=== PATIENT | male | born 1970 | race Caucasian/White ===

== ENCOUNTER 2016-05-21 08:00 | Outpatient (CLI) | payer MEDICARE, OTHER, MEDICAID | END 2016-05-21 08:01 | disposition home or self-care (01) | DX: E78.5 Hyperlipidemia, unspecified (principal); G40.909 Epilepsy, unspecified, not intractable, without status epilepticus; G80.9 Cerebral palsy, unspecified ==

== ENCOUNTER 2016-09-18 22:29 | Inpatient (IN) | payer MEDICARE, OTHER, MEDICAID ==
[2016-09-18] MEDS ORDERED: ONDANSETRON ODT 4 MG TABLET TL STA (22:55)
[2016-09-18] MEDS ORDERED: ONDANSETRON ODT 4 MG TABLET ONE (22:57)
--- NOTE | 2016-09-18 23:59 | XRAY Preliminary Report ---
Exam: XR Abdomen Acute IMPRESSION: 1. Moderate proximal to mid small bowel dilatation suggesting partial obstruction. 2. Unremarkable chest. [facility] SITE ID: [id number]
--- NOTE | 2016-09-19 00:02 | XRAY Report ---
EXAM: ABDOMINAL SERIES AND PA CHEST EXAM DATE: 09/18/2016 11:39 PM. CLINICAL HISTORY: Multiple abd surg, vomiting today. COMPARISON: 06/02/2015. TECHNIQUE: 2 views abdomen and 1 view chest. FINDINGS: CHEST: Lungs/Pleura: No focal opacities. No effusion or pneumothorax. Mediastinum: Within exam limitations, cardiomediastinal contour is normal. ABDOMEN: Bowel Gas Pattern: There are several mildly dilated proximal to mid small bowel loops. Air is seen th roughout the distal small bowel and colon. Free Air: None. Other: Spinal stabilization rods extending from T1 through the sacrum noted. IMPRESSION: 1. Moderate proximal to mid small bowel dilatation suggesting partial obstruction. 2. Unremarkable chest. [facility] Referring Provider Line: [phone] SITE ID: [id number]
[2016-09-19 00:27] LABS: BASOPHILS % (AUTO) 0.3 %; EOSINOPHILS # (AUTO) 0.2 10^3/uL (0.0-0.7); EOSINOPHILS % (AUTO) 1.3 %; HCT - HEMATOCRIT 46.8 % (42.0-52.0); HGB - HEMOGLOBIN 15.7 g/dL (14.0-18.0); LYMPHOCYTES # (AUTO) 1.9 10^3/uL (1.5-3.5); LYMPHOCYTES % (AUTO) 13.7 %; MEAN CORPUSCULAR HEMOGLOBIN 31.7 pg (27.0-31.0); MEAN CORPUSCULAR HGB CONC 33.6 g/dL (32.0-36.0); MEAN CORPUSCULAR VOLUME 94.3 fL (80.0-94.0); MEAN PLATELET VOLUME 7.2 fL (7.4-11.4); MONOCYTES # (AUTO) 0.9 10^3/uL (0.0-1.0); MONOCYTES % (AUTO) 6.8 %; NEUTROPHILS # (AUTO) 10.9 10^3/uL (1.5-6.6); NEUTROPHILS % (AUTO) 77.9 %; NUCLEATED RED BLOOD CELLS AUTO 0.1 /100WBC; RED BLOOD COUNT 4.97 10^6/uL (4.70-6.10); RED CELL DISTRIBUTION WIDTH 13.4 % (12.0-15.0); UNCORRECTED WHITE BLOOD COUNT 13.9 x10^3/uL; WHITE BLOOD COUNT 13.9 x10^3/uL (4.8-10.8)
[2016-09-19 00:37] LABS: BILIRUBIN,TOTAL 0.6 mg/dL (0.2-1.0); CALCIUM 9.4 mg/dL (8.5-10.3); CREATININE 0.5 mg/dL (0.6-1.2); MAGNESIUM 1.9 mg/dL (1.7-2.8); POTASSIUM 3.8 mmol/L (3.5-5.0)
[2016-09-19 00:38] LABS: ALBUMIN/GLOBULIN RATIO 1.3 (1.0-2.2); TOTAL PROTEIN 7.7 g/dL (6.7-8.2)
[2016-09-19] MEDS ORDERED: IOPAMIDOL-300 100 ML VIAL IVP ONE (01:14)
--- NOTE | 2016-09-19 01:46 | CT Preliminary Report ---
Exam: CT Abdomen/Pelvis W/ IMPRESSION: 1. Borderline proximal to mid small bowel dilatation likely secondary to regional ileus or partial ob struction. There is no evidence of high-grade small bowel obstruction or acute inflammatory process. 2. Status post cholecystectomy. 3. Hiatal hernia. [facility] SITE ID: [id number]
--- NOTE | 2016-09-19 01:49 | CT Report ---
EXAM: CT ABDOMEN AND PELVIS EXAM DATE: 09/19/2016 01:17 AM. CLINICAL HISTORY: Obstruction on x ray. COMPARISONS: 70 08/15/2014 CT, 09/18/2016 abdomen radiographs. TECHNIQUE: Routine helical CT imaging was performed through the abdomen and pelvis. IV contrast: 100 mL Isovue-300. Enteric contrast: No. Reconstructions: Coronal and sagittal. In accordance with CT protocol optimization, one or more of the following dose reduction techniques w ere utilized for this exam: automated exposure control, adjustment of mA and/or KV based on patient s ize, or use of iterative reconstructive technique. FINDINGS: Lung Bases: Hiatal hernia. The visualized lungs are clear.. Liver: Normal. No masses. Gallbladder/Bile Ducts: The gallbladder has been removed. No bile duct dilatation. Spleen: Normal. Pancreas: Normal. Adrenal Glands: Normal. Kidneys: Normal. No masses or hydronephrosis. Peritoneal Cavity/Bowel: Several borderline dilated proximal to mid small bowel loops seen in the lef t upper quadrant. No transition zone or evidence of high-grade obstruction. No evidence of acute appe ndicitis. Pelvic Organs: Normal. The bladder and visualized pelvic organs are within normal limits. Vasculature: No aneurysms or other significant abnormality. Bones: Left femur and total spine fixation hardware noted. Other: None. IMPRESSION: 1. Borderline proximal to mid small bowel dilatation likely secondary to regional ileus or partial ob struction. There is no evidence of high-grade small bowel obstruction or acute inflammatory process. 2. Status post cholecystectomy. 3. Hiatal hernia. [facility] Referring Provider Line: [phone] SITE ID: [id number]
--- NOTE | 2016-09-19 02:04 | ED Physician Documentation ---
PD HPI ABD PAIN - Stated complaint Stated Complaint: VOMITING - Chief complaint Chief Complaint: Abd Pain - History obtained from History obtained from: Family - History of Present Illness Timing - onset: Today Timing - details: Gradual onset Quality: Fullness/distended Location: Epigastric Worsened by: Eating Associated symptoms: Nausea, Vomiting. No: Diarrhea, Constipation, Near syncope / syncope Similar symptoms before: Work up / diagnostics, Treatment, Follow up Recently seen: Not recently seen - Additional information Additional information: Patient is a 46 year old male with a history of cerebral palsy, seizure disorder and multiple episodes of bowel obstruction in presenting to the emergency department for vomiting. According to caregivers the patient had two episodes of vomiting today, but is still passing gas and had a bowel movement. Due to the recurrent obstructions they brought the patient in for evaluation. Patient is minimally verbal at baseline. Review of Systems Constitutional: denies: Fever, Chills Eyes: denies: Irritation Ears: denies: Ear pain Throat: denies: Sore throat Cardiac: denies: Chest pain / pressure Respiratory: denies: Cough, Wheezing GI: reports: Nausea, Vomiting. denies: Abdominal Swelling, Constipation : denies: Dysuria Neurologic: denies: Generalized weakness, Focal weakness Immunocompromised: denies: Immunocompromised PD PAST MEDICAL HISTORY - Past Medical History Cardiovascular: None Respiratory: None Neuro: Cerebral palsy, Seizure disorder Endocrine/Autoimmune: None GI: GERD, GI bleed : Incontinence HEENT: None Psych: Anxiety Musculoskeletal: None Derm: None - Past Surgical History Past Surgical History: Yes General: Cholecystectomy, Bowel surgery Ortho: Spine surgery /[employer]OB CAPTAIN: Other (Left orchiectomy) - Present Medications Home Medications: Ambulatory Orders Medication Instructions Recorded Confirmed Amitriptyline HCl 30 mg PO HS 05/12/13 02/13/15 Docusate Calcium [Surfak] 250 mg PO BID 05/12/13 02/13/15 Multivitamin [Multi-Vitamin Daily] 1 each PO DAILY 05/12/13 02/13/15 Polyethylene Glycol 3350 [Miralax] 17 gm PO DAILY 05/12/13 02/13/15 Atorvastatin [Lipitor] 10 mg PO DAILY 07/30/13 02/13/15 Omeprazole [Prilosec] 20 mg PO BID 07/30/13 02/13/15 Phenytoin [Dilantin] 100 mg PO BID 11/18/14 02/13/15 Ondansetron Odt [Zofran] 4 mg TL Q6H PRN #10 tablet 02/13/15 Ranitidine HCl [Zantac] 150 mg PO BID 28 Days 02/13/15 Sucralfate [Carafate] 1 gm PO ACHS #120 udc 02/13/15 - Allergies Allergies/Adverse Reactions: Allergies Allergy/AdvReac Type Severity Reaction Status Date / Time Sulfa (Sulfonamide Allergy Hives Verified 09/18/16 22:39 Antibiotics) - Social History Does the pt smoke?: No Smoking Status: Never smoker Does the pt drink ETOH?: No Does the pt have substance abuse?: No - Immunizations Immunizations are current?: Yes - POLST Patient has POLST: No PD ED PE NORMAL - Vitals Vital signs reviewed: Yes - General General: No acute distress - HEENT HEENT: Atraumatic, PERRL, Moist mucous membranes - Cardiac Cardiac: RRR, No murmur - Respiratory Respiratory: No respiratory distress, Clear bilaterally - Abdomen Abdomen: Soft - Derm Derm: Normal color, Warm and dry, No rash - Psych Psych: Normal mood PD ED PE EXPANDED - Abdomen Abdomen: Surgical scars. No: Distended Results - Vitals Vitals: Vital Signs - 24 hr 09/18/16 09/19/16 09/19/16 22:39 00:01 01:11 Temperature 36.0 C L 36.4 C L 36.8 C Heart Rate 92 90 93 Respiratory 18 16 16 Rate Blood Pressure 134/97 H 130/101 H 146/95 H O2 Saturation 95 97 96 Oxygen O2 Source Room air - Labs Labs: Laboratory Tests 09/19/16 09/19/16 09/19/16 00:10 00:10 00:10 WBC 13.9 H RBC 4.97 Hgb 15.7 Hct 46.8 MCV 94.3 H MCH 31.7 H MCHC 33.6 RDW 13.4 Plt Count 273 MPV 7.2 L Neut # 10.9 H Lymph # 1.9 Sac # 0.9 Eos # 0.2 Baso # 0.0 Absolute Nucleated RBC 0.02 Nucleated RBCs 0.1 Sodium 140 Potassium 3.8 Chloride 99 L Carbon Dioxide 31 Anion Gap 10.0 BUN 9 Creatinine 0.5 L Estimated GFR (MDRD) 180 Glucose 108 H Calcium 9.4 Phosphorus 4.0 Magnesium 1.9 Total Bilirubin 0.6 AST 35 ALT 31 Alkaline Phosphatase 129 H Total Protein 7.7 Albumin 4.4 Globulin 3.3 Albumin/Globulin Ratio 1.3 Lipase 37 Phenytoin 13.4 - Rads (name of study) abdominal x-ray Radiology: Final report received (findings suggestive of sbo) ct abdomen pelvis Radiology: Final report received, See rad report (partial sbo or ileus. ) PD MEDICAL DECISION MAKING - ED course Complexity details: reviewed old records, reviewed results, re-evaluated patient , considered differential, d/w family ED course: Patient was seen and examined at bedside. patient was well appearing and in no acute distress. patient had had a bowel movement earlier at the house. abdominal films were ordered and patient was treated with zofran 4mg. When patient returned from imaging the results were reviewed and were concerning for a bowel obstruction. IV access was gained and labs were drawn. when patient's labs came back he was sent for imaging. When patient returned from imaging the results were reviewed. there were signs of partial sbo or ileus. Hospitalist was contacted and the case was discussed with her. patient was placed in observation for further evaluation and care. Departure - Departure Disposition: ED Place in Observation Clinical Impression: Small bowel obstruction Condition: Good
[2016-09-19] MEDS ORDERED: PHENYTOIN ER 100 MG CAPSULE PO SCH (02:18)
[2016-09-19] MEDS ORDERED: SODIUM CHLORIDE FLUSH 0.9% 10 ML SYRINGE IVP PRN (02:19)
[2016-09-19] MEDS ORDERED: HYDROmorphone 1 MG/ML SYRINGE IVP PRN (02:19)
[2016-09-19] MEDS ORDERED: ONDANSETRON 4 MG/2 ML VIAL IVP PRN (02:19)
[2016-09-19] MEDS: SODIUM CHLORIDE 0.9% 1,000 ML IV SCH ×3 (03:37→20:24)
[2016-09-19] MEDS: AMITRIPTYLINE 10 MG TABLET PO SCH ×2 (03:38→20:25)
--- NOTE | 2016-09-19 04:11 | HISTORY & PHYSICAL EXAMINATION ---
DATE OF ADMISSION: 09/19/2016 PRIMARY CARE PROVIDER: PRADEEP Lynch. CHIEF COMPLAINT: Nausea, vomiting. HISTORY OF PRESENT ILLNESS: This is a 46-year-old male who has a history of cerebral palsy, lives in a shelter, who presents with onset the evening prior to admission of nausea, vomiting. Denies any abdominal pain or alteration in bowel movements. The patient is nonverbal secondary to cerebral palsy , but family is at bedside. He does have a history of seizure disorder and the family is concerned as he did vomit up his seizure medication, which is Dilantin, this evening. ER evaluation includes CT o f abdomen and pelvis with IV contrast, no enteric contrast was given. Shows borderline proximal to mi d small bowel dilatation likely secondary to regional ileus or partial obstruction. No evidence of hi gh grade small-bowel obstruction or acute inflammatory process. The patient is status post cholecyste ctomy and hiatal hernia is present. PAST MEDICAL HISTORY: History of cerebral palsy for which he is nonverbal, history of hyperlipidemia, history of seizure disorder for which he is on Dilantin, history of GERD, status post cholecystectom y, history of spinal surgery, history of left orchiectomy, history of recurrent small bowel obstructi on, last was 01/2015, history of gastritis with gastrointestinal bleeding, history of urinary inconti nence, history of chronic [place] ailin in back due to scoliosis. MEDICATIONS UPON ADMISSION 1. Docusate 1 tab p.o. daily. 2. Multiple vitamin 1 tab p.o. daily. 3. Omeprazole 40 mg p.o. daily. 4. Ondansetron ODT 4 mg tab p.o. q.6h. p.r.n. nausea and vomiting. 5. MiraLax 17 grams p.o. daily. 6. Ranitidine 150 mg p.o. b.i.d. 7. Sucralfate 1 gram p.o. unknown frequency. 8. Amitriptyline 10 mg p.o. at bedtime daily. 9. Atorvastatin 10 mg p.o. daily. 10. Phenytoin 100 mg p.o. b.i.d. ALLERGIES: SULFA. SOCIAL HISTORY: Lives at a shelter. Smoking and alcohol, none. FAMILY MEDICAL HISTORY: Father is from [place]. Mother is . No brothers or sist ers. At bedside, actually are his foster parents. REVIEW OF SYSTEMS: Denies fevers or chills. All other review of systems are reviewed and are negative except for as in the HPI, although keep in mind the patient is not able to give a history himself. PHYSICAL EXAMINATION VITAL SIGNS: Temperature is afebrile, heart rate is 93, blood pressure 146/95, respiratory rate 16, r oom air saturation 96-100%. CONSTITUTIONAL: Middle-aged male in no acute distress. HEAD: Normocephalic, atraumatic. EYES: PERRLA-DC, EOMI. MOUTH: No lesions. NECK: No adenopathy. CHEST: Clear to auscultation. COR: Regular rate and rhythm, S1, S2 without murmur. ABDOMEN: Soft, bowel sounds are hypoactive. Nontender. EXTREMITIES: No pedal edema. He does have contractures secondary to cerebral palsy. SKIN: No rashes. PSYCHIATRIC: Unable to assess. NEUROLOGIC: He is alert. Unable to assess orientation due to is nonverbal status. He, however, does n ot follow commands. Contractures as noted above. LABORATORY: As above. Also to include sodium 140, potassium 3.8, chloride 99, bicarbonate 31, BUN 9, creatinine 0.8, calculated GFR 180, glucose 108, calcium 9.4, phosphorus 4.0, magnesium 1.9, total bi lirubin 0.6, AST 35, ALT 31, alkaline phosphatase 129, total protein 7.7, albumin 4.4, lipase 37. Whi te count 13.9, hematocrit 46.8, MCV 94.3, platelets 273 with 10.9 polys. Urine is pending at the time of this dictation. ASSESSMENT AND PLAN 1. Partial small-bowel obstruction, acute, present on admission. Make n.p.o. except pertinent medicat ions. IV fluids. We will try to give him a dose of his p.o. Dilantin tonight. Zofran IV p.r.n. 2. Seizure disorder, chronic, present on admission. We will reinstitute p.o. b.i.d. Dilantin; however , if unable to take p.o., will need to administer IV. We will also check a Dilantin level tonight. 3. Hyperlipidemia, acute, present on admission. [place] oral statin when he is able to take. 4. History of gastroesophageal reflux disease and gastritis. We will go ahead and give IV Protonix. 5. Deep venous thrombosis prophylaxis. SCDs and subcutaneous Lovenox. TIME SPENT: 60 minutes. JOB #: [id number] EXT JOB #:[id number]
[2016-09-19] MEDS: PANTOPRAZOLE 40 MG VIAL IVP SCH (06:19)
[2016-09-19] MEDS: SODIUM CHLORIDE FLUSH 0.9% 10 ML SYRINGE IVP SCH ×3 (06:19→20:26)
[2016-09-19] MEDS: HEPARIN 5,000 UNIT/ML VIAL SUBQ SCH ×2 (09:49→20:26)
[2016-09-19] MEDS: PHENYTOIN ER 100 MG CAPSULE PO SCH ×2 (09:53→20:26)
[2016-09-19] MEDS: ATORVASTATIN 10 MG TABLET PO SCH (09:53)
[2016-09-19] MEDS: POLYETHYLENE GLYCOL 3350 17 GM PACKET PO SCH (10:06)
--- NOTE | 2016-09-19 11:58 | PROVIDER PROGRESS NOTE ---
Assessment/Plan - Problem List (1) Small bowel obstruction Assessment/Plan: ongoing. Patient is tolerating home medication but remains NPO . will try to advance diet tomorrow to clear liquid. He has not had any emesis or diarrhea in the afternoon. Continue to monitor for changes. Zofran and Phenergan for nausea and vomiting (2) Cerebral palsy with spastic/ataxic diplegia Assessment/Plan: stable. continue with fall and seizure precautions and PT and OT evaluation and assessment (3) Seizure disorder Assessment/Plan: stable. Dilantin level checked and within normal limits. continue on Dilantin home dosage. seizure precautions (4) Mild mental retardation Assessment/Plan: stable. continue to provide support and caregiver at bedside for support. will need education and teaching for mentally challenged but caregiver at bedside has a good handle on patients care. - Current Meds Current Meds: Current Medications Generic Name Dose Route Start Last Admin Trade Name Freq PRN Reason Stop Dose Admin Amitriptyline HCl 30 mg 09/19/16 03:00 09/19/16 03:38 Elavil PO 30 mg HS SARAH Administration Atorvastatin Calcium 10 mg 09/19/16 09:00 09/19/16 09:53 Lipitor PO 10 mg DAILY SARAH Administration Heparin Sodium (Porcine) 5,000 unit 09/19/16 09:00 09/19/16 09:49 SUBQ 5,000 unit BID SARAH Administration Sodium Chloride 1,000 mls @ 100 mls/hr 09/19/16 03:00 09/19/16 03:37 Normal Saline 0.9% IV 100 mls/hr .Q10H SARAH Administration Pantoprazole Sodium 40 mg 09/19/16 07:00 09/19/16 06:19 Protonix IVP 40 mg QDAC SARAH Administration Phenytoin Sodium 100 mg 09/19/16 09:00 09/19/16 09:53 Dilantin PO 100 mg BID SARAH Administration Polyethylene Glycol 17 gm 09/19/16 09:00 09/19/16 10:06 Miralax PO Not Given DAILY SARAH Sodium Chloride 10 ml 09/19/16 06:00 09/19/16 06:19 Normal Saline Flush 0.9% IVP 10 ml Q8HR SARAH Administration - Lab Result Lab results reviewed: Yes Fish Bone Diagrams: 09/19/16 00:10 09/19/16 00:10 - EKG Results EKG Interpreted Independently: Yes EKG Comparison: Unchanged from prior EKG - Diagnostic Imaging Results Diagnostic Imaging Results: positive: Prelim report reviewed, Final report reviewed Diagnostic Imaging Results Comments: Patient with small bowel obstruction, partial with possible ileus - Other Other Results/Comments: Plan to dischargepatient back to home or skilled care within the next 24-48 hours pending resolution of vomiting and abdominal discomfort with SBO Subjective - Subjective Patient Reports: Resting Comfortably, No Complaints, Other (hungry and wanting to eat, pullling at clothes) Nursing Reports: No Complaints Objective Vital Signs: Vital Signs - 24 hr 09/19/16 09/19/16 09/19/16 02:44 03:26 08:19 Temperature 36.8 C 36.3 C L 36.8 C Heart Rate 91 Heart Rate [ 85 73 Brachial] Respiratory 14 18 18 Rate Blood Pressure 136/93 H Blood Pressure 145/97 H 112/74 [Right Brachial artery] O2 Saturation 94 97 96 Oxygen O2 Source Room air I&O (Last 24 Hrs): Intake and Output Totals x24h 09/17/16 09/18/16 09/19/16 23:59 23:59 23:59 Intake Total 268 Balance 268 General: Alert, Cooperative, No acute distress HEENT: PERRLA Neck: Supple, No JVD Lymphatic: no adenopathy Neuro: Alert, Other (cerebal palsy and unable to assess cranial nerves) Cardiovascular: Regular rate, Normal S1, Normal S2, No murmurs Respiratory: No respiratory distress, Breath sounds nml Abdomen: Normal bowel sounds, Soft, No tenderness, No masses Genitourinary: No Hernia Extremities: No clubbing, No edema, Normal pulses, No tenderness/swelling ( contractures to upper extremities with CP) Skin: No rashes, No breakdown, No significant lesion - Results Results: Laboratory Results WBC 13.9 x10^3/uL (4.8-10.8) H 09/19/16 00:10 RBC 4.97 10^6/uL (4.70-6.10) 09/19/16 00:10 Hgb 15.7 g/dL (14.0-18.0) 09/19/16 00:10 Hct 46.8 % (42.0-52.0) 09/19/16 00:10 MCV 94.3 fL (80.0-94.0) H 09/19/16 00:10 MCH 31.7 pg (27.0-31.0) H 09/19/16 00:10 MCHC 33.6 g/dL (32.0-36.0) 09/19/16 00:10 RDW 13.4 % (12.0-15.0) 09/19/16 00:10 Plt Count 273 10^3/uL (130-450) 09/19/16 00:10 MPV 7.2 fL (7.4-11.4) L 09/19/16 00:10 Neut # 10.9 10^3/uL (1.5-6.6) H 09/19/16 00:10 Lymph # 1.9 10^3/uL (1.5-3.5) 09/19/16 00:10 [place] # 0.9 10^3/uL (0.0-1.0) 09/19/16 00:10 Eos # 0.2 10^3/uL (0.0-0.7) 09/19/16 00:10 Baso # 0.0 10^3/uL (0.0-0.1) 09/19/16 00:10 Absolute Nucleated RBC 0.02 x10^3/uL 09/19/16 00:10 Nucleated RBCs 0.1 /100WBC 09/19/16 00:10 Sodium 140 mmol/L (135-145) 09/19/16 00:10 Potassium 3.8 mmol/L (3.5-5.0) 09/19/16 00:10 Chloride 99 mmol/L (101-111) L 09/19/16 00:10 Carbon Dioxide 31 mmol/L (21-32) 09/19/16 00:10 Anion Gap 10.0 (6-13) 09/19/16 00:10 BUN 9 mg/dL (6-20) 09/19/16 00:10 Creatinine 0.5 mg/dL (0.6-1.2) L 09/19/16 00:10 Estimated GFR (MDRD) 180 (>89) 09/19/16 00:10 Glucose 108 mg/dL (70-100) H 09/19/16 00:10 Calcium 9.4 mg/dL (8.5-10.3) 09/19/16 00:10 Phosphorus 4.0 mg/dL (2.5-4.6) 09/19/16 00:10 Magnesium 1.9 mg/dL (1.7-2.8) 09/19/16 00:10 Total Bilirubin 0.6 mg/dL (0.2-1.0) 09/19/16 00:10 AST 35 IU/L (10-42) 09/19/16 00:10 ALT 31 IU/L (10-60) 09/19/16 00:10 Alkaline Phosphatase 129 IU/L (42-121) H 09/19/16 00:10 Total Protein 7.7 g/dL (6.7-8.2) 09/19/16 00:10 Albumin 4.4 g/dL (3.2-5.5) 09/19/16 00:10 Globulin 3.3 g/dL (2.1-4.2) 09/19/16 00:10 Albumin/Globulin Ratio 1.3 (1.0-2.2) 09/19/16 00:10 Lipase 37 U/L (22-51) 09/19/16 00:10 Phenytoin 13.4 ug/mL 09/19/16 00:10 - Procedures Procedures: Procedures ESOPHAGOGASTRODUODENOSCOPY [EGD] W/CLOSED BIOPSY (07/31/13) INSERT GASTRIC TUBE NEC (06/23/14) INSERTION OF INFUSION DEVICE INTO R ATRIUM, PERC APPROACH (02/03/15) ULTRASONOGRAPHY OF RIGHT HEART (02/03/15)
[2016-09-19 14:06] LABS: BILIRUBIN,URINE NEGATIVE (NEGATIVE)
[2016-09-19 14:32] LABS: UR CULTURE IF IND NOT INDICATED; WBC,URINE 0-3 /HPF (0-3)
[2016-09-20] MEDS: SODIUM CHLORIDE FLUSH 0.9% 10 ML SYRINGE IVP SCH ×3 (05:15→21:19)
[2016-09-20] MEDS: SODIUM CHLORIDE 0.9% 1,000 ML IV SCH ×2 (05:48→20:54)
[2016-09-20] MEDS: PANTOPRAZOLE 40 MG VIAL IVP SCH (05:48)
[2016-09-20 06:06] LABS: BASOPHILS % (AUTO) 0.5 %; EOSINOPHILS # (AUTO) 0.3 10^3/uL (0.0-0.7); EOSINOPHILS % (AUTO) 5.3 %; HCT - HEMATOCRIT 42.5 % (42.0-52.0); LYMPHOCYTES % (AUTO) 30.6 %; MEAN CORPUSCULAR HEMOGLOBIN 31.8 pg (27.0-31.0); MEAN CORPUSCULAR HGB CONC 32.9 g/dL (32.0-36.0); MEAN CORPUSCULAR VOLUME 96.7 fL (80.0-94.0); MEAN PLATELET VOLUME 7.4 fL (7.4-11.4); MONOCYTES # (AUTO) 0.6 10^3/uL (0.0-1.0); NEUTROPHILS # (AUTO) 3.5 10^3/uL (1.5-6.6); NEUTROPHILS % (AUTO) 54.6 %; NUCLEATED RED BLOOD CELLS AUTO 0.1 /100WBC; RED CELL DISTRIBUTION WIDTH 13.6 % (12.0-15.0); UNCORRECTED WHITE BLOOD COUNT 6.4 x10^3/uL; WHITE BLOOD COUNT 6.4 x10^3/uL (4.8-10.8)
[2016-09-20 06:17] LABS: ALBUMIN/GLOBULIN RATIO 1.3 (1.0-2.2); BILIRUBIN,TOTAL 0.5 mg/dL (0.2-1.0); CALCIUM 8.1 mg/dL (8.5-10.3); CREATININE 0.5 mg/dL (0.6-1.2); MAGNESIUM 1.6 mg/dL (1.7-2.8); PHOSPHORUS 3.1 mg/dL (2.5-4.6); POTASSIUM 3.8 mmol/L (3.5-5.0); TOTAL PROTEIN 6.5 g/dL (6.7-8.2)
--- NOTE | 2016-09-20 06:55 | PROVIDER PROGRESS NOTE ---
Assessment/Plan - Problem List (1) Small bowel obstruction Assessment/Plan: improving, white blood cell cound decreased today and patient is feeling better. nursing at bedside to clean patient. no vomiting overnight. no abdominal pain. will try to advance to clear diet today. no fever or chills noted (2) Cerebral palsy with spastic/ataxic diplegia Assessment/Plan: stable. continue with PT and OT evaluation (3) Seizure disorder Assessment/Plan: stable. continue with precautions and on dilantin. (4) Mild mental retardation Assessment/Plan: stable. continue to provide support for patient and caregiver at bedside for support (5) Low blood magnesium level Assessment/Plan: new. replace magnesium level with magnesium sulfate 2gm IV x 2 and repeat level in morning - Current Meds Current Meds: Current Medications Generic Name Dose Route Start Last Admin Trade Name Freq PRN Reason Stop Dose Admin Amitriptyline HCl 30 mg 09/19/16 03:00 09/19/16 20:25 Elavil PO 30 mg HS SARAH Administration Atorvastatin Calcium 10 mg 09/19/16 09:00 09/19/16 09:53 Lipitor PO 10 mg DAILY SARAH Administration Heparin Sodium (Porcine) 5,000 unit 09/19/16 09:00 09/19/16 20:26 SUBQ 5,000 unit BID SARAH Administration Sodium Chloride 1,000 mls @ 100 mls/hr 09/19/16 03:00 09/20/16 05:48 Normal Saline 0.9% IV 100 mls/hr .Q10H SARAH Administration Ondansetron HCl 4 mg 09/19/16 02:19 09/19/16 21:37 Zofran Inj IVP 4 mg Q6HR PRN Administration Nausea / Vomiting Pantoprazole Sodium 40 mg 09/19/16 07:00 09/20/16 05:48 Protonix IVP 40 mg QDAC SARAH Administration Phenytoin Sodium 100 mg 09/19/16 09:00 09/19/16 20:26 Dilantin PO 100 mg BID SARAH Administration Polyethylene Glycol 17 gm 09/19/16 09:00 09/19/16 10:06 Miralax PO Not Given DAILY SARAH Sodium Chloride 10 ml 09/19/16 02:19 09/19/16 21:37 Normal Saline Flush 0.9% IVP 10 ml PRN PRN Administration NEEDED PER PROVIDER ORDERS Sodium Chloride 10 ml 09/19/16 06:00 09/20/16 05:15 Normal Saline Flush 0.9% IVP Not Given Q8HR SARAH - Lab Result Lab results reviewed: Yes Fish Bone Diagrams: 09/20/16 05:26 09/20/16 05:26 Other Lab Results: Abnormal Lab Results 09/19/16 09/19/16 09/19/16 00:10 00:10 13:45 WBC 13.9 x10^3/uL H x10^3/uL (4.8-10.8) RBC MCV 94.3 fL H fL (80.0-94.0) MCH 31.7 pg H pg (27.0-31.0) MPV 7.2 fL L fL (7.4-11.4) Neut # 10.9 10^3/uL H 10^3/uL (1.5-6.6) Chloride 99 mmol/L L mmol/L (101-111) Creatinine 0.5 mg/dL L mg/dL (0.6-1.2) Glucose 108 mg/dL H mg/dL (70-100) Calcium Magnesium Alkaline Phosphatase 129 IU/L H IU/L (42-121) Total Protein Urine pH 8.0 PH H PH (5.0-7.5) 09/20/16 09/20/16 05:26 05:26 WBC RBC 4.40 10^6/uL L 10^6/uL (4.70-6.10) MCV 96.7 fL H fL (80.0-94.0) MCH 31.8 pg H pg (27.0-31.0) MPV Neut # Chloride Creatinine 0.5 mg/dL L mg/dL (0.6-1.2) Glucose Calcium 8.1 mg/dL L mg/dL (8.5-10.3) Magnesium 1.6 mg/dL L mg/dL (1.7-2.8) Alkaline Phosphatase 127 IU/L H IU/L (42-121) Total Protein 6.5 g/dL L g/dL (6.7-8.2) Urine pH - EKG Results EKG Interpreted Independently: No - Diagnostic Imaging Results Diagnostic Imaging Results: positive: Prelim report reviewed, Final report reviewed - Additional Planning Condition/Complexity: Improved My Orders: My Active Orders 09/20/16 06:50 VITAMIN B12 [IAI] Stat 09/20/16 07:00 Magnesium Sulfate 2 Gram [Magnesium Sulfate] 50 ml IV Q20M Plan Discussed with:: Legal Adarsh, Case Management Time Spent: 31-60 minutes Additional Planning Notes: Patient will advance diet today with hope of no vomiting or nausea. Zofran to be given prior to eating. aspirations precautions and head of the bed elevated. Plan to discharge patient within the next 24-48 hours if tolerating food and no emesis noted Subjective - Subjective Patient Reports: Feeling Better (no abdominal pain or vomiting or nausea.), Resting Comfortably, No Complaints Nursing Reports: No Complaints (no vomiting overnight. no nausea. no chest pain or shortness of breath) Objective Vital Signs: Vital Signs - 24 hr 09/19/16 09/19/16 09/19/16 08:19 12:09 16:11 Temperature 36.8 C 36.6 C 37.2 C Heart Rate [ 73 78 76 Brachial] Respiratory 18 19 18 Rate Blood Pressure 112/74 121/87 H 136/85 H [Right Brachial artery] O2 Saturation 96 98 96 09/19/16 09/20/16 09/20/16 20:20 01:00 05:53 Temperature 37.0 C 37.0 C 36.6 C Heart Rate [ 82 69 72 Brachial] Respiratory 16 16 20 Rate Blood Pressure 138/88 H 132/86 H 114/75 [Right Brachial artery] O2 Saturation 97 95 95 Oxygen O2 Source Room air I&O (Last 24 Hrs): Intake and Output Totals x24h 09/18/16 09/19/16 09/20/16 23:59 23:59 23:59 Intake Total 1670 942 Output Total 200 Balance 1470 942 General: Alert, Cooperative HEENT: PERRLA Neck: Supple, No JVD Lymphatic: no adenopathy Neuro: Alert, Other (cannot assess cranial nerves due to mental staus-handicap) Cardiovascular: Regular rate, Normal S1, Normal S2, No murmurs Respiratory: Chest non-tender, No respiratory distress, Breath sounds nml Abdomen: Normal bowel sounds, Soft, No tenderness Extremities: No clubbing, No cyanosis, No edema, Other (contractures to upper extremities-chronic) Skin: No rashes, No significant lesion Comments/Notes: sacral redness improved on buttock region - Results Results: Laboratory Results WBC 6.4 x10^3/uL (4.8-10.8) 09/20/16 05: RBC 4.40 10^6/uL (4.70-6.10) L 09/20/16 05:26 Hgb 14.0 g/dL (14.0-18.0) 09/20/16 05:26 Hct 42.5 % (42.0-52.0) 09/20/16 05: MCV 96.7 fL (80.0-94.0) H 09/20/16 05:26 MCH 31.8 pg (27.0-31.0) H 09/20/16 05: MCHC 32.9 g/dL (32.0-36.0) 09/20/16 05: RDW 13.6 % (12.0-15.0) 09/20/16 05:26 Plt Count 216 10^3/uL (130-450) 09/20/16 05: MPV 7.4 fL (7.4-11.4) 09/20/16 05:26 Neut # 3.5 10^3/uL (1.5-6.6) 09/20/16 05:26 Lymph # 2.0 10^3/uL (1.5-3.5) 09/20/16 05:26 [place] # 0.6 10^3/uL (0.0-1.0) 09/20/16 05:26 Eos # 0.3 10^3/uL (0.0-0.7) 09/20/16 05:26 Baso # 0.0 10^3/uL (0.0-0.1) 09/20/16 05:26 Absolute Nucleated RBC 0.01 x10^3/uL 09/20/16 05:26 Nucleated RBCs 0.1 /100WBC 09/20/16 05:26 Sodium 137 mmol/L (135-145) 09/20/16 05:26 Potassium 3.8 mmol/L (3.5-5.0) 09/20/16 05:26 Chloride 102 mmol/L (101-111) 09/20/16 05:26 Carbon Dioxide 24 mmol/L (21-32) 09/20/16 05:26 Anion Gap 11.0 (6-13) 09/20/16 05:26 BUN 9 mg/dL (6-20) 09/20/16 05:26 Creatinine 0.5 mg/dL (0.6-1.2) L 09/20/16 05:26 Estimated GFR (MDRD) 180 (>89) 09/20/16 05:26 Glucose 70 mg/dL (70-100) 09/20/16 05:26 Calcium 8.1 mg/dL (8.5-10.3) L 09/20/16 05:26 Phosphorus 3.1 mg/dL (2.5-4.6) 09/20/16 05:26 Magnesium 1.6 mg/dL (1.7-2.8) L 09/20/16 05:26 Total Bilirubin 0.5 mg/dL (0.2-1.0) 09/20/16 05:26 AST 29 IU/L (10-42) 09/20/16 05:26 ALT 31 IU/L (10-60) 09/20/16 05:26 Alkaline Phosphatase 127 IU/L (42-121) H 09/20/16 05:26 Total Protein 6.5 g/dL (6.7-8.2) L 09/20/16 05:26 Albumin 3.7 g/dL (3.2-5.5) 09/20/16 05:26 Globulin 2.8 g/dL (2.1-4.2) 09/20/16 05:26 Albumin/Globulin Ratio 1.3 (1.0-2.2) 09/20/16 05:26 Lipase 37 U/L (22-51) 09/19/16 00:10 Urine Color YELLOW 09/19/16 13:45 Urine Clarity CLEAR (CLEAR) 09/19/16 13:45 Urine pH 8.0 PH (5.0-7.5) H 09/19/16 13:45 Ur Specific [place] 1.010 (1.002-1.030) 09/19/16 13:45 Urine Protein NEGATIVE mg/dL (NEGATIVE) 09/19/16 13:45 Urine Glucose (UA) NEGATIVE mg/dL (NEGATIVE) 09/19/16 13:45 Urine Ketones NEGATIVE mg/dL (NEGATIVE) 09/19/16 13:45 Urine Occult Blood NEGATIVE (NEGATIVE) 09/19/16 13:45 Urine Nitrite NEGATIVE (NEGATIVE) 09/19/16 13:45 Urine Bilirubin NEGATIVE (NEGATIVE) 09/19/16 13:45 Urine Urobilinogen 0.2 (NORMAL) E.U./dL (NORMAL) 09/19/16 13:45 Ur Leukocyte Esterase NEGATIVE (NEGATIVE) 09/19/16 13:45 Urine RBC None Seen /HPF (0-5) 09/19/16 13:45 Urine WBC 0-3 /HPF (0-3) 09/19/16 13:45 Ur Squamous Epith Cells NONE SEEN (<= Few) 09/19/16 13:45 Amorphous Sediment Few /LPF 09/19/16 13:45 Urine Bacteria Few /HPF (None Seen) 09/19/16 13:45 Urine Culture Comments NOT INDICATED 09/19/16 13:45 Phenytoin 13.4 ug/mL 09/19/16 00:10 - Procedures Procedures: Procedures ESOPHAGOGASTRODUODENOSCOPY [EGD] W/CLOSED BIOPSY (07/31/13) INSERT GASTRIC TUBE NEC (06/23/14) INSERTION OF INFUSION DEVICE INTO R ATRIUM, PERC APPROACH (02/03/15) ULTRASONOGRAPHY OF RIGHT HEART (02/03/15)
[2016-09-20] MEDS: MAGNESIUM SULFATE 2 GRAM 50 ML IV SCH ×2 (07:22→09:16)
[2016-09-20] MEDS: POLYETHYLENE GLYCOL 3350 17 GM PACKET PO SCH (09:25)
[2016-09-20] MEDS: PHENYTOIN ER 100 MG CAPSULE PO SCH ×2 (09:25→20:55)
[2016-09-20] MEDS: ATORVASTATIN 10 MG TABLET PO SCH (09:25)
[2016-09-20] MEDS: HEPARIN 5,000 UNIT/ML VIAL SUBQ SCH ×2 (09:25→20:49)
[2016-09-20] MEDS: AMITRIPTYLINE 10 MG TABLET PO SCH (20:54)
[2016-09-20] MEDS ORDERED: MINERAL OIL/PETROLAT OPHTH OINT EACHEYE PRN (23:24)
[2016-09-21] MEDS ORDERED: CARBOXYMETHYLCELLULOSE OPHTH DROPS EACHEYE PRN (00:57)
[2016-09-21 05:14] LABS: BASOPHILS % (AUTO) 0.5 %; EOSINOPHILS # (AUTO) 0.3 10^3/uL (0.0-0.7); EOSINOPHILS % (AUTO) 5.9 %; HCT - HEMATOCRIT 42.2 % (42.0-52.0); LYMPHOCYTES # (AUTO) 1.6 10^3/uL (1.5-3.5); LYMPHOCYTES % (AUTO) 30.7 %; MEAN CORPUSCULAR HEMOGLOBIN 31.5 pg (27.0-31.0); MEAN CORPUSCULAR HGB CONC 33.1 g/dL (32.0-36.0); MEAN CORPUSCULAR VOLUME 95.2 fL (80.0-94.0); MEAN PLATELET VOLUME 7.3 fL (7.4-11.4); MONOCYTES # (AUTO) 0.6 10^3/uL (0.0-1.0); MONOCYTES % (AUTO) 10.9 %; NEUTROPHILS # (AUTO) 2.8 10^3/uL (1.5-6.6); NUCLEATED RED BLOOD CELLS AUTO 0.1 /100WBC; RED BLOOD COUNT 4.43 10^6/uL (4.70-6.10); RED CELL DISTRIBUTION WIDTH 13.6 % (12.0-15.0); UNCORRECTED WHITE BLOOD COUNT 5.4 x10^3/uL; WHITE BLOOD COUNT 5.4 x10^3/uL (4.8-10.8)
[2016-09-21 05:24] LABS: ALBUMIN/GLOBULIN RATIO 1.2 (1.0-2.2); BILIRUBIN,TOTAL 0.5 mg/dL (0.2-1.0); CALCIUM 8.2 mg/dL (8.5-10.3); CREATININE 0.4 mg/dL (0.6-1.2); POTASSIUM 3.6 mmol/L (3.5-5.0); TOTAL PROTEIN 6.6 g/dL (6.7-8.2)
[2016-09-21] MEDS: SODIUM CHLORIDE FLUSH 0.9% 10 ML SYRINGE IVP SCH (06:38)
[2016-09-21] MEDS: SODIUM CHLORIDE 0.9% 1,000 ML IV SCH (06:38)
[2016-09-21] MEDS: PANTOPRAZOLE 40 MG VIAL IVP SCH (06:38)
--- NOTE | 2016-09-21 07:08 | Discharge Plan ---
Discharge Plan Disposition: 01 Home, Self Care Condition: Good Diet: Regular Activity Restrictions: Activity as Tolerated Shower Restrictions: No Driving Restrictions: No Assistance Devices: Wheelchair, Walker Weight Bearing: Full Weight Instruction Topics: Obstruction Sm Bowel Additional Instructions or Follow Up instructions: Activity: As tolerated. please get plenty of rest during the day for the first week you are home. 8 hours of sleep at night is best Diet: Resume your regular diet as usual. If you experience nausea or vomiting, change to clear liquids until your stomach can tolerate a full diet. It is best to eat a bland diet the first couple days you are home. This includes brown rice , bananas, whole wheat toast, and crackers. Avoid dairy products for a couple days. Be sure to drink plenty of water. No soda products for at least a week Follow up: Please see your primary care provider within 1 week of discharge from the hospital. He may refer you to a cook fishing vessel for furher evaluation of the small bowel. Take all home medication as prescribed and return to the ER if symptoms worsen or you experience chest pain or shortness of breath Follow-Up Care: Outpatient Rehab - PT, Outpatient Rehab - OT No Smoking: If you smoke, Please STOP! Call for help.
[2016-09-21 07:56] VITALS: BP 148/89
[2016-09-21] MEDS: PHENYTOIN ER 100 MG CAPSULE PO SCH (09:00)
[2016-09-21] MEDS: ATORVASTATIN 10 MG TABLET PO SCH (09:00)
[2016-09-21] MEDS: POLYETHYLENE GLYCOL 3350 17 GM PACKET PO SCH (09:01)
[2016-09-21] MEDS: HEPARIN 5,000 UNIT/ML VIAL SUBQ SCH (09:02)
--- NOTE | 2016-09-21 20:08 | DISCHARGE SUMMARY ---
DATE OF ADMISSION: 09/20/2016 DATE OF DISCHARGE: 09/21/2016 ADMITTING DIAGNOSIS: Partial small-bowel obstruction. DISCHARGE DIAGNOSES 1. Acute partial small bowel obstruction. 2. Chronic seizure disorder, unspecified. 3. Mixed hyperlipidemia. 4. Gastroesophageal reflux disease with acute gastritis. PROCEDURES 1. Acute abdominal series. Impression shows moderate proximal to mid small bowel dilatation suggestin g partial obstruction and unremarkable chest x-ray. 2. Abdominal pelvis CT. Impression shows borderline [id number] small bowel dilatation, likely se condary to regional ileus or partial obstruction. No evidence of high-grade small bowel obstruction o r acute inflammatory process, hiatal hernia, status post cholecystectomy. CONSULTATIONS: None. HOSPITAL COURSE AND TREATMENT: The patient is a 46-year-old male who presented to the ER with a compl aint of vomiting, nausea x 1 day. The patient has significant medical history that includes cerebral palsy. He was in a shelter and is nonverbal secondary to his cerebral palsy. He was accompanied by a caregiver in the home. The patient has a history of seizure disorder, and he is on Dilantin. He wa s brought into the ER because the family was worried that the vomiting was causing him not to get his seizure medication. After he was evaluated in the ER, a CT of the abdomen and pelvis showed possible small-bowel obstruction which could be contributing to his nausea and vomiting. The patient was subs equently then admitted for further evaluation and workup. The patient was placed on IV fluids for gen tle hydration. He was placed on n.p.o. status. He was given p.o. Dilantin, which he could keep down t he night of admission. He was given Zofran IV p.r.n. for nausea. For his seizure disorder, he was shantal ated with the Dilantin b.i.d. oral and, if need be, to administer it IV. Dilantin level was also [facility] ked which was found to be within normal limits. For his chronic hyperlipidemia, he was treated with a statin, atorvastatin, which he takes daily. For his acid reflux, he was treated with omeprazole, ran itidine, and sucralfate, which are also home medications. He continued on amitriptyline at night for sleep. He continued on his Colace and MiraLax for bowel regime, and he was given a multivitamin for s upplemental support. DVT prophylaxis was with SCDs and subcutaneous Lovenox. Physical and Occupationa l Therapy did assess the patient. Although he had significant contractures, he did get up to the side of the bed with assist. On the day of discharge, the patient's vital signs were stable with a temper ature of 36.4, blood pressure 148/89, respirations 20, and saturating 99% on room air. The patient cast d no expression of pain at that time. Nausea and vomiting had ceased. The patient was discharged home on all his home medications with no changes. The caregiver from the snf was present to take th e patient back to the snf. MEDICATIONS AT TIME OF DISCHARGE 1. Amitriptyline. 2. Colace. 3. Dilantin. 4. Atorvastatin. 5. MiraLax. 6. Multivitamin. 7. Protonix. 8. Tylenol. 9. Ranitidine. 10. Zofran. PHYSICAL EXAMINATION CONSTITUTIONAL: The patient was alert, in no acute distress. EYES: Pupils are equal, round and react to light and accommodation. Conjunctivae and sclerae were non icteric, not injected. EARS, NOSE, AND THROAT: Nares were patent. No nasal discharge. Oropharynx with no masses, exudates or lesions. Mucous membranes were moist. NECK: Supple. No thyromegaly. CARDIOVASCULAR: S1, S2 were noted. Regular rate and rhythm, no murmur. RESPIRATORY: Breath sounds were clear and equal bilaterally to auscultation and percussion. No retrac tions or nasal flaring. GASTROINTESTINAL: Abdomen was soft. Bowel sounds were hyperactive. Nontender. No guarding or rebound. MUSCULOSKELETAL: No pedal edema. He has contractures secondary to cerebral palsy. No cyanosis. Pulses were palpable to upper and lower extremities. SKIN: Warm, dry, intact. No evidence of rashes or lesions. PSYCHIATRIC: The patient appears to have normal affect, however, difficult to assess because of cereb ral palsy. No suicidal ideation was expressed. NEUROLOGIC: Alert. Cranial nerves 2 through 7 unable to be assessed due to nonverbal status. He does not follow commands. HEMATOLOGIC: No active bleeding. The patient is hemodynamically stable. LYMPHATICS: No cervical, axillary, supraclavicular lymphadenopathy is noted. GENITOURINARY: No CVA tenderness. No masses palpated. No bladder distention. INSTRUCTIONS FOR DISCHARGE AND FOLLOWUP 1. Activity: Continue activities of daily living as tolerated. Please get plenty of sleep. Throughout the day, rest breaks are suggested. 2. Diet: Please continue diet as tolerated prior to admission. Drink plenty of fluids throughout the day, avoid soda, and limit caffeine. 3. Followup: Please follow up with primary care provider within 1 week of discharge. He will need to see a mill house supervisor for further worsening of symptoms or nausea or vomiting. If symptoms should recur, please call your primary care provider. If you experience shortness of breath or chest pain, be bowser call 911 and return to the ER. Time spent on discharge instructions, planning, and assessment was 45 minutes. All information was gi francisca to care provider with the patient, along with discharge instructions for followup. Caregiver joseph ha understood all instructions that were given. The patient was safe to be discharged home. JOB #: [id number] EXT JOB #:[id number]
== END 2016-09-21 10:36 | disposition home or self-care (01) | DRG 389 ==
LOC: ED 22:29 → MS 09-19 02:19 → OBSVTOIN 09-20 12:40
PROVIDERS: ADMIT Specialist; ATTEND Nurse Practitioner
DX: K56.60 Unspecified intestinal obstruction (principal); G80.1 Spastic diplegic cerebral palsy; E78.5 Hyperlipidemia, unspecified; G40.909 Epilepsy, unspecified, not intractable, without status epilepticus; K29.00 Acute gastritis without bleeding; K29.70 Gastritis, unspecified, without bleeding; K44.9 Diaphragmatic hernia without obstruction or gangrene; F41.9 Anxiety disorder, unspecified; E83.42 Hypomagnesemia; K21.9 Gastro-esophageal reflux disease without esophagitis; E78.2 Mixed hyperlipidemia; G80.4 Ataxic cerebral palsy; F70 Mild intellectual disabilities; Z90.49 Acquired absence of other specified parts of digestive tract; Z79.899 Other long term (current) drug therapy
CPT/HCPCS: 36415; 74022; 74177; 80053; 80185; 81001; 82607; 83690; 83735; 84100; 85025; 87086; 96361; 96365; 96366; 96375; 96376; 99284

== ENCOUNTER 2017-06-30 17:13 | Outpatient (CLI) | payer MEDICARE, OTHER, MEDICAID ==
[2017-06-30 12:47] LABS: BASOPHILS # (AUTO) 0.1 10^3/uL (0.0-0.1); EOSINOPHILS # (AUTO) 0.4 10^3/uL (0.0-0.7); EOSINOPHILS % (AUTO) 5.5 %; HGB - HEMOGLOBIN 14.7 g/dL (14.0-18.0); LYMPHOCYTES # (AUTO) 2.1 10^3/uL (1.5-3.5); LYMPHOCYTES % (AUTO) 31.3 %; MEAN CORPUSCULAR HEMOGLOBIN 32.7 pg (27.0-31.0); MEAN PLATELET VOLUME 7.7 fL (7.4-11.4); MONOCYTES # (AUTO) 0.7 10^3/uL (0.0-1.0); MONOCYTES % (AUTO) 10.6 %; NEUTROPHILS # (AUTO) 3.4 10^3/uL (1.5-6.6); NEUTROPHILS % (AUTO) 51.6 %; PLT - PLATELET COUNT 272 10^3/uL (130-450); RED CELL DISTRIBUTION WIDTH 13.4 % (12.0-15.0); WHITE BLOOD COUNT 6.6 x10^3/uL (4.8-10.8)
[2017-06-30 13:09] LABS: ALBUMIN 4.4 g/dL (3.2-5.5); ALBUMIN/GLOBULIN RATIO 1.4 (1.0-2.2); ALKALINE PHOSPHATASE 134 IU/L (42-121); ALT ALANINE AMINOTRANSFERASE 41 IU/L (10-60); AST ASPARTATE AMINOTRANSFERASE 36 IU/L (10-42); BILIRUBIN,TOTAL 0.3 mg/dL (0.2-1.0); BUN - BLOOD UREA NITROGEN 17 mg/dL (6-20); CALCIUM 9.1 mg/dL (8.5-10.3); CARBON DIOXIDE - CO2 29 mmol/L (21-32); CHLORIDE 106 mmol/L (101-111); CHOL/HDL RATIO 3.8 (<5.0); CHOLESTEROL 157 mg/dL; CREATININE 0.7 mg/dL (0.6-1.2); GFR - MDRD 121 (>89); GLUCOSE 79 mg/dL (70-100); HDL CHOLESTEROL 41 mg/dL; PHENYTOIN (DILANTIN) 8.5 ug/mL; SODIUM 141 mmol/L (135-145); TOTAL PROTEIN 7.6 g/dL (6.7-8.2)
[2017-06-30 13:55] LABS: LDL CHOLESTEROL,DIRECT 58 mg/dL; LDLD/HDL RATIO 1.4 (<3.6)
== END 2017-06-30 17:14 | disposition home or self-care (01) ==
LOC: LAB.N 17:13
PROVIDERS: ATTEND Family Medicine
DX: E78.5 Hyperlipidemia, unspecified (principal); R56.9 Unspecified convulsions; Z51.81 Encounter for therapeutic drug level monitoring; Z79.899 Other long term (current) drug therapy
CPT/HCPCS: 36415; 80053; 80061; 80185; 83721; 84443; 85025

== ENCOUNTER 2017-08-03 11:48 | Emergency (ER) | payer MEDICARE, OTHER, MEDICAID ==
--- NOTE | 2017-08-03 12:22 | ED Physician Documentation ---
PD HPI OPHTHO - Stated complaint Stated Complaint: RT EYE REDNESS - Chief complaint Chief Complaint: Heent - History obtained from History obtained from: Caregiver - History of Present Illness Timing - onset: Other (This is a 47-year-old gentleman with cerebral palsy, nonverbal who presents with a caregiver from an assisted living/shelter. For the last 4 days or so they have noticed that his right eye is red and he has been scratching at it. There was no specific injury and he does not wear contacts. No noted URI symptoms.) Review of Systems Unable to obtain: Other (Cerebral palsy/nonverbal) PD PAST MEDICAL HISTORY - Past Medical History Past Medical History: Yes Cardiovascular: High cholesterol Respiratory: None Neuro: Cerebral palsy, Seizure disorder Endocrine/Autoimmune: None GI: GERD, GI bleed : Incontinence HEENT: None Psych: Anxiety Musculoskeletal: None Derm: None - Past Surgical History Past Surgical History: Yes General: Cholecystectomy, Bowel surgery Ortho: Spine surgery /CYCLE CONSULTANT: Other - Present Medications Home Medications: Ambulatory Orders Medication Instructions Recorded Confirmed Amitriptyline HCl 30 mg PO QPM 05/12/13 08/03/17 Multivitamin [Multi-Vitamin Daily] 1 tab PO DAILY 05/12/13 08/03/17 Atorvastatin [Lipitor] 10 mg PO QPM 07/30/13 08/03/17 Phenytoin [Dilantin] 100 mg PO DAILY 11/18/14 08/03/17 Acetaminophen [Tylenol] 650 mg PO Q4H PRN 09/19/16 08/03/17 Docusate Sodium 250Mg Capsule 250 mg PO BID PRN 09/19/16 08/03/17 [Colace 250Mg Capsule] Ondansetron Odt [Zofran Odt] 4 mg TL Q6H PRN 09/19/16 08/03/17 Phenytoin [Dilantin] 200 mg PO QPM 09/19/16 08/03/17 Pantoprazole [Protonix] 40 mg PO QDAC 09/20/16 08/03/17 Ranitidine HCl [Zantac] 300 mg PO QPM 09/20/16 08/03/17 - Allergies Allergies/Adverse Reactions: Allergies Allergy/AdvReac Type Severity Reaction Status Date / Time Sulfa (Sulfonamide Allergy Hives Verified 09/18/16 22:39 Antibiotics) adhesive tape AdvReac Rash Verified 08/03/17 11:55 - Social History Does the pt smoke?: No Smoking Status: Never smoker Does the pt drink ETOH?: No Does the pt have substance abuse?: No - Immunizations Immunizations are current?: Yes - POLST Patient has POLST: No PD ED PE NORMAL - Vitals Vital signs reviewed: Yes - General General: No acute distress - HEENT HEENT: PERRL, EOMI, Other (R conjunctivitis with area of corneal fluorescein uptake inferior. Could be scratch but given timecourse worried about ulcer. Somewhat hard to tell as pt not very cooperative.) - Neck Neck: Supple, no meningeal sign, No bony TTP - Neuro Eye Opening: Spontaneous Motor: Obeys Commands Verbal: None GCS Score: 11 Results - Vitals Vitals: Vital Signs - 24 hr 08/03/17 11:51 Temperature 36.4 C L Heart Rate 89 Respiratory 14 Rate Blood Pressure 140/85 H O2 Saturation 100 Oxygen O2 Source Room air PD MEDICAL DECISION MAKING - ED course ED course: This is a gentleman with what appears to be a corneal ulcer versus a scratch, given the time course and lack of available history, I am treating it as an ulcer with every 2 hour fluoroquinolone drops and next day ophthalmology follow- up. Departure - Departure Disposition: 01 Home, Self Care Clinical Impression: Corneal ulcer Qualifiers: Laterality: right Qualified Code(s): H16.001 - Unspecified corneal ulcer, right eye Condition: Good Record reviewed to determine appropriate education?: Yes Instructions: ED Ulcer Cornea Follow-Up: Ethan Allen MD [Provider Admit Priv/Credential] - Tomorrow Comments: It appears that Mr. Drake has a corneal ulcer, it could also be a scratch, but to be safe we are treating it as an ulcer. He needs to take the right eyedrop every 2 hours including overnight so an alarm must be set and somebody must administer them every 2 hours until he sees the eye doctor tomorrow. Call the eye doctor first thing in the morning. Your blood pressure was elevated today on check into the emergency department. This does not mean that you have hypertension, it is a common phenomenon to come to the emergency department and have elevated blood pressure. I recommend that you see your primary care physician within the week to have it rechecked when you are feeling better.
[2017-08-03 12:46] VITALS: BP 140/104
[2017-08-03] MEDS ORDERED: levoFLOXacin 0.5% OPHTH DROPS 5 ML RIGHTEYE SCH (13:00)
== END 2017-08-03 12:43 | disposition home or self-care (01) ==
LOC: ED 11:48
DX: H16.001 Unspecified corneal ulcer, right eye (principal); R03.0 Elevated blood-pressure reading, without diagnosis of hypertension; E78.00 Pure hypercholesterolemia, unspecified; G80.9 Cerebral palsy, unspecified
CPT/HCPCS: 99283; A9270

== ENCOUNTER 2017-09-21 18:33 | Inpatient (IN) | payer MEDICARE, OTHER, MEDICAID ==
[2017-09-21 19:07] LABS: BASOPHILS # (AUTO) 0.1 10^3/uL (0.0-0.1); BASOPHILS % (AUTO) 0.6 %; EOSINOPHILS % (AUTO) 0.1 %; HGB - HEMOGLOBIN 16.2 g/dL (14.0-18.0); LYMPHOCYTES # (AUTO) 0.9 10^3/uL (1.5-3.5); LYMPHOCYTES % (AUTO) 5.8 %; MEAN CORPUSCULAR HEMOGLOBIN 31.2 pg (27.0-31.0); MEAN CORPUSCULAR HGB CONC 32.9 g/dL (32.0-36.0); MEAN CORPUSCULAR VOLUME 94.9 fL (80.0-94.0); MEAN PLATELET VOLUME 7.3 fL (7.4-11.4); MONOCYTES # (AUTO) 0.5 10^3/uL (0.0-1.0); MONOCYTES % (AUTO) 3.4 %; NEUTROPHILS # (AUTO) 14.1 10^3/uL (1.5-6.6); NEUTROPHILS % (AUTO) 90.1 %; PLT - PLATELET COUNT 291 10^3/uL (130-450); RED BLOOD COUNT 5.18 10^6/uL (4.70-6.10); RED CELL DISTRIBUTION WIDTH 13.6 % (12.0-15.0); WHITE BLOOD COUNT 15.6 x10^3/uL (4.8-10.8)
[2017-09-21 19:20] LABS: ALBUMIN/GLOBULIN RATIO 1.4 (1.0-2.2); BILIRUBIN,TOTAL 0.7 mg/dL (0.2-1.0); CALCIUM 9.9 mg/dL (8.5-10.3); CREATININE 0.7 mg/dL (0.6-1.2); TOTAL PROTEIN 8.7 g/dL (6.7-8.2)
--- NOTE | 2017-09-21 19:55 | ED Physician Documentation ---
PD HPI ABD PAIN - Stated complaint Stated Complaint: VOMIT - Chief complaint Chief Complaint: Abd Pain - History obtained from History obtained from: Patient, Family - History of Present Illness Timing - onset: Today Timing - duration: Days (1) Timing - details: Abrupt onset Pain level max: 3 Pain level now: 1 Improved by: Other (nothing) Worsened by: Other (nothing) Associated symptoms: Vomiting (today x 3 hours.) - Additional information Additional information: caregiver states that he has had vomiting since 4pm today. she states he has had normal bowel movements. No fevers. Has a history of small bowel obstruction in the past. Review of Systems Unable to obtain: Other (MRCP) Constitutional: denies: Fever Skin: denies: Rash Musculoskeletal: denies: Neck pain, Back pain Neurologic: denies: Confused, Altered mental status PD PAST MEDICAL HISTORY - Past Medical History Cardiovascular: High cholesterol Respiratory: None Neuro: Cerebral palsy, Seizure disorder Endocrine/Autoimmune: None GI: GERD, GI bleed : Incontinence HEENT: None Psych: Anxiety Musculoskeletal: None Derm: None Other Past Medical History: "Moderate Developmental Delay" - Past Surgical History Past Surgical History: Yes General: Cholecystectomy, Bowel surgery Ortho: 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: Other - Present Medications Home Medications: Ambulatory Orders Medication Instructions Recorded Confirmed Amitriptyline HCl 30 mg PO QPM 05/12/13 09/21/17 Multivitamin [Multi-Vitamin Daily] 1 tab PO DAILY 05/12/13 09/21/17 Atorvastatin [Lipitor] 10 mg PO QPM 07/30/13 09/21/17 Acetaminophen [Tylenol] 650 mg PO Q4H PRN 09/19/16 09/21/17 Docusate Sodium 250Mg Capsule 250 mg PO BID PRN 09/19/16 09/21/17 [Colace 250Mg Capsule] Ondansetron Odt [Zofran Odt] 4 mg TL Q6H PRN 09/19/16 09/21/17 Phenytoin [Dilantin] 300 mg PO QPM 09/19/16 09/21/17 Pantoprazole [Protonix] 40 mg PO QDAC 09/20/16 09/21/17 Ranitidine HCl [Zantac] 300 mg PO QPM 09/20/16 09/21/17 Krill/Om-3/Dha/Epa/Phospho/Ast 1 each PO 09/21/17 09/21/17 [Krill Oil 500 mg Softgel] - Allergies Allergies/Adverse Reactions: Allergies Allergy/AdvReac Type Severity Reaction Status Date / Time Sulfa (Sulfonamide Allergy Hives Verified 09/21/17 18:39 Antibiotics) adhesive tape AdvReac Rash Verified 09/21/17 18:39 - Living Situation Living Situation: reports: With caregiver(s) - Social History Does the pt smoke?: No Smoking Status: Never smoker Does the pt drink ETOH?: No Does the pt have substance abuse?: No - Immunizations Immunizations are current?: Yes - POLST Patient has POLST: No PD ED PE NORMAL - Vitals Vital signs reviewed: Yes - General General: No acute distress, Other (alert) - HEENT HEENT: Moist mucous membranes - Neck Neck: Supple, no meningeal sign - Cardiac Cardiac: RRR, Strong equal pulses - Respiratory Respiratory: No respiratory distress, Clear bilaterally - Abdomen Abdomen: Soft, Non distended, Other (mild TTP epigastric. no peritoneal signs. ) - Back Back: No CVA TTP - Derm Derm: Warm and dry - Neuro Neuro: Other (alert) - Psych Psych: Normal mood, Normal affect Results - Vitals Vitals: Vital Signs - 24 hr 09/21/17 09/21/17 09/21/17 18:36 19:38 21:10 Temperature 36.0 C L 36.4 C L Heart Rate 84 72 91 Respiratory 16 18 18 Rate Blood Pressure 143/88 H 124/101 H 149/103 H O2 Saturation 100 97 95 Oxygen O2 Source Room air - Labs Labs: Laboratory Tests 09/21/17 09/21/17 18:52 18:52 WBC 15.6 H RBC 5.18 Hgb 16.2 Hct 49.1 MCV 94.9 H MCH 31.2 H MCHC 32.9 RDW 13.6 Plt Count 291 MPV 7.3 L Neut # 14.1 H Lymph # 0.9 L Tensas # 0.5 Eos # 0.0 Baso # 0.1 Absolute Nucleated RBC 0.00 Nucleated RBC % 0.0 Sodium 138 Potassium 4.1 Chloride 96 L Carbon Dioxide 31 Anion Gap 11.0 BUN 12 Creatinine 0.7 Estimated GFR (MDRD) 121 Glucose 141 H Calcium 9.9 Total Bilirubin 0.7 AST 36 ALT 38 Alkaline Phosphatase 163 H Total Protein 8.7 H Albumin 5.0 Globulin 3.7 Albumin/Globulin Ratio 1.4 Lipase 31 - Rads (name of study) CT abd/pelvis Radiology: Prelim report reviewed, EMP read contemporaneously, See rad report ( Interval development of proximal to mid small bowel obstruction most likely secondary to adhesions.) PD MEDICAL DECISION MAKING - ED course Complexity details: reviewed results, re-evaluated patient, considered differential, d/w patient, d/w family, d/w business sales consultant ED course: Patient is a 47-year-old male with a history of MRCP and recurrent small bowel obstructions who presents to the emergency department with vomiting today. Found to have a small bowel obstruction on CT scan. He is not currently vomiting and thus will hold the NG tube. Discussed the case with Dr. Darshan Price, surgery on-call who will consult on this patient. Also discussed the case with Dr. Platt, hospitalist who accepts. Patient kept n.p.o. and IV fluids started. This document was made in part using voice recognition software. While efforts are made to proofread this document, sound alike and grammatical errors may occur. Departure - Departure Disposition: 66 [facility] DC/Xfer Clinical Impression: Small bowel obstruction, Cerebral palsy with spastic/ataxic diplegia Condition: Stable Discharge Date/Time: 09/21/17 22:20
[2017-09-21] MEDS ORDERED: IOPAMIDOL-300 100 ML VIAL ONE (20:15)
[2017-09-21] MEDS ORDERED: IOPAMIDOL-300 100 ML VIAL IVP ONE (20:38)
[2017-09-21] MEDS ORDERED: SODIUM CHLORIDE 0.9% 1,000 ML IV ONE (21:09)
--- NOTE | 2017-09-21 21:18 | CT Report ---
EXAM: CT ABDOMEN AND PELVIS EXAM DATE: 09/21/2017 08:42 PM. CLINICAL HISTORY: Abd pain, vomiting, h/o SBO. COMPARISONS: 09/19/2016 CT. TECHNIQUE: Routine helical CT imaging was performed through the abdomen and pelvis. IV contrast: 100M L ISOVUE 300. Enteric contrast: No. Reconstructions: Coronal and sagittal. In accordance with CT protocol optimization, one or more of the following dose reduction techniques w ere utilized for this exam: automated exposure control, adjustment of mA and/or KV based on patient s ize, or use of iterative reconstructive technique. FINDINGS: Lung Bases: Unremarkable. Liver: Normal. No masses. Gallbladder/Bile Ducts: The gallbladder has been removed. No biliary dilatation. Spleen: Normal. Pancreas: Normal. Adrenal Glands: Normal. Kidneys: Normal. No masses or hydronephrosis. Peritoneal Cavity/Bowel: Interval development of several moderately distended proximal to mid small b owel loops in the left upper quadrant. There is no obstructing mass or hernia. Apparent transition po ints in the mid abdomen just above the level of the umbilicus. No evidence of appendicitis. Hiatal he rnia noted. Pelvic Organs: There is trace pelvic fluid. Urinary bladder is unremarkable. Vasculature: No aneurysms or other significant abnormality. Bones: No acute bony abnormality. Thoracolumbosacral spine fusion hardware again noted. Other: None. IMPRESSION: 1. Interval development of proximal to mid small bowel obstruction most likely secondary to adhesions . [facility] Referring Provider Line: [phone] SITE ID: [id number]
--- NOTE | 2017-09-21 21:18 | CT Preliminary Report ---
Exam: CT ABDOMEN/PELVIS W/ IMPRESSION: 1. Interval development of proximal to mid small bowel obstruction most likely secondary to adhesions . [facility] SITE ID: [id number]
[2017-09-21] MEDS ORDERED: HYDROmorphone 0.5 MG/0.5 ML SYRINGE IVP PRN (21:35)
[2017-09-21] MEDS ORDERED: ONDANSETRON ODT 4 MG TABLET TL PRN (21:35)
[2017-09-21] MEDS: D5.45NS W/20 MEQ KCL 1,000 ML IV SCH (22:24)
--- NOTE | 2017-09-22 00:22 | HISTORY & PHYSICAL EXAMINATION ---
Chief Complaint - Chief Complaint Chief Complaint: nausea and vomiting History of Present Illness - Admitted From Admitted From:: home - History Obtained From Records Reviewed: prior admission, ED records History obtained from: Foster mother Exam Limitations: Pt has mild MR - History of Present Illness HPI Comment/Other: Mr. Jitendra Foster is a very pleasant 47-year-old male who has a history of cerebral palsy and mild mental retardation and who [facility]. He presented to the emergency department with complaints of nausea and vomiting earlier this evening. He does have a history of this and subsequent testing found a partial small bowel obstruction. In the past the patient's obstruction has resolved without surgery and with bowel rest and so the patient will be admitted to the hospital for bowel rest and observation. 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 Patient has no siblings. He does have foster parents.), Father: Living arrangement: nursing home Living Situation: With caregiver(s) - Substance History Use: Uses substance without health or social issues: NONE Abuse: Recurrent use of substance despite neg consequences: NONE Dependence: Experiences withdrawal or developed tolerances: NONE - POLST Patient has POLST: No POLST Status: Full Code Meds/Allgy - Home Medications Home Medications: Ambulatory Orders Medication Instructions Recorded Confirmed Amitriptyline HCl 30 mg PO QPM 05/12/13 09/21/17 Multivitamin [Multi-Vitamin Daily] 1 tab PO DAILY 05/12/13 09/21/17 Atorvastatin [Lipitor] 10 mg PO QPM 07/30/13 09/21/17 Acetaminophen [Tylenol] 650 mg PO Q4H PRN 09/19/16 09/21/17 Docusate Sodium 250Mg Capsule 250 mg PO BID PRN 09/19/16 09/21/17 [Colace 250Mg Capsule] Ondansetron Odt [Zofran Odt] 4 mg TL Q6H PRN 09/19/16 09/21/17 Phenytoin [Dilantin] 300 mg PO QPM 09/19/16 09/21/17 Pantoprazole [Protonix] 40 mg PO QDAC 09/20/16 09/21/17 Ranitidine HCl [Zantac] 300 mg PO QPM 09/20/16 09/21/17 Krill/Om-3/Dha/Epa/Phospho/Ast 1 each PO 09/21/17 09/21/17 [Krill Oil 500 mg Softgel] - Allergies Allergies/Adverse Reactions: Allergies Allergy/AdvReac Type Severity Reaction Status Date / Time Sulfa (Sulfonamide Allergy Hives Verified 09/21/17 18:39 Antibiotics) adhesive tape AdvReac Rash Verified 09/21/17 18:39 Review of Systems - Constitutional Constitutional: reports: Poor appetite. denies: Fatigue, Fever, Chills - Eyes Eyes: denies: Pain, Irritation, Blurred vision, Dipolpia - Ears, Nose & Throat Ears, Nose & Throat: denies: Ear pain, Hearing loss, Hearing aids, Tinnitus, Vertigo, Nasal pain, Nasal discharge - Cardiovascular Cariovascular: denies: Irregular heart rate, Palpitations, Chest pain, Edema, Syncope - Respiratory Respiratory: denies: Cough, Sputum production, Wheezing, Snoring, SOB at rest, SOB with exertion - Gastrointestinal Gastrointestinal: reports: Nausea, Vomiting. denies: Diarrhea, Change in bowel habits, Rectal bleeding, Black stools, Kevin blood emesis - Genitourinary Genitourinary: denies: Dysuria, Frequency, Urgency, Hematuria - Musculoskeletal Musculoskeletal: denies: Muscle pain, Back pain, Muscle aches, Stiffness - Integumentary Integumentary: denies: Rash, Pruritis, Lesions, Dryness - Neurological Neurological: denies: General weakness, Focal weakness, Headache - Psychiatric Psychiatric: denies: Depression, Anxiety, Suicidal, Hallucinations - Endocrine Endocrine: denies: Polyuria, Polydypsia, Polyphagia - Hematologic/Lymphatic Hematologic/Lymphatic: denies: Anemia, Bruising, Petechiae - All Other Systems All Other Systems: reports: Reviewed and negative Exam - Vital Signs Reviewed Vital Signs: Yes Vital Signs: Vital Signs x48h Temp Pulse Pulse Resp BP BP Pulse Ox 05/27/18 23:59 36.7 C 87 18 138/92 H 95 09/21/17 21:10 36.4 C L 91 18 149/103 H 95 09/21/17 19:38 72 18 124/101 H 97 09/21/17 18:36 36.0 C L 84 16 143/88 H 100 - Physical Exam General Appearance: positive: No acute distress, Alert. negative: Anxious Eyes Bilateral: positive: Normal inspection, PERRL, EOMI, No lid inflammation, Conjunctivae nml, No scleral icterus ENT: positive: ENT inspection nml, Pharynx nml, No signs of dehydration Neck: positive: Nml inspection, Thyroid nml, No JVD, Trachea midline. negative : Thyromegaly Respiratory: positive: Chest non-tender, No respiratory distress, Breath sounds nml. negative: Wheezes, Rales, Rhonchi Cardiovascular: positive: Regular rate & rhythm, No murmur, No gallop Peripheral Pulses: positive: 1+ Abdomen: positive: Non-tender, No organomegaly, Nml bowel sounds, No distention. negative: Guarding, Rebound, Hepatomegaly, Splenomegaly Back: positive: Nml inspection. negative: CVA tenderness (R), CVA tenderness (L ) Skin: positive: Color nml, No rash, Warm, Dry. negative: Cyanosis Extremities: positive: Non-tender, No pedal edema, Other (spasticity all extremities). negative: Full ROM Neurologic/Psychiatric: positive: Sensation nml, Weakness, Slurred/abnml speech. negative: Motor nml, Facial droop, Depressed mood/affect Conclusion/Plan - Problem List (1) Small bowel obstruction Conclusion/Plan: The patient has a history of prior abdominal surgery with adhesions and also prior small bowel obstructions. He has typically resolved with bowel rest and we will therefore place an NG tube and rest his bowel in the hopes that it will resolve his obstruction. General surgery has been consulted. (2) Seizure disorder Conclusion/Plan: We will obtain Dilantin level and continue the patient on his home dosing of Dilantin and amitriptyline. (3) History of hyperlipidemia Conclusion/Plan: We will continue the patient on his home doses of Lipitor and krill oil. (4) Cerebral palsy with spastic/ataxic diplegia Conclusion/Plan: Continue home care regimen whenever possible - Lab Results Lab results reviewed: Yes Fish Bones: 09/21/17 18:52 09/21/17 18:52 - Diagnostic Imaging Results Diagnostic Imaging Results: positive: Final report reviewed Diagnostic Imaging Results Comments: EXAM: CT ABDOMEN AND PELVIS EXAM DATE: 09/19/2016 01:17 AM. CLINICAL HISTORY: Obstruction on x ray. COMPARISONS: 70 08/15/[address] CT, 09/18/2016 abdomen radiographs. TECHNIQUE: Routine helical CT imaging was performed through the abdomen and pelvis. IV contrast: 100 mL Isovue-300. Enteric contrast: No. Reconstructions: Coronal and sagittal. In accordance with CT protocol optimization, one or more of the following dose reduction techniques were utilized for this exam: automated exposure control, adjustment of mA and/or KV based on patient size, or use of iterative reconstructive technique. FINDINGS: Lung Bases: Hiatal hernia. The visualized lungs are clear.. Liver: Normal. No masses. Gallbladder/Bile Ducts: The gallbladder has been removed. No bile duct dilatation. Spleen: Normal. Pancreas: Normal. Adrenal Glands: Normal. Kidneys: Normal. No masses or hydronephrosis. Peritoneal Cavity/Bowel: Several borderline dilated proximal to mid small bowel loops seen in the left upper quadrant. No transition zone or evidence of high-grade obstruction. No evidence of acute appendicitis. Pelvic Organs: Normal. The bladder and visualized pelvic organs are within normal limits. Vasculature: No aneurysms or other significant abnormality. Bones: Left femur and total spine fixation hardware noted. Other: None. IMPRESSION: 1. Borderline proximal to mid small bowel dilatation likely secondary to regional ileus or partial obstruction. There is no evidence of high-grade small bowel obstruction or acute inflammatory process. 2. Status post cholecystectomy. 3. Hiatal hernia. EXAM: CT ABDOMEN AND PELVIS EXAM DATE: 09/21/2017 08:42 PM. CLINICAL HISTORY: Abd pain, vomiting, h/o SBO. COMPARISONS: 09/19/2016 CT. TECHNIQUE: Routine helical CT imaging was performed through the abdomen and pelvis. IV contrast: 100ML ISOVUE 300. Enteric contrast: No. Reconstructions: Coronal and sagittal. In accordance with CT protocol optimization, one or more of the following dose reduction techniques were utilized for this exam: automated exposure control, adjustment of mA and/or KV based on patient size, or use of iterative reconstructive technique. FINDINGS: Lung Bases: Unremarkable. Liver: Normal. No masses. Gallbladder/Bile Ducts: The gallbladder has been removed. No biliary dilatation. Spleen: Normal. Pancreas: Normal. Adrenal Glands: Normal. Kidneys: Normal. No masses or hydronephrosis. Peritoneal Cavity/Bowel: Interval development of several moderately distended proximal to mid small bowel loops in the left upper quadrant. There is no obstructing mass or hernia. Apparent transition points in the mid abdomen just above the level of the umbilicus. No evidence of appendicitis. Hiatal hernia noted. Pelvic Organs: There is trace pelvic fluid. Urinary bladder is unremarkable. Vasculature: No aneurysms or other significant abnormality. Bones: No acute bony abnormality. Thoracolumbosacral spine fusion hardware again noted. Other: None. IMPRESSION: 1. Interval development of proximal to mid small bowel obstruction most likely secondary to adhesions. Core Measures - Anticipated LOS I expect patient to be DC'd or transferred within 96 hours.: Yes - DVT/VTE - Prophylaxis VTE/DVT Device ordered at admit?: Yes
[2017-09-22] MEDS: SODIUM CHLORIDE FLUSH 0.9% 10 ML SYRINGE IVP SCH ×3 (00:53→19:23)
[2017-09-22] MEDS: ONDANSETRON 4 MG/2 ML VIAL IVP PRN ×4 (00:53→21:42)
[2017-09-22] MEDS: D5.45NS W/20 MEQ KCL 1,000 ML IV SCH ×3 (07:00→21:47)
[2017-09-22 07:04] LABS: HGB - HEMOGLOBIN 14.8 g/dL (14.0-18.0); MEAN CORPUSCULAR HEMOGLOBIN 31.4 pg (27.0-31.0); MEAN CORPUSCULAR VOLUME 95.4 fL (80.0-94.0); MEAN PLATELET VOLUME 7.3 fL (7.4-11.4); RED BLOOD COUNT 4.7 10^6/uL (4.70-6.10); RED CELL DISTRIBUTION WIDTH 13.4 % (12.0-15.0); WHITE BLOOD COUNT 13.2 x10^3/uL (4.8-10.8)
[2017-09-22 07:12] LABS: CALCIUM 9.2 mg/dL (8.5-10.3); CREATININE 0.5 mg/dL (0.6-1.2); PHENYTOIN (DILANTIN) 7.7 ug/mL
[2017-09-22] MEDS: POLYETHYLENE GLYCOL 3350 17 GM PACKET PO SCH (07:56)
[2017-09-22] MEDS: FAMOTIDINE 20 MG/50 ML 50 ML IV SCH ×2 (08:05→21:42)
[2017-09-22] MEDS ORDERED: KETOROLAC 15 MG/ML VIAL IVP PRN (08:10)
--- NOTE | 2017-09-22 12:13 | CONSULTATION NOTE ---
Referring Provider Name of Referring Provider:: Dr. Platt Consult Date: 09/22/17 Chief Complaint - Chief Complaint Chief Complaint: N/V History of Present Illness - Admitted From Admitted From:: ER - History Obtained From Records Reviewed: yes History obtained from: records Exam Limitations: pt minimally communicative due to MR and CP - History of Present Illness HPI Comment/Other: 47 yo male resident of [facility] with MR and CP who developed multiple episodes of N/V of nonbloody emesis and was brought to the ER where evaluation including CT abd/pelvis showed evidence of a partial SBO. He was admitted for bowel rest and observation. He has a hx of multiple prior similar episodes treated conservatively over the past 10 years with resolution. He has had several prior abdominal surgeries, including open cholecystectomy, details currently unavailable to me, and possibly an ex lap with ZAKIA. Since admission last night he has 2 more episodes of N/V and no bms. He is unable to tolerate NG tubes and repeatedly pulls them out when placed and has been managed successfully without them in the past. No hx fever/chills, wt loss, melena, hematochezia. He currently denies abd pain. 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 Patient has no siblings. He does have foster parents.), Father: Living arrangement: [facility] Living Situation: With caregiver(s) - Substance History Use: Uses substance without health or social issues: NONE Abuse: Recurrent use of substance despite neg consequences: NONE Dependence: Experiences withdrawal or developed tolerances: NONE - POLST Patient has POLST: No POLST Status: Full Code Meds/Allgy - Home Medications Home Medications: Ambulatory Orders Medication Instructions Recorded Confirmed Amitriptyline HCl 30 mg PO QPM 05/12/13 09/21/17 Multivitamin [Multi-Vitamin Daily] 1 tab PO DAILY 05/12/13 09/21/17 Atorvastatin [Lipitor] 10 mg PO QPM 07/30/13 09/21/17 Acetaminophen [Tylenol] 650 mg PO Q4H PRN 09/19/16 09/21/17 Docusate Sodium 250Mg Capsule 250 mg PO BID PRN 09/19/16 09/21/17 [Colace 250Mg Capsule] Ondansetron Odt [Zofran Odt] 4 mg TL Q6H PRN 09/19/16 09/21/17 Phenytoin [Dilantin] 300 mg PO QPM 09/19/16 09/21/17 Pantoprazole [Protonix] 40 mg PO QDAC 09/20/16 09/21/17 Ranitidine HCl [Zantac] 300 mg PO QPM 09/20/16 09/21/17 Krill/Om-3/Dha/Epa/Phospho/Ast 1 each PO BID 09/21/17 09/22/17 [Krill Oil 500 mg Softgel] - Allergies Allergies/Adverse Reactions: Allergies Allergy/AdvReac Type Severity Reaction Status Date / Time Sulfa (Sulfonamide Allergy Hives Verified 09/21/17 18:39 Antibiotics) adhesive tape AdvReac Rash Verified 09/21/17 18:39 Review of Systems - All Other Systems All Other Systems: reports: Other (unobtainable due to minimal ability to communicate) Exam - Vital Signs Reviewed Vital Signs: Yes Vital Signs: Vital Signs x48h Temp Pulse Resp BP Pulse Ox 09/22/17 08:41 36.5 C 74 20 123/83 H 99 - Physical Exam General Appearance: positive: No acute distress, Alert Eyes Bilateral: positive: No scleral icterus ENT: positive: No signs of dehydration Neck: positive: Nml inspection, No JVD. negative: Lymphadenopathy (R), Lymphadenopathy (L) Respiratory: positive: Chest non-tender, No respiratory distress, Breath sounds nml Cardiovascular: positive: Regular rate & rhythm, No murmur, No gallop Abdomen: positive: Non-tender, Abnml bowel sounds (hyperactive but no rushes or tympanitic sounds), Other (appears mildly distended). negative: Guarding, Rebound, Hepatomegaly, Splenomegaly, Mass Skin: positive: Color nml, No rash, Warm, Dry. negative: Cyanosis Extremities: positive: No pedal edema. negative: Calf tenderness Conclusion/Plan - Diagnosis Diagnosis: SBO likely due to adhesions, likely partial, with no evidence of acute abdomen or strangulation obstruction at present. This appears to be a recurrent problem which has responded to conservative management in the past. - Plan Plan: Agree with present management with bowel rest, IVF, serial exams and x rays. Will follow. - Lab Results Lab results reviewed: Yes Fish Bones: 09/22/17 06:47 09/22/17 06:47 - Diagnostic Imaging Results Diagnostic Imaging Results: positive: Final report reviewed, Read independently Diagnostic Imaging Results Comments: CT abd/pelvis shows moderately dilated loops of proximal small bowel with probable transition zone in mid small bowel without evidence of neoplasm, likely c/w adhesive SBO, similar to prior admissions. 2 view abd series today: dilated loops of small bowel with a/f levels, but also significant gas in right colon, suggesting partial nature of obstruction.
--- NOTE | 2017-09-22 14:28 | XRAY Report ---
EXAM: ABDOMEN RADIOGRAPHY EXAM DATE: 09/22/2017 09:05 AM. CLINICAL HISTORY: Partial SBO. COMPARISON: CT of 09/21/2017. TECHNIQUE: 2 views. FINDINGS: Lung Bases: Visualized portions are unremarkable. Bowel Gas Pattern: Mildly dilated small bowel loops are grossly unchanged. Scattered gas again seen i n the colon. Free Air: None. Other: Still mildly distends the rectum, as before. Contrast material in the urinary bladder. Long se gment spinal hardware. IMPRESSION: 1. Unchanged mildly dilated small bowel loops with scattered gas in the colon, suspicious for at leas t a partial obstruction. 2. Stool mildly distends the rectum. [facility] Referring Provider Line: [phone] SITE ID: [id number]
[2017-09-22] MEDS: SODIUM CHLORIDE FLUSH 0.9% 10 ML SYRINGE IVP PRN (14:34)
--- NOTE | 2017-09-22 15:04 | PROVIDER PROGRESS NOTE ---
Subjective - Prog Note Date Prog Note Date: 09/22/17 - Subjective Pt reports feeling: No change Subjective: pt is aphasia and mental retardation. 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 But no aspiration reports. pt persist pulling out NG today. Current Medications - Current Medications Current Medications: Active Medications Amitriptyline HCl (Elavil) 30 mg PO QPM [facility] Hydromorphone HCl (Dilaudid Inj Syringe) 0.5 mg IVP Q2H PRN PRN Reason: Pain 8 to 10 Potassium Chloride/Dextrose/Sod Cl (D5.45ns W/20 Meq Kcl) 1,000 mls @ 125 mls/ hr IV .Q8H [facility] Last Admin: 09/22/17 14:34 Dose: 125 mls/hr Famotidine (Pepcid 20 Mg/50 Ml) 50 mls @ 100 mls/hr IV BID [facility] Last Infusion: 09/22/17 08:35 Dose: Infused Ketorolac Tromethamine (Toradol Inj) 15 mg IVP Q6HR PRN PRN Reason: PAIN Stop: 09/27/17 08:09 Ondansetron HCl (Zofran Inj) 4 mg IVP Q4H PRN PRN Reason: Nausea / Vomiting Last Admin: 09/22/17 14:34 Dose: 4 mg Phenytoin Sodium (Dilantin) 300 mg PO QPM [facility] Polyethylene Glycol (Miralax) 17 gm PO DAILY [facility] Last Admin: 09/22/17 07:56 Dose: Not Given Sodium Chloride (Normal Saline Flush 0.9%) 10 ml IVP PRN PRN PRN Reason: NEEDED PER PROVIDER ORDERS Last Admin: 09/22/17 14:34 Dose: 10 ml Sodium Chloride (Normal Saline Flush 0.9%) 10 ml IVP 0100,0900,1700 [facility] Last Admin: 09/22/17 08:05 Dose: 10 ml Amitriptyline HCl 30 mg PO QPM 05/12/13 Multivitamin [Multi-Vitamin Daily] 1 tab PO DAILY 05/12/13 Atorvastatin [Lipitor] 10 mg PO QPM 07/30/13 Acetaminophen [Tylenol] 650 mg PO Q4H PRN 09/19/16 Docusate Sodium 250Mg Capsule [Colace 250Mg Capsule] 250 mg PO BID PRN 09/19/16 Ondansetron Odt [Zofran Odt] 4 mg TL Q6H PRN 09/19/16 Phenytoin [Dilantin] 300 mg PO QPM 09/19/16 Pantoprazole [Protonix] 40 mg PO QDAC 09/20/16 Ranitidine HCl [Zantac] 300 mg PO QPM 09/20/16 Krill/Om-3/Dha/Epa/Phospho/Ast [Krill Oil 500 mg Softgel] 1 each PO BID Objective - Vital Signs/Intake & Output Reviewed Vital Signs: Yes Vital Signs: Vital Signs x48h Temp Pulse Resp BP Pulse Ox 09/22/17 08:41 36.5 C 74 20 123/83 H 99 Intake & Output: Intake & Output 09/19/17 09/20/17 09/21/17 09/22/17 23:59 23:59 23:59 23:59 Intake Total 155 1995.833 Output Total 150 Balance 155 1845.833 - Objective General Appearance: positive: No acute distress, Alert. negative: Lethargic Eyes Bilateral: positive: Normal inspection, PERRL, No lid inflammation, Conjunctivae nml ENT: positive: ENT inspection nml, Pharynx nml, No signs of dehydration. negative: Purulent nasal drainage, Pharyngeal erythema, Oral lesions Neck: positive: Nml inspection, Thyroid nml, No JVD, Trachea midline. negative : Thyromegaly, Lymphadenopathy (R), Lymphadenopathy (L), Stiff neck, Swelling/ bruising, Tracheal deviation Respiratory: positive: Chest non-tender, No respiratory distress, Breath sounds nml. negative: Wheezes, Rales, Rhonchi Cardiovascular: positive: Regular rate & rhythm, No murmur, No gallop. negative : Irregularly irregular, Extrasystoles, Tachycardia, Bradycardia, Systolic murmur, Diastolic murmur Peripheral Pulses: 2+ Radial (R), 2+ Radial (L), 2+ Dorsalis pedis (R), 2+ Dorsalis pedis (L) Abdomen: positive: Non-tender, No organomegaly, No distention, Other ( hyperactive bowel sound). negative: Tenderness, Guarding, Rebound Back: positive: Nml inspection. negative: CVA tenderness (R), CVA tenderness (L ) Skin: positive: Color nml, No rash, Warm, Dry. negative: Cyanosis, Diaphoresis , Pallor Extremities: positive: Non-tender. negative: Calf tenderness, Joint swelling, Brunilda's sign/cords Neurologic/Psychiatric: negative: Facial droop - Lab Results Fish Bones: 09/22/17 06:47 09/22/17 06:47 Other Labs: Lab Results x24hrs 09/22/17 09/22/17 Range/Units 06:47 06:47 WBC 13.2 H (4.8-10.8) x10^3/uL RBC 4.70 (4.70-6.10) 10^6/uL Hgb 14.8 (14.0-18.0) g/dL Hct 44.8 (42.0-52.0) % MCV 95.4 H (80.0-94.0) fL MCH 31.4 H (27.0-31.0) pg MCHC 33.0 (32.0-36.0) g/dL RDW 13.4 (12.0-15.0) % Plt Count 255 (130-450) 10^3/uL MPV 7.3 L (7.4-11.4) fL Sodium 139 (135-145) mmol/L Potassium 3.9 (3.5-5.0) mmol/L Chloride 101 (101-111) mmol/L Carbon Dioxide 29 (21-32) mmol/L Anion Gap 9.0 (6-13) BUN 10 (6-20) mg/dL Creatinine 0.5 L (0.6-1.2) mg/dL Estimated GFR (MDRD) 179 (>89) Glucose 128 H (70-100) mg/dL Calcium 9.2 (8.5-10.3) mg/dL Phenytoin 7.7 ug/mL ABX Reporting Has patient been on IV antibiotics over the past 48 hours?: No Assessment/Plan - Problem List (1) Small bowel obstruction Impression: Conclusion/Plan: consult with surgeon, follow up continue bowel rest, NPO IVF daily lab and vital monitor The patient has a history of prior abdominal surgery with adhesions and also prior small bowel obstructions. He has typically resolved with bowel rest and we will therefore place an NG tube and rest his bowel in the hopes that it will resolve his obstruction. General surgery has been consulted. (2) Seizure disorder Conclusion/Plan: stable, continue home meds We will obtain Dilantin level and continue the patient on his home dosing of Dilantin and amitriptyline. (3) History of hyperlipidemia Conclusion/Plan: stable, will continue home meds We will continue the patient on his home doses of Lipitor and krill oil. (4) Cerebral palsy with spastic/ataxic diplegia Conclusion/Plan: stable, will continue home regimen Continue home care regimen whenever possible
[2017-09-22] MEDS: PHENYTOIN ER 100 MG CAPSULE PO SCH (21:19)
[2017-09-22] MEDS: AMITRIPTYLINE 10 MG TABLET PO SCH (21:19)
[2017-09-22] MEDS: PHENYTOIN 100 MG/2 ML VIAL IVP SCH (21:45)
[2017-09-23] MEDS: SODIUM CHLORIDE FLUSH 0.9% 10 ML SYRINGE IVP SCH ×3 (00:22→15:37)
[2017-09-23] MEDS: SODIUM CHLORIDE FLUSH 0.9% 10 ML SYRINGE IVP PRN ×2 (05:32→14:17)
[2017-09-23] MEDS: ONDANSETRON 4 MG/2 ML VIAL IVP PRN (05:32)
[2017-09-23 05:40] LABS: HGB - HEMOGLOBIN 13.9 g/dL (14.0-18.0); MEAN CORPUSCULAR HEMOGLOBIN 31.7 pg (27.0-31.0); MEAN CORPUSCULAR HGB CONC 33.2 g/dL (32.0-36.0); MEAN CORPUSCULAR VOLUME 95.7 fL (80.0-94.0); MEAN PLATELET VOLUME 7.5 fL (7.4-11.4); RED BLOOD COUNT 4.39 10^6/uL (4.70-6.10); RED CELL DISTRIBUTION WIDTH 13.5 % (12.0-15.0); WHITE BLOOD COUNT 7.1 x10^3/uL (4.8-10.8)
[2017-09-23 05:50] LABS: CALCIUM 8.5 mg/dL (8.5-10.3); CREATININE 0.6 mg/dL (0.6-1.2)
[2017-09-23] MEDS: PHENYTOIN 100 MG/2 ML VIAL IVP SCH ×3 (05:55→21:56)
[2017-09-23] MEDS: D5.45NS W/20 MEQ KCL 1,000 ML IV SCH ×3 (06:49→23:23)
[2017-09-23] MEDS: POLYETHYLENE GLYCOL 3350 17 GM PACKET PO SCH (07:32)
[2017-09-23] MEDS: FAMOTIDINE 20 MG/50 ML 50 ML IV SCH ×2 (08:01→20:34)
--- NOTE | 2017-09-23 08:49 | PROVIDER PROGRESS NOTE ---
Assessment/Plan - Problem List (1) Small bowel obstruction Assessment/Plan: Clinically improving; rec: if xray is improved, trial clear liquid diet today. - Current Meds Current Meds: Current Medications Generic Name Dose Route Start Last Admin Trade Name Freq PRN Reason Stop Dose Admin Amitriptyline HCl 30 mg 09/22/17 21:00 09/22/17 21:19 Elavil PO Not Given QPM SARAH Potassium Chloride/Dextrose/Sod Cl 1,000 mls @ 125 mls/hr 09/21/17 22:00 06:49 D5.45ns W/20 Meq Kcl IV 125 mls/hr .Q8H [facility]AH Administration Famotidine 50 mls @ 100 mls/hr 09/22/17 09:00 09/23/17 08:01 Pepcid 20 Mg/50 Ml IV 100 mls/hr BID SARAH Administration Ondansetron HCl 4 mg 09/22/17 00:25 09/23/17 05:32 Zofran Inj IVP 4 mg Q4H PRN Administration Nausea / Vomiting Phenytoin Sodium 300 mg 09/22/17 21:00 09/22/17 21:19 Dilantin PO Not Given QPM SARAH Phenytoin Sodium 100 mg 09/22/17 22:00 09/23/17 05:55 Dilantin Inj IVP 100 mg TID SARAH Administration Polyethylene Glycol 17 gm 09/22/17 09:00 09/23/17 07:32 Miralax PO Not Given DAILY SARAH Sodium Chloride 10 ml 09/21/17 21:35 09/23/17 05:32 Normal Saline Flush 0.9% IVP 10 ml PRN PRN Administration NEEDED PER PROVIDER ORDERS Sodium Chloride 10 ml 09/22/17 01:00 09/23/17 07:34 Normal Saline Flush 0.9% IVP Not Given 0100,0900,1700 SARAH - Lab Result Lab results reviewed: Yes Fish Bone Diagrams: 09/23/17 05:15 09/23/17 05:15 - Additional Planning Condition/Complexity: Improved Plan Discussed with:: Patient Time Spent: 15-30 minutes Subjective - Subjective Patient Reports: Resting Comfortably, No Complaints Nursing Reports: No Complaints (No N/V since yesterday morning; one small bm overnight; no signs of abdominal pain) Objective Vital Signs: Vital Signs - 24 hr 09/22/17 09/22/17 09/23/17 15:40 23:32 05:50 Temperature 36.7 C 36.7 C Heart Rate [ 72 66 Brachial] Respiratory 18 20 Rate Blood Pressure [Left Brachial artery] Blood Pressure 110/78 116/69 127/75 [Right Brachial artery] O2 Saturation 99 98 09/23/17 09/23/17 09/23/17 05:59 06:05 06:10 Temperature Heart Rate [ Brachial] Respiratory Rate Blood Pressure 126/86 H 113/82 H 106/68 [Left Brachial artery] Blood Pressure [Right Brachial artery] O2 Saturation 09/23/17 09/23/17 09/23/17 06:25 06:40 07:35 Temperature 36.3 C L Heart Rate [ 74 82 Brachial] Respiratory 18 Rate Blood Pressure 104/64 113/71 120/82 H [Left Brachial artery] Blood Pressure [Right Brachial artery] O2 Saturation Oxygen O2 Source Room air I&O (Last 24 Hrs): Intake and Output Totals x24h 09/21/17 09/22/17 09/23/17 23:59 23:59 23:59 Intake Total 155 2947.916 1000 Output Total 150 Balance 155 2797.916 1000 General: Alert, Cooperative, No acute distress Abdomen: Normal bowel sounds, Soft, No tenderness, No hepatospenomegaly, No masses - Results Results: Laboratory Results WBC 7.1 x10^3/uL (4.8-10.8) 09/23/17 05:15 RBC 4.39 10^6/uL (4.70-6.10) L 09/23/17 05:15 Hgb 13.9 g/dL (14.0-18.0) L 09/23/17 05:15 Hct 42.0 % (42.0-52.0) 09/23/17 05:15 MCV 95.7 fL (80.0-94.0) H 09/23/17 05:15 MCH 31.7 pg (27.0-31.0) H 09/23/17 05:15 MCHC 33.2 g/dL (32.0-36.0) 09/23/17 05:15 RDW 13.5 % (12.0-15.0) 09/23/17 05:15 Plt Count 214 10^3/uL (130-450) 09/23/17 05:15 MPV 7.5 fL (7.4-11.4) 09/23/17 05:15 Neut # 14.1 10^3/uL (1.5-6.6) H 09/21/17 18:52 Lymph # 0.9 10^3/uL (1.5-3.5) L 09/21/17 18:52 [place] # 0.5 10^3/uL (0.0-1.0) 09/21/17 18:52 Eos # 0.0 10^3/uL (0.0-0.7) 09/21/17 18:52 Baso # 0.1 10^3/uL (0.0-0.1) 09/21/17 18:52 Absolute Nucleated RBC 0.00 x10^3/uL 09/21/17 18:52 Nucleated RBC % 0.0 /100WBC 09/21/17 18:52 Sodium 140 mmol/L (135-145) 09/23/17 05:15 Potassium 3.9 mmol/L (3.5-5.0) 09/23/17 05:15 Chloride 106 mmol/L (101-111) 09/23/17 05:15 Carbon Dioxide 28 mmol/L (21-32) 09/23/17 05:15 Anion Gap 6.0 (6-13) 09/23/17 05:15 BUN 5 mg/dL (6-20) L 09/23/17 05:15 Creatinine 0.6 mg/dL (0.6-1.2) 09/23/17 05:15 Estimated GFR (MDRD) 145 (>89) 09/23/17 05:15 Glucose 110 mg/dL (70-100) H 09/23/17 05:15 Calcium 8.5 mg/dL (8.5-10.3) 09/23/17 05:15 Total Bilirubin 0.7 mg/dL (0.2-1.0) 09/21/17 18:52 AST 36 IU/L (10-42) 09/21/17 18:52 ALT 38 IU/L (10-60) 09/21/17 18:52 Alkaline Phosphatase 163 IU/L (42-121) H 09/21/17 18:52 Total Protein 8.7 g/dL (6.7-8.2) H 09/21/17 18:52 Albumin 5.0 g/dL (3.2-5.5) 09/21/17 18:52 Globulin 3.7 g/dL (2.1-4.2) 09/21/17 18:52 Albumin/Globulin Ratio 1.4 (1.0-2.2) 09/21/17 18:52 Lipase 31 U/L (22-51) 09/21/17 18:52 Phenytoin 7.7 ug/mL 09/22/17 06:47 2 view abd series pending - Procedures Procedures: Procedures ESOPHAGOGASTRODUODENOSCOPY [EGD] W/CLOSED BIOPSY (07/31/13) INSERT GASTRIC TUBE NEC (06/23/14) INSERTION OF INFUSION DEVICE INTO R [facility], PERC APPROACH (02/03/15) ULTRASONOGRAPHY OF RIGHT HEART (02/03/15) ABX Reporting Has patient been on IV antibiotics over the past 48 hours?: No
--- NOTE | 2017-09-23 09:10 | PROVIDER PROGRESS NOTE ---
Subjective - Prog Note Date Prog Note Date: 09/23/17 - Subjective Pt reports feeling: Improved Subjective: pt is aphasia, mental retardation. pt is comfortable enjoy watching TV, no distress or pain. Nurse report pt did not have N/V since yesterday, pt had tiny small bowel movement. pt will have KUB on today morning, will follow up image study. Current Medications - Current Medications Current Medications: Active Medications Amitriptyline HCl (Elavil) 30 mg PO QPM [facility] Last Admin: 09/22/17 21:19 Dose: Not Given Hydromorphone HCl (Dilaudid Inj Syringe) 0.5 mg IVP Q2H PRN PRN Reason: Pain 8 to 10 Potassium Chloride/Dextrose/Sod Cl (D5.45ns W/20 Meq Kcl) 1,000 mls @ 125 mls/ hr IV .Q8H [facility] Last Admin: 09/23/17 06:49 Dose: 125 mls/hr Famotidine (Pepcid 20 Mg/50 Ml) 50 mls @ 100 mls/hr IV BID [facility] Last Admin: 09/23/17 08:01 Dose: 100 mls/hr Ketorolac Tromethamine (Toradol Inj) 15 mg IVP Q6HR PRN PRN Reason: PAIN Stop: 09/27/17 08:09 Ondansetron HCl (Zofran Inj) 4 mg IVP Q4H PRN PRN Reason: Nausea / Vomiting Last Admin: 09/23/17 05:32 Dose: 4 mg Phenytoin Sodium (Dilantin) 300 mg PO QPM [facility] Last Admin: 09/22/17 21:19 Dose: Not Given Phenytoin Sodium (Dilantin Inj) 100 mg IVP TID [facility] Last Admin: 09/23/17 05:55 Dose: 100 mg Polyethylene Glycol (Miralax) 17 gm PO DAILY [facility] Last Admin: 09/23/17 07:32 Dose: Not Given Sodium Chloride (Normal Saline Flush 0.9%) 10 ml IVP PRN PRN PRN Reason: NEEDED PER PROVIDER ORDERS Last Admin: 09/23/17 05:32 Dose: 10 ml Sodium Chloride (Normal Saline Flush 0.9%) 10 ml IVP 0100,0900,1700 [facility] Last Admin: 09/23/17 07:34 Dose: Not Given Amitriptyline HCl 30 mg PO QPM 05/12/13 Multivitamin [Multi-Vitamin Daily] 1 tab PO DAILY 05/12/13 Atorvastatin [Lipitor] 10 mg PO QPM 07/30/13 Acetaminophen [Tylenol] 650 mg PO Q4H PRN 09/19/16 Docusate Sodium 250Mg Capsule [Colace 250Mg Capsule] 250 mg PO BID PRN 09/19/16 Ondansetron Odt [Zofran Odt] 4 mg TL Q6H PRN 09/19/16 Phenytoin [Dilantin] 300 mg PO QPM 09/19/16 Pantoprazole [Protonix] 40 mg PO QDAC 09/20/16 Ranitidine HCl [Zantac] 300 mg PO QPM 09/20/16 Krill/Om-3/Dha/Epa/Phospho/Ast [Krill Oil 500 mg Softgel] 1 each PO BID Objective - Vital Signs/Intake & Output Reviewed Vital Signs: Yes Vital Signs: Vital Signs x48h Temp Pulse Resp BP BP 09/23/17 07:35 36.3 C L 82 18 120/82 H 09/23/17 06:40 74 113/71 09/23/17 06:25 104/64 09/23/17 06:10 106/68 09/23/17 06:05 113/82 H 09/23/17 05:59 126/86 H 09/23/17 05:50 127/75 Intake & Output: Intake & Output 09/20/17 09/21/17 09/22/17 09/23/17 23:59 23:59 23:59 23:59 Intake Total 155 2947.916 1000 Output Total 150 Balance 155 2797.916 1000 - Objective General Appearance: positive: No acute distress, Alert. negative: Lethargic Eyes Bilateral: positive: Normal inspection, PERRL, No lid inflammation, Conjunctivae nml ENT: positive: ENT inspection nml, Pharynx nml, No signs of dehydration. negative: Purulent nasal drainage, Pharyngeal erythema, Oral lesions Neck: positive: Nml inspection, Thyroid nml, No JVD, Trachea midline. negative : Thyromegaly, Lymphadenopathy (R), Lymphadenopathy (L), Stiff neck, Carotid bruit, Swelling/bruising, Tracheal deviation Respiratory: positive: Chest non-tender, No respiratory distress, Breath sounds nml. negative: Wheezes, Rales, Rhonchi Cardiovascular: positive: Regular rate & rhythm, No murmur, No gallop. negative : Irregularly irregular, Extrasystoles, Tachycardia, Bradycardia, JVD present, Systolic murmur, Diastolic murmur Peripheral Pulses: 2+ Radial (R), 2+ Radial (L), 2+ Dorsalis pedis (R), 2+ Dorsalis pedis (L) Abdomen: positive: Non-tender, No organomegaly, No distention, Other (still some hyperactive bowel movement). negative: Tenderness, Guarding, Rebound Back: positive: Nml inspection. negative: CVA tenderness (R), CVA tenderness (L ) Skin: positive: Color nml, No rash, Warm, Dry. negative: Cyanosis, Diaphoresis , Pallor Extremities: positive: Non-tender, Full ROM, Nml appearance. negative: Calf tenderness, Joint swelling, Brunilda's sign/cords Neurologic/Psychiatric: negative: Sensory loss, Facial droop, Slurred/abnml speech, Depressed mood/affect - Lab Results Fish Bones: 09/23/17 05:15 09/23/17 05:15 Other Labs: Lab Results x24hrs 09/23/17 09/23/17 Range/Units 05:15 05:15 WBC 7.1 (4.8-10.8) x10^3/uL RBC 4.39 L (4.70-6.10) 10^6/uL Hgb 13.9 L (14.0-18.0) g/dL Hct 42.0 (42.0-52.0) % MCV 95.7 H (80.0-94.0) fL MCH 31.7 H (27.0-31.0) pg MCHC 33.2 (32.0-36.0) g/dL RDW 13.5 (12.0-15.0) % Plt Count 214 (130-450) 10^3/uL MPV 7.5 (7.4-11.4) fL Sodium 140 (135-145) mmol/L Potassium 3.9 (3.5-5.0) mmol/L Chloride 106 (101-111) mmol/L Carbon Dioxide 28 (21-32) mmol/L Anion Gap 6.0 (6-13) BUN 5 L (6-20) mg/dL Creatinine 0.6 (0.6-1.2) mg/dL Estimated GFR (MDRD) 145 (>89) Glucose 110 H (70-100) mg/dL Calcium 8.5 (8.5-10.3) mg/dL ABX Reporting Has patient been on IV antibiotics over the past 48 hours?: No Assessment/Plan - Problem List (1) Small bowel obstruction Impression: Conclusion/Plan: clinic pt has small improvement. No N/V, has tiny small bowel movement. will have KUB today, follow up follow up surgeon continue NPO, bowel rest continue IVF D5 daily lab and vital monitor consult with surgeon, follow up continue bowel rest, NPO IVF daily lab and vital monitor The patient has a history of prior abdominal surgery with adhesions and also prior small bowel obstructions. He has typically resolved with bowel rest and we will therefore place an NG tube and rest his bowel in the hopes that it will resolve his obstruction. General surgery has been consulted. (2) Seizure disorder Conclusion/Plan: stable, continue home meds Dilantin. Dilantin concentration is blow toxic level stable, continue home meds We will obtain Dilantin level and continue the patient on his home dosing of Dilantin and amitriptyline. (3) History of hyperlipidemia Conclusion/Plan: stable, will continue home meds We will continue the patient on his home doses of Lipitor and krill oil. (4) Cerebral palsy with spastic/ataxic diplegia Conclusion/Plan: stable, continue support. stable, will continue home regimen Continue home care regimen whenever possible
--- NOTE | 2017-09-23 10:22 | XRAY Report ---
TWO VIEW ABDOMEN: 09/22/2017 CLINICAL INDICATION: Partial small bowel obstruction. COMPARISON: 09/22/2017. FINDINGS: Supine and decubitus views of the abdomen demonstrate interval improvement in small bowel dilatation. More gas is now seen in the colon. Spinal fusion appears stable. IMPRESSION: IMPROVING SMALL BOWEL DILATATION. TD: 09/23/2017 09:41
[2017-09-23] MEDS: AMITRIPTYLINE 10 MG TABLET PO SCH (20:34)
[2017-09-23] MEDS: PHENYTOIN ER 100 MG CAPSULE PO SCH (20:34)
[2017-09-24] MEDS: SODIUM CHLORIDE FLUSH 0.9% 10 ML SYRINGE IVP SCH ×3 (01:46→16:53)
[2017-09-24 05:11] LABS: HGB - HEMOGLOBIN 15.2 g/dL (14.0-18.0); MEAN CORPUSCULAR HEMOGLOBIN 31.8 pg (27.0-31.0); MEAN CORPUSCULAR VOLUME 96.1 fL (80.0-94.0); MEAN PLATELET VOLUME 7.8 fL (7.4-11.4); RED BLOOD COUNT 4.8 10^6/uL (4.70-6.10); RED CELL DISTRIBUTION WIDTH 13.3 % (12.0-15.0); WHITE BLOOD COUNT 10.4 x10^3/uL (4.8-10.8)
[2017-09-24 05:16] LABS: BUN - BLOOD UREA NITROGEN < 5 mg/dL (6-20); CALCIUM 8.8 mg/dL (8.5-10.3); CARBON DIOXIDE - CO2 25 mmol/L (21-32); CHLORIDE 106 mmol/L (101-111); CREATININE 0.5 mg/dL (0.6-1.2); GFR - MDRD 179 (>89); GLUCOSE 107 mg/dL (70-100); SODIUM 139 mmol/L (135-145)
[2017-09-24] MEDS: PHENYTOIN 100 MG/2 ML VIAL IVP SCH (05:32)
[2017-09-24] MEDS: D5.45NS W/20 MEQ KCL 1,000 ML IV SCH ×3 (06:13→21:26)
[2017-09-24] MEDS: POLYETHYLENE GLYCOL 3350 17 GM PACKET PO SCH (07:16)
[2017-09-24] MEDS: FAMOTIDINE 20 MG/50 ML 50 ML IV SCH ×2 (08:47→20:18)
--- NOTE | 2017-09-24 09:28 | PROVIDER PROGRESS NOTE ---
Assessment/Plan - Problem List (2) Small bowel obstruction Assessment/Plan: clinically improved; rec start clear liquid diet and advance as tolerated. - Current Meds Current Meds: Current Medications Generic Name Dose Route Start Last Admin Trade Name Freq PRN Reason Stop Dose Admin Amitriptyline HCl 30 mg 09/22/17 21:00 09/23/17 20:34 Elavil PO 30 mg QPM SARAH Administration Famotidine 50 mls @ 100 mls/hr 09/22/17 09:00 09/24/17 09:17 Pepcid 20 Mg/50 Ml IV Infused BID SARAH Infusion Ketorolac Tromethamine 15 mg 09/22/17 08:10 09/24/17 09:00 Toradol Inj IVP 09/27/17 08:09 15 mg Q6HR PRN Administration PAIN Ondansetron HCl 4 mg 09/22/17 00:25 09/23/17 05:32 Zofran Inj IVP 4 mg Q4H PRN Administration Nausea / Vomiting Phenytoin Sodium 300 mg 09/22/17 21:00 09/23/17 20:34 Dilantin PO 300 mg QPM SARAH Administration Phenytoin Sodium 100 mg 09/22/17 22:00 09/24/17 05:32 Dilantin Inj IVP 100 mg TID SARAH Administration Polyethylene Glycol 17 gm 09/22/17 09:00 09/24/17 07:16 Miralax PO Not Given DAILY SARAH Sodium Chloride 10 ml 09/21/17 21:35 09/23/17 14:17 Normal Saline Flush 0.9% IVP 10 ml PRN PRN Administration NEEDED PER PROVIDER ORDERS Sodium Chloride 10 ml 09/22/17 01:00 09/24/17 07:16 Normal Saline Flush 0.9% IVP Not Given 0100,0900,1700 SARAH - Lab Result Lab results reviewed: Yes Fish Bone Diagrams: 09/24/17 04:30 09/24/17 04:30 - Diagnostic Imaging Results Diagnostic Imaging Results: Final report reviewed, Read independently Diagnostic Imaging Results Comments: 2 view abd from yesterday shows decreased caliber of small bowel and increased gas in colon c/w resolving sbo - Additional Planning Condition/Complexity: Improved My Orders: My Active Orders 09/24/17 09:26 D5.45ns W/20 Meq KCl 1,000 ml IV 50 mls/hr 09/24/17 Lunch Clear Liquid Diet [DIET] Time Spent: 15-30 minutes Subjective - Subjective Patient Reports: No Complaints Nursing Reports: No Complaints (No episodes of vomiting or apparent discomfort noted.) Objective Vital Signs: Vital Signs - 24 hr 09/23/17 09/23/17 09/23/17 14:18 14:23 14:26 Temperature Heart Rate [ 67 58 L 62 Brachial] Respiratory Rate Blood Pressure 124/80 125/76 117/85 H [Left Brachial artery] Blood Pressure [Right Brachial artery] O2 Saturation 09/23/17 09/23/17 09/23/17 14:42 14:56 15:10 Temperature Heart Rate [ 63 64 62 Brachial] Respiratory Rate Blood Pressure 114/69 116/68 136/86 H [Left Brachial artery] Blood Pressure [Right Brachial artery] O2 Saturation 09/23/17 09/23/17 09/23/17 15:20 22:02 22:15 Temperature 36.3 C L Heart Rate [ 69 Brachial] Respiratory 20 Rate Blood Pressure 136/86 H 126/82 H 116/72 [Left Brachial artery] Blood Pressure [Right Brachial artery] O2 Saturation 100 09/23/17 09/23/17 09/23/17 22:23 22:41 22:49 Temperature Heart Rate [ Brachial] Respiratory Rate Blood Pressure 114/78 107/73 112/71 [Left Brachial artery] Blood Pressure [Right Brachial artery] O2 Saturation 09/23/17 09/24/17 09/24/17 23:48 05:45 05:50 Temperature 36.6 C Heart Rate [ 68 85 79 Brachial] Respiratory 16 Rate Blood Pressure 115/76 [Left Brachial artery] Blood Pressure 110/90 H 124/60 [Right Brachial artery] O2 Saturation 99 09/24/17 09/24/17 09/24/17 05:55 06:00 06:15 Temperature Heart Rate [ 84 80 78 Brachial] Respiratory Rate Blood Pressure [Left Brachial artery] Blood Pressure 120/87 H 121/87 H 108/59 L [Right Brachial artery] O2 Saturation 09/24/17 09/24/17 06:30 08:00 Temperature 36.3 C L Heart Rate [ 79 81 Brachial] Respiratory 16 Rate Blood Pressure [Left Brachial artery] Blood Pressure 110/59 L [Right Brachial artery] O2 Saturation 98 Oxygen O2 Source Room air I&O (Last 24 Hrs): Intake and Output Totals x24h 09/22/17 09/23/17 09/24/17 23:59 23:59 23:59 Intake Total 2947.916 3087.500 1227.084 Output Total 150 Balance 2797.916 3087.500 1227.084 General: Alert, Cooperative, No acute distress Abdomen: Normal bowel sounds, Soft (non distended), No tenderness, No hepatospenomegaly, No masses - Results Results: Laboratory Results WBC 10.4 x10^3/uL (4.8-10.8) 09/24/17 04:30 RBC 4.80 10^6/uL (4.70-6.10) 09/24/17 04:30 Hgb 15.2 g/dL (14.0-18.0) 09/24/17 04:30 Hct 46.1 % (42.0-52.0) 09/24/17 04:30 MCV 96.1 fL (80.0-94.0) H 09/24/17 04:30 MCH 31.8 pg (27.0-31.0) H 09/24/17 04:30 MCHC 33.0 g/dL (32.0-36.0) 09/24/17 04:30 RDW 13.3 % (12.0-15.0) 09/24/17 04:30 Plt Count 239 10^3/uL (130-450) 09/24/17 04:30 MPV 7.8 fL (7.4-11.4) 09/24/17 04:30 Neut # 14.1 10^3/uL (1.5-6.6) H 09/21/17 18:52 Lymph # 0.9 10^3/uL (1.5-3.5) L 09/21/17 18:52 [place] # 0.5 10^3/uL (0.0-1.0) 09/21/17 18:52 Eos # 0.0 10^3/uL (0.0-0.7) 09/21/17 18:52 Baso # 0.1 10^3/uL (0.0-0.1) 09/21/17 18:52 Absolute Nucleated RBC 0.00 x10^3/uL 09/21/17 18:52 Nucleated RBC % 0.0 /100WBC 09/21/17 18:52 Sodium 139 mmol/L (135-145) 09/24/17 04:30 Potassium 3.9 mmol/L (3.5-5.0) 09/24/17 04:30 Chloride 106 mmol/L (101-111) 09/24/17 04:30 Carbon Dioxide 25 mmol/L (21-32) 09/24/17 04:30 Anion Gap 8.0 (6-13) 09/24/17 04:30 BUN < 5 mg/dL (6-20) L 09/24/17 04:30 Creatinine 0.5 mg/dL (0.6-1.2) L 09/24/17 04:30 Estimated GFR (MDRD) 179 (>89) 09/24/17 04:30 Glucose 107 mg/dL (70-100) H 09/24/17 04:30 Calcium 8.8 mg/dL (8.5-10.3) 09/24/17 04:30 Total Bilirubin 0.7 mg/dL (0.2-1.0) 09/21/17 18:52 AST 36 IU/L (10-42) 09/21/17 18:52 ALT 38 IU/L (10-60) 09/21/17 18:52 Alkaline Phosphatase 163 IU/L (42-121) H 09/21/17 18:52 Total Protein 8.7 g/dL (6.7-8.2) H 09/21/17 18:52 Albumin 5.0 g/dL (3.2-5.5) 09/21/17 18:52 Globulin 3.7 g/dL (2.1-4.2) 09/21/17 18:52 Albumin/Globulin Ratio 1.4 (1.0-2.2) 09/21/17 18:52 Lipase 31 U/L (22-51) 09/21/17 18:52 Phenytoin 7.7 ug/mL 09/22/17 06:47 - Procedures Procedures: Procedures ESOPHAGOGASTRODUODENOSCOPY [EGD] W/CLOSED BIOPSY (07/31/13) INSERT GASTRIC TUBE NEC (06/23/14) INSERTION OF INFUSION DEVICE INTO R ATRIUM, PERC APPROACH (02/03/15) ULTRASONOGRAPHY OF RIGHT HEART (02/03/15) ABX Reporting Has patient been on IV antibiotics over the past 48 hours?: No
--- NOTE | 2017-09-24 10:43 | XRAY Report ---
TWO VIEW ABDOMEN: 09/24/2017 CLINICAL INDICATION: Followup small-bowel obstruction. FINDINGS: Supine and upright views of the abdomen are compared to previous films of 09/23/2017. The bowel gas pattern is now normal. Previously seen small bowel dilatation has resolved. Spinal fusion hardware appears stable. IMPRESSION: RESOLUTION OF SMALL BOWEL DILATATION. NO FREE INTRAPERITONEAL GAS. TD: 09/24/2017 10:31
--- NOTE | 2017-09-24 14:09 | PROVIDER PROGRESS NOTE ---
Subjective - Prog Note Date Prog Note Date: 09/24/17 - Subjective Pt reports feeling: Improved Subjective: pt tolerate clear liquid diet, will advance as tolerated. KUB reveals no dilation of bowel, and no free gas. No N/V, or abdominal pain. If continue to tolerate diet, plan to d/c tomorrow. Current Medications - Current Medications Current Medications: Active Medications Amitriptyline HCl (Elavil) 30 mg PO QPM [facility] Last Admin: 09/23/17 20:34 Dose: 30 mg Hydromorphone HCl (Dilaudid Inj Syringe) 0.5 mg IVP Q2H PRN PRN Reason: Pain 8 to 10 Last Admin: 09/24/17 09:36 Dose: 0.5 mg Famotidine (Pepcid 20 Mg/50 Ml) 50 mls @ 100 mls/hr IV BID [facility] Last Infusion: 09/24/17 09:17 Dose: Infused Potassium Chloride/Dextrose/Sod Cl (D5.45ns W/20 Meq Kcl) 1,000 mls @ 50 mls/ hr IV .Q20H [facility] Last Infusion: 09/24/17 10:30 Dose: 50 mls/hr Ketorolac Tromethamine (Toradol Inj) 15 mg IVP Q6HR PRN PRN Reason: PAIN Stop: 09/27/17 08:09 Last Admin: 09/24/17 09:00 Dose: 15 mg Ondansetron HCl (Zofran Inj) 4 mg IVP Q4H PRN PRN Reason: Nausea / Vomiting Last Admin: 09/23/17 05:32 Dose: 4 mg Phenytoin Sodium (Dilantin) 300 mg PO QPM [facility] Last Admin: 09/23/17 20:34 Dose: 300 mg Phenytoin Sodium (Dilantin Inj) 100 mg IVP TID [facility] Last Admin: 09/24/17 05:32 Dose: 100 mg Polyethylene Glycol (Miralax) 17 gm PO DAILY [facility] Last Admin: 09/24/17 07:16 Dose: Not Given Sodium Chloride (Normal Saline Flush 0.9%) 10 ml IVP PRN PRN PRN Reason: NEEDED PER PROVIDER ORDERS Last Admin: 09/23/17 14:17 Dose: 10 ml Sodium Chloride (Normal Saline Flush 0.9%) 10 ml IVP 0100,0900,1700 [facility] Last Admin: 09/24/17 07:16 Dose: Not Given Amitriptyline HCl 30 mg PO QPM 05/12/13 Multivitamin [Multi-Vitamin Daily] 1 tab PO DAILY 05/12/13 Atorvastatin [Lipitor] 10 mg PO QPM 07/30/13 Acetaminophen [Tylenol] 650 mg PO Q4H PRN 09/19/16 Docusate Sodium 250Mg Capsule [Colace 250Mg Capsule] 250 mg PO BID PRN 09/19/16 Ondansetron Odt [Zofran Odt] 4 mg TL Q6H PRN 09/19/16 Phenytoin [Dilantin] 300 mg PO QPM 09/19/16 Pantoprazole [Protonix] 40 mg PO QDAC 09/20/16 Ranitidine HCl [Zantac] 300 mg PO QPM 09/20/16 Krill/Om-3/Dha/Epa/Phospho/Ast [Krill Oil 500 mg Softgel] 1 each PO BID Objective - Vital Signs/Intake & Output Reviewed Vital Signs: Yes Vital Signs: Vital Signs x48h Temp Pulse Resp BP Pulse Ox 09/24/17 08:00 36.3 C L 81 16 98 09/24/17 06:30 79 110/59 L 09/24/17 06:15 78 108/59 L Intake & Output: Intake & Output 09/21/17 09/22/17 09/23/17 09/24/17 23:59 23:59 23:59 23:59 Intake Total 155 2947.916 3087.500 1399.580 Output Total 150 Balance 155 2797.916 3087.500 1399.580 - Objective General Appearance: positive: No acute distress, Alert. negative: Lethargic Eyes Bilateral: positive: Normal inspection, PERRL, No lid inflammation, Conjunctivae nml ENT: positive: ENT inspection nml, Pharynx nml, No signs of dehydration. negative: Purulent nasal drainage, Pharyngeal erythema, Oral lesions Neck: positive: Nml inspection, Thyroid nml, No JVD, Trachea midline. negative : Thyromegaly, Lymphadenopathy (R), Lymphadenopathy (L) Respiratory: positive: Chest non-tender, No respiratory distress, Breath sounds nml. negative: Wheezes, Rales, Rhonchi Cardiovascular: positive: Regular rate & rhythm, No murmur, No gallop. negative : Irregularly irregular, Extrasystoles, Tachycardia, Bradycardia, JVD present, Systolic murmur, Diastolic murmur Peripheral Pulses: 2+ Radial (R), 2+ Radial (L), 2+ Dorsalis pedis (R), 2+ Dorsalis pedis (L) Abdomen: positive: Non-tender, No organomegaly, Nml bowel sounds, No distention. negative: Tenderness, Guarding, Rebound Back: positive: Nml inspection. negative: CVA tenderness (R), CVA tenderness (L ) Skin: positive: Color nml, No rash, Warm, Dry. negative: Cyanosis, Diaphoresis , Pallor Extremities: positive: Non-tender. negative: Calf tenderness, Brunilda's sign/ cords Neurologic/Psychiatric: negative: Sensory loss, Facial droop, Slurred/abnml speech, Depressed mood/affect - Lab Results Fish Bones: 09/24/17 04:30 09/24/17 04:30 Other Labs: Lab Results x24hrs 09/24/17 09/24/17 Range/Units 04:30 04:30 WBC 10.4 (4.8-10.8) x10^3/uL RBC 4.80 (4.70-6.10) 10^6/uL Hgb 15.2 (14.0-18.0) g/dL Hct 46.1 (42.0-52.0) % MCV 96.1 H (80.0-94.0) fL MCH 31.8 H (27.0-31.0) pg MCHC 33.0 (32.0-36.0) g/dL RDW 13.3 (12.0-15.0) % Plt Count 239 (130-450) 10^3/uL MPV 7.8 (7.4-11.4) fL Sodium 139 (135-145) mmol/L Potassium 3.9 (3.5-5.0) mmol/L Chloride 106 (101-111) mmol/L Carbon Dioxide 25 (21-32) mmol/L Anion Gap 8.0 (6-13) BUN < 5 L (6-20) mg/dL Creatinine 0.5 L (0.6-1.2) mg/dL Estimated GFR (MDRD) 179 (>89) Glucose 107 H (70-100) mg/dL Calcium 8.8 (8.5-10.3) mg/dL ABX Reporting Has patient been on IV antibiotics over the past 48 hours?: No Assessment/Plan - Problem List (1) Small bowel obstruction Impression: Impression: pt tolerate clear liquid diet,and ask advance diet. full liquid diet for pt KUB reveals improvement follow up surgeon's recommendation plan d/c tomorrow if tolerated diet clinic pt has small improvement. No N/V, has tiny small bowel movement. will have KUB today, follow up follow up surgeon continue NPO, bowel rest continue IVF D5 daily lab and vital monitor consult with surgeon, follow up continue bowel rest, NPO IVF daily lab and vital monitor The patient has a history of prior abdominal surgery with adhesions and also prior small bowel obstructions. He has typically resolved with bowel rest and we will therefore place an NG tube and rest his bowel in the hopes that it will resolve his obstruction. General surgery has been consulted. (2) Seizure disorder Conclusion/Plan: stable, continue home meds Dilantin. Dilantin concentration is blow toxic level stable, continue home meds We will obtain Dilantin level and continue the patient on his home dosing of Dilantin and amitriptyline. (3) History of hyperlipidemia Conclusion/Plan: stable, will continue home meds We will continue the patient on his home doses of Lipitor and krill oil. (4) Cerebral palsy with spastic/ataxic diplegia Conclusion/Plan: stable, continue support. stable, will continue home regimen Continue home care regimen whenever possible
[2017-09-24] MEDS: AMITRIPTYLINE 10 MG TABLET PO SCH (20:18)
[2017-09-24] MEDS: PHENYTOIN ER 100 MG CAPSULE PO SCH (20:18)
[2017-09-25 05:27] LABS: HGB - HEMOGLOBIN 14.3 g/dL (14.0-18.0); MEAN CORPUSCULAR HGB CONC 33.6 g/dL (32.0-36.0); MEAN CORPUSCULAR VOLUME 95.3 fL (80.0-94.0); MEAN PLATELET VOLUME 7.7 fL (7.4-11.4); RED BLOOD COUNT 4.46 10^6/uL (4.70-6.10); WHITE BLOOD COUNT 8.2 x10^3/uL (4.8-10.8)
[2017-09-25 05:35] LABS: CALCIUM 8.9 mg/dL (8.5-10.3); CREATININE 0.6 mg/dL (0.6-1.2)
[2017-09-25] MEDS: SODIUM CHLORIDE FLUSH 0.9% 10 ML SYRINGE IVP SCH ×2 (06:44→07:30)
[2017-09-25 09:04] VITALS: BP 113/74
--- NOTE | 2017-09-25 09:05 | Discharge Plan ---
Discharge Plan Disposition: 01 Home, Self Care Condition: Stable Diet: Regular Activity Restrictions: Activity as Tolerated Shower Restrictions: No (caregiver closely monitor, fall precaution) Instruction Topics: Obstruction Sm Bowel Additional Instructions or Follow Up instructions: You may follow up your PCP in 1-2 weeks. Should your symptoms return or worsen, you may present ER or call 911 for help. No Smoking: If you smoke, Please STOP! Call for help. Follow-up with: Johnson Steinberg MD [Primary Care Provider] -
[2017-09-25] MEDS: FAMOTIDINE 20 MG/50 ML 50 ML IV SCH (09:40)
[2017-09-25] MEDS: POLYETHYLENE GLYCOL 3350 17 GM PACKET PO SCH (09:40)
--- NOTE | 2017-09-25 10:32 | DISCHARGE SUMMARY ---
Discharge Summary Discharge Date: 09/25/17 Discharging Provider: MCKEON Primary Care Provider: Dr. Steinberg Condition at Discharge: Stable Discharge Disposition: 01 Home, Self Care Discharge Facility Name: [facility] - DIAGNOSES Admission Diagnoses: (1) Small bowel obstruction (2) Seizure disorder (3) History of hyperlipidemia (4) Cerebral palsy with spastic/ataxic diplegia Discharge Diagnoses with Status of Each Condition: (1) Small bowel obstruction resolved. pt had bowel movement, No N/V, tolerate diet. KUB reveals resoled SBO (2) Seizure disorder stable, no seizure in hospital (3) History of hyperlipidemia stable (4) Cerebral palsy with spastic/ataxic diplegia stable - HPI History of Present Illness: refer from Dr. Platt's HPI as the following: Mr. Jitendra Foster is a very pleasant 47-year-old male who has a history of cerebral palsy and mild mental retardation and who lives in a [facility]. He presented to the emergency department with complaints of nausea and vomiting earlier this evening. He does have a history of this and subsequent testing found a partial small bowel obstruction. In the past the patient's obstruction has resolved without surgery and with bowel rest and so the patient will be admitted to the hospital for bowel rest and observation. - HOSPITAL COURSE Hospital Course: pt was admitted for SBO. After bowel rest, the problem was resolved. no operation is needed. pt was d/c to [facility] - ALLERGIES Allergies/Adverse Reactions: Allergies Allergy/AdvReac Type Severity Reaction Status Date / Time Sulfa (Sulfonamide Allergy Hives Verified 09/21/17 18:39 Antibiotics) adhesive tape AdvReac Rash Verified 09/21/17 18:39 - MEDICATIONS Home Medications: Ambulatory Orders Medication Instructions Recorded Confirmed Amitriptyline HCl 30 mg PO QPM 05/12/13 09/21/17 Multivitamin [Multi-Vitamin Daily] 1 tab PO DAILY 05/12/13 09/21/17 Atorvastatin [Lipitor] 10 mg PO QPM 07/30/13 09/21/17 Acetaminophen [Tylenol] 650 mg PO Q4H PRN 09/19/16 09/21/17 Docusate Sodium 250Mg Capsule 250 mg PO BID PRN 09/19/16 09/21/17 [Colace 250Mg Capsule] Ondansetron Odt [Zofran Odt] 4 mg TL Q6H PRN 09/19/16 09/21/17 Phenytoin [Dilantin] 300 mg PO QPM 09/19/16 09/21/17 Pantoprazole [Protonix] 40 mg PO QDAC 09/20/16 09/21/17 Ranitidine HCl [Zantac] 300 mg PO QPM 09/20/16 09/21/17 Krill/Om-3/Dha/Epa/Phospho/Ast 1 each PO BID 09/21/17 09/22/17 [Krill Oil 500 mg Softgel] - PHYSICAL EXAM AT DISCHARGE General Appearance: positive: No acute distress, Alert. negative: Lethargic Eyes Bilateral: positive: Normal inspection, PERRL, No lid inflammation, Conjunctivae nml ENT: positive: ENT inspection nml, Pharynx nml. negative: Purulent nasal drainage, Pharyngeal erythema, Oral lesions Neck: positive: Nml inspection, Thyroid nml, No JVD, Trachea midline. negative : Thyromegaly, Lymphadenopathy (R), Lymphadenopathy (L), Stiff neck, Carotid bruit, Swelling/bruising, Tracheal deviation Respiratory: positive: Chest non-tender, No respiratory distress, Breath sounds nml. negative: Wheezes, Rales, Rhonchi Cardiovascular: positive: Regular rate & rhythm, No murmur, No gallop. negative : Irregularly irregular, Extrasystoles, Tachycardia, Bradycardia, Systolic murmur, Diastolic murmur Peripheral Pulses: positive: 2+ Abdomen: positive: Non-tender, No organomegaly, Nml bowel sounds, No distention. negative: Tenderness, Guarding, Rebound Back: positive: Nml inspection. negative: CVA tenderness (R), CVA tenderness (L ) Skin: positive: Color nml, No rash, Warm, Dry. negative: Cyanosis, Diaphoresis , Pallor Extremities: negative: Calf tenderness, Joint swelling, Brunilda's sign/cords Neurologic/Psychiatric: negative: Weakness, Sensory loss, Facial droop, Slurred/ abnml speech, Depressed mood/affect - LABS Result Diagrams: 09/25/17 05:08 09/25/17 05:08 - FOLLOW UP Follow Up: You may follow up your PCP in 1-2 weeks. Should your symptoms return or worsen, you may present ER or call 911 for help. - TIME SPENT Time Spent in Discharge (Minutes): 45
== END 2017-09-25 11:19 | disposition home or self-care (01) | DRG 389 ==
LOC: ED 18:33 → MS3 21:35
PROVIDERS: ADMIT Hospitalist; ATTEND Nurse Practitioner Gerontology
DX: K56.51 Intestinal adhesions [bands], with partial obstruction (principal); G80.1 Spastic diplegic cerebral palsy; F79 Unspecified intellectual disabilities; G80.4 Ataxic cerebral palsy; Z87.19 Personal history of other diseases of the digestive system; G40.909 Epilepsy, unspecified, not intractable, without status epilepticus; E78.5 Hyperlipidemia, unspecified; F70 Mild intellectual disabilities; K21.9 Gastro-esophageal reflux disease without esophagitis; Z90.49 Acquired absence of other specified parts of digestive tract; Z79.899 Other long term (current) drug therapy
CPT/HCPCS: 36415; 74019; 74177; 80048; 80053; 80185; 83690; 85025; 85027; 99283; 99285

== ENCOUNTER 2018-02-11 09:32 | Outpatient (CLI) | payer MEDICARE, OTHER, MEDICAID ==
[2018-02-11 12:57] LABS: BASOPHILS % (AUTO) 0.6 %; EOSINOPHILS # (AUTO) 0.4 10^3/uL (0.0-0.7); EOSINOPHILS % (AUTO) 7.3 %; HGB - HEMOGLOBIN 14.5 g/dL (14.0-18.0); LYMPHOCYTES # (AUTO) 1.9 10^3/uL (1.5-3.5); LYMPHOCYTES % (AUTO) 33.5 %; MEAN CORPUSCULAR HEMOGLOBIN 32.6 pg (27.0-31.0); MEAN CORPUSCULAR HGB CONC 34.2 g/dL (32.0-36.0); MEAN CORPUSCULAR VOLUME 95.2 fL (80.0-94.0); MEAN PLATELET VOLUME 7.5 fL (7.4-11.4); MONOCYTES # (AUTO) 0.5 10^3/uL (0.0-1.0); MONOCYTES % (AUTO) 9.1 %; NEUTROPHILS # (AUTO) 2.8 10^3/uL (1.5-6.6); NEUTROPHILS % (AUTO) 49.5 %; PLT - PLATELET COUNT 275 10^3/uL (130-450); RED BLOOD COUNT 4.45 10^6/uL (4.70-6.10); RED CELL DISTRIBUTION WIDTH 13.4 % (12.0-15.0); WHITE BLOOD COUNT 5.6 x10^3/uL (4.8-10.8)
[2018-02-11 13:21] LABS: ALBUMIN 4.5 g/dL (3.2-5.5); ALBUMIN/GLOBULIN RATIO 1.6 (1.0-2.2); ALKALINE PHOSPHATASE 122 IU/L (42-121); ALT ALANINE AMINOTRANSFERASE 35 IU/L (10-60); AST ASPARTATE AMINOTRANSFERASE 31 IU/L (10-42); BILIRUBIN,TOTAL 0.4 mg/dL (0.2-1.0); BUN - BLOOD UREA NITROGEN 19 mg/dL (6-20); CARBON DIOXIDE - CO2 30 mmol/L (21-32); CHLORIDE 103 mmol/L (101-111); CHOL/HDL RATIO 2.6 (<5.0); CHOLESTEROL 119 mg/dL; CREATININE 0.7 mg/dL (0.6-1.2); GFR - MDRD 121 (>89); GLUCOSE 95 mg/dL (70-100); HDL CHOLESTEROL 45 mg/dL; LDL CHOLESTEROL,CALCULATED 54 mg/dL; LDL/HDL RATIO 1.2 (<3.6); SODIUM 140 mmol/L (135-145); TOTAL PROTEIN 7.4 g/dL (6.7-8.2); VLDL CHOLESTEROL 20 mg/dL
== END 2018-02-11 09:33 | disposition home or self-care (01) ==
LOC: LAB.N 09:32
PROVIDERS: ATTEND Family Medicine
DX: E78.1 Pure hyperglyceridemia (principal); Z51.81 Encounter for therapeutic drug level monitoring; R56.9 Unspecified convulsions
CPT/HCPCS: 36415; 80053; 80061; 83721; 85025

== ENCOUNTER 2018-08-30 08:06 | Emergency (ER) | payer MEDICARE, OTHER, MEDICAID ==
--- NOTE | 2018-08-30 08:22 | ED Physician Documentation ---
PD HPI ABD PAIN - Stated complaint Stated Complaint: CONSTIPATION - Chief complaint Chief Complaint: Abd Pain - History obtained from History obtained from: Patient (patient is nonverbal but does nod yes and no, seems to understand well.), Caregiver - History of Present Illness Timing - onset: How many days ago (5) Timing - duration: Days (5) Timing - details: Gradual onset, Still present (pushing hard for BM but no stool for 5 days. No persistent abd pain, distension nor vomiting. Seems cramping at times per caregiver.) Quality: Cramping (mild intermittent). No: Aching Location: Other (lower abd) Associated symptoms: Constipation. No: Fever, Vomiting, Diarrhea, Hematochezia Similar symptoms before: Diagnosis (had pain vomiting and no stool out a year ago, Dx with SBO.) Review of Systems Constitutional: denies: Fever Nose: denies: Congestion Respiratory: denies: Dyspnea, Cough GI: reports: Constipation. 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) - Present Medications Home Medications: Ambulatory Orders Medication Instructions Recorded Confirmed Amitriptyline HCl 30 mg PO QPM 05/12/13 09/21/17 Multivitamin [Multi-Vitamin Daily] 1 tab PO DAILY 05/12/13 09/21/17 Atorvastatin [Lipitor] 10 mg PO QPM 07/30/13 09/21/17 Acetaminophen [Tylenol] 650 mg PO Q4H PRN 09/19/16 09/21/17 Docusate Sodium 250Mg Capsule 250 mg PO BID PRN 09/19/16 09/21/17 [Colace 250Mg Capsule] Ondansetron Odt [Zofran Odt] 4 mg TL Q6H PRN 09/19/16 09/21/17 Phenytoin [Dilantin] 300 mg PO QPM 09/19/16 09/21/17 Pantoprazole [Protonix] 40 mg PO QDAC 09/20/16 09/21/17 Ranitidine HCl [Zantac] 300 mg PO QPM 09/20/16 09/21/17 Krill/Om-3/Dha/Epa/Phospho/Ast 1 each PO BID 09/21/17 09/22/17 [Krill Oil 500 mg Softgel] - Allergies Allergies/Adverse Reactions: Allergies Allergy/AdvReac Type Severity Reaction Status Date / Time Sulfa (Sulfonamide Allergy Hives Verified 08/30/18 08:43 Antibiotics) adhesive tape AdvReac Rash Verified 08/30/18 08:43 - Social History Does the pt smoke?: No Smoking Status: Never smoker Does the pt drink ETOH?: No Does the pt have substance abuse?: No - Immunizations Immunizations are current?: Yes - POLST Patient has POLST: No POLST Status: Full Code PD ED PE NORMAL - Vitals Vital signs reviewed: Yes - General General: No acute distress, Other (attentive and alert, responds to questions with nods. Seems to understand questioning. ). No: Well developed/nourished (thin and frail. diffuse muscle atrophy. ) - HEENT HEENT: Pharynx benign - Neck Neck: Supple, no meningeal sign, No adenopathy - Cardiac Cardiac: RRR, No murmur - Respiratory Respiratory: Clear bilaterally - Abdomen Abdomen: Normal bowel sounds, Soft, Non tender, Non distended, No organomegaly - Rectal Rectal: Other (No hemorrhoids. Minimal soft stool in the vault. ) - Derm Derm: Normal color, Warm and dry Results - Vitals Vitals: Vital Signs - 24 hr 08/30/18 08:15 Temperature 36.3 C L Heart Rate 80 Respiratory 20 Rate Blood Pressure 117/87 H O2 Saturation 100 Oxygen O2 Source Room air - Labs Labs: Laboratory Tests 08/30/18 08/30/18 08/30/18 08:51 08:51 08:51 WBC 5.1 RBC 4.31 L Hgb 13.7 L Hct 41.1 L MCV 95.3 H MCH 31.8 H MCHC 33.3 RDW 14.2 Plt Count 260 MPV 6.7 L Neut # (Auto) 2.6 Lymph # (Auto) 1.6 Alfalfa # (Auto) 0.5 Eos # (Auto) 0.4 Baso # (Auto) 0.0 Absolute Nucleated RBC 0.00 Nucleated RBC % 0.1 Sodium 137 Potassium 3.6 Chloride 98 L Carbon Dioxide 29 Anion Gap 10.0 BUN 13 Creatinine 0.6 Estimated GFR (MDRD) 144 Glucose 89 Calcium 8.7 Total Bilirubin 0.4 AST 29 ALT 30 Alkaline Phosphatase 116 Total Protein 7.2 Albumin 4.3 Globulin 2.9 Albumin/Globulin Ratio 1.5 Lipase 39 Phenytoin 24.4 - Rads (name of study) abd xray Radiology: Prelim report reviewed (Above average volume of stool, otherwise unremarkable x-ray with nonobstructive pattern.), See rad report PD MEDICAL DECISION MAKING - ED course Complexity details: considered differential (Clinically I do not get a sense of a bowel obstruction. We will treat him more aggressively for constipation.), d/w patient Departure - Departure Disposition: 01 Home, Self Care Clinical Impression: Elevated Dilantin level Constipation Qualifiers: Constipation type: slow transit constipation Qualified Code(s): K59.01 - Slow transit constipation Condition: Stable Record reviewed to determine appropriate education?: Yes Instructions: ED Constipation Follow-Up: Adebayo Streeter PA-C [Primary Care Provider] - Comments: Regular diet. Hold this evening dose of Dilantin. Encourage lots of fluids. Give half bottle of mag citrate again this evening around dinnertime. Start the MiraLAX regularly with every day for 4 days and then every other day. Recheck if not improved over the next day or 2 and return if worsening symptoms. Forms: Activity restrictions
[2018-08-30] MEDS ORDERED: MAGNESIUM CITRATE 296 ML BOTTLE PO STA ×2 (08:40→09:52)
[2018-08-30] MEDS ORDERED: MINERAL OIL ENEMA 133 ML BOTTLE RC STA (08:40)
[2018-08-30 08:55] LABS: BASOPHILS % (AUTO) 0.7 %; EOSINOPHILS # (AUTO) 0.4 10^3/uL (0.0-0.7); HGB - HEMOGLOBIN 13.7 g/dL (14.0-18.0); LYMPHOCYTES # (AUTO) 1.6 10^3/uL (1.5-3.5); LYMPHOCYTES % (AUTO) 30.4 %; MEAN CORPUSCULAR HEMOGLOBIN 31.8 pg (27.0-31.0); MEAN CORPUSCULAR HGB CONC 33.3 g/dL (32.0-36.0); MEAN CORPUSCULAR VOLUME 95.3 fL (80.0-94.0); MEAN PLATELET VOLUME 6.7 fL (7.4-11.4); MONOCYTES # (AUTO) 0.5 10^3/uL (0.0-1.0); MONOCYTES % (AUTO) 10.2 %; NEUTROPHILS # (AUTO) 2.6 10^3/uL (1.5-6.6); NEUTROPHILS % (AUTO) 51.7 %; PLT - PLATELET COUNT 260 10^3/uL (130-450); RED BLOOD COUNT 4.31 10^6/uL (4.70-6.10); RED CELL DISTRIBUTION WIDTH 14.2 % (12.0-15.0); WHITE BLOOD COUNT 5.1 x10^3/uL (4.8-10.8)
[2018-08-30 09:07] LABS: ALBUMIN 4.3 g/dL (3.2-5.5); ALBUMIN/GLOBULIN RATIO 1.5 (1.0-2.2); BILIRUBIN,TOTAL 0.4 mg/dL (0.2-1.0); CALCIUM 8.7 mg/dL (8.5-10.3); CREATININE 0.6 mg/dL (0.6-1.2); TOTAL PROTEIN 7.2 g/dL (6.7-8.2)
--- NOTE | 2018-08-30 09:37 | XRAY Report ---
Reason: constipated 5 days; does not seem obstructed Procedure Date: 08/30/2018 Accession Number: [id number] / [id number] Procedure: XR - Abdomen 2 View X-Ray CPT Code: 62266 FULL RESULT: EXAM: ABDOMEN RADIOGRAPHY EXAM DATE: 08/30/2018 09:11 AM. CLINICAL HISTORY: Constipation COMPARISON: ABDOMEN 2 VIEW 09/24/2017 10:01 AM. TECHNIQUE: 1 views. FINDINGS: Lung Bases: Unremarkable. Bowel Gas Pattern: Above average volume of stool in the colon. Otherwise nonspecific, nonobstructive bowel gas pattern. Other: Thoracolumbosacral spinal hardware as before. Right upper quadrant surgical clips. IMPRESSION: Above average volume of stool in the colon. Otherwise nonspecific, nonobstructive bowel gas pattern. RADIA
[2018-08-30 10:06] VITALS: BP 144/99
== END 2018-08-30 10:06 | disposition home or self-care (01) ==
LOC: ED 08:06
DX: K59.01 Slow transit constipation (principal); R79.89 Other specified abnormal findings of blood chemistry; G40.909 Epilepsy, unspecified, not intractable, without status epilepticus; G80.9 Cerebral palsy, unspecified
CPT/HCPCS: 36415; 74019; 80053; 80185; 83690; 85025; 99283; A9270

== ENCOUNTER 2018-09-09 09:00 | Outpatient (CLI) | payer MEDICARE, OTHER, MEDICAID | END 2018-09-09 23:59 | disposition home or self-care (01) | LOC: LAB.N 09:00 | PROVIDERS: ATTEND Physician Assistant Medical | DX: Z51.81 Encounter for therapeutic drug level monitoring (principal); Z79.899 Other long term (current) drug therapy | CPT/HCPCS: 36415; 80185 ==

== ENCOUNTER 2019-01-07 08:00 | Outpatient (CLI) | payer MEDICARE, OTHER, MEDICAID ==
[2019-01-07 18:22] LABS: BASOPHILS % (AUTO) 0.4 %; EOSINOPHILS # (AUTO) 0.3 10^3/uL (0.0-0.7); EOSINOPHILS % (AUTO) 5.4 %; HGB - HEMOGLOBIN 14.5 g/dL (14.0-18.0); LYMPHOCYTES # (AUTO) 1.5 10^3/uL (1.5-3.5); LYMPHOCYTES % (AUTO) 30.8 %; MEAN CORPUSCULAR HEMOGLOBIN 32.1 pg (27.0-31.0); MEAN CORPUSCULAR HGB CONC 33.3 g/dL (32.0-36.0); MEAN CORPUSCULAR VOLUME 96.2 fL (80.0-94.0); MEAN PLATELET VOLUME 9.1 fL (7.4-11.4); MONOCYTES # (AUTO) 0.5 10^3/uL (0.0-1.0); MONOCYTES % (AUTO) 10.8 %; NEUTROPHILS # (AUTO) 2.5 10^3/uL (1.5-6.6); NEUTROPHILS % (AUTO) 52.4 %; PLT - PLATELET COUNT 285 10^3/uL (130-450); RED BLOOD COUNT 4.52 10^6/uL (4.70-6.10); RED CELL DISTRIBUTION WIDTH 13.4 % (12.0-15.0); WHITE BLOOD COUNT 4.8 x10^3/uL (4.8-10.8)
[2019-01-07 18:36] LABS: ALBUMIN 4.2 g/dL (3.2-5.5); ALBUMIN/GLOBULIN RATIO 1.3 (1.0-2.2); BILIRUBIN,TOTAL 0.4 mg/dL (0.2-1.0); CALCIUM 9.1 mg/dL (8.5-10.3); CREATININE 0.6 mg/dL (0.6-1.2); TOTAL PROTEIN 7.5 g/dL (6.7-8.2)
== END 2019-01-07 23:59 | disposition home or self-care (01) ==
LOC: LAB.N 08:00
PROVIDERS: ATTEND Physician Assistant Medical
DX: R63.4 Abnormal weight loss (principal)
CPT/HCPCS: 36415; 80053; 84443; 85025

== ENCOUNTER 2019-05-27 07:47 | Outpatient (CLI) | payer MEDICARE, OTHER, MEDICAID ==
[2019-05-27 12:06] LABS: BASOPHILS # (AUTO) 0.1 10^3/uL (0.0-0.1); BASOPHILS % (AUTO) 0.9 %; EOSINOPHILS # (AUTO) 0.4 10^3/uL (0.0-0.7); EOSINOPHILS % (AUTO) 7.5 %; HGB - HEMOGLOBIN 15.2 g/dL (14.0-18.0); LYMPHOCYTES % (AUTO) 35.4 %; MEAN CORPUSCULAR HEMOGLOBIN 32.8 pg (27.0-31.0); MEAN CORPUSCULAR HGB CONC 32.5 g/dL (32.0-36.0); MEAN CORPUSCULAR VOLUME 100.9 fL (80.0-94.0); MEAN PLATELET VOLUME 9.5 fL (7.4-11.4); MONOCYTES # (AUTO) 0.7 10^3/uL (0.0-1.0); MONOCYTES % (AUTO) 12.9 %; NEUTROPHILS # (AUTO) 2.4 10^3/uL (1.5-6.6); NEUTROPHILS % (AUTO) 43.1 %; PLT - PLATELET COUNT 271 10^3/uL (130-450); RED BLOOD COUNT 4.63 10^6/uL (4.70-6.10); RED CELL DISTRIBUTION WIDTH 13.6 % (12.0-15.0); WHITE BLOOD COUNT 5.6 x10^3/uL (4.8-10.8)
[2019-05-27 12:19] LABS: ALBUMIN 3.9 g/dL (3.2-5.5); ALBUMIN/GLOBULIN RATIO 1.1 (1.0-2.2); ALKALINE PHOSPHATASE 105 IU/L (42-121); ALT ALANINE AMINOTRANSFERASE 43 IU/L (10-60); AST ASPARTATE AMINOTRANSFERASE 36 IU/L (10-42); BILIRUBIN,TOTAL 0.4 mg/dL (0.2-1.0); BUN - BLOOD UREA NITROGEN 17 mg/dL (6-20); CALCIUM 9.1 mg/dL (8.5-10.3); CARBON DIOXIDE - CO2 26 mmol/L (21-32); CHLORIDE 100 mmol/L (101-111); CHOL/HDL RATIO 2.8 (<5.0); CHOLESTEROL 138 mg/dL; CREATININE 0.6 mg/dL (0.6-1.2); GFR - MDRD 144 (>89); GLUCOSE 81 mg/dL (70-100); HDL CHOLESTEROL 50 mg/dL; LDL CHOLESTEROL,CALCULATED 62 mg/dL; LDL/HDL RATIO 1.2 (<3.6); SODIUM 136 mmol/L (135-145); TOTAL PROTEIN 7.5 g/dL (6.7-8.2); VLDL CHOLESTEROL 26 mg/dL
== END 2019-05-27 07:48 | disposition home or self-care (01) ==
LOC: LAB.N 07:47
PROVIDERS: ATTEND Physician Assistant Medical
DX: E78.1 Pure hyperglyceridemia (principal); G80.9 Cerebral palsy, unspecified; G40.909 Epilepsy, unspecified, not intractable, without status epilepticus
CPT/HCPCS: 36415; 80053; 80061; 83721; 84443; 85025

== ENCOUNTER 2020-01-27 08:00 | Outpatient (CLI) | payer MEDICARE, OTHER, MEDICAID ==
[2020-01-27 18:32] LABS: CALCIUM 9.5 mg/dL (8.5-10.3); CREATININE 0.6 mg/dL (0.6-1.2); PHENYTOIN (DILANTIN) 15.7 ug/mL
[2020-01-27 20:40] LABS: HEMOGLOBIN A1c% 4.9 % (4.27-6.07)
== END 2020-01-27 23:59 | disposition home or self-care (01) ==
LOC: LAB.WCP 08:00
PROVIDERS: ATTEND Family Medicine
DX: G80.9 Cerebral palsy, unspecified (principal); R73.9 Hyperglycemia, unspecified; G40.909 Epilepsy, unspecified, not intractable, without status epilepticus
CPT/HCPCS: 36415; 80048; 80185; 83036

== ENCOUNTER 2020-05-16 21:23 | Outpatient (CLI) | payer MEDICARE, OTHER, MEDICAID | END 2020-05-16 21:24 | disposition critical access hospital (66) | LOC: EMS 21:23 | PROVIDERS: ATTEND Surgery | DX: K92.0 Hematemesis (principal) | CPT/HCPCS: A0425; A0427 ==

== ENCOUNTER 2020-05-16 21:43 | Inpatient (IN) | payer MEDICARE, OTHER, MEDICAID ==
[2020-05-16] MEDS ORDERED: FAMOTIDINE 20 MG/2 ML VIAL IVP STA (21:54)
[2020-05-16] MEDS ORDERED: ONDANSETRON 4 MG/2 ML VIAL IVP STA ×2 (21:54→23:34)
[2020-05-16] MEDS ORDERED: SODIUM CHLORIDE 0.9% 1,000 ML IV STA (21:54)
--- NOTE | 2020-05-16 21:55 | ED Physician Documentation ---
PD HPI GI BLEED - Stated complaint Stated Complaint: GI BLEED - Chief complaint Chief Complaint: Abd Pain - History obtained from History obtained from: Patient, EMS, Caregiver - History of Present Illness Timing - onset: Today Timing - details: Abrupt onset, Still present (Onset this afternoon of vomiting and has had approximately 10-12 episodes of emesis since that time. There had been some appearance of coffee-ground material to it but no ginger blood. He is complaining of some upper abdominal pain.) Associated symptoms: Vomiting, Coffee ground emesis (mild), Abdominal pain (upper). No: Hematemesis, Diarrhea Contributing factors: No: Sick contact, Bad food, Recent antibiotics, NSAID use Improved by: Vomiting Worsened by: Eating Similar symptoms before: Diagnosis (has had ulcer in the past. Also episodes of bowel obstruction in 2018, 2017, and 2015.) Recently seen: Not recently seen Review of Systems Unable to obtain: Other (info from caregiver, and some from him but limited due to CP and verbal deficit. He answers yes and no reasonably.) Constitutional: denies: Fever Throat: denies: Sore throat Cardiac: denies: Chest pain / pressure Respiratory: denies: Cough GI: reports: Abdominal Pain, Vomiting. denies: Diarrhea Neurologic: reports: Generalized weakness. 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) - Present Medications Home Medications: Ambulatory Orders Medication Instructions Recorded Confirmed Amitriptyline HCl 30 mg PO QPM 05/12/13 09/21/17 Multivitamin [Multi-Vitamin Daily] 1 tab PO DAILY 05/12/13 09/21/17 Atorvastatin [Lipitor] 10 mg PO QPM 07/30/13 09/21/17 Acetaminophen [Tylenol] 650 mg PO Q4H PRN 09/19/16 09/21/17 Docusate Sodium 250Mg Capsule 250 mg PO BID PRN 09/19/16 09/21/17 [Colace 250Mg Capsule] Ondansetron Odt [Zofran Odt] 4 mg TL Q6H PRN 09/19/16 09/21/17 Phenytoin [Dilantin] 300 mg PO QPM 09/19/16 09/21/17 Pantoprazole [Protonix] 40 mg PO QDAC 09/20/16 09/21/17 raNITIdine HCl [Zantac] 300 mg PO QPM 09/20/16 09/21/17 Krill/Om-3/Dha/Epa/Phospho/Ast 1 each PO BID 09/21/17 09/22/17 [Krill Oil 500 mg Softgel] - Allergies Allergies/Adverse Reactions: Allergies Allergy/AdvReac Type Severity Reaction Status Date / Time Sulfa (Sulfonamide Allergy Hives Verified 08/30/18 08:43 Antibiotics) adhesive tape AdvReac Rash Verified 08/30/18 08:43 - Social History Does the pt smoke?: No Smoking Status: Never smoker Does the pt drink ETOH?: No Does the pt have substance abuse?: No - Immunizations Immunizations are current?: Yes - POLST Patient has POLST: No POLST Status: Full Code PD ED PE NORMAL - Vitals Vital signs reviewed: Yes - General General: Other (alert and attentive. Answers mainly nodding and some hand gestures. Some yes/no. ). No: Well developed/nourished (frail and thin; low muscle tone. small stature.) - HEENT HEENT: Pharynx benign. No: Moist mucous membranes - Neck Neck: Supple, no meningeal sign, No adenopathy - Cardiac Cardiac: RRR, No murmur - Respiratory Respiratory: Clear bilaterally - Abdomen Abdomen: Soft, No organomegaly, Other (upper abd scar noted likely c/w CCY. bowel sounds are hyperactive. There is some distension and firmness noted of the abd in general, more to the upper abd. ) - Male Male : Deferred - Rectal Rectal: Deferred - Back Back: No CVA TTP - Derm Derm: Normal color, Warm and dry - Neuro Neuro: No motor deficit (moves symmetrically) Eye Opening: Spontaneous Motor: Obeys Commands Results - Vitals Vitals: Vital Signs - 24 hr 05/16/20 05/16/20 21:48 23:52 Temperature 37.3 C 36.5 C Heart Rate 71 97 Respiratory 14 16 Rate Blood Pressure 130/84 H 129/80 O2 Saturation 94 97 Oxygen O2 Source Nasal cannula - Labs Labs: Laboratory Tests 05/16/20 05/16/20 05/16/20 22:13 22:13 22:13 WBC 17.7 H RBC 4.98 Hgb 16.2 Hct 48.1 MCV 96.6 H MCH 32.5 H MCHC 33.7 RDW 13.0 Plt Count 291 MPV 9.3 Neut # (Auto) 15.6 H Lymph # (Auto) 1.0 L [place] # (Auto) 1.0 Eos # (Auto) 0.0 Baso # (Auto) 0.0 Absolute Nucleated RBC 0.00 Nucleated RBC % 0.0 Sodium 138 Potassium 3.8 Chloride 93 L Carbon Dioxide 30 Anion Gap 15.0 H BUN 27 H Creatinine 0.6 Estimated GFR (MDRD) 144 Glucose 134 H Calcium 10.2 Magnesium 2.3 Total Bilirubin 0.7 AST 45 H ALT 58 Alkaline Phosphatase 183 H Total Protein 8.8 H Albumin 4.8 Globulin 4.0 Albumin/Globulin Ratio 1.2 Lipase 40 Phenytoin 9.3 Blood Type O NEGATIVE Antibody Screen NEGATIVE - Rads (name of study) abd CT Radiology: Prelim report reviewed (small bowel obstruction with transition centrally), See rad report PD MEDICAL DECISION MAKING - ED course Complexity details: reviewed old records (prior episodes over past 5 years, treated nonoperatively and resolved. ), reviewed results, considered differential, d/w patient, d/w application development consultant (Hospitalist) Departure - Departure Disposition: ED Place in Observation Clinical Impression: Small bowel obstruction Abdominal pain Qualifiers: Abdominal location: generalized Qualified Code(s): R10.84 - Generalized abdominal pain Nausea and vomiting Qualifiers: Vomiting type: unspecified Vomiting Intractability: intractable Qualified Code(s): R11.2 - Nausea with vomiting, unspecified Cerebral palsy Qualifiers: Cerebral palsy type: unspecified type Qualified Code(s): G80.9 - Cerebral palsy, unspecified Condition: Stable
[2020-05-16] MEDS ORDERED: IOVERSOL 320 100 ML VIAL IVP ONE ×2 (22:09→22:58)
[2020-05-16 22:24] LABS: BASOPHILS % (AUTO) 0.2 %; EOSINOPHILS % (AUTO) 0.1 %; HGB - HEMOGLOBIN 16.2 g/dL (14.0-18.0); LYMPHOCYTES % (AUTO) 5.8 %; MEAN CORPUSCULAR HEMOGLOBIN 32.5 pg (27.0-31.0); MEAN CORPUSCULAR HGB CONC 33.7 g/dL (32.0-36.0); MEAN CORPUSCULAR VOLUME 96.6 fL (80.0-94.0); MEAN PLATELET VOLUME 9.3 fL (7.4-11.4); MONOCYTES % (AUTO) 5.7 %; NEUTROPHILS # (AUTO) 15.6 10^3/uL (1.5-6.6); NEUTROPHILS % (AUTO) 87.9 %; PLT - PLATELET COUNT 291 10^3/uL (130-450); RED BLOOD COUNT 4.98 10^6/uL (4.70-6.10); WHITE BLOOD COUNT 17.7 x10^3/uL (4.8-10.8)
[2020-05-16 22:34] LABS: ALBUMIN 4.8 g/dL (3.2-5.5); ALBUMIN/GLOBULIN RATIO 1.2 (1.0-2.2); BILIRUBIN,TOTAL 0.7 mg/dL (0.2-1.0); CALCIUM 10.2 mg/dL (8.5-10.3); CREATININE 0.6 mg/dL (0.6-1.2); MAGNESIUM 2.3 mg/dL (1.7-2.8); PHENYTOIN (DILANTIN) 9.3 ug/mL; TOTAL PROTEIN 8.8 g/dL (6.7-8.2)
[2020-05-16] MEDS ORDERED: MORPHINE 2 MG/ML CARPUJECT IVP STA (23:21)
[2020-05-16] MEDS ORDERED: LACTATED RINGERS 1,000 ML IV STA (23:21)
[2020-05-17] MEDS ORDERED: ONDANSETRON 4 MG/2 ML VIAL IVP PRN (00:04)
[2020-05-17 00:38] LABS: BASOPHILS # (AUTO) 0.1 10^3/uL (0.0-0.1); BASOPHILS % (AUTO) 0.4 %; EOSINOPHILS % (AUTO) 0.1 %; HGB - HEMOGLOBIN 14.4 g/dL (14.0-18.0); LYMPHOCYTES # (AUTO) 0.7 10^3/uL (1.5-3.5); LYMPHOCYTES % (AUTO) 4.2 %; MEAN CORPUSCULAR HEMOGLOBIN 32.9 pg (27.0-31.0); MEAN CORPUSCULAR HGB CONC 33.3 g/dL (32.0-36.0); MEAN CORPUSCULAR VOLUME 98.6 fL (80.0-94.0); MEAN PLATELET VOLUME 9.2 fL (7.4-11.4); MONOCYTES # (AUTO) 0.9 10^3/uL (0.0-1.0); MONOCYTES % (AUTO) 5.1 %; NEUTROPHILS # (AUTO) 15.5 10^3/uL (1.5-6.6); NEUTROPHILS % (AUTO) 89.7 %; PLT - PLATELET COUNT 259 10^3/uL (130-450); RED BLOOD COUNT 4.38 10^6/uL (4.70-6.10); RED CELL DISTRIBUTION WIDTH 12.9 % (12.0-15.0); WHITE BLOOD COUNT 17.3 x10^3/uL (4.8-10.8)
[2020-05-17 00:53] LABS: ALBUMIN 3.9 g/dL (3.2-5.5); ALBUMIN/GLOBULIN RATIO 1.2 (1.0-2.2); BILIRUBIN,TOTAL 0.8 mg/dL (0.2-1.0); CALCIUM 8.8 mg/dL (8.5-10.3); CREATININE 0.5 mg/dL (0.6-1.2); TOTAL PROTEIN 7.2 g/dL (6.7-8.2)
--- NOTE | 2020-05-17 01:05 | HISTORY & PHYSICAL EXAMINATION ---
Chief Complaint - Chief Complaint Chief Complaint: Abdominal Pain History of Present Illness - Admitted From Admitted From:: ED - History Obtained From Records Reviewed: [facility] History obtained from: Patient (nonverbal, but can nod his head), caregiver Exam Limitations: Patient has cerebral palsy and is nonverbal - History of Present Illness HPI Comment/Other: This is a 49 y/o M with a h/o cerebral palsy with mental delay and small bowel obstructions s/p abdominal surgery. He is nonverbal but can communicate through shaking his head. His caregiver helped give the history. He presented to the ED after a sudden onset of nausea and vomiting earlier today. He has had 10-12 episodes since the onset of symptoms. He also complains of abdominal pain that is relieved by vomiting and exacerbated by eating. Denies chest pain, SOB, hemoptysis, recent sickness/sick contacts. CT abdomen/ pelvis w/ contrast revealed fluid-filled loops in the small bowel with a transition point centrally. In the past he has improved with bowel rest. He is being admitted for bowel rest and observation. 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 Patient has no siblings. He does have foster parents.), Father: Living arrangement: longterm Living Situation: With caregiver(s) - Substance History Use: Uses substance without health or social issues: NONE Abuse: Recurrent use of substance despite neg consequences: NONE Dependence: Experiences withdrawal or developed tolerances: NONE - POLST Patient has POLST: No POLST Status: Full Code Meds/Allgy - Home Medications Home Medications: Ambulatory Orders Medication Instructions Recorded Confirmed Amitriptyline HCl 30 mg PO QPM 05/12/13 09/21/17 Multivitamin [Multi-Vitamin Daily] 1 tab PO DAILY 05/12/13 09/21/17 Atorvastatin [Lipitor] 10 mg PO QPM 07/30/13 09/21/17 Acetaminophen [Tylenol] 650 mg PO Q4H PRN 09/19/16 09/21/17 Docusate Sodium 250Mg Capsule 250 mg PO BID 09/19/16 09/21/17 [Colace 250Mg Capsule] Ondansetron Odt [Zofran Odt] 4 mg TL Q6H PRN 09/19/16 09/21/17 Phenytoin [Dilantin] 300 mg PO QPM 09/19/16 09/21/17 Pantoprazole [Protonix] 40 mg PO QDAC 09/20/16 09/21/17 Krill/Om-3/Dha/Epa/Phospho/Ast 1 each PO BID 09/21/17 09/22/17 [Krill Oil 500 mg Softgel] Calcium Carbonate [Elemental 600 mg PO 05/17/20 05/17/20 Calcium] Cholecalciferol [Vitamin D3] 1,000 unit PO 05/17/20 Famotidine [Acid-Pep] 20 mg PO DAILY 05/17/20 05/17/20 Lactose-Reduced Food [Ensure Max 330 ml PO TID 05/17/20 05/17/20 Protein] Propylene Glycol [Systane Complete] 1 drops OP BID 05/17/20 05/17/20 - Allergies Allergies/Adverse Reactions: Allergies Allergy/AdvReac Type Severity Reaction Status Date / Time Sulfa (Sulfonamide Allergy Hives Verified 08/30/18 08:43 Antibiotics) adhesive tape AdvReac Rash Verified 08/30/18 08:43 Review of Systems - Constitutional Constitutional: denies: Fatigue, Fever - Eyes Eyes: denies: Pain, Vision loss - Ears, Nose & Throat Ears, Nose & Throat: denies: Ear pain, Nasal pain, Nasal discharge, Sore throat - Cardiovascular Cariovascular: denies: Palpitations, Chest pain - Respiratory Respiratory: denies: Cough, Hemoptysis, SOB at rest - Gastrointestinal Gastrointestinal: reports: Abdominal pain, Abdominal distention, Nausea, Vomiting. denies: Diarrhea, Kevin blood emesis - Genitourinary Genitourinary: denies: Dysuria, Hematuria, Incontinence - Musculoskeletal Musculoskeletal: denies: Muscle pain - Integumentary Integumentary: denies: Rash - Neurological Neurological: denies: General weakness, Headache, Dizziness - Psychiatric Psychiatric: denies: Depression - Endocrine Endocrine: denies: Polyuria - Hematologic/Lymphatic Hematologic/Lymphatic: denies: Bruising, Petechiae, Lymphadenopathy Prior Level of Functionality: Food has to be prepared for him, but he can feed himself. He can dress himself with some direction. Exam - Vital Signs Reviewed Vital Signs: Yes Vital Signs: Vital Signs x48h Temp Pulse Resp BP Pulse Ox 05/16/20 23:52 36.5 C 97 16 129/80 97 05/16/20 21:48 37.3 C 71 14 130/84 H 94 - Physical Exam General Appearance: positive: No acute distress, Alert Eyes Bilateral: positive: Normal inspection, PERRL, Conjunctivae nml, No scleral icterus ENT: positive: Pharynx nml. negative: Purulent nasal drainage, Pharyngeal erythema Neck: positive: Nml inspection, No JVD. negative: Lymphadenopathy (R), Lymphadenopathy (L) Respiratory: positive: Chest non-tender, No respiratory distress, Breath sounds nml Cardiovascular: positive: Regular rate & rhythm, No murmur, No gallop. negative: Tachycardia Peripheral Pulses: positive: 2+ Abdomen: positive: Nml bowel sounds, Tenderness (Diffuse in all 4 quadrants). negative: No distention (mild disention) Back: positive: Nml inspection Skin: positive: Color nml, Dry. negative: Cyanosis, Diaphoresis, Pallor Extremities: positive: No pedal edema. negative: Calf tenderness Neurologic/Psychiatric: positive: Sensation nml, Slurred/abnml speech (nonverbal), Other (limited mobility of left arm, responds to commands,) Conclusion/Plan - Problem List (1) Small bowel obstruction Conclusion/Plan: He has a history of small bowel obstructions s/p abdominal surgery. In the past, these obstructions have resolved with bowel rest. Plan: NG tube, bowel rest, repeat KUB to assess air-fluid levels. (2) Abdominal pain Conclusion/Plan: Secondary to bowel obstruction. Plan: NG tube for gastric decompression, pain meds as needed. Qualifiers: Abdominal location: generalized Qualified Code(s): R10.84 - Generalized abdominal pain (3) Nausea and vomiting Conclusion/Plan: Secondary to small bowel obstruction. Plan: Zofran as needed. Qualifiers: Vomiting type: unspecified Vomiting Intractability: unspecified Qualified Code(s): R11.2 - Nausea with vomiting, unspecified (4) Cerebral palsy with spastic/ataxic diplegia Conclusion/Plan: Continue home routine to the best of our ability while hospitalized. (5) Leukocytosis Conclusion/Plan: WBC is 17.7, neutrophils 15.6. He is currently afebrile. Will continue to monitor. (6) Hypochloremia Conclusion/Plan: Chloride currently 93. Plan: Hydrate and continue to monitor. (7) Seizure disorder Conclusion/Plan: This is a chronic condition he takes medication for. Plan: Continue Dilantin level and amitriptyline while hospitalized. (8) History of hyperlipidemia Conclusion/Plan: Continue atorvastatin while hospitalized. - Lab Results Fish Bones: 05/17/20 00:29 05/17/20 00:29 - Diagnostic Imaging Results Diagnostic Imaging Results: positive: Final report reviewed Core Measures - Anticipated LOS I expect patient to be DC'd or transferred within 96 hours.: Yes - DVT/VTE - Prophylaxis VTE/DVT Prophylaxis med ordered at admit?: Yes
[2020-05-17 01:08] LABS: C. PNEUMONIAE- RESP PCR PANEL NOT DETECTED
[2020-05-17] MEDS: PHENYTOIN 100 MG/2 ML VIAL IVP SCH ×4 (01:43→22:31)
[2020-05-17] MEDS: LACTATED RINGERS 1,000 ML IV SCH ×2 (01:44→11:29)
[2020-05-17] MEDS: SODIUM CHLORIDE FLUSH 0.9% 10 ML SYRINGE IVP SCH ×3 (01:45→17:00)
[2020-05-17] MEDS: MORPHINE 2 MG/ML CARPUJECT IVP PRN ×3 (04:37→15:26)
--- NOTE | 2020-05-17 08:02 | CT Report ---
PROCEDURE: Abdomen/Pelvis W INDICATIONS: Abdominal pain, acute, upper, with vomiting CONTRAST: IV CONTRAST: Optiray 320 ml: 100 PO CONTRAST: *NO PO CONTRAST TECHNIQUE: After the administration of intravenous contrast, 5 mm thick sections acquired from the diaphragms to the symphysis. 5 mm thick coronal and sagittal reformats were acquired. For radiation dose reducti on, the following was used: automated exposure control, adjustment of mA and/or kV according to domingo ent size. COMPARISON: 09/21/2017 FINDINGS: Image quality: Excellent. ABDOMEN: Lung bases: Focal consolidation, left lower lobe. Heart size is normal. Mild to moderate hiatal tarsha ia. Solid organs: Liver and spleen are normal in size and enhancement. Gallbladder is surgically absent . Biliary system is non dilated. Pancreas enhances normally. No adrenal nodules. Kidneys demonstr ate normal size and enhancement, without hydronephrosis. Peritoneum and bowel: Relatively proximal small bowel obstruction. Small bowel loops dilated to 4.7 c m. No free fluid or air. Nodes and vessels: No retroperitoneal or mesenteric adenopathy by size criteria. Aorta and inferior vena cava are normal in size. Miscellaneous: No ventral hernias. PELVIS: Genitourinary: Mild diffuse bladder wall thickening. Miscellaneous: No inguinal hernias or adenopathy. Bones: No suspicious bony lesions. No vertebral body compression fractures. Thoracolumbar [place] n rods. S-shaped scoliosis. IMPRESSION: 1. High-grade small bowel obstruction. 2. Mild diffuse bladder wall thickening. A preliminary report with the above findings was provided at the time of the study by [facility]. Reviewed by: Manuel Go MD on 05/17/2020 8:00 AM [facility] Approved by: Manuel Go MD on 05/17/2020 8:00 AM [facility] Station ID: [id number]
[2020-05-17] MEDS: ENOXAPARIN 40 MG/0.4 ML SYRINGE SUBQ SCH (09:56)
--- NOTE | 2020-05-17 10:13 | XRAY Report ---
PROCEDURE: Abdomen 1 View X-Ray INDICATIONS: sbo TECHNIQUE: 1 view of the abdomen were acquired. COMPARISON: Prior CT abdomen/pelvis and plain films of the abdomen 05/16/2020, 08/30/2018, 09/24/2017. FINDINGS: Surgical changes and devices: Extensive Ordonez rods.. Bowel: No pneumoperitoneum. The bowel gas pattern is nonspecific and does not show imaging findings diagnostic of obstruction. Colonic obstipation in the pelvis.. Soft tissues: No masses; visualized solid organ contours appear normal in size. No suspicious abdom inal calcifications. Bones: No suspicious bony abnormalities. IMPRESSION: No small bowel obstruction seen. Colonic obstipation within the pelvis. Reviewed by: Anurag Villanueva MD on 05/17/2020 10:11 AM PST Approved by: Anurag Villanueva MD on 05/17/2020 10:11 AM [facility] Station ID: [id number]
--- NOTE | 2020-05-17 13:38 | HISTORY & PHYSICAL EXAMINATION ---
Chief Complaint - Chief Complaint Chief Complaint: vomiting Abdominal Pain HPI - Admitted From Admitted from: ED - History Obtained From History obtained from: Other (chart review) Exam limitations: Other (non verbal) - History of Present Illness Timing: Other (vomiting yesterday last bm yesterday) HPI Comment/Other: 49 year old with cp and history multiple small bowel obstructions which in the past have resolved spontaneously. History open cholecystectomy. Last admit with sbo in 2018. Ct then is nearly identical to current ct. xray this am is improved with no apparent small bowel obstruction. 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: Other (left orchiectomy) Social & Family Hx - Social History Does the pt smoke?: No Smoking Status: Never smoker Does the pt drink ETOH?: No Does the pt have substance abuse?: No - POLST Patient has POLST: No POLST Status: Full Code Meds/Allgy - Home Medications Home Medications: Ambulatory Orders Medication Instructions Recorded Confirmed Amitriptyline HCl 30 mg PO QPM 05/12/13 09/21/17 Multivitamin [Multi-Vitamin Daily] 1 tab PO DAILY 05/12/13 09/21/17 Atorvastatin [Lipitor] 10 mg PO QPM 07/30/13 09/21/17 Acetaminophen [Tylenol] 650 mg PO Q4H PRN 09/19/16 09/21/17 Docusate Sodium 250Mg Capsule 250 mg PO BID 09/19/16 09/21/17 [Colace 250Mg Capsule] Ondansetron Odt [Zofran Odt] 4 mg TL Q6H PRN 09/19/16 09/21/17 Phenytoin [Dilantin] 300 mg PO QPM 09/19/16 09/21/17 Pantoprazole [Protonix] 40 mg PO QDAC 09/20/16 09/21/17 Krill/Om-3/Dha/Epa/Phospho/Ast 1 each PO BID 09/21/17 09/22/17 [Krill Oil 500 mg Softgel] Calcium Carbonate [Elemental 600 mg PO 05/17/20 05/17/20 Calcium] Cholecalciferol [Vitamin D3] 1,000 unit PO 05/17/20 Famotidine [Acid-Pep] 20 mg PO DAILY 05/17/20 05/17/20 Lactose-Reduced Food [Ensure Max 330 ml PO TID 05/17/20 05/17/20 Protein] Propylene Glycol [Systane Complete] 1 drops OP BID 05/17/20 05/17/20 - Allergies Allergies/Adverse Reactions: Allergies Allergy/AdvReac Type Severity Reaction Status Date / Time Sulfa (Sulfonamide Allergy Hives Verified 08/30/18 08:43 Antibiotics) adhesive tape AdvReac Rash Verified 08/30/18 08:43 Review of Systems - Constitutional Constitutional: reports: Fatigue (10 pt ros as above otherwise unremarkable) Exam - Vital Signs Reviewed Vital Signs: Yes Vital Signs: Vital Signs x48h Temp Pulse Resp BP Pulse Ox 05/17/20 08:00 36.7 C 78 20 95/62 95 05/17/20 06:35 96/62 05/17/20 05:59 36.6 C 75 97/66 97 - Physical Exam General Appearance: positive: No acute distress, Alert Eyes Bilateral: positive: Normal inspection, PERRL, EOMI ENT: positive: No signs of dehydration Neck: positive: No JVD Respiratory: positive: No respiratory distress Abdomen: positive: Non-tender, No distention, Other (large right upper quadrant transverse scar) Neurologic/Psychiatric: positive: Other (awake, appears alert, non verbal. shakes his head no to questions) Results - Lab Results Fish Bones: 05/17/20 00:29 05/17/20 00:29 Other Lab Results: Lab Results x24hrs 05/17/20 05/17/20 05/17/20 Range/Units 00:29 00:29 00:15 WBC 17.3 H (4.8-10.8) x10^3/uL RBC 4.38 L (4.70-6.10) 10^6/uL Hgb 14.4 (14.0-18.0) g/dL Hct 43.2 (42.0-52.0) % MCV 98.6 H (80.0-94.0) fL MCH 32.9 H (27.0-31.0) pg MCHC 33.3 (32.0-36.0) g/dL RDW 12.9 (12.0-15.0) % Plt Count 259 (130-450) 10^3/uL MPV 9.2 (7.4-11.4) fL Neut # (Auto) 15.5 H (1.5-6.6) 10^3/uL Lymph # (Auto) 0.7 L (1.5-3.5) 10^3/uL [place] # (Auto) 0.9 (0.0-1.0) 10^3/uL Eos # (Auto) 0.0 (0.0-0.7) 10^3/uL Baso # (Auto) 0.1 (0.0-0.1) 10^3/uL Absolute Nucleated RBC 0.00 x10^3/uL Nucleated RBC % 0.0 /100WBC Sodium 138 (135-145) mmol/L Potassium 3.8 (3.5-5.0) mmol/L Chloride 99 L (101-111) mmol/L Carbon Dioxide 28 (21-32) mmol/L Anion Gap 11.0 (6-13) BUN 23 H (6-20) mg/dL Creatinine 0.5 L (0.6-1.2) mg/dL Estimated GFR (MDRD) 177 (>89) Glucose 120 H (70-100) mg/dL Calcium 8.8 (8.5-10.3) mg/dL Magnesium (1.7-2.8) mg/dL Total Bilirubin 0.8 (0.2-1.0) mg/dL AST 34 (10-42) IU/L ALT 46 (10-60) IU/L Alkaline Phosphatase 147 H (42-121) IU/L Total Protein 7.2 (6.7-8.2) g/dL Albumin 3.9 (3.2-5.5) g/dL Globulin 3.3 (2.1-4.2) g/dL Albumin/Globulin Ratio 1.2 (1.0-2.2) Lipase (22-51) U/L Nasal Adenovirus (PCR) NOT DETECTED Nasal B. parapertussis DNA (PCR) NOT DETECTED Nasal Coronavir 229E PCR NOT DETECTED Nasal Coronavir HKU1 PCR NOT DETECTED Nasal Coronavir NL63 PCR NOT DETECTED Nasal Coronavir OC43 PCR NOT DETECTED Nasal Enterovir/Rhinovir PCR NOT DETECTED Nasal Influenza B PCR NOT DETECTED Nasal Influenza A PCR NOT DETECTED Nasal Parainfluen 1 PCR NOT DETECTED Nasal Parainfluen 2 PCR NOT DETECTED Nasal Parainfluen 3 PCR NOT DETECTED Nasal Parainfluen 4 PCR NOT DETECTED Nasal RSV (PCR) NOT DETECTED Nasal B.pertussis DNA PCR NOT DETECTED Nasal C.pneumoniae (PCR) NOT DETECTED El Human Metapneumo PCR NOT DETECTED Nasal M.pneumoniae (PCR) NOT DETECTED Nasal SARS-CoV-2 (PCR) NOT DETECTED Phenytoin ug/mL Blood Type Antibody Screen 05/16/20 05/16/20 05/16/20 Range/Units 22:13 22:13 22:13 WBC 17.7 H (4.8-10.8) x10^3/uL RBC 4.98 (4.70-6.10) 10^6/uL Hgb 16.2 (14.0-18.0) g/dL Hct 48.1 (42.0-52.0) % MCV 96.6 H (80.0-94.0) fL MCH 32.5 H (27.0-31.0) pg MCHC 33.7 (32.0-36.0) g/dL RDW 13.0 (12.0-15.0) % Plt Count 291 (130-450) 10^3/uL MPV 9.3 (7.4-11.4) fL Neut # (Auto) 15.6 H (1.5-6.6) 10^3/uL Lymph # (Auto) 1.0 L (1.5-3.5) 10^3/uL [place] # (Auto) 1.0 (0.0-1.0) 10^3/uL Eos # (Auto) 0.0 (0.0-0.7) 10^3/uL Baso # (Auto) 0.0 (0.0-0.1) 10^3/uL Absolute Nucleated RBC 0.00 x10^3/uL Nucleated RBC % 0.0 /100WBC Sodium 138 (135-145) mmol/L Potassium 3.8 (3.5-5.0) mmol/L Chloride 93 L (101-111) mmol/L Carbon Dioxide 30 (21-32) mmol/L Anion Gap 15.0 H (6-13) BUN 27 H (6-20) mg/dL Creatinine 0.6 (0.6-1.2) mg/dL Estimated GFR (MDRD) 144 (>89) Glucose 134 H (70-100) mg/dL Calcium 10.2 (8.5-10.3) mg/dL Magnesium 2.3 (1.7-2.8) mg/dL Total Bilirubin 0.7 (0.2-1.0) mg/dL AST 45 H (10-42) IU/L ALT 58 (10-60) IU/L Alkaline Phosphatase 183 H (42-121) IU/L Total Protein 8.8 H (6.7-8.2) g/dL Albumin 4.8 (3.2-5.5) g/dL Globulin 4.0 (2.1-4.2) g/dL Albumin/Globulin Ratio 1.2 (1.0-2.2) Lipase 40 (22-51) U/L Nasal Adenovirus (PCR) Nasal B. parapertussis DNA (PCR) Nasal Coronavir 229E PCR Nasal Coronavir HKU1 PCR Nasal Coronavir NL63 PCR Nasal Coronavir OC43 PCR Nasal Enterovir/Rhinovir PCR Nasal Influenza B PCR Nasal Influenza A PCR Nasal Parainfluen 1 PCR Nasal Parainfluen 2 PCR Nasal Parainfluen 3 PCR Nasal Parainfluen 4 PCR Nasal RSV (PCR) Nasal B.pertussis DNA PCR Nasal C.pneumoniae (PCR) El Human Metapneumo PCR Nasal M.pneumoniae (PCR) Nasal SARS-CoV-2 (PCR) Phenytoin 9.3 ug/mL Blood Type O NEGATIVE Antibody Screen NEGATIVE - Diagnostic Imaging Results Diagnostic Imaging Results: positive: Read independently Impression/Plan - Problem List Problem List: small bowel obstruction his abdomen is soft and non tender this afternoon. imaging is improved today. agree with current care will follow daily
--- NOTE | 2020-05-17 14:55 | PHARMACY PROGRESS NOTE ---
- Best Possible Medication History Admit Date and Time: 05/17/20 0004 Processed by: Pharmacy Medication History completed: Yes Patient Interview: Pt unable to participate Secondary Source(s): Caregiver (PATIENT'S CAREGIVER CALLED. CAREGIVER ABLE TO CONFIRM HOME MEDICATIONS ), Physician records, Pharmacy records, Insurance records As the person ultimately responsible for medication therapy, providers are able to order a medication from an existing home medication list in [facility] via the "Reconcile Routine" prior to Confirmation of that medication by business support assistant. Such practice is discouraged except when the physician, in their clinical ju dgment, deems that a medical need exists for a medication without regard to previous use.
--- NOTE | 2020-05-17 23:41 | PROVIDER PROGRESS NOTE ---
Director Of Category Management Note - Director Of Category Management Note Director Of Category Management Note: May 17, 2020 11:39 PM RN is asking me to renew the restraints for him. He does not like the NG in place and will pull it out. Patient was admitted in the psychologist research assistant hours of today. Small bowel obstruction. A follow-up KUB shows that the obstruction has resolved. He did have a small bowel movement yesterday. Unable to assess if he is having flatus or not because he does not is not verbal enough to tell us. NG output is only been 100 cc. On examination he is afebrile, pulse is 76, blood pressure 112/72, respirations 16 and is 98% on room air. These were the last vital signs recorded at 15: 46 today. Normal bowel sounds. Nondistended. Firm abdominal wall. Assessment/plan Small bowel obstruction on admission. Confirmed on CT. KUB this morning shows that it is gone. He does not have a fever, white cell count is still 17.3. He has cognitive deficits And is very uncomfortable and it is hard to explain things to him. Rather than renew the restraints, I will pull the NG since he seems to be improving. He has another KUB in the morning. Consider starting clears in the morning.
[2020-05-18] MEDS: LACTATED RINGERS 1,000 ML IV SCH ×3 (00:53→18:55)
[2020-05-18] MEDS: SODIUM CHLORIDE FLUSH 0.9% 10 ML SYRINGE IVP SCH ×3 (00:53→16:30)
[2020-05-18] MEDS: PHENYTOIN 100 MG/2 ML VIAL IVP SCH ×3 (05:39→21:55)
[2020-05-18 05:55] LABS: BASOPHILS % (AUTO) 0.2 %; EOSINOPHILS # (AUTO) 0.3 10^3/uL (0.0-0.7); EOSINOPHILS % (AUTO) 2.6 %; HGB - HEMOGLOBIN 13.9 g/dL (14.0-18.0); LYMPHOCYTES # (AUTO) 1.9 10^3/uL (1.5-3.5); LYMPHOCYTES % (AUTO) 17.2 %; MEAN CORPUSCULAR HGB CONC 33.3 g/dL (32.0-36.0); MEAN PLATELET VOLUME 9.3 fL (7.4-11.4); MONOCYTES % (AUTO) 8.9 %; NEUTROPHILS # (AUTO) 7.6 10^3/uL (1.5-6.6); NEUTROPHILS % (AUTO) 70.7 %; PLT - PLATELET COUNT 224 10^3/uL (130-450); RED BLOOD COUNT 4.21 10^6/uL (4.70-6.10); RED CELL DISTRIBUTION WIDTH 12.6 % (12.0-15.0); WHITE BLOOD COUNT 10.8 x10^3/uL (4.8-10.8)
[2020-05-18 06:03] LABS: CALCIUM 8.9 mg/dL (8.5-10.3); CREATININE 0.5 mg/dL (0.6-1.2); MAGNESIUM 1.8 mg/dL (1.7-2.8)
--- NOTE | 2020-05-18 08:16 | PROVIDER PROGRESS NOTE ---
Subjective - Prog Note Date Prog Note Date: 05/18/20 - Subjective Subjective: He nods yes whenever he is asked a question. He is drinking clear liquids this morning. He is smiling in bed and appears comfortable. Current Medications - Current Medications Current Medications: Active Medications Enoxaparin Sodium (Enoxaparin 40 Mg/0.4 Ml Syringe) 40 mg SUBQ DAILY [facility] Last Admin: 05/17/20 09:56 Dose: Not Given Documented by: Lactated Ringer's (Lr) 1,000 mls @ 100 mls/hr IV .Q10H [facility] Last Infusion: 05/18/20 07:20 Dose: 100 mls/hr Documented by: Morphine Sulfate (Morphine 2 Mg/Ml Carpuject) 2 mg IVP Q2HR PRN PRN Reason: Pain 8 to 10 Last Admin: 05/17/20 15:26 Dose: 2 mg Documented by: Ondansetron HCl (Ondansetron 4 Mg/2 Ml Vial) 4 mg IVP Q6HR PRN PRN Reason: Nausea / Vomiting Phenytoin Sodium (Phenytoin 100 Mg/2 Ml Vial) 100 mg IVP TID [facility] Last Admin: 05/18/20 05:39 Dose: 100 mg Documented by: Sodium Chloride (Sodium Chloride Flush 0.9% 10 Ml Syringe) 10 ml IVP PRN PRN PRN Reason: NEEDED PER PROVIDER ORDERS Sodium Chloride (Sodium Chloride Flush 0.9% 10 Ml Syringe) 10 ml IVP 0100,0900,1700 [facility] Last Admin: 05/18/20 00:53 Dose: Not Given Documented by: Amitriptyline HCl 30 mg PO QPM 05/12/13 Multivitamin [Multi-Vitamin Daily] 1 tab PO DAILY 05/12/13 Atorvastatin [Lipitor] 10 mg PO QPM 07/30/13 Acetaminophen [Tylenol] 650 mg PO Q4H PRN 09/19/16 Docusate Sodium 250Mg Capsule [Colace 250Mg Capsule] 250 mg PO BID 09/19/16 Ondansetron Odt [Zofran Odt] 4 mg TL Q6H PRN 09/19/16 Phenytoin [Dilantin] 300 mg PO QPM 09/19/16 Pantoprazole [Protonix] 40 mg PO QDAC 09/20/16 Calcium Carbonate [Elemental Calcium] 1,200 mg PO DAILY 05/17/20 Cholecalciferol (Vitamin D3) [Vitamin D3] 50 mcg PO DAILY 05/17/20 Famotidine [Acid-Pep] 20 mg PO DAILY 05/17/20 Krill/Om-3/Dha/Epa/Phospho/Ast [Krill Oil 500 mg Softgel] 2 cap PO BID 05/17/20 Lactose-Reduced Food [Ensure Max Protein] 240 ml PO TID 05/17/20 Propylene Glycol [Systane Complete] 1 drops OP BID 05/17/20 Objective - Vital Signs/Intake & Output Reviewed Vital Signs: Yes Vital Signs: Vital Signs x48h Temp Pulse Resp BP Pulse Ox 05/18/20 08:00 37.2 C 94 16 131/87 H 96 05/18/20 06:40 37.5 C 88 104/49 L 05/18/20 06:25 85 112/72 05/18/20 06:10 88 112/66 05/18/20 05:55 87 115/63 05/18/20 05:50 88 123/82 H 05/18/20 05:45 95 132/82 H 05/18/20 05:40 90 16 125/81 H Intake & Output: Intake & Output 05/15/20 05/16/20 05/17/20 05/18/20 23:59 23:59 23:59 23:59 Intake Total 1000 1975 667 Output Total 100 Balance 1000 1875 667 - Objective General Appearance: positive: No acute distress, Alert, Other (Appears comfortable sitting in bed.) Eyes Bilateral: positive: Normal inspection, Conjunctivae nml ENT: positive: ENT inspection nml Neck: positive: Nml inspection Respiratory: positive: No respiratory distress. negative: Wheezes, Rales Cardiovascular: positive: Regular rate & rhythm, No murmur. negative: Tachycardia Abdomen: positive: Non-tender, Nml bowel sounds, No distention, Other (Right upper quadrant scar noted. Abodmen soft and non-distended.). negative: Tenderne ss, Guarding, Rebound Skin: positive: Warm, Dry Neurologic/Psychiatric: positive: Other (Moving all 4 extremities. He nods yes whenever he is spoken to.) - Lab Results Fish Bones: 05/18/20 05:23 05/18/20 05:23 Other Labs: Lab Results x24hrs 05/18/20 05/18/20 Range/Units 05:23 05:23 WBC 10.8 (4.8-10.8) x10^3/uL RBC 4.21 L (4.70-6.10) 10^6/uL Hgb 13.9 L (14.0-18.0) g/dL Hct 41.7 L (42.0-52.0) % MCV 99.0 H (80.0-94.0) fL MCH 33.0 H (27.0-31.0) pg MCHC 33.3 (32.0-36.0) g/dL RDW 12.6 (12.0-15.0) % Plt Count 224 (130-450) 10^3/uL MPV 9.3 (7.4-11.4) fL Neut # (Auto) 7.6 H (1.5-6.6) 10^3/uL Lymph # (Auto) 1.9 (1.5-3.5) 10^3/uL [place] # (Auto) 1.0 (0.0-1.0) 10^3/uL Eos # (Auto) 0.3 (0.0-0.7) 10^3/uL Baso # (Auto) 0.0 (0.0-0.1) 10^3/uL Absolute Nucleated RBC 0.00 x10^3/uL Nucleated RBC % 0.0 /100WBC Sodium 134 L (135-145) mmol/L Potassium 3.5 (3.5-5.0) mmol/L Chloride 98 L (101-111) mmol/L Carbon Dioxide 27 (21-32) mmol/L Anion Gap 9.0 (6-13) BUN 12 (6-20) mg/dL Creatinine 0.5 L (0.6-1.2) mg/dL Estimated GFR (MDRD) 177 (>89) Glucose 79 (70-100) mg/dL Calcium 8.9 (8.5-10.3) mg/dL Magnesium 1.8 (1.7-2.8) mg/dL ABX Reporting Has patient been on IV antibiotics over the past 48 hours?: No Assessment/Plan - Problem List (1) Small bowel obstruction Impression: Appears to be clinically improving. Abdominal x-ray yesterday did not show obstruction although was consistent with obstipation. He has excellent bowel sounds this morning he is tolerating a clear liquid diet. We will repeat abdominal x-ray this morning. Will consider enema given the obstipation. We will look to advance his diet over next 24 hours and we are hopeful that he can be discharged tomorrow morning. Appreciate general surgery input. (2) Leukocytosis Impression: This has resolved. Suspect this is likely reactive given the small bowel obstruction. We will continue to hold off on antibiotics. (3) Cerebral palsy Impression: Stable. He is at his baseline. Qualifiers: Cerebral palsy type: unspecified type Qualified Code(s): G80.9 - Cerebral palsy, unspecified (4) Seizure disorder Impression: Stable. We will continue his home Dilantin intravenously. We will switch to p.o. once he is taking oral liquids consistently.
[2020-05-18] MEDS: ENOXAPARIN 40 MG/0.4 ML SYRINGE SUBQ SCH (09:35)
--- NOTE | 2020-05-18 10:07 | XRAY Report ---
PROCEDURE: Abdomen 1 View X-Ray INDICATIONS: sbo TECHNIQUE: 1 view of the abdomen were acquired. COMPARISON: 05/17/2020 FINDINGS: Surgical changes and devices: Thoracolumbosacral spine fixation hardware is stable where visualized. Cholecystectomy clips. Bowel: No pneumoperitoneum. Mildly dilated loops of small bowel in left upper quadrant slightly prog ressed compared to 05/17/2020. Soft tissues: No masses; visualized solid organ contours appear normal in size. No suspicious abdom inal calcifications. Bones: No suspicious bony abnormalities. IMPRESSION: Mildly dilated loops of small bowel left upper quadrant slightly increased in diameter compared to compatible with persistent small bowel obstruction. Reviewed by: Tahira Singh MD, PhD on 05/18/2020 9:05 AM [facility] Approved by: Tahira Singh MD, PhD on 05/18/2020 9:05 AM [facility] Station ID: [id number]
--- NOTE | 2020-05-18 10:46 | PROVIDER PROGRESS NOTE ---
Subjective - Prog Note Date Prog Note Date: 05/18/20 - Subjective Subjective: appears well. he has had a small thin yellow emesis recently Objective - Vital Signs/Intake & Output Reviewed Vital Signs: Yes Vital Signs: Vital Signs x48h Temp Pulse Resp BP Pulse Ox 05/18/20 08:00 37.2 C 94 16 131/87 H 96 05/18/20 06:40 37.5 C 88 104/49 L 05/18/20 06:25 85 112/72 05/18/20 06:10 88 112/66 05/18/20 05:55 87 115/63 05/18/20 05:50 88 123/82 H 05/18/20 05:45 95 132/82 H 05/18/20 05:40 90 16 125/81 H Intake & Output: Intake & Output 05/15/20 05/16/20 05/17/20 05/18/20 23:59 23:59 23:59 23:59 Intake Total 1000 1975 892 Output Total 100 Balance 1000 1875 892 - Objective General Appearance: positive: No acute distress, Alert Eyes Bilateral: positive: PERRL, EOMI ENT: positive: No signs of dehydration Neck: positive: No JVD Respiratory: positive: No respiratory distress Abdomen: positive: Non-tender, Other (mild distension and tympany) - Lab Results Fish Bones: 05/18/20 05:23 05/18/20 05:23 Other Labs: Lab Results x24hrs 05/18/20 05/18/20 Range/Units 05:23 05:23 WBC 10.8 (4.8-10.8) x10^3/uL RBC 4.21 L (4.70-6.10) 10^6/uL Hgb 13.9 L (14.0-18.0) g/dL Hct 41.7 L (42.0-52.0) % MCV 99.0 H (80.0-94.0) fL MCH 33.0 H (27.0-31.0) pg MCHC 33.3 (32.0-36.0) g/dL RDW 12.6 (12.0-15.0) % Plt Count 224 (130-450) 10^3/uL MPV 9.3 (7.4-11.4) fL Neut # (Auto) 7.6 H (1.5-6.6) 10^3/uL Lymph # (Auto) 1.9 (1.5-3.5) 10^3/uL [place] # (Auto) 1.0 (0.0-1.0) 10^3/uL Eos # (Auto) 0.3 (0.0-0.7) 10^3/uL Baso # (Auto) 0.0 (0.0-0.1) 10^3/uL Absolute Nucleated RBC 0.00 x10^3/uL Nucleated RBC % 0.0 /100WBC Sodium 134 L (135-145) mmol/L Potassium 3.5 (3.5-5.0) mmol/L Chloride 98 L (101-111) mmol/L Carbon Dioxide 27 (21-32) mmol/L Anion Gap 9.0 (6-13) BUN 12 (6-20) mg/dL Creatinine 0.5 L (0.6-1.2) mg/dL Estimated GFR (MDRD) 177 (>89) Glucose 79 (70-100) mg/dL Calcium 8.9 (8.5-10.3) mg/dL Magnesium 1.8 (1.7-2.8) mg/dL Assessment/Plan - Problem List (1) Small bowel obstruction Impression: improving. wbc back to normal. he appears comfortable. more alert and communicative. agree with present care he might only tolerate sips of clears today.
[2020-05-18] MEDS: SODIUM CHLORIDE FLUSH 0.9% 10 ML SYRINGE IVP PRN ×2 (13:58→21:55)
[2020-05-19] MEDS: SODIUM CHLORIDE FLUSH 0.9% 10 ML SYRINGE IVP SCH ×3 (01:19→17:23)
[2020-05-19] MEDS: LACTATED RINGERS 1,000 ML IV SCH ×3 (04:46→23:57)
[2020-05-19 05:46] LABS: BASOPHILS % (AUTO) 0.3 %; EOSINOPHILS # (AUTO) 0.3 10^3/uL (0.0-0.7); EOSINOPHILS % (AUTO) 4.3 %; HGB - HEMOGLOBIN 13.3 g/dL (14.0-18.0); LYMPHOCYTES # (AUTO) 1.7 10^3/uL (1.5-3.5); LYMPHOCYTES % (AUTO) 22.3 %; MEAN CORPUSCULAR HEMOGLOBIN 32.3 pg (27.0-31.0); MEAN CORPUSCULAR HGB CONC 33.3 g/dL (32.0-36.0); MEAN CORPUSCULAR VOLUME 97.1 fL (80.0-94.0); MEAN PLATELET VOLUME 9.3 fL (7.4-11.4); MONOCYTES # (AUTO) 0.9 10^3/uL (0.0-1.0); MONOCYTES % (AUTO) 11.5 %; NEUTROPHILS # (AUTO) 4.5 10^3/uL (1.5-6.6); NEUTROPHILS % (AUTO) 61.2 %; PLT - PLATELET COUNT 223 10^3/uL (130-450); RED BLOOD COUNT 4.12 10^6/uL (4.70-6.10); RED CELL DISTRIBUTION WIDTH 12.3 % (12.0-15.0); WHITE BLOOD COUNT 7.4 x10^3/uL (4.8-10.8)
[2020-05-19 05:55] LABS: CALCIUM 8.8 mg/dL (8.5-10.3); CREATININE 0.4 mg/dL (0.6-1.2); MAGNESIUM 1.9 mg/dL (1.7-2.8)
[2020-05-19] MEDS: SODIUM CHLORIDE FLUSH 0.9% 10 ML SYRINGE IVP PRN (06:27)
[2020-05-19] MEDS: PHENYTOIN 100 MG/2 ML VIAL IVP SCH ×3 (06:28→22:31)
--- NOTE | 2020-05-19 07:29 | PROVIDER PROGRESS NOTE ---
Subjective - Prog Note Date Prog Note Date: 05/19/20 - Subjective Subjective: Appears more comfortable today. Per nursing, has been no bowel movement overnight. Patient does not yet this when he asked if he has pain. He does not nod when asked if he has nausea or vomiting. He has been tolerating a clear liquid diet. Current Medications - Current Medications Current Medications: Active Medications Enoxaparin Sodium (Enoxaparin 40 Mg/0.4 Ml Syringe) 40 mg SUBQ DAILY [facility] Last Admin: 05/19/20 08:55 Dose: 40 mg Documented by: Lactated Ringer's (Lr) 1,000 mls @ 100 mls/hr IV .Q10H [facility] Last Admin: 05/19/20 13:57 Dose: 100 mls/hr Documented by: Morphine Sulfate (Morphine 2 Mg/Ml Carpuject) 2 mg IVP Q2HR PRN PRN Reason: Pain 8 to 10 Last Admin: 05/17/20 15:26 Dose: 2 mg Documented by: Ondansetron HCl (Ondansetron 4 Mg/2 Ml Vial) 4 mg IVP Q6HR PRN PRN Reason: Nausea / Vomiting Phenytoin Sodium (Phenytoin 100 Mg/2 Ml Vial) 100 mg IVP TID [facility] Last Admin: 05/19/20 13:22 Dose: 100 mg Documented by: Sodium Biphosphate/Sodium Phosphate (Saline Enema 133 Ml Bottle) 133 ml RC ONCE [facility] Stop: 05/19/20 17:00 Last Admin: 05/19/20 13:57 Dose: 133 ml Documented by: Sodium Chloride (Sodium Chloride Flush 0.9% 10 Ml Syringe) 10 ml IVP PRN PRN PRN Reason: NEEDED PER PROVIDER ORDERS Last Admin: 05/19/20 06:27 Dose: 10 ml Documented by: Sodium Chloride (Sodium Chloride Flush 0.9% 10 Ml Syringe) 10 ml IVP 0100,0900,1700 [facility] Last Admin: 05/19/20 09:48 Dose: Not Given Documented by: Amitriptyline HCl 30 mg PO QPM 05/12/13 Multivitamin [Multi-Vitamin Daily] 1 tab PO DAILY 05/12/13 Atorvastatin [Lipitor] 10 mg PO QPM 07/30/13 Acetaminophen [Tylenol] 650 mg PO Q4H PRN 09/19/16 Docusate Sodium 250Mg Capsule [Colace 250Mg Capsule] 250 mg PO BID 09/19/16 Ondansetron Odt [Zofran Odt] 4 mg TL Q6H PRN 09/19/16 Phenytoin [Dilantin] 300 mg PO QPM 09/19/16 Pantoprazole [Protonix] 40 mg PO QDAC 09/20/16 Calcium Carbonate [Elemental Calcium] 1,200 mg PO DAILY 05/17/20 Cholecalciferol (Vitamin D3) [Vitamin D3] 50 mcg PO DAILY 05/17/20 Famotidine [Acid-Pep] 20 mg PO DAILY 05/17/20 Krill/Om-3/Dha/Epa/Phospho/Ast [Krill Oil 500 mg Softgel] 2 cap PO BID 05/17/20 Lactose-Reduced Food [Ensure Max Protein] 240 ml PO TID 05/17/20 Propylene Glycol [Systane Complete] 1 drops OP BID 05/17/20 Objective - Vital Signs/Intake & Output Reviewed Vital Signs: Yes Vital Signs: Vital Signs x48h Temp Pulse Resp BP Pulse Ox 05/19/20 07:26 74 156/94 H 05/19/20 07:15 75 119/78 05/19/20 06:58 65 116/69 05/19/20 06:43 65 130/92 H 05/19/20 06:38 65 134/86 H 05/19/20 06:33 68 118/85 H 05/19/20 06:28 69 123/89 H 05/18/20 23:33 37.1 C 71 16 132/80 H 96 Intake & Output: Intake & Output 05/16/20 05/17/20 05/18/20 05/19/20 23:59 23:59 23:59 23:59 Intake Total 1000 1974 2605.333 1000 Output Total 100 150 Balance 1000 1875 2605.333 850 - Objective General Appearance: positive: No acute distress, Alert, Other (He appears comfortable in bed. He is smiling. He does not appear in discomfort when palpa ting his abdomen.) Eyes Bilateral: positive: Normal inspection, Conjunctivae nml ENT: positive: ENT inspection nml Neck: positive: Nml inspection Respiratory: positive: No respiratory distress Cardiovascular: positive: Regular rate & rhythm. negative: Tachycardia Abdomen: positive: Non-tender, Abnml bowel sounds (Hypoactive bowel sounds.). negative: No distention (Mild distention.), Tenderness, Guarding, Rebound Skin: positive: Warm, Dry Extremities: positive: No pedal edema - Lab Results Fish Bones: 05/19/20 05:27 05/19/20 05:27 Other Labs: Lab Results x24hrs 05/19/20 05/19/20 Range/Units 05:27 05:27 WBC 7.4 (4.8-10.8) x10^3/uL RBC 4.12 L (4.70-6.10) 10^6/uL Hgb 13.3 L (14.0-18.0) g/dL Hct 40.0 L (42.0-52.0) % MCV 97.1 H (80.0-94.0) fL MCH 32.3 H (27.0-31.0) pg MCHC 33.3 (32.0-36.0) g/dL RDW 12.3 (12.0-15.0) % Plt Count 223 (130-450) 10^3/uL MPV 9.3 (7.4-11.4) fL Neut # (Auto) 4.5 (1.5-6.6) 10^3/uL Lymph # (Auto) 1.7 (1.5-3.5) 10^3/uL [place] # (Auto) 0.9 (0.0-1.0) 10^3/uL Eos # (Auto) 0.3 (0.0-0.7) 10^3/uL Baso # (Auto) 0.0 (0.0-0.1) 10^3/uL Absolute Nucleated RBC 0.00 x10^3/uL Nucleated RBC % 0.0 /100WBC Sodium 135 (135-145) mmol/L Potassium 3.0 L (3.5-5.0) mmol/L Chloride 101 (101-111) mmol/L Carbon Dioxide 27 (21-32) mmol/L Anion Gap 7.0 (6-13) BUN 7 (6-20) mg/dL Creatinine 0.4 L (0.6-1.2) mg/dL Estimated GFR (MDRD) 230 (>89) Glucose 93 (70-100) mg/dL Calcium 8.8 (8.5-10.3) mg/dL Magnesium 1.9 (1.7-2.8) mg/dL Assessment/Plan - Problem List (1) Small bowel obstruction Impression: He has not had a bowel movement but he has not had further episodes of vomiting. His abdomen is soft today although still slightly distended. Bowel sounds are present but slightly hypoactive. After discussion with general surgery, will administer an enema given concern for large amount of stool burden. We will continue on a clear liquid diet. We will hope to advance his diet over next 24 hours. Appreciate general surgery input. (2) Seizure disorder Impression: We will continue his phenytoin intravenously until we are certain that he is clinically improving. (3) Cerebral palsy Impression: Stable and at baseline. Qualifiers: Cerebral palsy type: unspecified type Qualified Code(s): G80.9 - Cerebral palsy, unspecified (4) Leukocytosis Impression: This has resolved. This was likely reactive due to small bowel obstruction.
[2020-05-19] MEDS ORDERED: SODIUM CHLORIDE 0.9% 1,000 ML IV ONE (08:49)
[2020-05-19] MEDS: POTASSIUM CHLOR 10 MEQ/100 ML 10 MEQ/100 ML BAG IV SCH ×4 (08:55→18:46)
[2020-05-19] MEDS: ENOXAPARIN 40 MG/0.4 ML SYRINGE SUBQ SCH (08:55)
[2020-05-19] MEDS ORDERED: SALINE ENEMA 133 ML BOTTLE RC SCH (14:00)
--- NOTE | 2020-05-19 16:04 | PROVIDER PROGRESS NOTE ---
Subjective - Prog Note Date Prog Note Date: 05/19/20 - Subjective Pt reports feeling: Improved (feeling better and tolerating diet better) Objective - Vital Signs/Intake & Output Vital Signs: Vital Signs x48h BP 05/19/20 13:57 106/66 05/19/20 13:31 107/66 05/19/20 13:15 132/100 H Intake & Output: Intake & Output 05/16/20 05/17/20 05/18/20 05/19/20 23:59 23:59 23:59 23:59 Intake Total 1000 1975 2605.333 2698.333 Output Total 100 250 Balance 1000 1875 2605.333 2448.333 - Objective General Appearance: positive: No acute distress, Alert Eyes Bilateral: positive: Normal inspection, PERRL, EOMI ENT: positive: No signs of dehydration Respiratory: positive: No respiratory distress Abdomen: positive: Non-tender, Other (minimal distension) - Lab Results Fish Bones: 05/19/20 05:27 05/19/20 05:27 Other Labs: Lab Results x24hrs 05/19/20 05/19/20 Range/Units 05:27 05:27 WBC 7.4 (4.8-10.8) x10^3/uL RBC 4.12 L (4.70-6.10) 10^6/uL Hgb 13.3 L (14.0-18.0) g/dL Hct 40.0 L (42.0-52.0) % MCV 97.1 H (80.0-94.0) fL MCH 32.3 H (27.0-31.0) pg MCHC 33.3 (32.0-36.0) g/dL RDW 12.3 (12.0-15.0) % Plt Count 223 (130-450) 10^3/uL MPV 9.3 (7.4-11.4) fL Neut # (Auto) 4.5 (1.5-6.6) 10^3/uL Lymph # (Auto) 1.7 (1.5-3.5) 10^3/uL [place] # (Auto) 0.9 (0.0-1.0) 10^3/uL Eos # (Auto) 0.3 (0.0-0.7) 10^3/uL Baso # (Auto) 0.0 (0.0-0.1) 10^3/uL Absolute Nucleated RBC 0.00 x10^3/uL Nucleated RBC % 0.0 /100WBC Sodium 135 (135-145) mmol/L Potassium 3.0 L (3.5-5.0) mmol/L Chloride 101 (101-111) mmol/L Carbon Dioxide 27 (21-32) mmol/L Anion Gap 7.0 (6-13) BUN 7 (6-20) mg/dL Creatinine 0.4 L (0.6-1.2) mg/dL Estimated GFR (MDRD) 230 (>89) Glucose 93 (70-100) mg/dL Calcium 8.8 (8.5-10.3) mg/dL Magnesium 1.9 (1.7-2.8) mg/dL Assessment/Plan - Problem List (1) Small bowel obstruction Impression: improving
--- NOTE | 2020-05-19 18:31 | XRAY Report ---
PROCEDURE: Abdomen 1 View X-Ray INDICATIONS: sbo TECHNIQUE: 1 view of the abdomen were acquired. COMPARISON: 05/18/2020 and 05/17/2020 FINDINGS: Surgical changes and devices: Thoracolumbar sacral spine fixation hardware is stable and visualized. Cholecystectomy clips are stable. Bowel: No pneumoperitoneum. Gaseous distention of loops of small bowel most pronounced in the left u pper quadrant are stable compared to 05/18/2020. Soft tissues: No masses; visualized solid organ contours appear normal in size. No suspicious abdom inal calcifications. Bones: No suspicious bony abnormalities. IMPRESSION: Persistent small bowel obstruction not significantly changed compared to 05/18/2020. Reviewed by: Tahira Singh MD, PhD on 05/19/2020 5:30 PM [facility] Approved by: Tahira Singh MD, PhD on 05/19/2020 5:30 PM [facility] Station ID: [id number]
[2020-05-20] MEDS: SODIUM CHLORIDE FLUSH 0.9% 10 ML SYRINGE IVP SCH ×3 (01:33→15:37)
[2020-05-20 04:28] LABS: BASOPHILS % (AUTO) 0.4 %; EOSINOPHILS # (AUTO) 0.3 10^3/uL (0.0-0.7); EOSINOPHILS % (AUTO) 4.7 %; HGB - HEMOGLOBIN 14.2 g/dL (14.0-18.0); LYMPHOCYTES # (AUTO) 2.1 10^3/uL (1.5-3.5); LYMPHOCYTES % (AUTO) 29.5 %; MEAN CORPUSCULAR HEMOGLOBIN 32.9 pg (27.0-31.0); MEAN CORPUSCULAR HGB CONC 34.3 g/dL (32.0-36.0); MEAN CORPUSCULAR VOLUME 96.1 fL (80.0-94.0); MEAN PLATELET VOLUME 9.4 fL (7.4-11.4); MONOCYTES # (AUTO) 0.8 10^3/uL (0.0-1.0); MONOCYTES % (AUTO) 11.4 %; NEUTROPHILS # (AUTO) 3.7 10^3/uL (1.5-6.6); NEUTROPHILS % (AUTO) 53.7 %; PLT - PLATELET COUNT 245 10^3/uL (130-450); RED BLOOD COUNT 4.31 10^6/uL (4.70-6.10); RED CELL DISTRIBUTION WIDTH 12.1 % (12.0-15.0)
[2020-05-20 04:34] LABS: CALCIUM 8.7 mg/dL (8.5-10.3); CREATININE 0.4 mg/dL (0.6-1.2); MAGNESIUM 1.8 mg/dL (1.7-2.8)
[2020-05-20] MEDS: PHENYTOIN 100 MG/2 ML VIAL IVP SCH ×2 (05:53→14:31)
[2020-05-20] MEDS: ENOXAPARIN 40 MG/0.4 ML SYRINGE SUBQ SCH (09:48)
[2020-05-20] MEDS: LACTATED RINGERS 1,000 ML IV SCH ×2 (09:48→19:19)
[2020-05-20] MEDS: POTASSIUM CHLOR 10 MEQ/100 ML 10 MEQ/100 ML BAG IV SCH ×4 (12:13→15:36)
--- NOTE | 2020-05-20 13:52 | PROVIDER PROGRESS NOTE ---
Subjective - General Admit Date: 05/17/20 - Other Other Information/Narrative: Had and enema yesterday that produced two bowel movements. No distress. Acknowledges no pain with palpation Objective - Patient Data Reviewed Vital Signs: Yes Vital Signs: Vital Signs x48h Temp Pulse Pulse Resp BP Pulse Ox 05/20/20 08:00 36.9 C 75 18 104/66 99 05/20/20 06:03 84 128/81 H 05/20/20 05:54 79 116/91 H Intake & Output: Intake and Output Totals x24h 05/18/20 05/19/20 05/20/20 23:59 23:59 23:59 Intake Total 2605.333 3798.333 1679 Output Total 250 Balance 2605.333 3548.333 1679 - Lab Results Lab Results: 05/20/20 04:08 05/20/20 04:08 Other Lab Results: Lab Results x24hrs 05/20/20 05/20/20 Range/Units 04:08 04:08 WBC 7.0 (4.8-10.8) x10^3/uL RBC 4.31 L (4.70-6.10) 10^6/uL Hgb 14.2 (14.0-18.0) g/dL Hct 41.4 L (42.0-52.0) % MCV 96.1 H (80.0-94.0) fL MCH 32.9 H (27.0-31.0) pg MCHC 34.3 (32.0-36.0) g/dL RDW 12.1 (12.0-15.0) % Plt Count 245 (130-450) 10^3/uL MPV 9.4 (7.4-11.4) fL Neut # (Auto) 3.7 (1.5-6.6) 10^3/uL Lymph # (Auto) 2.1 (1.5-3.5) 10^3/uL [place] # (Auto) 0.8 (0.0-1.0) 10^3/uL Eos # (Auto) 0.3 (0.0-0.7) 10^3/uL Baso # (Auto) 0.0 (0.0-0.1) 10^3/uL Absolute Nucleated RBC 0.00 x10^3/uL Nucleated RBC % 0.0 /100WBC Sodium 135 (135-145) mmol/L Potassium 3.2 L (3.5-5.0) mmol/L Chloride 100 L (101-111) mmol/L Carbon Dioxide 27 (21-32) mmol/L Anion Gap 8.0 (6-13) BUN 6 (6-20) mg/dL Creatinine 0.4 L (0.6-1.2) mg/dL Estimated GFR (MDRD) 230 (>89) Glucose 97 (70-100) mg/dL Calcium 8.7 (8.5-10.3) mg/dL Magnesium 1.8 (1.7-2.8) mg/dL - Current Medications Current Medications: Current Medications Generic Name Dose Route Start Last Admin Trade Name Freq PRN Reason Stop Dose Admin Enoxaparin Sodium 40 mg 05/17/20 09:00 05/20/20 09:48 Enoxaparin 40 Mg/0.4 Ml Syringe SUBQ 40 mg DAILY [facility] Administration Lactated Ringer's 1,000 mls @ 100 mls/hr 05/17/20 01:00 05/20/20 09:48 Lr IV 100 mls/hr .Q10H [facility] Administration Potassium Chloride 10 meq in 100 mls @ 100 mls/hr 05/20/20 11:00 05/20/20 13:20 Potassium Chloride IV 05/20/20 14:59 100 mls/hr Q1H [facility] Administration Morphine Sulfate 2 mg 05/17/20 00:04 05/17/20 15:26 Morphine 2 Mg/Ml Carpuject IVP 2 mg Q2HR PRN Administration Pain 8 to 10 Phenytoin Sodium 100 mg 05/17/20 01:00 05/20/20 05:53 Phenytoin 100 Mg/2 Ml Vial IVP 100 mg TID [facility] Administration Sodium Chloride 10 ml 05/17/20 00:04 05/19/20 06:27 Sodium Chloride Flush 0.9% 10 Ml Syringe IVP 10 ml PRN PRN Administration NEEDED PER PROVIDER ORDERS Sodium Chloride 10 ml 05/17/20 01:00 05/20/20 09:48 Sodium Chloride Flush 0.9% 10 Ml Syringe IVP Not Given 0100,0900,1700 [facility] Impression/Plan - Problem List Problem List: Agree with plans to advance diet. Likely home in the AM if he continues to do well.
[2020-05-20] MEDS: SODIUM CHLORIDE FLUSH 0.9% 10 ML SYRINGE IVP PRN (14:31)
[2020-05-20] MEDS ORDERED: MIN OIL/DIMETHICON/COCONUT OIL 92 GM TUBE TOP PRN (14:36)
--- NOTE | 2020-05-20 16:42 | PROVIDER PROGRESS NOTE ---
Subjective - Prog Note Date Prog Note Date: 05/20/20 - Subjective Subjective: Per nursing, he had 2 bowel movements yesterday after having the enema. No further episodes of vomiting. He appears comfortable in bed. Current Medications - Current Medications Current Medications: Active Medications Enoxaparin Sodium (Enoxaparin 40 Mg/0.4 Ml Syringe) 40 mg SUBQ DAILY [facility] Last Admin: 05/20/20 09:48 Dose: 40 mg Documented by: Lactated Ringer's (Lr) 1,000 mls @ 100 mls/hr IV .Q10H [facility] Last Admin: 05/20/20 09:48 Dose: 100 mls/hr Documented by: Mineral Oil (Min Oil/Dimethicon/Coconut Oil 92 Gm Tube) 1 applic TOP PRN PRN PRN Reason: Skin Care Morphine Sulfate (Morphine 2 Mg/Ml Carpuject) 2 mg IVP Q2HR PRN PRN Reason: Pain 8 to 10 Last Admin: 05/17/20 15:26 Dose: 2 mg Documented by: Ondansetron HCl (Ondansetron 4 Mg/2 Ml Vial) 4 mg IVP Q6HR PRN PRN Reason: Nausea / Vomiting Phenytoin Sodium (Phenytoin 100 Mg/2 Ml Vial) 100 mg IVP TID [facility] Last Admin: 05/20/20 14:31 Dose: 100 mg Documented by: Sodium Chloride (Sodium Chloride Flush 0.9% 10 Ml Syringe) 10 ml IVP PRN PRN PRN Reason: NEEDED PER PROVIDER ORDERS Last Admin: 05/20/20 14:31 Dose: 10 ml Documented by: Sodium Chloride (Sodium Chloride Flush 0.9% 10 Ml Syringe) 10 ml IVP 0100,0900,1700 [facility] Last Admin: 05/20/20 15:37 Dose: Not Given Documented by: Amitriptyline HCl 30 mg PO QPM 05/12/13 Multivitamin [Multi-Vitamin Daily] 1 tab PO DAILY 05/12/13 Atorvastatin [Lipitor] 10 mg PO QPM 07/30/13 Acetaminophen [Tylenol] 650 mg PO Q4H PRN 09/19/16 Docusate Sodium 250Mg Capsule [Colace 250Mg Capsule] 250 mg PO BID 09/19/16 Ondansetron Odt [Zofran Odt] 4 mg TL Q6H PRN 09/19/16 Phenytoin [Dilantin] 300 mg PO QPM 09/19/16 Pantoprazole [Protonix] 40 mg PO QDAC 09/20/16 Calcium Carbonate [Elemental Calcium] 1,200 mg PO DAILY 05/17/20 Cholecalciferol (Vitamin D3) [Vitamin D3] 50 mcg PO DAILY 05/17/20 Famotidine [Acid-Pep] 20 mg PO DAILY 05/17/20 Krill/Om-3/Dha/Epa/Phospho/Ast [Krill Oil 500 mg Softgel] 2 cap PO BID 05/17/20 Lactose-Reduced Food [Ensure Max Protein] 240 ml PO TID 05/17/20 Propylene Glycol [Systane Complete] 1 drops OP BID 05/17/20 Objective - Vital Signs/Intake & Output Reviewed Vital Signs: Yes Vital Signs: Vital Signs x48h Temp Pulse Resp BP Pulse Ox 05/20/20 15:53 38.0 C H 75 20 129/82 H 97 05/20/20 15:00 79 125/81 H 05/20/20 14:30 76 132/90 H Intake & Output: Intake & Output 05/17/20 05/18/20 05/19/20 05/20/20 23:59 23:59 23:59 23:59 Intake Total 1975 2605.333 3798.333 2219 Output Total 100 250 Balance 1875 2605.333 3548.333 2219 - Objective General Appearance: positive: No acute distress, Alert Eyes Bilateral: positive: Normal inspection, Conjunctivae nml ENT: positive: ENT inspection nml Neck: positive: Nml inspection Respiratory: positive: No respiratory distress. negative: Wheezes, Rales Cardiovascular: positive: Regular rate & rhythm. negative: Tachycardia Abdomen: positive: Non-tender, Nml bowel sounds, No distention. negative: Tenderness, Guarding, Rebound Skin: positive: Warm, Dry Extremities: positive: No pedal edema - Lab Results Fish Bones: 05/20/20 04:08 05/20/20 04:08 Other Labs: Lab Results x24hrs 05/20/20 05/20/20 Range/Units 04:08 04:08 WBC 7.0 (4.8-10.8) x10^3/uL RBC 4.31 L (4.70-6.10) 10^6/uL Hgb 14.2 (14.0-18.0) g/dL Hct 41.4 L (42.0-52.0) % MCV 96.1 H (80.0-94.0) fL MCH 32.9 H (27.0-31.0) pg MCHC 34.3 (32.0-36.0) g/dL RDW 12.1 (12.0-15.0) % Plt Count 245 (130-450) 10^3/uL MPV 9.4 (7.4-11.4) fL Neut # (Auto) 3.7 (1.5-6.6) 10^3/uL Lymph # (Auto) 2.1 (1.5-3.5) 10^3/uL [place] # (Auto) 0.8 (0.0-1.0) 10^3/uL Eos # (Auto) 0.3 (0.0-0.7) 10^3/uL Baso # (Auto) 0.0 (0.0-0.1) 10^3/uL Absolute Nucleated RBC 0.00 x10^3/uL Nucleated RBC % 0.0 /100WBC Sodium 135 (135-145) mmol/L Potassium 3.2 L (3.5-5.0) mmol/L Chloride 100 L (101-111) mmol/L Carbon Dioxide 27 (21-32) mmol/L Anion Gap 8.0 (6-13) BUN 6 (6-20) mg/dL Creatinine 0.4 L (0.6-1.2) mg/dL Estimated GFR (MDRD) 230 (>89) Glucose 97 (70-100) mg/dL Calcium 8.7 (8.5-10.3) mg/dL Magnesium 1.8 (1.7-2.8) mg/dL Assessment/Plan - Problem List (1) Small bowel obstruction Impression: He appears to be clinically improving. Had 2 bowel movement after the enema yesterday. No further episodes of vomiting and has tolerated a full liquid diet. Will advance to a soft diet and if doing well overnight we will plan to discharge tomorrow. (2) Seizure disorder Impression: Stable. We will resume his home oral phenytoin and discontinue the IV phenytoin given he is now tolerating a diet. (3) Cerebral palsy Impression: Stable and at baseline. Qualifiers: Cerebral palsy type: unspecified type Qualified Code(s): G80.9 - Cerebral palsy, unspecified (4) Leukocytosis Impression: This was likely reactive and has resolved.
[2020-05-20] MEDS: AMITRIPTYLINE 10 MG TABLET PO SCH (20:59)
[2020-05-20] MEDS: ATORVASTATIN 10 MG TABLET PO SCH (20:59)
[2020-05-20] MEDS: PHENYTOIN ER 100 MG CAPSULE PO SCH (20:59)
[2020-05-21] MEDS ORDERED: ACETAMINOPHEN 325 MG TABLET PO PRN (01:59)
[2020-05-21] MEDS: SODIUM CHLORIDE FLUSH 0.9% 10 ML SYRINGE IVP SCH ×3 (02:57→18:02)
[2020-05-21] MEDS: LACTATED RINGERS 1,000 ML IV SCH ×3 (05:26→14:59)
[2020-05-21 07:47] LABS: BASOPHILS % (AUTO) 0.4 %; EOSINOPHILS # (AUTO) 0.4 10^3/uL (0.0-0.7); EOSINOPHILS % (AUTO) 5.6 %; HGB - HEMOGLOBIN 13.7 g/dL (14.0-18.0); LYMPHOCYTES # (AUTO) 1.9 10^3/uL (1.5-3.5); LYMPHOCYTES % (AUTO) 27.7 %; MEAN CORPUSCULAR HEMOGLOBIN 32.9 pg (27.0-31.0); MEAN CORPUSCULAR HGB CONC 34.3 g/dL (32.0-36.0); MEAN CORPUSCULAR VOLUME 95.9 fL (80.0-94.0); MEAN PLATELET VOLUME 8.9 fL (7.4-11.4); MONOCYTES # (AUTO) 0.7 10^3/uL (0.0-1.0); MONOCYTES % (AUTO) 10.1 %; NEUTROPHILS # (AUTO) 3.8 10^3/uL (1.5-6.6); NEUTROPHILS % (AUTO) 55.9 %; PLT - PLATELET COUNT 247 10^3/uL (130-450); RED BLOOD COUNT 4.16 10^6/uL (4.70-6.10); RED CELL DISTRIBUTION WIDTH 12.6 % (12.0-15.0); WHITE BLOOD COUNT 6.8 x10^3/uL (4.8-10.8)
[2020-05-21 07:56] LABS: CALCIUM 9.2 mg/dL (8.5-10.3); CREATININE 0.5 mg/dL (0.6-1.2)
--- NOTE | 2020-05-21 10:04 | PROVIDER PROGRESS NOTE ---
Subjective - General Admit Date: 05/17/20 - Review of Systems General: positive: Fever - Other Other Information/Narrative: Much more alert and interactive today but had fever over night up to 101. Afebrile now. Denies abdominal pain. Acknowledges he is hungry. Objective - Patient Data Reviewed Vital Signs: Yes Vital Signs: Vital Signs x48h Temp Pulse Resp BP Pulse Ox 05/21/20 08:00 36.6 C 74 20 108/72 97 Intake & Output: Intake and Output Totals x24h 05/19/20 05/20/20 05/21/20 23:59 23:59 23:59 Intake Total 3798.333 3606.667 1000 Output Total 250 Balance 3548.333 3606.667 1000 - Lab Results Lab Results: 05/21/20 07:39 05/21/20 07:39 Other Lab Results: Lab Results x24hrs 05/21/20 05/21/20 05/21/20 Range/Units 08:06 07:39 07:39 WBC 6.8 (4.8-10.8) x10^3/uL RBC 4.16 L (4.70-6.10) 10^6/uL Hgb 13.7 L (14.0-18.0) g/dL Hct 39.9 L (42.0-52.0) % MCV 95.9 H (80.0-94.0) fL MCH 32.9 H (27.0-31.0) pg MCHC 34.3 (32.0-36.0) g/dL RDW 12.6 (12.0-15.0) % Plt Count 247 (130-450) 10^3/uL MPV 8.9 (7.4-11.4) fL Neut # (Auto) 3.8 (1.5-6.6) 10^3/uL Lymph # (Auto) 1.9 (1.5-3.5) 10^3/uL [place] # (Auto) 0.7 (0.0-1.0) 10^3/uL Eos # (Auto) 0.4 (0.0-0.7) 10^3/uL Baso # (Auto) 0.0 (0.0-0.1) 10^3/uL Absolute Nucleated RBC 0.00 x10^3/uL Nucleated RBC % 0.0 /100WBC Sodium 142 (135-145) mmol/L Potassium 3.9 (3.5-5.0) mmol/L Chloride 103 (101-111) mmol/L Carbon Dioxide 28 (21-32) mmol/L Anion Gap 11.0 (6-13) BUN 10 (6-20) mg/dL Creatinine 0.5 L (0.6-1.2) mg/dL Estimated GFR (MDRD) 177 (>89) Glucose 102 H (70-100) mg/dL Lactic Acid 0.9 (0.5-2.2) mmol/L Calcium 9.2 (8.5-10.3) mg/dL - Current Medications Current Medications: Current Medications Generic Name Dose Route Start Last Admin Trade Name Freq PRN Reason Stop Dose Admin Amitriptyline HCl 30 mg 05/20/20 21:00 05/20/20 20:59 Amitriptyline 10 Mg Tablet PO 30 mg QPM SARAH Administration Atorvastatin Calcium 10 mg 05/20/20 21:00 05/20/20 20:59 Atorvastatin 10 Mg Tablet PO 10 mg QPM SARAH Administration Enoxaparin Sodium 40 mg 05/17/20 09:00 05/20/20 09:48 Enoxaparin 40 Mg/0.4 Ml Syringe SUBQ 40 mg DAILY [facility] Administration Morphine Sulfate 2 mg 05/17/20 00:04 05/17/20 15:26 Morphine 2 Mg/Ml Carpuject IVP 2 mg Q2HR PRN Administration Pain 8 to 10 Phenytoin Sodium 300 mg 05/20/20 21:00 05/20/20 20:59 Phenytoin Er 100 Mg Capsule PO 300 mg QPM SARAH Administration Sodium Chloride 10 ml 05/17/20 00:04 05/20/20 14:31 Sodium Chloride Flush 0.9% 10 Ml Syringe IVP 10 ml PRN PRN Administration NEEDED PER PROVIDER ORDERS Sodium Chloride 10 ml 05/17/20 01:00 05/21/20 02:57 Sodium Chloride Flush 0.9% 10 Ml Syringe IVP Not Given 0100,0900,1700 [facility] - Physical Exam Abdomen: positive: Other (Very soft, no tendeness illicited. Active bowel sounds) Impression/Plan - Problem List Problem List: Appears to be improving from a bowel obstruction perspective. Fever is a bit concerning but it resolved without treatment. Agree with watchful waiting today.
[2020-05-21] MEDS: ENOXAPARIN 40 MG/0.4 ML SYRINGE SUBQ SCH (10:09)
[2020-05-21] MEDS: CALCIUM CARB (OYSTER SHELL) 500 MG TABLET PO SCH (10:09)
--- NOTE | 2020-05-21 13:44 | PROVIDER PROGRESS NOTE ---
Subjective - Prog Note Date Prog Note Date: 05/21/20 - Subjective Subjective: Appears comfortable in bed. Shakes his head no when asked if he has pain. Has been able to eat without further episodes of vomiting. No bowel movement since yesterday morning. Current Medications - Current Medications Current Medications: Active Medications Acetaminophen (Acetaminophen 325 Mg Tablet) 650 mg PO Q4HR PRN PRN Reason: Pain or Fever > 38C (100.4F) Amitriptyline HCl (Amitriptyline 10 Mg Tablet) 30 mg PO QPM [facility] Last Admin: 05/20/20 20:59 Dose: 30 mg Documented by: Atorvastatin Calcium (Atorvastatin 10 Mg Tablet) 10 mg PO QPM [facility] Last Admin: 05/20/20 20:59 Dose: 10 mg Documented by: Calcium Carbonate/Glycine (Calcium Carb (Oyster Shell) 500 Mg Tablet) 1,000 mg PO DAILY [facility] Last Admin: 05/21/20 10:09 Dose: 1,000 mg Documented by: Enoxaparin Sodium (Enoxaparin 40 Mg/0.4 Ml Syringe) 40 mg SUBQ DAILY [facility] Last Admin: 05/21/20 10:09 Dose: 40 mg Documented by: Lactated Ringer's (Lr) 1,000 mls @ 100 mls/hr IV .Q10H [facility] Last Admin: 05/21/20 10:08 Dose: 100 mls/hr Documented by: Mineral Oil (Min Oil/Dimethicon/Coconut Oil 92 Gm Tube) 1 applic TOP PRN PRN PRN Reason: Skin Care Morphine Sulfate (Morphine 2 Mg/Ml Carpuject) 2 mg IVP Q2HR PRN PRN Reason: Pain 8 to 10 Last Admin: 05/17/20 15:26 Dose: 2 mg Documented by: Ondansetron HCl (Ondansetron 4 Mg/2 Ml Vial) 4 mg IVP Q6HR PRN PRN Reason: Nausea / Vomiting Phenytoin Sodium (Phenytoin Er 100 Mg Capsule) 300 mg PO QPM [facility] Last Admin: 05/20/20 20:59 Dose: 300 mg Documented by: Sodium Chloride (Sodium Chloride Flush 0.9% 10 Ml Syringe) 10 ml IVP PRN PRN PRN Reason: NEEDED PER PROVIDER ORDERS Last Admin: 05/20/20 14:31 Dose: 10 ml Documented by: Sodium Chloride (Sodium Chloride Flush 0.9% 10 Ml Syringe) 10 ml IVP 0100,0900,1700 [facility] Last Admin: 05/21/20 10:09 Dose: Not Given Documented by: Amitriptyline HCl 30 mg PO QPM 05/12/13 Multivitamin [Multi-Vitamin Daily] 1 tab PO DAILY 05/12/13 Atorvastatin [Lipitor] 10 mg PO QPM 07/30/13 Acetaminophen [Tylenol] 650 mg PO Q4H PRN 09/19/16 Docusate Sodium 250Mg Capsule [Colace 250Mg Capsule] 250 mg PO BID 09/19/16 Ondansetron Odt [Zofran Odt] 4 mg TL Q6H PRN 09/19/16 Phenytoin [Dilantin] 300 mg PO QPM 09/19/16 Pantoprazole [Protonix] 40 mg PO QDAC 09/20/16 Calcium Carbonate [Elemental Calcium] 1,200 mg PO DAILY 05/17/20 Cholecalciferol (Vitamin D3) [Vitamin D3] 50 mcg PO DAILY 05/17/20 Famotidine [Acid-Pep] 20 mg PO DAILY 05/17/20 Krill/Om-3/Dha/Epa/Phospho/Ast [Krill Oil 500 mg Softgel] 2 cap PO BID 05/17/20 Lactose-Reduced Food [Ensure Max Protein] 240 ml PO TID 05/17/20 Propylene Glycol [Systane Complete] 1 drops OP BID 05/17/20 Objective - Vital Signs/Intake & Output Reviewed Vital Signs: Yes Vital Signs: Vital Signs x48h Temp Pulse Resp BP Pulse Ox 05/21/20 08:00 36.6 C 74 20 108/72 97 Intake & Output: Intake & Output 05/18/20 05/19/20 05/20/20 05/21/20 23:59 23:59 23:59 23:59 Intake Total 2605.333 9978.333 1506.667 1716 Output Total 250 Balance 2605.333 6888.333 6646.667 1716 - Objective General Appearance: positive: No acute distress, Alert Eyes Bilateral: positive: Normal inspection ENT: positive: ENT inspection nml Neck: positive: Nml inspection Respiratory: positive: No respiratory distress. negative: Wheezes, Rales Cardiovascular: positive: Regular rate & rhythm. negative: Tachycardia Abdomen: positive: Non-tender, Nml bowel sounds, No distention, Other (Abdomen is soft and nontender. Normal bowel sounds.). negative: Tenderness, Guarding, Rebound Skin: positive: Warm, Dry Extremities: positive: Other (Contracted upper extremities.) - Lab Results Fish Bones: 05/21/20 07:39 05/21/20 07:39 Other Labs: Lab Results x24hrs 05/21/20 05/21/20 05/21/20 Range/Units 08:06 07:39 07:39 WBC 6.8 (4.8-10.8) x10^3/uL RBC 4.16 L (4.70-6.10) 10^6/uL Hgb 13.7 L (14.0-18.0) g/dL Hct 39.9 L (42.0-52.0) % MCV 95.9 H (80.0-94.0) fL MCH 32.9 H (27.0-31.0) pg MCHC 34.3 (32.0-36.0) g/dL RDW 12.6 (12.0-15.0) % Plt Count 247 (130-450) 10^3/uL MPV 8.9 (7.4-11.4) fL Neut # (Auto) 3.8 (1.5-6.6) 10^3/uL Lymph # (Auto) 1.9 (1.5-3.5) 10^3/uL [place] # (Auto) 0.7 (0.0-1.0) 10^3/uL Eos # (Auto) 0.4 (0.0-0.7) 10^3/uL Baso # (Auto) 0.0 (0.0-0.1) 10^3/uL Absolute Nucleated RBC 0.00 x10^3/uL Nucleated RBC % 0.0 /100WBC Sodium 142 (135-145) mmol/L Potassium 3.9 (3.5-5.0) mmol/L Chloride 103 (101-111) mmol/L Carbon Dioxide 28 (21-32) mmol/L Anion Gap 11.0 (6-13) BUN 10 (6-20) mg/dL Creatinine 0.5 L (0.6-1.2) mg/dL Estimated GFR (MDRD) 177 (>89) Glucose 102 H (70-100) mg/dL Lactic Acid 0.9 (0.5-2.2) mmol/L Calcium 9.2 (8.5-10.3) mg/dL ABX Reporting Has patient been on IV antibiotics over the past 48 hours?: No Assessment/Plan - Problem List (1) Small bowel obstruction Impression: Appears to be improving. He had a bowel movement yesterday after an enema. His diet has been advanced and he is tolerating well without further vomiting. His abdominal exam is soft and nontender with normal bowel sounds. We will continue his current diet as tolerated. We will check an abdominal x-ray today. (2) Fever Impression: He had a fever yesterday evening. Labs this morning reveal a normal white count. I checked a lactic acid which is also normal. His abdominal exam appears benign and improved compared to prior days so doubt abdominal source of infection. We will check a chest x-ray and urinalysis to ensure there is no infection present. We will hold off on antibiotics for the time being. We will watch him overnight and if he remains afebrile then we will likely be able to discharge home tomorrow. (3) Seizure disorder Impression: Stable. We have resumed his home phenytoin dose. (4) Cerebral palsy Impression: Stable and at baseline. Qualifiers: Cerebral palsy type: unspecified type Qualified Code(s): G80.9 - Cerebral palsy, unspecified
--- NOTE | 2020-05-21 14:27 | XRAY Report ---
PROCEDURE: Abdomen 1 View X-Ray INDICATIONS: Follow up obstruction. TECHNIQUE: 1 view of the abdomen were acquired. COMPARISON: Multiple abdominal radiographs the most recent from 05/19/2020 FINDINGS: Surgical changes and devices: Diffuse postsurgical changes of thoracolumbar sacral spine fixation whi ch is unchanged. Postsurgical changes of prior cholecystectomy. Bowel: No pneumoperitoneum. From prior examination there is decreased bowel dilation without signifi cantly enlarged loops of small bowel. Air and stool is noted throughout the large bowel and colon. Th e stomach is prominent. Soft tissues: No masses; visualized solid organ contours appear normal in size. No suspicious abdom inal calcifications. Bones: No suspicious bony abnormalities. IMPRESSION: Interval improvement of previously noted small bowel obstruction without significant dilated loops of small bowel on today's exam. Reviewed by: Eran Romero DO on 05/21/2020 1:26 PM [facility] Approved by: Eran Romero DO on 05/21/2020 1:26 PM [facility] Station ID: [id number]
--- NOTE | 2020-05-21 14:29 | XRAY Report ---
PROCEDURE: Chest 1 View X-Ray INDICATIONS: Fever. TECHNIQUE: One view of the chest was acquired. COMPARISON: 02/04/2015 FINDINGS: No significant change in hardware of the spinal fixation. Post surgical changes of prior cholecystect jeremie. Lungs and pleura: No pleural effusions or pneumothorax. Lungs are clear. Mediastinum: Mediastinal contours appear normal. Heart size is normal. Bones and chest wall: No suspicious bony lesions. No fractures of multiple left-sided ribs. Overlyi ng soft tissues appear unremarkable. IMPRESSION: No evidence of an acute cardiopulmonary abnormality. Reviewed by: Eran Romero DO on 05/21/2020 1:28 PM [facility] Approved by: Eran Romero DO on 05/21/2020 1:28 PM [facility] Station ID: [id number]
[2020-05-21 19:39] LABS: BILIRUBIN,URINE NEGATIVE (NEGATIVE); GLUCOSE, URINE (UA) NEGATIVE (NEGATIVE); KETONES,URINE (UA) NEGATIVE (NEGATIVE); LEUKOCYTE ESTERASE, URINE SMALL (NEGATIVE); NITRITE,URINE NEGATIVE (NEGATIVE); OCCULT BLOOD,URINE NEGATIVE (NEGATIVE); PH,URINE 6.5 PH (5.0-7.5); PROTEIN,URINE NEGATIVE (NEGATIVE); UROBILINOGEN,URINE 0.2 (NORMAL) E.U./dL (NORMAL)
[2020-05-21 19:40] LABS: CLARITY,URINE CLEAR (CLEAR)
[2020-05-21 19:55] LABS: AMORPHOUS SEDIMENT,UR Few /LPF; BACTERIA,URINE Moderate /HPF (None Seen); RBC,URINE 0-5 /HPF (0-5); SQUAMOUS EPITHELIAL CELL,UR FEW Squamous (<= Few)
[2020-05-21] MEDS ORDERED: BISACODYL 10 MG SUPP PR PRN (20:30)
[2020-05-21] MEDS ORDERED: LACTULOSE 10 GM /15 ML UDC PO STA (20:31)
[2020-05-21] MEDS: AMITRIPTYLINE 10 MG TABLET PO SCH (20:49)
[2020-05-21] MEDS: PHENYTOIN ER 100 MG CAPSULE PO SCH (20:49)
[2020-05-21] MEDS: ATORVASTATIN 10 MG TABLET PO SCH (20:50)
[2020-05-22] MEDS: SODIUM CHLORIDE FLUSH 0.9% 10 ML SYRINGE IVP SCH ×2 (00:40→10:59)
[2020-05-22] MEDS: LACTATED RINGERS 1,000 ML IV SCH (00:40)
[2020-05-22] MEDS: CALCIUM CARB (OYSTER SHELL) 500 MG TABLET PO SCH (09:25)
[2020-05-22] MEDS: ENOXAPARIN 40 MG/0.4 ML SYRINGE SUBQ SCH (09:38)
[2020-05-22] MEDS ORDERED: cefTRIAXone 1 GM VIAL IVP STA (10:17)
--- NOTE | 2020-05-22 10:59 | Discharge Plan ---
Discharge Plan Problem Reviewed?: Yes Disposition: Home, Self Care Condition: Stable Prescriptions: Ciprofloxacin [Cipro] 500 mg PO BID #20 tablet polyethylene glycoL 3350 [Miralax] 17 gm PO DAILY #28 packet Diet: Regular Activity Restrictions: Activity as Tolerated Instruction Topics: Obstruction Sm Bowel Health Concerns: The patient was admitted because of a small bowel obstruction. This was treated with an NG tube and decompression. His diet was slowly advanced and he is now tolerating food without any vomiting. He has also had bowel movements. He did spike a fever during this hospitalization. The only obvious source of infection was a possible UTI and so we will discharge him on antibiotics. Plan of Treatment: Only changes made to his medications are that he will need to take MiraLAX daily for constipation. He has also been prescribed ciprofloxacin for his urinary tract infection which only to take for 5 days. Care Goals: Please return to the emergency department if you develop any fever, vomiting, abdominal pain. Additional Instructions or Follow Up instructions: He should follow up with his primary care provider in 1 to 2 weeks. No Smoking: If you smoke, Please STOP! Call for help. Follow-up with: Evangelist Rothman MD [Primary Care Provider] -
--- NOTE | 2020-05-22 10:59 | DISCHARGE SUMMARY ---
"Discharge Summary Admit Date: 05/17/20 Discharge Date: 05/22/20 Discharging Provider: Michele Fontana Primary Care Provider: Evangelist Rothman Code Status: Attempt Resuscitation Condition at Discharge: Stable Discharge Disposition: 01 Home, Self Care - DIAGNOSES Admission Diagnoses: Small bowel obstruction Abdominal pain Nausea and vomiting Cerebral palsy Leukocytosis Hypochloremia Seizure disorder History of hyperlipidemia Discharge Diagnoses with Status of Each Condition: Small bowel obstruction - resolved. Urinary tract infection - stable. Seizure disorder - stable. Cerebral palsy - stable. - HPI History of Present Illness: This is a 49 y/o M with a h/o cerebral palsy with mental delay and small bowel obstructions s/p abdominal surgery. He is nonverbal but can communicate through shaking his head. His caregiver helped give the history. He presented to the ED after a sudden onset of nausea and vomiting earlier today. He has had 10-12 episodes since the onset of symptoms. He also complains of abdominal pain that is relieved by vomiting and exacerbated by eating. Denies chest pain, SOB, hemoptysis, recent sickness/sick contacts. CT abdomen/ pelvis w/ contrast revealed fluid-filled loops in the small bowel with a transition point centrally. In the past he has improved with bowel rest. He is being admitted for bowel rest and observation. - CONSULTS | PROCEDURES Consultations: General Surgery - HOSPITAL COURSE Hospital Course: He was admitted to [facility] for small bowel obstruction. An NG tube was placed to suction for about 24 hours. He was treated with IV fluids and pain control as well as antiemetics. His diet was slowly advanced which he tolerated. Repeat abdominal films showed a persistent small bowel obstruction but the patient did not have any nausea or vomiting. After discussion with general surgery, he was given an enema and had 2 bowel movements. His diet was advanced further and repeat imaging showed resolution of the obstruction. He did spike a fever 2 days prior to discharge. He was pancultured and his urinalysis was suggestive of infection. Blood cultures have been negative and chest x-ray was unremarkable. He was given a dose of ceftriaxone IV and started on oral ciprofloxacin. He has been afebrile since then. He was discharged home on MiraLAX daily and ciprofloxacin for 5 more days. Urine culture is pending. - ALLERGIES Allergies/Adverse Reactions: Allergies Allergy/AdvReac Type Severity Reaction Status Date / Time Sulfa (Sulfonamide Allergy Hives Verified 08/30/18 08:43 Antibiotics) adhesive tape AdvReac Rash Verified 08/30/18 08:43 - MEDICATIONS Home Medications: Ambulatory Orders Medication Instructions Recorded Confirmed Amitriptyline HCl 30 mg PO QPM 05/12/13 05/17/20 Multivitamin [Multi-Vitamin Daily] 1 tab PO DAILY 05/12/13 05/17/20 Atorvastatin [Lipitor] 10 mg PO QPM 07/30/13 05/17/20 Acetaminophen [Tylenol] 650 mg PO Q4H PRN 09/19/16 05/17/20 Docusate Sodium 250Mg Capsule 250 mg PO BID 09/19/16 05/17/20 [Colace 250Mg Capsule] Ondansetron Odt [Zofran Odt] 4 mg TL Q6H PRN 09/19/16 05/17/20 Phenytoin [Dilantin] 300 mg PO QPM 09/19/16 05/17/20 Pantoprazole [Protonix] 40 mg PO QDAC 09/20/16 05/17/20 Calcium Carbonate [Calcium] 1,200 mg PO DAILY 05/17/20 05/17/20 Cholecalciferol (Vitamin D3) 50 mcg PO DAILY 05/17/20 05/17/20 [Vitamin D3] Famotidine [Acid-Pep] 20 mg PO DAILY 05/17/20 05/17/20 Krill/Om-3/Dha/Epa/Phospho/Ast 2 cap PO BID 05/17/20 05/17/20 [Krill Oil 500 mg Softgel] Lactose-Reduced Food [Ensure Max 240 ml PO TID 05/17/20 05/17/20 Protein] Propylene Glycol [Systane Complete] 1 drops OP BID 05/17/20 05/17/20 Ciprofloxacin [Cipro] 500 mg PO BID #20 tablet 05/22/20 polyethylene glycoL 3350 [Miralax] 17 gm PO DAILY #28 packet 05/22/20 - PHYSICAL EXAM AT DISCHARGE General Appearance: positive: No acute distress, Alert Eyes Bilateral: positive: Normal inspection, No scleral icterus ENT: positive: ENT inspection nml Neck: positive: Nml inspection Respiratory: positive: No respiratory distress. negative: Wheezes, Rales Cardiovascular: positive: Regular rate & rhythm. negative: Tachycardia Abdomen: positive: Non-tender, Nml bowel sounds, No distention. negative: Tenderness Skin: positive: Warm, Dry Extremities: positive: Other (Spastic upper extremities) Physical Exam Other/Comments: Vital Signs - 24 hr 05/22/20 05/22/20 05/22/20 00:00 08:00 11:50 Temperature 36.9 C 36.6 C 37 C Heart Rate [ 70 78 80 Brachial] Respiratory 16 16 18 Rate Blood Pressure 128/84 H 115/66 140/92 H [Right Brachial artery] O2 Saturation 98 97 100 Oxygen O2 Source Room air - LABS Result Diagrams: 05/22/20 10:37 05/22/20 10:37 - DIAGNOSTIC IMAGING Diagnostic Imaging Results: Final report reviewed - FOLLOW UP Follow Up: He will need to follow-up with his primary care provider in 1 to 2 weeks. Follow-up of urine cultures. - TIME SPENT Time Spent in Discharge (Minutes): 32"
[2020-05-22 11:11] LABS: BASOPHILS % (AUTO) 0.5 %; EOSINOPHILS # (AUTO) 0.4 10^3/uL (0.0-0.7); EOSINOPHILS % (AUTO) 5.8 %; HGB - HEMOGLOBIN 14.2 g/dL (14.0-18.0); LYMPHOCYTES % (AUTO) 30.8 %; MEAN CORPUSCULAR HEMOGLOBIN 33.1 pg (27.0-31.0); MEAN CORPUSCULAR VOLUME 97.4 fL (80.0-94.0); MEAN PLATELET VOLUME 9.6 fL (7.4-11.4); MONOCYTES # (AUTO) 0.6 10^3/uL (0.0-1.0); MONOCYTES % (AUTO) 8.9 %; NEUTROPHILS # (AUTO) 3.5 10^3/uL (1.5-6.6); NEUTROPHILS % (AUTO) 53.4 %; PLT - PLATELET COUNT 268 10^3/uL (130-450); RED BLOOD COUNT 4.29 10^6/uL (4.70-6.10); RED CELL DISTRIBUTION WIDTH 12.7 % (12.0-15.0); WHITE BLOOD COUNT 6.5 x10^3/uL (4.8-10.8)
[2020-05-22 11:19] LABS: CALCIUM 9.1 mg/dL (8.5-10.3); CREATININE 0.4 mg/dL (0.6-1.2)
[2020-05-22 11:51] VITALS: BP 140/92
== END 2020-05-22 12:15 | disposition home or self-care (01) | DRG 389 ==
LOC: EDUNIT# → ED 21:43 → MS2 05-17 00:04
PROVIDERS: ADMIT Specialist; ATTEND Internal Medicine
DX: K56.609 Unspecified intestinal obstruction, unspecified as to partial versus complete obstruction (principal); N39.0 Urinary tract infection, site not specified; G80.9 Cerebral palsy, unspecified; G40.909 Epilepsy, unspecified, not intractable, without status epilepticus; E87.8 Other disorders of electrolyte and fluid balance, not elsewhere classified; E78.5 Hyperlipidemia, unspecified; Z78.1 Physical restraint status
CPT/HCPCS: 36415; 71045; 74018; 74177; 80048; 80053; 80185; 81001; 83605; 83690; 83735; 85025; 86850; 86900; 86901; 87040; 87077; 87086; 87181; 87631; 96361; 96374; 96375; 99285; A9270; J1650; J7120; Q9967; 0202U; 81003

== ENCOUNTER 2020-06-17 12:24 | Outpatient (CLI) | payer MEDICARE, OTHER, MEDICAID | END 2020-06-17 12:25 | disposition critical access hospital (66) | LOC: EMS 12:24 | PROVIDERS: ATTEND Emergency Medicine | DX: R51.9 Headache, unspecified (principal) | CPT/HCPCS: A0425; A0429 ==

== ENCOUNTER 2020-06-17 12:43 | Emergency (ER) | payer MEDICARE, OTHER, MEDICAID ==
[2020-06-17] MEDS ORDERED: ACETAMINOPHEN 325 MG TABLET PO STA (12:52)
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
[2020-06-17 12:57] VITALS: BP 152/137
--- NOTE | 2020-06-17 13:23 | CT Report ---
PROCEDURE: CERVICAL SPINE WO INDICATIONS: head injury TECHNIQUE: Noncontrast 3 mm thick sections acquired from the skull base to the T4 level. Sagittal and coronal r eformats were then constructed. For radiation dose reduction, the following was used: automated exp osure control, adjustment of mA and/or kV according to patient size. COMPARISON: Correlation is made with the accompanying head CT, 06/17/2020. FINDINGS: Image quality: There is artifact associated with the metallic hardware. Bones: No fractures or dislocations. Visualized superior ribs are intact. There is partial visualization of thoracic spine fixation hardware, with associated streak artifact. Soft tissues: Prevertebral soft tissues are normal in thickness. No paravertebral hematomas. No ap ical pneumothoraces. IMPRESSION: Negative for acute fracture. Thoracic spine fixation hardware partially seen. Reviewed by: Alfie Parisi MD on 06/17/2020 12:22 PM [place] Approved by: Alfie Parisi MD on 06/17/2020 12:22 PM [facility] Station ID: [id number]
--- NOTE | 2020-06-17 13:25 | CT Report ---
PROCEDURE: HEAD WO INDICATIONS: head injury TECHNIQUE: Noncontrast 4.5 mm thick angled axial sections acquired from the foramen magnum to the vertex. For r adiation dose reduction, the following was used: automated exposure control, adjustment of mA and/or kV according to patient size. COMPARISON: Prior head CT, 07/31/2013. Correlation is also made with the accompanying cervical spine C T, 06/17/2020 FINDINGS: Image quality: Excellent. CSF spaces: Basal cisterns are patent. A stable arachnoid cyst can be seen involving the posterior aspect of the posterior fossa. Ventricles are normal in size and shape. Brain: No midline shift. No intracranial masses or hemorrhage. Hartman-white matter interface is norm al. Skull and face: Calvarium and visualized facial bones are intact, without suspicious lesions. Sinuses: Visualized sinuses and mastoids are clear. IMPRESSION: No significant intracranial abnormality is seen. No intracranial hemorrhage is seen. Incidental note is made of: Posterior fossa arachnoid cyst Reviewed by: Alfie Parisi MD on 06/17/2020 12:24 PM [place] Approved by: Alfie Parisi MD on 06/17/2020 12:24 PM [place] Station ID: [id number]
== END 2020-06-17 14:30 | disposition home or self-care (01) ==
LOC: EDUNIT# → ED 12:43
DX: S19.9XXA Unspecified injury of neck, initial encounter (principal); Y04.2XXA Assault by strike against or bumped into by another person, initial encounter; Y92.10 Unspecified residential institution as the place of occurrence of the external cause; G80.9 Cerebral palsy, unspecified; R62.50 Unspecified lack of expected normal physiological development in childhood; G80.4 Ataxic cerebral palsy
CPT/HCPCS: 70450; 72125; 99281; 99284; A9270

== ENCOUNTER 2020-12-25 20:29 | Outpatient (CLI) | payer MEDICARE, OTHER, MEDICAID | END 2020-12-25 20:30 | disposition critical access hospital (66) | LOC: EMS 20:29 | DX: R10.9 Unspecified abdominal pain (principal); R11.2 Nausea with vomiting, unspecified | CPT/HCPCS: A0425; A0429 ==

== ENCOUNTER 2020-12-25 20:47 | Inpatient (IN) | payer MEDICARE, OTHER, MEDICAID ==
--- NOTE | 2020-12-25 20:56 | ED Physician Documentation ---
PD HPI ABD PAIN - Stated complaint Stated Complaint: ABD PX/N/V - History obtained from History obtained from: Patient, Caregiver - History of Present Illness Timing - onset: How many hours ago (few), Today Timing - duration: Hours Timing - details: Abrupt onset, Still present Quality: Pain (nonverbal due to CP so not giving detailed description, but does seem to have abd pain.) Location: All over / everywhere Improved by: Vomiting Associated symptoms: Vomiting. No: Hematemesis, Diarrhea Similar symptoms before: Diagnosis (Has had similar several times and treated with medical management for SBO in past couple of years.) Review of Systems Constitutional: denies: Fever Respiratory: denies: Cough GI: reports: Abdominal Pain, Vomiting. 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: Other (left orchiectomy) - Present Medications Home Medications: Ambulatory Orders Medication Instructions Recorded Confirmed Amitriptyline HCl 30 mg PO QPM 05/12/13 12/26/20 Multivitamin [Multi-Vitamin Daily] 1 tab PO DAILY 05/12/13 12/26/20 Atorvastatin [Lipitor] 10 mg PO QPM 07/30/13 12/26/20 Acetaminophen [Tylenol] 650 mg PO Q4H PRN 09/19/16 12/26/20 Docusate Sodium 250Mg Capsule 250 mg PO BID 09/19/16 12/26/20 [Colace 250Mg Capsule] Ondansetron Odt [Zofran Odt] 4 mg TL Q6H PRN 09/19/16 12/26/20 Phenytoin [Dilantin] 300 mg PO QPM 09/19/16 12/26/20 Calcium Carbonate [Calcium] 1,200 mg PO DAILY 05/17/20 12/26/20 Cholecalciferol (Vitamin D3) 50 mcg PO DAILY 05/17/20 12/26/20 [Vitamin D3] Famotidine [Acid-Pep] 20 mg PO DAILY 05/17/20 12/26/20 Krill/Om-3/Dha/Epa/Phospho/Ast 2 cap PO BID 05/17/20 12/26/20 [Krill Oil 500 mg Softgel] Lactose-Reduced Food [Ensure Max 240 ml PO TID 05/17/20 12/26/20 Protein] Propylene Glycol [Systane Complete] 1 drops OP BID 05/17/20 12/26/20 polyethylene glycoL 3350 [Miralax] 17 gm PO DAILY #28 packet 05/22/20 12/26/20 Pantoprazole [Protonix] 1 tab PO DAILY 12/26/20 12/26/20 - Allergies Allergies/Adverse Reactions: Allergies Allergy/AdvReac Type Severity Reaction Status Date / Time Sulfa (Sulfonamide Allergy Hives Verified 12/25/20 20:56 Antibiotics) adhesive tape AdvReac Rash Verified 12/25/20 20:56 - Living Situation Living Situation: reports: Alone Living Arrangement: reports: half-way - Social History Does the pt smoke?: No Smoking Status: Never smoker Does the pt drink ETOH?: No Does the pt have substance abuse?: No - Immunizations Immunizations are current?: Yes - POLST Patient has POLST: No POLST Status: Full Code PD ED PE NORMAL - Vitals Vital signs reviewed: Yes - General General: No acute distress, Well developed/nourished. No: Alert and oriented X 3 - HEENT HEENT: Pharynx benign - Neck Neck: Supple, no meningeal sign, No adenopathy - Cardiac Cardiac: RRR, No murmur - Respiratory Respiratory: Clear bilaterally - Abdomen Abdomen: No organomegaly, Other (Ramiro is moderately distended with hyperactive bowel sounds and general tenderness to palpation. No obvious tenderness to percussion. He acknowledges tenderness by nodding his head yes when asked.). No: Normal bowel sounds - Male Male : Deferred - Rectal Rectal: Deferred - Back Back: No CVA TTP - Derm Derm: Normal color, Warm and dry - Extremities Extremities: No edema - Neuro Neuro: No: Normal speech (nonverbal. General decreased muscle bulk and tone c/w the CP. ) Results - Vitals Vitals: Vital Signs - 24 hr 12/25/20 12/25/20 12/25/20 20:56 22:00 23:22 Temperature 36.6 C Heart Rate 85 75 85 Respiratory 16 16 Rate Blood Pressure 146/101 H 125/84 H 149/97 H O2 Saturation 97 96 99 12/26/20 00:22 Temperature Heart Rate 87 Respiratory 16 Rate Blood Pressure 148/94 H O2 Saturation 96 Oxygen O2 Source Room air - Labs Labs: Laboratory Tests 12/25/20 12/25/20 12/25/20 21:30 21:32 21:54 WBC 12.5 H RBC 5.00 Hgb 16.3 Hct 47.7 MCV 95.4 H MCH 32.6 H MCHC 34.2 RDW 13.0 Plt Count 265 MPV 8.8 Neut # (Auto) 10.5 H Lymph # (Auto) 1.2 L [place] # (Auto) 0.6 Eos # (Auto) 0.1 Baso # (Auto) 0.0 Absolute Nucleated RBC 0.00 Nucleated RBC % 0.0 Sodium 140 Potassium 4.0 Chloride 97 L Carbon Dioxide 30 Anion Gap 13.0 BUN 19 Creatinine 0.7 Estimated GFR (MDRD) 120 Glucose 127 H Calcium 9.7 Magnesium 2.1 Total Bilirubin 0.8 AST 45 H ALT 61 H Alkaline Phosphatase 133 H Total Protein 8.5 H Albumin 4.5 Globulin 4.0 Albumin/Globulin Ratio 1.1 Lipase 49 Urine Color Urine Clarity Urine pH Ur Specific Kirk Urine Protein Urine Glucose (UA) Urine Ketones Urine Occult Blood Urine Nitrite Urine Bilirubin Urine Urobilinogen Ur Leukocyte Esterase Ur Microscopic Review Urine Culture Comments Nasal Adenovirus (PCR) NOT DETECTED Nasal B. parapertussis DNA (PCR) NOT DETECTED Nasal Coronavir 229E PCR NOT DETECTED Nasal Coronavir HKU1 PCR NOT DETECTED Nasal Coronavir NL63 PCR NOT DETECTED Nasal Coronavir OC43 PCR NOT DETECTED Nasal Enterovir/Rhinovir PCR NOT DETECTED Nasal Influenza B PCR NOT DETECTED Nasal Influenza A PCR NOT DETECTED Nasal Parainfluen 1 PCR NOT DETECTED Nasal Parainfluen 2 PCR NOT DETECTED Nasal Parainfluen 3 PCR NOT DETECTED Nasal Parainfluen 4 PCR NOT DETECTED Nasal RSV (PCR) NOT DETECTED Nasal B.pertussis DNA PCR NOT DETECTED Nasal C.pneumoniae (PCR) NOT DETECTED El Human Metapneumo PCR NOT DETECTED Nasal M.pneumoniae (PCR) NOT DETECTED Nasal SARS-CoV-2 (PCR) NOT DETECTED Phenytoin 12.6 12/26/20 00:08 WBC RBC Hgb Hct MCV MCH MCHC RDW Plt Count MPV Neut # (Auto) Lymph # (Auto) [place] # (Auto) Eos # (Auto) Baso # (Auto) Absolute Nucleated RBC Nucleated RBC % Sodium Potassium Chloride Carbon Dioxide Anion Gap BUN Creatinine Estimated GFR (MDRD) Glucose Calcium Magnesium Total Bilirubin AST ALT Alkaline Phosphatase Total Protein Albumin Globulin Albumin/Globulin Ratio Lipase Urine Color YELLOW Urine Clarity CLEAR Urine pH 7.5 Ur Specific Kirk <=1.005 Urine Protein NEGATIVE Urine Glucose (UA) NEGATIVE Urine Ketones 40 H Urine Occult Blood TRACE-INTA Urine Nitrite NEGATIVE Urine Bilirubin NEGATIVE Urine Urobilinogen 0.2 (NORMAL) Ur Leukocyte Esterase NEGATIVE Ur Microscopic Review NOT INDICATED Urine Culture Comments NOT INDICATED Nasal Adenovirus (PCR) Nasal B. parapertussis DNA (PCR) Nasal Coronavir 229E PCR Nasal Coronavir HKU1 PCR Nasal Coronavir NL63 PCR Nasal Coronavir OC43 PCR Nasal Enterovir/Rhinovir PCR Nasal Influenza B PCR Nasal Influenza A PCR Nasal Parainfluen 1 PCR Nasal Parainfluen 2 PCR Nasal Parainfluen 3 PCR Nasal Parainfluen 4 PCR Nasal RSV (PCR) Nasal B.pertussis DNA PCR Nasal C.pneumoniae (PCR) El Human Metapneumo PCR Nasal M.pneumoniae (PCR) Nasal SARS-CoV-2 (PCR) Phenytoin - Rads (name of study) abd/pelvic CT Radiology: Prelim report reviewed (c/w SBO. ), See rad report, Other PD MEDICAL DECISION MAKING - ED course Complexity details: reviewed old records, reviewed results, re-evaluated patient (seems more comfortable with fluids and meds. ), considered differential (likely recurrent SBO. Not vomiting in ER, so NG tube held at this point. ), d/w patient, d/w industrial rehabilitation consultant (Talked with Dr. Oates, on for surgery, who will consult on patient, though would consider transfer if needed surgery. Talked with Hospitalist who will place pt in hospital.) Departure - Departure Disposition: 66 [facility] DC/Xfer Clinical Impression: Small bowel obstruction Nausea and vomiting Qualifiers: Vomiting type: unspecified Vomiting Intractability: non-intractable Qualified Code(s): R11.2 - Nausea with vomiting, unspecified Cerebral palsy Qualifiers: Cerebral palsy type: unspecified type Qualified Code(s): G80.9 - Cerebral palsy, unspecified Condition: Stable Record reviewed to determine appropriate education?: Yes Discharge Date/Time: 12/26/20 01:03
[2020-12-25] MEDS ORDERED: SODIUM CHLORIDE 0.9% 1,000 ML IV STA (21:04)
[2020-12-25] MEDS ORDERED: MORPHINE 2 MG/ML CARPUJECT IVP STA (21:04)
[2020-12-25] MEDS ORDERED: ONDANSETRON 4 MG/2 ML VIAL IVP STA (21:04)
[2020-12-25] MEDS ORDERED: IOPAMIDOL-300 50 ML VIAL ONE (21:21)
[2020-12-25] MEDS ORDERED: IOVERSOL 320 50 ML VIAL ONE (21:22)
[2020-12-25 21:42] LABS: BASOPHILS % (AUTO) 0.2 %; EOSINOPHILS # (AUTO) 0.1 10^3/uL (0.0-0.7); EOSINOPHILS % (AUTO) 0.5 %; HCT - HEMATOCRIT 47.7 % (42.0-52.0); HGB - HEMOGLOBIN 16.3 g/dL (14.0-18.0); LYMPHOCYTES # (AUTO) 1.2 10^3/uL (1.5-3.5); LYMPHOCYTES % (AUTO) 9.8 %; MEAN CORPUSCULAR HEMOGLOBIN 32.6 pg (27.0-31.0); MEAN CORPUSCULAR HGB CONC 34.2 g/dL (32.0-36.0); MEAN CORPUSCULAR VOLUME 95.4 fL (80.0-94.0); MEAN PLATELET VOLUME 8.8 fL (7.4-11.4); MONOCYTES # (AUTO) 0.6 10^3/uL (0.0-1.0); MONOCYTES % (AUTO) 4.6 %; NEUTROPHILS # (AUTO) 10.5 10^3/uL (1.5-6.6); NEUTROPHILS % (AUTO) 84.5 %; PLT - PLATELET COUNT 265 10^3/uL (130-450); WHITE BLOOD COUNT 12.5 x10^3/uL (4.8-10.8)
[2020-12-25 21:57] LABS: ALBUMIN 4.5 g/dL (3.2-5.5); ALBUMIN/GLOBULIN RATIO 1.1 (1.0-2.2); BILIRUBIN,TOTAL 0.8 mg/dL (0.2-1.0); CALCIUM 9.7 mg/dL (8.5-10.3); CREATININE 0.7 mg/dL (0.6-1.2); MAGNESIUM 2.1 mg/dL (1.7-2.8); PHENYTOIN (DILANTIN) 12.6 ug/mL; TOTAL PROTEIN 8.5 g/dL (6.7-8.2)
[2020-12-25 22:52] LABS: B. PARAPERTUSSIS- RESP PCR PAN NOT DETECTED; B. PERTUSSIS- RESP PCR PANEL NOT DETECTED; C. PNEUMONIAE- RESP PCR PANEL NOT DETECTED; CORONAVIRUS 229E-RESP PCR NOT DETECTED; CORONAVIRUS HKU1-RESP PCR NOT DETECTED; CORONAVIRUS NL63-RESP PCR NOT DETECTED; CORONAVIRUS OC43-RESP PCR NOT DETECTED; HUMAN METAPNEUMOVIRUS NOT DETECTED; INFLUENZA A- RESP PCR PANEL NOT DETECTED; INFLUENZA B - RESP PCR PANEL NOT DETECTED; M. PNEUMONIAE- RESP PCR PANEL NOT DETECTED; PARAINFLUENZA VIRUS 1 NOT DETECTED; PARAINFLUENZA VIRUS 2 NOT DETECTED; PARAINFLUENZA VIRUS 3 NOT DETECTED; PARAINFLUENZA VIRUS 4 NOT DETECTED; RHINOVIRUS/ENTEROVIRUS NOT DETECTED; RSV- RESP PCR PANEL NOT DETECTED; SARS-CoV-2 -RESP PCR PANEL NOT DETECTED
[2020-12-25] MEDS ORDERED: IOVERSOL 320 50 ML VIAL PO ONE (23:20)
--- NOTE | 2020-12-26 00:17 | HISTORY & PHYSICAL EXAMINATION ---
Chief Complaint - Chief Complaint Chief Complaint: Abd pain, N/V History of Present Illness - Admitted From Admitted From:: ED - History Obtained From History obtained from: ED provider and EMR review - History of Present Illness HPI Comment/Other: This is a 50-year-old male with a history of cerebral palsy with contractures and moderate developmental delay. He has had prior abdominal surgery of cholecystectomy and prior small bowel obstructions with repeat surgery done of lysis of adhesions. He has had several admissions here for small bowel obstruction. The patient lives in a custodial with 2 other disabled people and has caregivers. His parents are and he has no siblings. Today he developed nausea vomiting and apparent abdominal pain and was brought in to the ED. He is afebrile and with stable vital signs but is hemoconcentrated by lab work and is still nauseated. CT of the abdomen shows dilated loops of bowel and small bowel obstruction (per ED provider). He has not tolerated NG tube previously because he pulls them out and cannot understand, due to his developmental delay, that these need to remain in place. The patient is being admitted for management of a recurrent bowel obstruction and is needing IV fluids and IV antiemetics and pain meds. 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 Patient has no siblings. He does have foster parents.), Father: Living arrangement: At home Living Situation: With caregiver(s), With friend(s) - Substance History Use: Uses substance without health or social issues: NONE - POLST Patient has POLST: No POLST Status: Full Code Meds/Allgy - Home Medications Home Medications: Ambulatory Orders Medication Instructions Recorded Confirmed Amitriptyline HCl 30 mg PO QPM 05/12/13 12/26/20 Multivitamin [Multi-Vitamin Daily] 1 tab PO DAILY 05/12/13 12/26/20 Atorvastatin [Lipitor] 10 mg PO QPM 07/30/13 12/26/20 Acetaminophen [Tylenol] 650 mg PO Q4H PRN 09/19/16 12/26/20 Docusate Sodium 250Mg Capsule 250 mg PO BID 09/19/16 12/26/20 [Colace 250Mg Capsule] Ondansetron Odt [Zofran Odt] 4 mg TL Q6H PRN 09/19/16 12/26/20 Phenytoin [Dilantin] 300 mg PO QPM 09/19/16 12/26/20 Calcium Carbonate [Calcium] 1,200 mg PO DAILY 05/17/20 12/26/20 Cholecalciferol (Vitamin D3) 50 mcg PO DAILY 05/17/20 12/26/20 [Vitamin D3] Famotidine [Acid-Pep] 20 mg PO DAILY 05/17/20 12/26/20 Krill/Om-3/Dha/Epa/Phospho/Ast 2 cap PO BID 05/17/20 12/26/20 [Krill Oil 500 mg Softgel] Lactose-Reduced Food [Ensure Max 240 ml PO TID 05/17/20 12/26/20 Protein] Propylene Glycol [Systane Complete] 1 drops OP BID 05/17/20 12/26/20 polyethylene glycoL 3350 [Miralax] 17 gm PO DAILY #28 packet 05/22/20 12/26/20 Pantoprazole [Protonix] 1 tab PO DAILY 12/26/20 12/26/20 - Allergies Allergies/Adverse Reactions: Allergies Allergy/AdvReac Type Severity Reaction Status Date / Time Sulfa (Sulfonamide Allergy Hives Verified 12/25/20 20:56 Antibiotics) adhesive tape AdvReac Rash Verified 12/25/20 20:56 Review of Systems - All Other Systems All Other Systems: reports: Other (A brief review of systems was obtained from the caregiver who was at bedside and included that the pt was nauseated today and vomited. Patient is not communicative and has developmental delay therefore no other details on ROS are obtainable.) Exam - Vital Signs Vital Signs: Vital Signs x48h Temp Pulse Resp BP Pulse Ox 12/25/20 23:22 85 16 149/97 H 99 12/25/20 22:00 75 125/84 H 96 12/25/20 20:56 36.6 C 85 16 146/101 H 97 - Physical Exam General Appearance: positive: No acute distress, Alert, Other (Non-verbal) Eyes Bilateral: positive: Other (Eyes are crossed, facies are somewhat deformed with male pattern baldness.) ENT: positive: ENT inspection nml, Dry mucous membranes Neck: positive: Nml inspection, No JVD Respiratory: positive: No respiratory distress, Breath sounds nml Cardiovascular: positive: Regular rate & rhythm, No murmur Abdomen: positive: No distention, Other (Soft, no guarding or rebound, no bowel sounds present.) Skin: positive: Warm, Dry Extremities: positive: Non-tender, No pedal edema, Other (He has bilateral foot drop braces present at bedside.) Neurologic/Psychiatric: positive: Other (Left arm is contracted, both legs are turned inwardly, the patient is nonverbal (but reads and communicates by pointing at a book with phrases and pictures).) Conclusion/Plan - Problem List (1) Small bowel obstruction Conclusion/Plan: The patient has a history of prior abdominal surgery with adhesions and also karoline or small bowel obstructions. He has typically resolved with bowel rest. He is unable to tolerate NG tubes and repeatedly pulls them out when placed and has been managed successfully without them in the past. Keep NPO for bowel rest Start iv fluids Order antemetics and pain meds as needed iv. General surgery has been consulted to follow along. (2) Dehydration Conclusion/Plan: He is hemoconcentrated (hemoglobin 16.2) but has normal BUN/creatinine. Etiolo gy is from his nausea and vomiting. Start IV fluids. Follow BMP daily (3) Seizure disorder Conclusion/Plan: The ED already obtained Dilantin level and will plan to continue the patient on his home dosing of Dilantin and Amitriptyline, once meds are reconciled, and possibly in iv form. (4) Elevated LFTs Conclusion/Plan: This is a new finding. Etiology unclear, may be illucidated from CT abd/pelvis results. Avoid hepatotoxins. [place]ow LFTs daily. (5) Cerebral palsy with spastic/ataxic diplegia Conclusion/Plan: Continue home care regimen whenever possible (6) Moderate developmental delay Conclusion/Plan: He lives in a custodial. He is unable to tolerate NG tubes and repeatedly pulls them out, will not be ordered therefore. (7) History of hyperlipidemia Conclusion/Plan: He is normally on a statin. We will hold this until he has resumed his diet again in several days - Lab Results Fish Bones: 12/25/20 21:30 12/25/20 21:32
[2020-12-26 00:27] LABS: BILIRUBIN,URINE NEGATIVE (NEGATIVE); GLUCOSE, URINE (UA) NEGATIVE (NEGATIVE); KETONES,URINE (UA) 40 mg/dL (NEGATIVE); LEUKOCYTE ESTERASE, URINE NEGATIVE (NEGATIVE); NITRITE,URINE NEGATIVE (NEGATIVE); OCCULT BLOOD,URINE TRACE-INTA (NEGATIVE); PH,URINE 7.5 PH (5.0-7.5); PROTEIN,URINE NEGATIVE (NEGATIVE); UROBILINOGEN,URINE 0.2 (NORMAL) E.U./dL (NORMAL)
[2020-12-26 00:33] LABS: CLARITY,URINE CLEAR (CLEAR)
[2020-12-26] MEDS ORDERED: ONDANSETRON 4 MG/2 ML VIAL IVP PRN (00:34)
[2020-12-26] MEDS ORDERED: PROCHLORPERAZINE 10 MG/2 ML VIAL IVP PRN (00:34)
[2020-12-26] MEDS ORDERED: SODIUM CHLORIDE FLUSH 0.9% 10 ML SYRINGE IVP PRN (00:34)
[2020-12-26] MEDS ORDERED: HYDROmorphone 0.5 MG/0.5 ML SYRINGE IVP PRN ×2 (00:36→00:38)
[2020-12-26 00:58] LABS: INR 1.2 (0.8-1.2); PT - PROTHROMBIN TIME 13.7 secs (9.9-12.6)
[2020-12-26] MEDS: LACTATED RINGERS 1,000 ML IV SCH ×3 (01:13→20:23)
[2020-12-26] MEDS: SODIUM CHLORIDE FLUSH 0.9% 10 ML SYRINGE IVP SCH ×4 (01:13→23:31)
[2020-12-26] MEDS: IOPAMIDOL-300 50 ML VIAL IVP ONE ×2 (02:02→06:59)
[2020-12-26 06:05] LABS: BASOPHILS % (AUTO) 0.2 %; EOSINOPHILS % (AUTO) 0.3 %; LYMPHOCYTES # (AUTO) 1.3 10^3/uL (1.5-3.5); LYMPHOCYTES % (AUTO) 11.3 %; MEAN CORPUSCULAR HEMOGLOBIN 32.8 pg (27.0-31.0); MEAN CORPUSCULAR HGB CONC 34.1 g/dL (32.0-36.0); MEAN CORPUSCULAR VOLUME 96.1 fL (80.0-94.0); MEAN PLATELET VOLUME 8.9 fL (7.4-11.4); MONOCYTES # (AUTO) 0.7 10^3/uL (0.0-1.0); MONOCYTES % (AUTO) 5.9 %; NEUTROPHILS # (AUTO) 9.6 10^3/uL (1.5-6.6); PLT - PLATELET COUNT 256 10^3/uL (130-450); RED BLOOD COUNT 4.58 10^6/uL (4.70-6.10); RED CELL DISTRIBUTION WIDTH 13.1 % (12.0-15.0); WHITE BLOOD COUNT 11.7 x10^3/uL (4.8-10.8)
[2020-12-26 06:17] LABS: ALBUMIN 4.1 g/dL (3.2-5.5); ALBUMIN/GLOBULIN RATIO 1.1 (1.0-2.2); BILIRUBIN,TOTAL 0.8 mg/dL (0.2-1.0); CALCIUM 9.3 mg/dL (8.5-10.3); CREATININE 0.5 mg/dL (0.6-1.2); MAGNESIUM 1.9 mg/dL (1.7-2.8); POTASSIUM 3.6 mmol/L (3.5-5.0); TOTAL PROTEIN 7.8 g/dL (6.7-8.2)
--- NOTE | 2020-12-26 08:36 | CT Report ---
PROCEDURE: Abdomen/Pelvis W INDICATIONS: abd pain and vomiting; h/o SBO in past CONTRAST: IV CONTRAST: Isovue 300 ml: 100 PO CONTRAST: Optiray 320 ml20 TECHNIQUE: After the administration of 100 mL contrast, 5 mm thick sections acquired from the diaphragms to the symphysis. 5 mm thick coronal and sagittal reformats were acquired. For radiation dose reduction, t he following was used: automated exposure control, adjustment of mA and/or kV according to patient s ize. COMPARISON: None. FINDINGS: Image quality: Excellent. ABDOMEN: Lung bases: Lung bases are clear. Heart size is normal. There is bibasilar atelectasis. Solid organs: Liver and spleen are normal in size and enhancement. Gallbladder is status post cricket cystectomy. Biliary system is non dilated. Pancreas enhances normally. No adrenal nodules. Kidney s demonstrate normal size and enhancement, without hydronephrosis. Peritoneum and bowel: Dilated proximal and mid small bowel loops with fluid and fluid levels, measuri ng up to 4.8 cm with fluid and fluid levels. Abrupt transition to decompressed mid and distal loops, anteriorly in the right middle abdomen coronal images 5 through 11. Dense colonic fecal retention. No pavithra and vessels: No retroperitoneal or mesenteric adenopathy by size criteria. Aorta and inferior v romeo cava are normal in size. Miscellaneous: No ventral hernias. PELVIS: Genitourinary: Bladder wall thickness is normal. Miscellaneous: No inguinal hernias or adenopathy. Bones: No suspicious bony lesions. No vertebral body compression fractures. IMPRESSION: High-grade mid small bowel obstruction as described. Findings above correspond with preliminary findings by [facility]. Reviewed by: Jaime John on 12/26/2020 8:35 AM PDT Approved by: Jaime Jonh on 12/26/2020 8:35 AM PDT Station ID: [id number]
--- NOTE | 2020-12-26 10:46 | PHARMACY PROGRESS NOTE ---
- Best Possible Medication History Admit Date and Time: 12/26/20 0023 Processed by: Nursing Medication History completed: Yes Med rec completed by nursing As the person ultimately responsible for medication therapy, providers are able to order a medication from an existing home medication list in [facility] via the "Reconcile Routine" prior to Confirmation of that medication by software support representative. Such practice is discouraged except when the physician, in their clinical judgment, deems that a medical need exists for a medication without regard to previous use.
[2020-12-26] MEDS: PHENYTOIN 100 MG/2 ML VIAL IVP SCH ×2 (13:46→21:59)
--- NOTE | 2020-12-26 17:15 | CONSULTATION NOTE ---
Referring Provider Consult Date: 12/26/20 History of Present Illness - Admitted From Admitted From:: ED - History Obtained From Records Reviewed: yes Exam Limitations: CP - History of Present Illness HPI Comment/Other: He is known to surgery from past hospitalizations. He has been hospitalized many times for small bowel obstruction. No recent surgery. He has history of large right upper quadrant transverse scar and by chart review cholecystectomy and distant surgery for small bowel obstruction. History - Past Medical History Cardiovascular: reports: High cholesterol Respiratory: reports: None Neuro: reports: Cerebral palsy, Seizure disorder Endocrine/Autoimmune: reports: None GI: reports: GERD, GI bleed : reports: Incontinence HEENT: reports: None Psych: reports: Anxiety Musculoskeletal: reports: None Derm: reports: None MRSA Hx?: No - Past Surgical History General: reports: Cholecystectomy, Bowel surgery Ortho: reports: Spine surgery /[employer]: reports: Other (left orchiectomy) - Family & Social History Family History: Mother: (Father from complications of agent orange, mother is from unknown causes. Patient has no siblings. He does have foster parents.), Father: Living arrangement: [facility] Living Situation: Alone - Substance History Use: Uses substance without health or social issues: NONE - POLST Patient has POLST: No POLST Status: Full Code Meds/Allgy - Home Medications Home Medications: Ambulatory Orders Medication Instructions Recorded Confirmed Amitriptyline HCl 30 mg PO QPM 05/12/13 12/26/20 Multivitamin [Multi-Vitamin Daily] 1 tab PO DAILY 05/12/13 12/26/20 Atorvastatin [Lipitor] 10 mg PO QPM 07/30/13 12/26/20 Acetaminophen [Tylenol] 650 mg PO Q4H PRN 09/19/16 12/26/20 Docusate Sodium 250Mg Capsule 250 mg PO BID 09/19/16 12/26/20 [Colace 250Mg Capsule] Ondansetron Odt [Zofran Odt] 4 mg TL Q6H PRN 09/19/16 12/26/20 Phenytoin [Dilantin] 300 mg PO QPM 09/19/16 12/26/20 Calcium Carbonate [Calcium] 1,200 mg PO DAILY 05/17/20 12/26/20 Cholecalciferol (Vitamin D3) 50 mcg PO DAILY 05/17/20 12/26/20 [Vitamin D3] Famotidine [Acid-Pep] 20 mg PO DAILY 05/17/20 12/26/20 Krill/Om-3/Dha/Epa/Phospho/Ast 2 cap PO BID 05/17/20 12/26/20 [Krill Oil 500 mg Softgel] Lactose-Reduced Food [Ensure Max 240 ml PO TID 05/17/20 12/26/20 Protein] Propylene Glycol [Systane Complete] 1 drops OP BID 05/17/20 12/26/20 polyethylene glycoL 3350 [Miralax] 17 gm PO DAILY #28 packet 05/22/20 12/26/20 Pantoprazole [Protonix] 1 tab PO DAILY 12/26/20 12/26/20 - Allergies Allergies/Adverse Reactions: Allergies Allergy/AdvReac Type Severity Reaction Status Date / Time Sulfa (Sulfonamide Allergy Hives Verified 12/25/20 20:56 Antibiotics) adhesive tape AdvReac Rash Verified 12/25/20 20:56 Exam - Vital Signs Reviewed Vital Signs: Yes Vital Signs: Vital Signs x48h Temp Pulse Resp BP Pulse Ox 12/26/20 15:38 37.3 C 90 16 144/89 H 96 - Physical Exam General Appearance: positive: No acute distress, Alert Eyes Bilateral: positive: PERRL, EOMI ENT: positive: No signs of dehydration Neck: positive: No JVD Respiratory: positive: No respiratory distress Abdomen: positive: Non-tender, Other (minimal distension) Neurologic/Psychiatric: positive: Other (largely non verbal) Conclusion/Plan - Problem List (1) Small bowel obstruction Conclusion/Plan: Agree with current care. He has a soft benign abdomen. He would be high risk for surgery. Hopefully this will resolve as it has in the past without need for surgery. If he were to need surgery I would recommend that it be done at a hospital that could provide a higher level of care - Lab Results Fish Bones: 12/26/20 05:58 12/26/20 05:58 - Diagnostic Imaging Results Diagnostic Imaging Results: positive: Read independently (sbo)
[2020-12-27 05:50] LABS: BASOPHILS % (AUTO) 0.2 %; EOSINOPHILS # (AUTO) 0.2 10^3/uL (0.0-0.7); EOSINOPHILS % (AUTO) 1.4 %; HGB - HEMOGLOBIN 14.6 g/dL (14.0-18.0); LYMPHOCYTES # (AUTO) 1.9 10^3/uL (1.5-3.5); LYMPHOCYTES % (AUTO) 12.1 %; MEAN CORPUSCULAR VOLUME 97.3 fL (80.0-94.0); MEAN PLATELET VOLUME 9.3 fL (7.4-11.4); MONOCYTES # (AUTO) 1.2 10^3/uL (0.0-1.0); MONOCYTES % (AUTO) 7.5 %; NEUTROPHILS % (AUTO) 78.5 %; PLT - PLATELET COUNT 246 10^3/uL (130-450); RED BLOOD COUNT 4.42 10^6/uL (4.70-6.10); RED CELL DISTRIBUTION WIDTH 12.9 % (12.0-15.0); WHITE BLOOD COUNT 15.3 x10^3/uL (4.8-10.8)
[2020-12-27 06:00] LABS: ALBUMIN 3.8 g/dL (3.2-5.5); ALBUMIN/GLOBULIN RATIO 1.2 (1.0-2.2); BILIRUBIN,TOTAL 0.9 mg/dL (0.2-1.0); CREATININE 0.6 mg/dL (0.6-1.2); POTASSIUM 3.8 mmol/L (3.5-5.0)
[2020-12-27] MEDS: LACTATED RINGERS 1,000 ML IV SCH ×2 (06:18→17:24)
[2020-12-27] MEDS: PHENYTOIN 100 MG/2 ML VIAL IVP SCH ×2 (06:18→14:12)
--- NOTE | 2020-12-27 07:34 | PROVIDER PROGRESS NOTE ---
Subjective - Prog Note Date Prog Note Date: 12/27/20 - Subjective Subjective: He appears comfortable lying in bed. He is nonverbal. Current Medications - Current Medications Current Medications: Active Medications Hydromorphone HCl (Hydromorphone 0.5 Mg/0.5 Ml Syringe) 0.5 mg IVP Q2H PRN PRN Reason: Severe Pain Lactated Ringer's (Lr) 1,000 mls @ 100 mls/hr IV .Q10H [facility] Last Admin: 12/27/20 06:18 Dose: 100 mls/hr Documented by: Ondansetron HCl (Ondansetron 4 Mg/2 Ml Vial) 4 mg IVP Q6HR PRN PRN Reason: Nausea / Vomiting Last Admin: 12/26/20 04:54 Dose: 4 mg Documented by: Phenytoin Sodium (Phenytoin 100 Mg/2 Ml Vial) 100 mg IVP TID [facility] Last Admin: 12/27/20 06:18 Dose: 100 mg Documented by: Prochlorperazine Edisylate (Prochlorperazine 10 Mg/2 Ml Vial) 10 mg IVP Q6HR PRN PRN Reason: Nausea / Vomiting Last Admin: 12/26/20 10:45 Dose: 10 mg Documented by: Sodium Chloride (Sodium Chloride Flush 0.9% 10 Ml Syringe) 10 ml IVP PRN PRN PRN Reason: NEEDED PER PROVIDER ORDERS Sodium Chloride (Sodium Chloride Flush 0.9% 10 Ml Syringe) 10 ml IVP 0100,0900 ,1700 [facility] Last Admin: 12/26/20 23:31 Dose: Not Given Documented by: Amitriptyline HCl 30 mg PO QPM 05/12/13 Multivitamin [Multi-Vitamin Daily] 1 tab PO DAILY 05/12/13 Atorvastatin [Lipitor] 10 mg PO QPM 07/30/13 Acetaminophen [Tylenol] 650 mg PO Q4H PRN 09/19/16 Docusate Sodium 250Mg Capsule [Colace 250Mg Capsule] 250 mg PO BID 09/19/16 Ondansetron Odt [Zofran Odt] 4 mg TL Q6H PRN 09/19/16 Phenytoin [Dilantin] 300 mg PO QPM 09/19/16 Calcium Carbonate [Calcium] 1,200 mg PO DAILY 05/17/20 Cholecalciferol (Vitamin D3) [Vitamin D3] 50 mcg PO DAILY 05/17/20 Famotidine [Acid-Pep] 20 mg PO DAILY 05/17/20 Krill/Om-3/Dha/Epa/Phospho/Ast [Krill Oil 500 mg Softgel] 2 cap PO BID 05/17/20 Lactose-Reduced Food [Ensure Max Protein] 240 ml PO TID 05/17/20 Propylene Glycol [Systane Complete] 1 drops OP BID 05/17/20 Pantoprazole [Protonix] 1 tab PO DAILY 12/26/20 Objective - Vital Signs/Intake & Output Reviewed Vital Signs: Yes Vital Signs: Vital Signs x48h Temp Pulse Resp BP Pulse Ox 12/27/20 07:02 122/84 H 12/27/20 06:45 85 129/87 H 12/27/20 06:30 91 139/92 H 12/27/20 06:25 90 138/82 H 12/27/20 06:20 87 123/79 12/26/20 23:55 36.5 C 91 16 115/76 95 Intake & Output: Intake & Output 12/24/20 12/25/20 12/26/20 12/27/20 23:59 23:59 23:59 23:59 Intake Total 1000 1916.666 991.667 Output Total 700 Balance 1000 1216.666 991.667 - Objective General Appearance: positive: Alert Eyes Bilateral: positive: Normal inspection ENT: positive: ENT inspection nml Neck: positive: Nml inspection Respiratory: positive: No respiratory distress. negative: Wheezes, Rales Cardiovascular: positive: Regular rate & rhythm. negative: Tachycardia Abdomen: positive: Non-tender, No distention, Abnml bowel sounds (Hyperactive.). negative: Guarding, Rebound Skin: positive: Warm, Dry Extremities: positive: No pedal edema Neurologic/Psychiatric: positive: Other (He is nonverbal.) - Lab Results Fish Bones: 12/27/20 04:53 12/27/20 04:53 Other Labs: Lab Results x24hrs 12/27/20 12/27/20 Range/Units 04:53 04:53 WBC 15.3 H (4.8-10.8) x10^3/uL RBC 4.42 L (4.70-6.10) 10^6/uL Hgb 14.6 (14.0-18.0) g/dL Hct 43.0 (42.0-52.0) % MCV 97.3 H (80.0-94.0) fL MCH 33.0 H (27.0-31.0) pg MCHC 34.0 (32.0-36.0) g/dL RDW 12.9 (12.0-15.0) % Plt Count 246 (130-450) 10^3/uL MPV 9.3 (7.4-11.4) fL Neut # (Auto) 12.0 H (1.5-6.6) 10^3/uL Lymph # (Auto) 1.9 (1.5-3.5) 10^3/uL Person # (Auto) 1.2 H (0.0-1.0) 10^3/uL Eos # (Auto) 0.2 (0.0-0.7) 10^3/uL Baso # (Auto) 0.0 (0.0-0.1) 10^3/uL Absolute Nucleated RBC 0.00 x10^3/uL Nucleated RBC % 0.0 /100WBC Sodium 137 (135-145) mmol/L Potassium 3.8 (3.5-5.0) mmol/L Chloride 100 L (101-111) mmol/L Carbon Dioxide 29 (21-32) mmol/L Anion Gap 8.0 (6-13) BUN 11 (6-20) mg/dL Creatinine 0.6 (0.6-1.2) mg/dL Estimated GFR (MDRD) 143 (>89) Glucose 87 (70-100) mg/dL Calcium 9.0 (8.5-10.3) mg/dL Total Bilirubin 0.9 (0.2-1.0) mg/dL AST 37 (10-42) IU/L ALT 50 (10-60) IU/L Alkaline Phosphatase 121 (42-121) IU/L Total Protein 7.0 (6.7-8.2) g/dL Albumin 3.8 (3.2-5.5) g/dL Globulin 3.2 (2.1-4.2) g/dL Albumin/Globulin Ratio 1.2 (1.0-2.2) Assessment/Plan - Problem List (1) Small bowel obstruction Impression: Although his abdomen is soft does not appear tender, he not appear to be as interactive as he normally is. His white count is also slightly increased today. I order abdominal x-ray for this morning which shows evidence of persistent small bowel obstruction. Spoke with general surgery and we will try a Gastrografin challenge today. We are hopeful that this will be therapeutic and he can avoid surgical intervention. If he starts evidence of obstruction despite Gastrografin then we may need to consider surgical intervention. Continue n.p.o. status. Continue IV hydration and pain control with dilaudid IV as needed. (2) Leukocytosis Impression: His white count is increased today to 15,000 which I suspect is likely reactive due to the small bowel obstruction. We will continue to hold off on antibiotics and monitor his white count daily. (3) Cerebral palsy Impression: Stable and at baseline. Once medically stable to be discharged, he will go back to his long term. Qualifiers: Cerebral palsy type: unspecified type Qualified Code(s): G80.9 - Cerebral palsy, unspecified (4) Seizure disorder Impression: Stable. Given he remains n.p.o., we are continuing phenytoin intravenously. (5) Elevated LFTs Impression: This is now resolved. CT showed no acute abnormalities within the liver and the biliary system was not dilated. He has a prior cholecystectomy.
--- NOTE | 2020-12-27 09:10 | XRAY Report ---
PROCEDURE: Abdomen 1 View X-Ray INDICATIONS: Bowel obstruction follow up. TECHNIQUE: 1 view of the abdomen were acquired. COMPARISON: CT scan abdomen and pelvis 12/26/2020. FINDINGS: Surgical changes and devices: The jymnrbkc-mckyqx-rdrshk spine fixation hardware. Convex left scolios is of the lumbar spine. Bowel: No pneumoperitoneum. Dilated loops of small bowel measuring up to 5.1 cm is noted in the mid abdomen. Soft tissues: No masses; visualized solid organ contours appear normal in size. No suspicious abdom inal calcifications. Bones: No suspicious bony abnormalities. IMPRESSION: Dilated loop of small bowel compatible with small bowel obstruction not significantly changed compare d prior CT scan.. Reviewed by: Tahira Singh MD, PhD on 12/27/2020 9:09 AM PDT Approved by: Tahira Singh MD, PhD on 12/27/2020 9:09 AM PDT Station ID: [id number]
[2020-12-27] MEDS: SODIUM CHLORIDE FLUSH 0.9% 10 ML SYRINGE IVP SCH ×2 (10:20→17:11)
[2020-12-27] MEDS ORDERED: DIATRIZOATE MEGLU/DIATRIZO SOD 30 ML BOTTLE PO ONE (10:44)
--- NOTE | 2020-12-27 13:50 | PROVIDER PROGRESS NOTE ---
Subjective - Subjective Subjective: appears comfortable Objective - Vital Signs/Intake & Output Vital Signs: Vital Signs x48h Temp Pulse Resp BP Pulse Ox 12/27/20 08:00 36.5 C 78 20 122/82 H 95 12/27/20 07:02 122/84 H 12/27/20 06:45 85 129/87 H 12/27/20 06:30 91 139/92 H 12/27/20 06:25 90 138/82 H 12/27/20 06:20 87 123/79 Intake & Output: Intake & Output 12/24/20 12/25/20 12/26/20 12/27/20 23:59 23:59 23:59 23:59 Intake Total 1000 1916.666 991.667 Output Total 700 Balance 1000 1216.666 991.667 - Objective General Appearance: positive: No acute distress, Alert ENT: positive: No signs of dehydration Neck: positive: No JVD Abdomen: positive: Non-tender, No distention, Other (improved from yesterday. less distended. no apparent distension on exam) - Lab Results Fish Bones: 12/27/20 04:53 12/27/20 04:53 Other Labs: Lab Results x24hrs 12/27/20 12/27/20 Range/Units 04:53 04:53 WBC 15.3 H (4.8-10.8) x10^3/uL RBC 4.42 L (4.70-6.10) 10^6/uL Hgb 14.6 (14.0-18.0) g/dL Hct 43.0 (42.0-52.0) % MCV 97.3 H (80.0-94.0) fL MCH 33.0 H (27.0-31.0) pg MCHC 34.0 (32.0-36.0) g/dL RDW 12.9 (12.0-15.0) % Plt Count 246 (130-450) 10^3/uL MPV 9.3 (7.4-11.4) fL Neut # (Auto) 12.0 H (1.5-6.6) 10^3/uL Lymph # (Auto) 1.9 (1.5-3.5) 10^3/uL [place] # (Auto) 1.2 H (0.0-1.0) 10^3/uL Eos # (Auto) 0.2 (0.0-0.7) 10^3/uL Baso # (Auto) 0.0 (0.0-0.1) 10^3/uL Absolute Nucleated RBC 0.00 x10^3/uL Nucleated RBC % 0.0 /100WBC Sodium 137 (135-145) mmol/L Potassium 3.8 (3.5-5.0) mmol/L Chloride 100 L (101-111) mmol/L Carbon Dioxide 29 (21-32) mmol/L Anion Gap 8.0 (6-13) BUN 11 (6-20) mg/dL Creatinine 0.6 (0.6-1.2) mg/dL Estimated GFR (MDRD) 143 (>89) Glucose 87 (70-100) mg/dL Calcium 9.0 (8.5-10.3) mg/dL Total Bilirubin 0.9 (0.2-1.0) mg/dL AST 37 (10-42) IU/L ALT 50 (10-60) IU/L Alkaline Phosphatase 121 (42-121) IU/L Total Protein 7.0 (6.7-8.2) g/dL Albumin 3.8 (3.2-5.5) g/dL Globulin 3.2 (2.1-4.2) g/dL Albumin/Globulin Ratio 1.2 (1.0-2.2) - Diagnostic Imaging Diagnostic Imaging Results: positive: Read independently Assessment/Plan - Problem List (1) Small bowel obstruction Impression: Agree with care and plan
--- NOTE | 2020-12-27 14:19 | XRAY Report ---
PROCEDURE: Small Bowel Follow Through INDICATIONS: Bowel obstruction. COMPARISON: Earlier plain film imaging immediately after ingestion of the initial oral contrast revi ewed. CONTRAST: CONTRAST: gastroview FINDINGS: KUB: Preprocedural airline security representative film demonstrates a normal bowel gas pattern. No suspicious abdominal calc ifications. Visualized solid organ contours appear normal. No suspicious bony abnormalities. Small bowel: There is normal transit time of barium through the small bowel. Small bowel loops are of normal caliber throughout. Mucosal folds are smooth and of normal thickness. No strictures, intr aluminal masses, or extrinsic mass effects are noted. The terminal ileum is identified, and is adrian l in morphology. IMPRESSION: No sign of intestinal obstruction. Normal transit of the oral contrast through the small bowel and in to the colon. Stable appearing extensive surgical fusion of the visualized low thoracic, lumbosacral spine and extending into the pelvis bilaterally. Reviewed by: Anurag Villanueva MD on 12/27/2020 2:18 PM PDT Approved by: Anurag Villanueva MD on 12/27/2020 2:18 PM PDT Station ID: [id number]
[2020-12-27] MEDS: AMITRIPTYLINE 10 MG TABLET PO SCH (21:22)
[2020-12-27] MEDS: ATORVASTATIN 10 MG TABLET PO SCH (21:23)
[2020-12-27] MEDS: PHENYTOIN ER 100 MG CAPSULE PO SCH (21:23)
[2020-12-28] MEDS: SODIUM CHLORIDE FLUSH 0.9% 10 ML SYRINGE IVP SCH ×3 (00:58→16:54)
[2020-12-28 06:06] LABS: BASOPHILS # (AUTO) 0.1 10^3/uL (0.0-0.1); BASOPHILS % (AUTO) 0.5 %; EOSINOPHILS # (AUTO) 0.2 10^3/uL (0.0-0.7); HGB - HEMOGLOBIN 15.4 g/dL (14.0-18.0); LYMPHOCYTES # (AUTO) 1.9 10^3/uL (1.5-3.5); LYMPHOCYTES % (AUTO) 17.8 %; MEAN CORPUSCULAR HEMOGLOBIN 32.5 pg (27.0-31.0); MEAN CORPUSCULAR HGB CONC 31.4 g/dL (32.0-36.0); MEAN CORPUSCULAR VOLUME 103.4 fL (80.0-94.0); MEAN PLATELET VOLUME 9.9 fL (7.4-11.4); MONOCYTES # (AUTO) 0.9 10^3/uL (0.0-1.0); NEUTROPHILS # (AUTO) 7.8 10^3/uL (1.5-6.6); NEUTROPHILS % (AUTO) 71.3 %; PLT - PLATELET COUNT 183 10^3/uL (130-450); RED BLOOD COUNT 4.74 10^6/uL (4.70-6.10); RED CELL DISTRIBUTION WIDTH 12.9 % (12.0-15.0); WHITE BLOOD COUNT 10.9 x10^3/uL (4.8-10.8)
[2020-12-28 07:00] LABS: ALBUMIN 4.1 g/dL (3.2-5.5); ALBUMIN/GLOBULIN RATIO 1.1 (1.0-2.2); CALCIUM 9.3 mg/dL (8.5-10.3); CREATININE 0.7 mg/dL (0.6-1.2); POTASSIUM 3.5 mmol/L (3.5-5.0); TOTAL PROTEIN 7.9 g/dL (6.7-8.2)
[2020-12-28] MEDS: LACTATED RINGERS 1,000 ML IV SCH (07:30)
[2020-12-28] MEDS ORDERED: ONDANSETRON ODT 4 MG TABLET TL PRN (07:33)
--- NOTE | 2020-12-28 08:04 | PROVIDER PROGRESS NOTE ---
Subjective - Prog Note Date Prog Note Date: 12/28/20 - Subjective Subjective: He had a bowel movement this morning. He nods yes when asked if he is hungry. He appears more interactive today. Current Medications - Current Medications Current Medications: Active Medications Amitriptyline HCl (Amitriptyline 10 Mg Tablet) 30 mg PO QPM [facility] Last Admin: 12/27/20 21:22 Dose: 30 mg Documented by: Atorvastatin Calcium (Atorvastatin 10 Mg Tablet) 10 mg PO QPM [facility] Last Admin: 12/27/20 21:23 Dose: 10 mg Documented by: Multivitamins (Multivitamin Tablet) [facility] [place] Ondansetron HCl (Ondansetron 4 Mg/2 Ml Vial) 4 mg IVP Q6HR PRN PRN Reason: Nausea / Vomiting Last Admin: 12/26/20 04:54 Dose: 4 mg Documented by: Ondansetron HCl (Ondansetron Odt 4 Mg Tablet) 4 mg TL Q4HR PRN PRN Reason: Nausea / Vomiting Phenytoin Sodium (Phenytoin Er 100 Mg Capsule) 300 mg PO QPM [facility] Last Admin: 12/27/20 21:23 Dose: 300 mg Documented by: Prochlorperazine Edisylate (Prochlorperazine 10 Mg/2 Ml Vial) 10 mg IVP Q6HR PRN PRN Reason: Nausea / Vomiting Last Admin: 12/26/20 10:45 Dose: 10 mg Documented by: Sodium Chloride (Sodium Chloride Flush 0.9% 10 Ml Syringe) 10 ml IVP PRN PRN PRN Reason: NEEDED PER PROVIDER ORDERS Last Admin: 12/27/20 14:13 Dose: 10 ml Documented by: Sodium Chloride (Sodium Chloride Flush 0.9% 10 Ml Syringe) 10 ml IVP 0100,0900,1700 [facility] Last Admin: 12/28/20 07:30 Dose: Not Given Documented by: Amitriptyline HCl 30 mg PO QPM 05/12/13 Multivitamin [Multi-Vitamin Daily] 1 tab PO DAILY 05/12/13 Atorvastatin [Lipitor] 10 mg PO QPM 07/30/13 Acetaminophen [Tylenol] 650 mg PO Q4H PRN 09/19/16 Docusate Sodium 250Mg Capsule [Colace 250Mg Capsule] 250 mg PO BID 09/19/16 Ondansetron Odt [Zofran Odt] 4 mg TL Q6H PRN 09/19/16 Phenytoin [Dilantin] 300 mg PO QPM 09/19/16 Calcium Carbonate [Calcium] 1,200 mg PO DAILY 05/17/20 Cholecalciferol (Vitamin D3) [Vitamin D3] 50 mcg PO DAILY 05/17/20 Famotidine [Acid-Pep] 20 mg PO DAILY 05/17/20 Krill/Om-3/Dha/Epa/Phospho/Ast [Krill Oil 500 mg Softgel] 2 cap PO BID 05/17/20 Lactose-Reduced Food [Ensure Max Protein] 240 ml PO TID 05/17/20 Propylene Glycol [Systane Complete] 1 drops OP BID 05/17/20 Pantoprazole [Protonix] 1 tab PO DAILY 12/26/20 Objective - Vital Signs/Intake & Output Reviewed Vital Signs: Yes Vital Signs: Vital Signs x48h Temp Pulse Resp BP Pulse Ox 12/28/20 07:51 37.5 C 91 16 131/83 H 97 Intake & Output: Intake & Output 12/25/20 12/26/20 12/27/20 12/28/20 23:59 23:59 23:59 23:59 Intake Total 1000 3994.600 5564.000 Output Total 700 Balance 1000 4878.710 2636.000 - Objective General Appearance: positive: No acute distress, Alert Eyes Bilateral: positive: Normal inspection, Conjunctivae nml ENT: positive: ENT inspection nml Respiratory: positive: No respiratory distress Cardiovascular: positive: Regular rate & rhythm. negative: Irregularly irreg ular, Tachycardia Abdomen: positive: Nml bowel sounds, No distention. negative: Tenderness, Guarding, Rebound Skin: positive: Warm, Dry - Lab Results Fish Bones: 12/28/20 05:34 12/28/20 06:12 Other Labs: Lab Results x24hrs 12/28/20 12/28/20 Range/Units 06:12 05:34 WBC 10.9 H (4.8-10.8) x10^3/uL RBC 4.74 (4.70-6.10) 10^6/uL Hgb 15.4 (14.0-18.0) g/dL Hct 49.0 (42.0-52.0) % MCV 103.4 H (80.0-94.0) fL MCH 32.5 H (27.0-31.0) pg MCHC 31.4 L (32.0-36.0) g/dL RDW 12.9 (12.0-15.0) % Plt Count 183 (130-450) 10^3/uL MPV 9.9 (7.4-11.4) fL Neut # (Auto) 7.8 H (1.5-6.6) 10^3/uL Lymph # (Auto) 1.9 (1.5-3.5) 10^3/uL [place] # (Auto) 0.9 (0.0-1.0) 10^3/uL Eos # (Auto) 0.2 (0.0-0.7) 10^3/uL Baso # (Auto) 0.1 (0.0-0.1) 10^3/uL Absolute Nucleated RBC 0.00 x10^3/uL Nucleated RBC % 0.0 /100WBC Sodium 142 (135-145) mmol/L Potassium 3.5 (3.5-5.0) mmol/L Chloride 100 L (101-111) mmol/L Carbon Dioxide 27 (21-32) mmol/L Anion Gap 15.0 H (6-13) BUN 17 (6-20) mg/dL Creatinine 0.7 (0.6-1.2) mg/dL Estimated GFR (MDRD) 120 (>89) Glucose 71 (70-100) mg/dL Calcium 9.3 (8.5-10.3) mg/dL Total Bilirubin 1.0 (0.2-1.0) mg/dL AST 33 (10-42) IU/L ALT 46 (10-60) IU/L Alkaline Phosphatase 154 H (42-121) IU/L Total Protein 7.9 (6.7-8.2) g/dL Albumin 4.1 (3.2-5.5) g/dL Globulin 3.8 (2.1-4.2) g/dL Albumin/Globulin Ratio 1.1 (1.0-2.2) Assessment/Plan - Problem List (1) Small bowel obstruction Impression: Appears to have resolved. He tolerated the Gastrografin challenge and was able to have a bowel movement. He was started on clears yesterday afternoon which he has been tolerating. We will advance his diet to full liquid diet for lunch he does well with this then we will advance further to a soft diet. We will start him on a bowel regimen with MiraLAX. We will plan to discharge him home [facility]. Appreciate general surgery input. (2) Leukocytosis Impression: This is improved and was likely reactive. There has been no evidence of infection. Continue to hold antibiotics. (3) Cerebral palsy Impression: Stable and at baseline. The plan will be to discharge him back to his [facility] once medically stable. Qualifiers: Cerebral palsy type: unspecified type Qualified Code(s): G80.9 - Cerebral palsy, unspecified (4) Seizure disorder Impression: Stable. We have switched his dilantin to p.o. now that he is taking liquids. (5) Elevated LFTs Impression: Resolved.
[2020-12-28] MEDS: MULTIVITAMIN TABLET PO SCH (08:35)
[2020-12-28] MEDS: polyethylene glycoL 3350 17 GM PACKET PO SCH (11:26)
[2020-12-28] MEDS: ATORVASTATIN 10 MG TABLET PO SCH (21:13)
[2020-12-28] MEDS: PHENYTOIN ER 100 MG CAPSULE PO SCH (21:13)
[2020-12-28] MEDS: AMITRIPTYLINE 10 MG TABLET PO SCH (21:13)
[2020-12-29] MEDS: SODIUM CHLORIDE FLUSH 0.9% 10 ML SYRINGE IVP SCH ×2 (01:43→08:34)
--- NOTE | 2020-12-29 07:31 | Discharge Plan ---
Discharge Plan for SNF / [facility] - Discharge Plan And Transition Orders Problem Reviewed?: Yes Disposition: 01 Home, Self Care Condition: Stable Allergies and Adverse Reactions: Allergies Allergy/AdvReac Type Severity Reaction Status Date / Time Sulfa (Sulfonamide Allergy Hives Verified 12/25/20 20:56 Antibiotics) adhesive tape AdvReac Rash Verified 12/25/20 20:56 Health Concerns: Patient was admitted for a small bowel obstruction. He was treated with IV fluids and pain control. Performed a contrast challenge with Gastrografin and this resolved his obstruction. He has since been able to have multiple bowel movements and is tolerating a diet. He is now stable for discharge. Plan of Treatment: There were no changes made to his medications. He should continue on a bowel regimen with MiraLAX daily. Care Goals: Return to the emergency department if you have worsening abdominal pain or nausea/vomiting. - SNF / [facility] Transition Orders Admit to (Facility): [place] Discharge Diagnosis: Small bowel obstruction - resolved. Leukocytosis - resolved. Cerebral palsy - stable. Seizure disorder - stable. Elevated LFT's - resolved Medicare Certification Statement: I certify that [facility] care is medically necessary on a continuing basis for any of the conditions for which she/he is receiving care during hospitalization. Notify PCP of admission and forward orders to primary provider for signature. Other Notification Orders: Call PCP immediately if patient develops dyspnea, chest pain/tightness or edema. House Bowel Program: Yes Additional Bowel Program Orders: If no BM after 2 days, nurse may give M.O.M. 30ml PO PRN and/or ducolax Supp 1 LA and/or ANASTASIYA 250mg P.O., and/or senna 1-2 tabs PO. On day 3 nurse may give repeat above order until residents constipation is resolved. Medication Orders: PLEASE REFER TO THE DISCHARGE MEDICATION LIST. - Medications New Prescriptions: Psyllium [Metamucil] 1 each PO DAILY #30 packet - Diet Texture: Regular Liquids: Thin Follow Up: He will need to follow-up with his primary care physician in 1 to 2 weeks.
--- NOTE | 2020-12-29 07:38 | DISCHARGE SUMMARY ---
"Discharge Summary Admit Date: 12/26/20 Discharge Date: 12/29/20 Discharging Provider: Michele Fontana Primary Care Provider: Evangelist Rothman Code Status: Attempt Resuscitation Condition at Discharge: Stable Discharge Disposition: 01 Home, Self Care Discharge Facility Name: [place] - DIAGNOSES Admission Diagnoses: Small bowel obstruction Dehydration Seizure disorder Elevated LFTs Cerebral palsy with spastic/ataxic diplegia Moderate developmental delay History of hyperlipidemia Discharge Diagnoses with Status of Each Condition: Small bowel obstruction - resolved. Leukocytosis - resolved. Cerebral palsy - stable. Seizure disorder - stable. Elevated LFT's - resolved - HPI History of Present Illness: H&P per Dr. Glover: This is a 50-year-old male with a history of cerebral palsy with contractures and moderate developmental delay. He has had prior abdominal surgery of cholecystectomy and prior small bowel obstructions with repeat surgery done of lysis of adhesions. He has had several admissions here for small bowel obstruction. The patient lives in a halfway with 2 other disabled people and has caregivers. His parents are and he has no siblings. Today he developed nausea vomiting and apparent abdominal pain and was brought in to the ED. He is afebrile and with stable vital signs but is hemoconcentrated by lab work and is still nauseated. CT of the abdomen shows dilated loops of bowel and small bowel obstruction (per ED provider). He has not tolerated NG tube previously because he pulls them out and cannot understand, due to his developmental delay, that these need to remain in place. The patient is being admitted for management of a recurrent bowel obstruction and is needing IV fluids and IV antiemetics and pain meds. - CONSULTS | PROCEDURES Consultations: General Surgery - HOSPITAL COURSE Hospital Course: Patient was admitted for a small bowel obstruction. He was treated with IV fluids and pain control. NG tube was never placed as there was concern that this may make the patient more agitated. We performed a contrast challenge with Gastrografin and this resolved his obstruction. He has since been able to have multiple bowel movements and is tolerating a diet. He is now stable for discharge. - ALLERGIES Allergies/Adverse Reactions: Allergies Allergy/AdvReac Type Severity Reaction Status Date / Time Sulfa (Sulfonamide Allergy Hives Verified 12/25/20 20:56 Antibiotics) adhesive tape AdvReac Rash Verified 12/25/20 20:56 - MEDICATIONS Home Medications: Ambulatory Orders Medication Instructions Recorded Confirmed Amitriptyline HCl 30 mg PO QPM 05/12/13 12/26/20 Multivitamin [Multi-Vitamin Daily] 1 tab PO DAILY 05/12/13 12/26/20 Atorvastatin [Lipitor] 10 mg PO QPM 07/30/13 12/26/20 Acetaminophen [Tylenol] 650 mg PO Q4H PRN 09/19/16 12/26/20 Docusate Sodium 250Mg Capsule 250 mg PO BID 09/19/16 12/26/20 [Colace 250Mg Capsule] Ondansetron Odt [Zofran Odt] 4 mg TL Q6H PRN 09/19/16 12/26/20 Phenytoin [Dilantin] 300 mg PO QPM 09/19/16 12/26/20 Calcium Carbonate [Calcium] 1,200 mg PO DAILY 05/17/20 12/26/20 Cholecalciferol (Vitamin D3) 50 mcg PO DAILY 05/17/20 12/26/20 [Vitamin D3] Famotidine [Acid-Pep] 20 mg PO DAILY 05/17/20 12/26/20 Krill/Om-3/Dha/Epa/Phospho/Ast 2 cap PO BID 05/17/20 12/26/20 [Krill Oil 500 mg Softgel] Lactose-Reduced Food [Ensure Max 240 ml PO TID 05/17/20 12/26/20 Protein] Propylene Glycol [Systane Complete] 1 drops OP BID 05/17/20 12/26/20 polyethylene glycoL 3350 [Miralax] 17 gm PO DAILY #28 packet 05/22/20 12/26/20 Pantoprazole [Protonix] 1 tab PO DAILY 12/26/20 12/26/20 Psyllium [Metamucil] 1 each PO DAILY #30 packet 12/28/20 - PHYSICAL EXAM AT DISCHARGE General Appearance: positive: No acute distress, Alert Eyes Bilateral: positive: Normal inspection, Conjunctivae nml ENT: positive: ENT inspection nml Neck: positive: Nml inspection Respiratory: positive: No respiratory distress. negative: Wheezes, Rales Cardiovascular: positive: Regular rate & rhythm, No murmur. negative: Tachycardia Abdomen: positive: Non-tender, Nml bowel sounds, No distention. negative: Tenderness Skin: positive: Warm, Dry Extremities: positive: No pedal edema, Other (Contractures of the upper extremities noted) Neurologic/Psychiatric: positive: Other (Nonverbal. No obvious focal deficits.) Physical Exam Other/Comments: Vital Signs - 24 hr 12/29/20 12/29/20 12/29/20 00:15 07:51 13:37 Temperature 37.2 C 36.9 C 36.6 C Heart Rate [ 82 88 95 Brachial] Respiratory 18 16 20 Rate Blood Pressure 102/59 L 110/68 123/66 [Right Brachial artery] O2 Saturation 94 95 93 Oxygen O2 Source Room air - LABS Result Diagrams: 12/29/20 07:51 12/29/20 07:51 - DIAGNOSTIC IMAGING Diagnostic Imaging Results: Final report reviewed - FOLLOW UP Follow Up: He will need follow-up with his primary care physician in 1 to 2 weeks. - TIME SPENT Time Spent in Discharge (Minutes): 32"
[2020-12-29 08:01] LABS: BASOPHILS % (AUTO) 0.4 %; EOSINOPHILS # (AUTO) 0.3 10^3/uL (0.0-0.7); EOSINOPHILS % (AUTO) 2.7 %; HCT - HEMATOCRIT 42.7 % (42.0-52.0); HGB - HEMOGLOBIN 14.7 g/dL (14.0-18.0); LYMPHOCYTES # (AUTO) 1.9 10^3/uL (1.5-3.5); LYMPHOCYTES % (AUTO) 17.8 %; MEAN CORPUSCULAR HEMOGLOBIN 32.8 pg (27.0-31.0); MEAN CORPUSCULAR HGB CONC 34.4 g/dL (32.0-36.0); MEAN CORPUSCULAR VOLUME 95.3 fL (80.0-94.0); MONOCYTES % (AUTO) 9.6 %; NEUTROPHILS # (AUTO) 7.2 10^3/uL (1.5-6.6); NEUTROPHILS % (AUTO) 69.2 %; PLT - PLATELET COUNT 251 10^3/uL (130-450); RED BLOOD COUNT 4.48 10^6/uL (4.70-6.10); RED CELL DISTRIBUTION WIDTH 12.6 % (12.0-15.0); WHITE BLOOD COUNT 10.4 x10^3/uL (4.8-10.8)
[2020-12-29 08:11] LABS: CALCIUM 8.8 mg/dL (8.5-10.3); CREATININE 0.7 mg/dL (0.6-1.2); POTASSIUM 3.6 mmol/L (3.5-5.0)
[2020-12-29] MEDS: polyethylene glycoL 3350 17 GM PACKET PO SCH (08:33)
[2020-12-29] MEDS: MULTIVITAMIN TABLET PO SCH (08:33)
[2020-12-29 13:38] VITALS: BP 123/66
== END 2020-12-29 14:30 | disposition home or self-care (01) | DRG 389 ==
LOC: EDUNIT# → SUPCPDRO 20:47 → ED 20:47 → MS2 12-26 00:23
PROVIDERS: ADMIT Internal Medicine; ATTEND Internal Medicine
DX: K56.609 Unspecified intestinal obstruction, unspecified as to partial versus complete obstruction (principal); G80.9 Cerebral palsy, unspecified; Z20.822 Contact with and (suspected) exposure to COVID-19; G80.1 Spastic diplegic cerebral palsy; E86.0 Dehydration; G40.909 Epilepsy, unspecified, not intractable, without status epilepticus; D72.829 Elevated white blood cell count, unspecified; R79.89 Other specified abnormal findings of blood chemistry; R62.50 Unspecified lack of expected normal physiological development in childhood; F41.9 Anxiety disorder, unspecified; E78.5 Hyperlipidemia, unspecified
CPT/HCPCS: 36415; 74018; 74177; 74250; 80048; 80053; 80185; 81003; 83690; 83735; 85025; 85610; 87631; 96361; 96374; 96375; 99284; 99285; A9270; J7120; Q9963; Q9967; 0202U; 81001; 87086

== ENCOUNTER 2021-06-08 18:02 | Outpatient (CLI) | payer MEDICARE, OTHER, MEDICAID | END 2021-06-08 18:03 | disposition critical access hospital (66) | LOC: EMS 18:02 | DX: R11.10 Vomiting, unspecified (principal) | CPT/HCPCS: A0425; A0429 ==

== ENCOUNTER 2021-06-08 18:24 | Inpatient (IN) | payer MEDICARE, OTHER, MEDICAID ==
[2021-06-08] MEDS ORDERED: SODIUM CHLORIDE 0.9% 1,000 ML IV STA (18:35)
[2021-06-08] MEDS ORDERED: ONDANSETRON 4 MG/2 ML VIAL IVP STA (18:37)
[2021-06-08 18:51] LABS: BASOPHILS % (AUTO) 0.3 %; EOSINOPHILS % (AUTO) 0.3 %; HCT - HEMATOCRIT 48.3 % (42.0-52.0); HGB - HEMOGLOBIN 16.9 g/dL (14.0-18.0); LYMPHOCYTES % (AUTO) 8.4 %; MEAN CORPUSCULAR HEMOGLOBIN 32.9 pg (27.0-31.0); MEAN CORPUSCULAR VOLUME 94.2 fL (80.0-94.0); MONOCYTES # (AUTO) 0.4 10^3/uL (0.0-1.0); MONOCYTES % (AUTO) 3.3 %; NEUTROPHILS # (AUTO) 10.2 10^3/uL (1.5-6.6); NEUTROPHILS % (AUTO) 87.4 %; PLT - PLATELET COUNT 301 10^3/uL (130-450); RED BLOOD COUNT 5.13 10^6/uL (4.70-6.10); RED CELL DISTRIBUTION WIDTH 13.1 % (12.0-15.0); WHITE BLOOD COUNT 11.7 x10^3/uL (4.8-10.8)
[2021-06-08 19:03] LABS: ALBUMIN 4.8 g/dL (3.2-5.5); ALBUMIN/GLOBULIN RATIO 1.1 (1.0-2.2); BILIRUBIN,TOTAL 0.6 mg/dL (0.2-1.0); CALCIUM 10.6 mg/dL (8.5-10.3); CREATININE 0.6 mg/dL (0.6-1.2); POTASSIUM 4.5 mmol/L (3.5-5.0); TOTAL PROTEIN 9.2 g/dL (6.7-8.2)
--- NOTE | 2021-06-08 19:10 | ED Physician Documentation ---
History of Present Illness - Stated complaint Stated Complaint: N/V - Chief complaint Chief Complaint: Abd Pain - Additonal information Additional information: 50-year-old male who has a history of cerebral palsy as well as developmental delay and is nonverbal presents emergency department with acute onset abdominal pain and nausea and vomiting. Symptoms began just a few hours prior to arrival. But since he began he has vomited about 8 times. He does have a history of previous cholecystectomy and small bowel obstructions with repeat surgeries for lysis of adhesions. Most of the history is obtained from his caregiver at the bedside as patient is nonverbal. She reports he has been in his usual state of health until this afternoon. No recent fevers. He has been eating his meals normally. Review of Systems Unable to obtain: Other (Nonverbal, developmental delay. History obtained from caregiver) Constitutional: denies: Fever, Chills Eyes: reports: Reviewed and negative Nose: reports: Reviewed and negative Throat: reports: Reviewed and negative Cardiac: reports: Reviewed and negative Respiratory: reports: Reviewed and negative GI: reports: Abdominal Pain, Nausea, Vomiting PD PAST MEDICAL HISTORY - Past Medical History Cardiovascular: High cholesterol Respiratory: None Neuro: Cerebral palsy, Seizure disorder Endocrine/Autoimmune: None GI: GERD, GI bleed : Incontinence HEENT: None Psych: Anxiety Musculoskeletal: None Derm: None - Past Surgical History Past Surgical History: Yes General: Cholecystectomy, Bowel surgery Ortho: Spine surgery /HARNESS TIER: Other (left orchiectomy) - Present Medications Home Medications: Ambulatory Orders Medication Instructions Recorded Confirmed Amitriptyline HCl 30 mg PO QPM 05/12/13 12/26/20 Multivitamin [Multi-Vitamin Daily] 1 tab PO DAILY 05/12/13 12/26/20 Atorvastatin [Lipitor] 10 mg PO QPM 07/30/13 12/26/20 Acetaminophen [Tylenol] 650 mg PO Q4H PRN 09/19/16 12/26/20 Docusate Sodium 250Mg Capsule 250 mg PO BID 09/19/16 12/26/20 [Colace 250Mg Capsule] Ondansetron Odt [Zofran Odt] 4 mg TL Q6H PRN 09/19/16 12/26/20 Phenytoin [Dilantin] 300 mg PO QPM 09/19/16 12/26/20 Calcium Carbonate [Calcium] 1,200 mg PO DAILY 05/17/20 12/26/20 Cholecalciferol (Vitamin D3) 50 mcg PO DAILY 05/17/20 12/26/20 [Vitamin D3] Famotidine [Acid-Pep] 20 mg PO DAILY 05/17/20 12/26/20 Krill/Om-3/Dha/Epa/Phospho/Ast 2 cap PO BID 05/17/20 12/26/20 [Krill Oil 500 mg Softgel] Lactose-Reduced Food [Ensure Max 240 ml PO TID 05/17/20 12/26/20 Protein] Propylene Glycol [Systane Complete] 1 drops OP BID 05/17/20 12/26/20 polyethylene glycoL 3350 [Miralax] 17 gm PO DAILY #28 packet 05/22/20 12/26/20 Pantoprazole [Protonix] 1 tab PO DAILY 12/26/20 12/26/20 Psyllium [Metamucil] 1 each PO DAILY #30 packet 12/28/20 - Allergies Allergies/Adverse Reactions: Allergies Allergy/AdvReac Type Severity Reaction Status Date / Time Sulfa (Sulfonamide Allergy Hives Verified 06/08/21 18:38 Antibiotics) adhesive tape AdvReac Rash Verified 06/08/21 18:38 - Social History Does the pt smoke?: No Smoking Status: Never smoker Does the pt drink ETOH?: No Does the pt have substance abuse?: No - Immunizations Immunizations are current?: Yes - POLST Patient has POLST: No POLST Status: Full Code PD ED PE EXPANDED - General General: Alert, No acute distress, Other (Appears chronically ill. Thin appearance. Contracture of the left upper arm and extremity) - Cardiac Cardiac: Regular Rate, Radial strong equal, Pedal strong equal, Cap refill < 2 sec. No: Murmur Present - Respiratory Respiratory: Clear to ausultation jeannine. No: Distress, Labored - Abdomen Abdomen: Normal Bowel sounds, Surgical scars. No: Tender to palpation (I was un able to elicit any obvious signs of abdominal pain with light, deep or percussion evaluation.) - Derm Derm: Normal color, Warm and dry - GCS Eye Opening: Spontaneous Motor: Obeys Commands Verbal: None (Nonverbal) Total: 11 Results - Vitals Vitals: Vital Signs - 24 hr 06/08/21 06/08/21 06/08/21 18:25 18:41 20:41 Temperature 36.4 C L 36.5 C Heart Rate 85 80 80 Respiratory 18 16 16 Rate Blood Pressure 132/90 H 132/90 H 111/77 O2 Saturation 94 94 96 Oxygen O2 Source Room air - Labs Labs: Laboratory Tests 06/08/21 06/08/21 06/08/21 18:45 18:45 20:30 WBC 11.7 H RBC 5.13 Hgb 16.9 Hct 48.3 MCV 94.2 H MCH 32.9 H MCHC 35.0 RDW 13.1 Plt Count 301 MPV 9.0 Neut # (Auto) 10.2 H Lymph # (Auto) 1.0 L Ritchie # (Auto) 0.4 Eos # (Auto) 0.0 Baso # (Auto) 0.0 Absolute Nucleated RBC 0.00 Nucleated RBC % 0.0 Sodium 137 Potassium 4.5 Chloride 95 L Carbon Dioxide 28 Anion Gap 14.0 H BUN 20 Creatinine 0.6 Estimated GFR (MDRD) 143 Glucose 136 H Calcium 10.6 H Total Bilirubin 0.6 AST 34 ALT 38 Alkaline Phosphatase 155 H Total Protein 9.2 H Albumin 4.8 Globulin 4.4 H Albumin/Globulin Ratio 1.1 Lipase 79 H Urine Color YELLOW Urine Clarity CLEAR Urine pH 7.0 Ur Specific Center Line 1.020 Urine Protein NEGATIVE Urine Glucose (UA) NEGATIVE Urine Ketones 15 H Urine Occult Blood MODERATE H Urine Nitrite NEGATIVE Urine Bilirubin NEGATIVE Urine Urobilinogen 0.2 (NORMAL) Ur Leukocyte Esterase NEGATIVE Urine RBC TNTC H Urine WBC 0-3 Ur Epithelial Cells RARE Transitional Ur Squamous Epith Cells NONE SEEN Urine Bacteria Few Ur Microscopic Review INDICATED Urine Culture Comments NOT INDICATED - Rads (name of study) CT abd Radiology: Final report received (Small bowel obstruction with a transition point in the distal ileum) CXR Radiology: EMP read contemporaneously (No acute cardiopulmonary process. Spinal rodding noted. NG tube seen to pass into the epigastrium.) PD MEDICAL DECISION MAKING - ED course Complexity details: reviewed results, re-evaluated patient, considered differential ED course: 50-year-old male who has a history of cerebral palsy as well as a history of small bowel obstruction with multiple surgeries for lysis of adhesions presents the emergency department with acute onset uncontrolled nausea and vomiting this afternoon. He is nonverbal at baseline so history was limited. However he had a relatively benign and nontender exam but given the history of recurrent bowel obstruction his CT was completed that did confirm the small bowel obstruction. Screening labs were without acute worrisome findings. This case was discussed with Dr. Oates. Patient will be admitted to our hospitalist service. An NG tube has been placed to low continuous suction. If the bowel obstruction does not resolve with conservative management it is likely the patient would need to be transferred to an alternative hospital for higher level of care as Dr. Oates feels he would be a poor surgical candidate here at [facility]. Dr. prince has agreed to admit the patient. Dr. Oates will consult in the am. Departure - Departure Disposition: 66 [facility] DC/Xfer Clinical Impression: SBO (small bowel obstruction) Cerebral palsy Qualifiers: Cerebral palsy type: unspecified type Qualified Code(s): G80.9 - Cerebral palsy, unspecified
[2021-06-08] MEDS ORDERED: IOVERSOL 320 100 ML VIAL IVP ONE ×2 (19:19→20:08)
[2021-06-08 20:35] LABS: BILIRUBIN,URINE NEGATIVE (NEGATIVE); GLUCOSE, URINE (UA) NEGATIVE (NEGATIVE); KETONES,URINE (UA) 15 mg/dL (NEGATIVE); LEUKOCYTE ESTERASE, URINE NEGATIVE (NEGATIVE); NITRITE,URINE NEGATIVE (NEGATIVE); OCCULT BLOOD,URINE MODERATE (NEGATIVE); PROTEIN,URINE NEGATIVE (NEGATIVE); UROBILINOGEN,URINE 0.2 (NORMAL) E.U./dL (NORMAL)
[2021-06-08 20:38] LABS: CLARITY,URINE CLEAR (CLEAR)
--- NOTE | 2021-06-08 20:45 | CT Report ---
PROCEDURE: Abdomen/Pelvis W INDICATIONS: abdominal pain; n//v; hx of sbo TECHNIQUE: After the administration of contrast, 5 mm thick sections acquired from the diaphragms to the sym physis. 5 mm thick coronal and sagittal reformats were acquired. For radiation dose reduction, the following was used: automated exposure control, adjustment of mA and/or kV according to patient size . COMPARISON: 12/25/2020 FINDINGS: Image quality: Excellent. ABDOMEN: Lung bases: Lung bases are clear. Heart size is normal. Solid organs: Liver: The liver has no mass or intrahepatic biliary ductal dilatation. The portal vein and hepatic veins are patent. Biliary: Status post cholecystectomy. Pancreas: The pancreas has no mass or ductal dilatation. No surrounding inflammation. Spleen: Normal size. No mass. Adrenal glands: No hypertrophy or nodules. Kidneys: No obstructive calculus or hydronephrosis. No solid mass. No cystic mass. Bowel: The distal esophagus and stomach are normal. There are dilated loops of small bowel measuring up to 4 cm in diameter with air-fluid levels consistent with small bowel obstruction. The transition point is in the distal ileum. No pneumatosis. The large bowel has a normal caliber and appearance. Free air/free fluid: No free air or free fluid. Abdominal wall: No abdominal wall mass or hernia. Retroperitoneum: No retroperitoneal or mesenteric adenopathy by size criteria. Aorta and inferior ve na cava are normal in size. Lymph nodes: No adenopathy. Bones: No suspicious bony lesions. No vertebral body compression fractures. [] PELVIS: Genitourinary: [Bladder wall thickness is normal. ] [] Miscellaneous: [No inguinal hernias or adenopathy. ] [] Bones: [No suspicious bony lesions. No vertebral body compression fractures. ] There is leftward c urvature of the lumbar spine. IMPRESSION: Small bowel obstruction with a transition point in the distal ileum. Reviewed by: Jaime John on 06/08/2021 8:44 PM PST Approved by: Jaime John on 06/08/2021 8:44 PM PST Station ID: [id number]
--- NOTE | 2021-06-08 20:52 | HISTORY & PHYSICAL EXAMINATION ---
Chief Complaint - Chief Complaint Chief Complaint: N/V History of Present Illness - Admitted From Admitted From:: ED - History Obtained From History obtained from: ED provider, chart review and caregiver at bedside. - History of Present Illness HPI Comment/Other: This is a 50-year-old male with a history of cerebral palsy with contractures and moderate developmental delay. He has had prior abdominal surgery of cholecystectomy and prior small bowel obstructions with prior surgery of lysis of adhesions. He has had several admissions here for small bowel obstruction managed without surgery. The patient lives in a residential and has live-in caregivers. His parents are and he has no siblings. Today he developed nausea and vomiting after eating lunch and apparent abdominal pain and was brought into the ED. He had emesis [address] of the abdomen shows dilated loops of bowel and small bowel obstruction with transition point in the distal ileum, per radiology. He has not tolerated NG tube previously because he pulls them out, gets agitated and cannot understand, due to his developmental delay, that these need to remain in place. Today in the ED however he allowed an NG tube to be inserted, then during transfer to his inpatient room, he pulled the NG tube out. He is non-verbal by history, understands when spoken to and shake his head yes and no and also communicates by pointing to pictures. The patient is being admitted for management of a recurrent bowel obstruction and is needing bowel rest, IV fluids and IV antiemetics and pain meds. History - Past Medical History Cardiovascular: reports: High cholesterol Respiratory: reports: None Neuro: reports: Cerebral palsy, Seizure disorder, Other (Developmental delay. Non-verbal.) Endocrine/Autoimmune: reports: None GI: reports: GERD, GI bleed, Other (Many SBO events) : reports: Incontinence HEENT: reports: None Psych: reports: Anxiety Musculoskeletal: reports: Other (Chronic contracture R arm) Derm: reports: None MRSA Hx?: No - Past Surgical History General: reports: Cholecystectomy, Bowel surgery (Prior lysis if adhesions.) Ortho: reports: Spine surgery /RECEIVING CLERK: reports: Other (left orchiectomy) - Family & Social History Family History: Mother: (Father from complications of agent orange, mother is from unknown causes. Patient has no siblings. He does have foster parents.), Father: Living arrangement: Other (shelter) Living Situation: With caregiver(s) - Substance History Use: Uses substance without health or social issues: NONE - POLST Patient has POLST: No POLST Status: Full Code Meds/Allgy - Home Medications Home Medications: Ambulatory Orders Medication Instructions Recorded Confirmed Amitriptyline HCl 30 mg PO QPM 05/12/13 12/26/20 Multivitamin [Multi-Vitamin Daily] 1 tab PO DAILY 05/12/13 12/26/20 Atorvastatin [Lipitor] 10 mg PO QPM 07/30/13 12/26/20 Acetaminophen [Tylenol] 650 mg PO Q4H PRN 09/19/16 12/26/20 Docusate Sodium 250Mg Capsule 250 mg PO BID 09/19/16 12/26/20 [Colace 250Mg Capsule] Ondansetron Odt [Zofran Odt] 4 mg TL Q6H PRN 09/19/16 12/26/20 Phenytoin [Dilantin] 300 mg PO QPM 09/19/16 12/26/20 Calcium Carbonate [Calcium] 1,200 mg PO DAILY 05/17/20 12/26/20 Cholecalciferol (Vitamin D3) 50 mcg PO DAILY 05/17/20 12/26/20 [Vitamin D3] Famotidine [Acid-Pep] 20 mg PO DAILY 05/17/20 12/26/20 Krill/Om-3/Dha/Epa/Phospho/Ast 2 cap PO BID 05/17/20 12/26/20 [Krill Oil 500 mg Softgel] Lactose-Reduced Food [Ensure Max 240 ml PO TID 05/17/20 12/26/20 Protein] Propylene Glycol [Systane Complete] 1 drops OP BID 05/17/20 12/26/20 polyethylene glycoL 3350 [Miralax] 17 gm PO DAILY #28 packet 05/22/20 12/26/20 Pantoprazole [Protonix] 1 tab PO DAILY 12/26/20 12/26/20 Psyllium [Metamucil] 1 each PO DAILY #30 packet 12/28/20 - Allergies Allergies/Adverse Reactions: Allergies Allergy/AdvReac Type Severity Reaction Status Date / Time Sulfa (Sulfonamide Allergy Hives Verified 06/08/21 18:38 Antibiotics) adhesive tape AdvReac Rash Verified 06/08/21 18:38 Review of Systems - All Other Systems All Other Systems: reports: Other (Limited since pt is non-verbal. 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 Communicates by pointing at pictures. R arm is contracted. Feet are pointed inward and both have foot-drop braces.) Conclusion/Plan - Problem List (1) SBO (small bowel obstruction) Conclusion/Plan: The patient has a history of prior abdominal surgery with adhesions and also prior small bowel obstructions, remotely needing lysis of adhesions but for the past 3-4 admissions here, he responded to bowel rest and gastrograffin challenge. He was previously unable to tolerate NG tubes and has pulled them out when placed, but today an ng tube was placed successfully in the ED. Keep NPO for bowel rest, ng to low suction. Start iv fluids Order antimetics and pain meds as needed iv. May consider a Gastrograffin challenge. General surgery has been consulted to follow along. (2) Seizure disorder Conclusion/Plan: Will obtain Dilantin level and will plan to continue the patient on his home dosing of Dilantin and Amitriptyline, once meds are reconciled, probably in iv form. (3) Cerebral palsy with spastic/ataxic diplegia Conclusion/Plan: Plan to continue home care regimen whenever possible (4) Moderate developmental delay Conclusion/Plan: He lives in a residential. He communicates by pointing to pictures in his book. In the past he did not tolerate NG tubes and repeatedly pulls them out. An ng tube was [laced by MATTHIEU muniz today however. (5) Elevated lipase Conclusion/Plan: This most likely is a phase-reactant but due to abd sx, will await Radiol reading of CT re his pancreas>> The pancreas was read as normal. (6) History of hyperlipidemia Conclusion/Plan: He is normally on a statin. We will hold this until he has resumed his oral diet again in several days. - Lab Results Fish Bones: 06/08/21 18:45 06/08/21 18:45 - Other Other Results/Comments: Attestation: The patient is expected to be discharged or transferred to another facility within 96 hours: Yes.
[2021-06-08 20:55] LABS: EPITHELIAL CELLS,UR RARE Transitional /HPF (<= Few); RBC,URINE TNTC /HPF (0-5); SQUAMOUS EPITHELIAL CELL,UR NONE SEEN (<= Few); WBC,URINE 0-3 /HPF (0-3)
[2021-06-08 20:56] LABS: BACTERIA,URINE Few /HPF (None Seen)
[2021-06-08] MEDS ORDERED: HYDROmorphone 0.5 MG/0.5 ML SYRINGE IVP PRN (20:56)
[2021-06-08] MEDS ORDERED: PROCHLORPERAZINE 10 MG/2 ML VIAL IVP PRN (20:56)
--- NOTE | 2021-06-08 21:21 | XRAY Report ---
PROCEDURE: Chest for Line Placement INDICATIONS: NGT placement COMMENTS: NG LINE PLACEMENT. PRIORS: 05.21.20 TECHNIQUE: One view of the chest was acquired. COMPARISON: 05/21/2020 FINDINGS: Surgical changes and devices: Hardware for spinal fixation is seen with rightward curvature of the t horacic spine. Nasogastric tube is well-positioned. Lungs and pleura: No pleural effusions or pneumothorax. Lungs are clear. Mediastinum: Mediastinal contours appear normal. Heart size is normal. Bones and chest wall: No suspicious bony lesions. Overlying soft tissues appear unremarkable. IMPRESSION: Nasogastric tube is in good position. Reviewed by: Jaime John on 06/08/2021 9:19 PM PST Approved by: Jaime John on 06/08/2021 9:19 PM [facility] Station ID: [id number]
[2021-06-08 21:46] LABS: B. PARAPERTUSSIS- RESP PCR PAN NOT DETECTED; B. PERTUSSIS- RESP PCR PANEL NOT DETECTED; C. PNEUMONIAE- RESP PCR PANEL NOT DETECTED; CORONAVIRUS 229E-RESP PCR NOT DETECTED; CORONAVIRUS HKU1-RESP PCR NOT DETECTED; CORONAVIRUS NL63-RESP PCR NOT DETECTED; CORONAVIRUS OC43-RESP PCR NOT DETECTED; HUMAN METAPNEUMOVIRUS NOT DETECTED; INFLUENZA A- RESP PCR PANEL NOT DETECTED; INFLUENZA B - RESP PCR PANEL NOT DETECTED; M. PNEUMONIAE- RESP PCR PANEL NOT DETECTED; PARAINFLUENZA VIRUS 1 NOT DETECTED; PARAINFLUENZA VIRUS 2 NOT DETECTED; PARAINFLUENZA VIRUS 3 NOT DETECTED; PARAINFLUENZA VIRUS 4 NOT DETECTED; RHINOVIRUS/ENTEROVIRUS NOT DETECTED; RSV- RESP PCR PANEL NOT DETECTED; SARS-CoV-2 -RESP PCR PANEL NOT DETECTED
[2021-06-08] MEDS ORDERED: PHENYTOIN INJ 300 MG in SODIUM CHLORIDE 0.9% 100ML 100 ML IV SCH (22:00)
[2021-06-08] MEDS: D5NS W/20 MEQ KCL 1,000 ML IV SCH (22:05)
[2021-06-09] MEDS: SODIUM CHLORIDE FLUSH 0.9% 10 ML SYRINGE IVP SCH ×3 (00:12→16:37)
[2021-06-09] MEDS: ONDANSETRON 4 MG/2 ML VIAL IVP PRN (00:12)
[2021-06-09 05:48] LABS: BASOPHILS % (AUTO) 0.3 %; EOSINOPHILS % (AUTO) 0.3 %; HCT - HEMATOCRIT 42.3 % (42.0-52.0); HGB - HEMOGLOBIN 14.3 g/dL (14.0-18.0); LYMPHOCYTES # (AUTO) 0.8 10^3/uL (1.5-3.5); LYMPHOCYTES % (AUTO) 6.4 %; MEAN CORPUSCULAR HEMOGLOBIN 32.8 pg (27.0-31.0); MEAN CORPUSCULAR HGB CONC 33.8 g/dL (32.0-36.0); MEAN PLATELET VOLUME 9.3 fL (7.4-11.4); MONOCYTES # (AUTO) 0.7 10^3/uL (0.0-1.0); MONOCYTES % (AUTO) 5.7 %; NEUTROPHILS # (AUTO) 11.3 10^3/uL (1.5-6.6); NEUTROPHILS % (AUTO) 87.1 %; PLT - PLATELET COUNT 231 10^3/uL (130-450); RED BLOOD COUNT 4.36 10^6/uL (4.70-6.10); RED CELL DISTRIBUTION WIDTH 13.3 % (12.0-15.0)
[2021-06-09] MEDS: D5NS W/20 MEQ KCL 1,000 ML IV SCH ×2 (06:15→16:37)
[2021-06-09 08:14] LABS: ALBUMIN 3.5 g/dL (3.2-5.5); ALBUMIN/GLOBULIN RATIO 0.9 (1.0-2.2); BILIRUBIN,TOTAL 0.4 mg/dL (0.2-1.0); CREATININE 0.7 mg/dL (0.6-1.2); MAGNESIUM 2.1 mg/dL (1.7-2.8); PHENYTOIN (DILANTIN) 14.5 ug/mL; POTASSIUM 3.9 mmol/L (3.5-5.0); TOTAL PROTEIN 7.2 g/dL (6.7-8.2)
[2021-06-09] MEDS ORDERED: ACETAMINOPHEN 325 MG TABLET PO PRN (08:29)
--- NOTE | 2021-06-09 08:29 | PROVIDER PROGRESS NOTE ---
Assessment/Plan - Problem List (1) SBO (small bowel obstruction) Assessment/Plan: Has been n.p.o. for bowel rest. NG tube was placed but removed by the patient. He was seen by general surgery noted but he who recommended that he could be on clear liquid diet. Continue pain management as needed. Patient's caregiver was encouraged to ambulate with the patient around the [facility] floor. Continue IV hydration. (3) History of hyperlipidemia Assessment/Plan: Will resume patient's Krill oral 2 capsules p.o. twice daily when able to tolerate p.o. (4) Moderate developmental delay Assessment/Plan: He lives in a custodial. He communicates by pointing to pictures in his book. In the past he did not tolerate NG tubes and repeatedly pulls them out. He pulled the NG tube placed in the ED at the time of admission. His caregiver is at bedside. (5) Seizure disorder Assessment/Plan: Phenytoin ordered IV. We will check phenytoin level on 06/11/2021 - Current Meds Current Meds: Current Medications Generic Name Dose Route Start Last Admin Trade Name Freq PRN Reason Stop Dose Admin Potassium Chloride/Dextrose/Sod Cl 1,000 mls @ 100 mls/hr 06/08/21 21:00 06/09/21 06:15 D5ns W/20 Meq Kcl IV 100 mls/hr .Q10H SARAH Administration Ondansetron HCl 4 mg 06/08/21 20:56 06/09/21 00:12 Ondansetron 4 Mg/2 Ml Vial IVP 4 mg Q6HR PRN Administration Nausea / Vomiting Sodium Chloride 10 ml 06/09/21 01:00 06/09/21 00:12 Sodium Chloride Flush 0.9% 10 Ml Syringe IVP 10 ml 0100,0900,1700 SARAH Administration - Lab Result Fish Bone Diagrams: 06/09/21 05:09 06/09/21 07:18 Subjective - Subjective Patient Reports: Other (He was resting comfortably in bed at time of exam. He is nonverbal at baseline but able to respond with nodding of his head or pointing at specific pictures in his book. Abdomen appears mildly tender.) Objective Vital Signs: Vital Signs - 24 hr 06/08/21 06/08/21 06/08/21 18:25 18:41 20:41 Temperature 36.4 C L 36.5 C Heart Rate 85 80 80 Heart Rate [ Brachial] Respiratory 18 16 16 Rate Blood Pressure 132/90 H 132/90 H 111/77 Blood Pressure [Right Brachial artery] O2 Saturation 94 94 96 06/08/21 06/09/21 06/09/21 23:59 05:11 07:38 Temperature 37.4 C 37.6 C 38.1 C H Heart Rate Heart Rate [ 90 91 85 Brachial] Respiratory 16 16 17 Rate Blood Pressure Blood Pressure 116/63 100/47 L 97/52 L [Right Brachial artery] O2 Saturation 98 98 98 Oxygen O2 Source Room air I&O (Last 24 Hrs): Intake and Output Totals x24h 06/07/21 06/08/21 06/09/21 23:59 23:59 23:59 Intake Total 1999 816.667 Balance 1999 816.667 General: Alert, No acute distress, Other (Nonverbal) HEENT: PERRLA, EOMI Neck: Supple, No JVD Neuro: Alert, Non Focal, Oriented Times 3 Cardiovascular: Regular rate, Normal S1, Normal S2 Respiratory: Chest non-tender, No respiratory distress, Breath sounds nml Abdomen: Soft, Other (Decreased bowel sounds. Mild tenderness to palpation. Nondistention.) Extremities: No clubbing, No cyanosis, No edema Skin: No rashes, No breakdown - Results Results: Laboratory Results WBC 13.0 x10^3/uL (4.8-10.8) H 06/09/21 05:09 RBC 4.36 10^6/uL (4.70-6.10) L 06/09/21 05:09 Hgb 14.3 g/dL (14.0-18.0) 06/09/21 05:09 Hct 42.3 % (42.0-52.0) 06/09/21 05:09 MCV 97.0 fL (80.0-94.0) H 06/09/21 05:09 MCH 32.8 pg (27.0-31.0) H 06/09/21 05:09 MCHC 33.8 g/dL (32.0-36.0) 06/09/21 05:09 RDW 13.3 % (12.0-15.0) 06/09/21 05:09 Plt Count 231 10^3/uL (130-450) 06/09/21 05:09 MPV 9.3 fL (7.4-11.4) 06/09/21 05:09 Neut # (Auto) 11.3 10^3/uL (1.5-6.6) H 06/09/21 05:09 Lymph # (Auto) 0.8 10^3/uL (1.5-3.5) L 06/09/21 05:09 [place] # (Auto) 0.7 10^3/uL (0.0-1.0) 06/09/21 05:09 Eos # (Auto) 0.0 10^3/uL (0.0-0.7) 06/09/21 05:09 Baso # (Auto) 0.0 10^3/uL (0.0-0.1) 06/09/21 05:09 Absolute Nucleated RBC 0.00 x10^3/uL 06/09/21 05:09 Nucleated RBC % 0.0 /100WBC 06/09/21 05:09 Sodium 141 mmol/L (135-145) 06/09/21 07:18 Potassium 3.9 mmol/L (3.5-5.0) 06/09/21 07:18 Chloride 103 mmol/L (101-111) 06/09/21 07:18 Carbon Dioxide 28 mmol/L (21-32) 06/09/21 07:18 Anion Gap 10.0 (6-13) 06/09/21 07:18 BUN 15 mg/dL (6-20) 06/09/21 07:18 Creatinine 0.7 mg/dL (0.6-1.2) 06/09/21 07:18 Estimated GFR (MDRD) 120 (>89) 06/09/21 07:18 Glucose 111 mg/dL (70-100) H 06/09/21 07:18 Calcium 9.0 mg/dL (8.5-10.3) 06/09/21 07:18 Magnesium 2.1 mg/dL (1.7-2.8) 06/09/21 07:18 Total Bilirubin 0.4 mg/dL (0.2-1.0) 06/09/21 07:18 AST 29 IU/L (10-42) 06/09/21 07:18 ALT 31 IU/L (10-60) 06/09/21 07:18 Alkaline Phosphatase 126 IU/L (42-121) H 06/09/21 07:18 Total Protein 7.2 g/dL (6.7-8.2) 06/09/21 07:18 Albumin 3.5 g/dL (3.2-5.5) 06/09/21 07:18 Globulin 3.7 g/dL (2.1-4.2) 06/09/21 07:18 Albumin/Globulin Ratio 0.9 (1.0-2.2) L 06/09/21 07:18 Lipase 79 U/L (22-51) H 06/08/21 18:45 Urine Color YELLOW 06/08/21 20:30 Urine Clarity CLEAR (CLEAR) 06/08/21 20:30 Urine pH 7.0 PH (5.0-7.5) 06/08/21 20:30 Ur Specific [place] 1.020 (1.002-1.030) 06/08/21 20:30 Urine Protein NEGATIVE mg/dL (NEGATIVE) 06/08/21 20:30 Urine Glucose (UA) NEGATIVE mg/dL (NEGATIVE) 06/08/21 20:30 Urine Ketones 15 mg/dL (NEGATIVE) H 06/08/21 20:30 Urine Occult Blood MODERATE (NEGATIVE) H 06/08/21 20:30 Urine Nitrite NEGATIVE (NEGATIVE) 06/08/21 20:30 Urine Bilirubin NEGATIVE (NEGATIVE) 06/08/21 20:30 Urine Urobilinogen 0.2 (NORMAL) E.U./dL (NORMAL) 06/08/21 20:30 Ur Leukocyte Esterase NEGATIVE (NEGATIVE) 06/08/21 20:30 Urine RBC TNTC /HPF (0-5) H 06/08/21 20:30 Urine WBC 0-3 /HPF (0-3) 06/08/21 20:30 Ur Epithelial Cells RARE Transitional /HPF (<= Few) 06/08/21 20:30 Ur Squamous Epith Cells NONE SEEN (<= Few) 06/08/21 20:30 Urine Bacteria Few /HPF (None Seen) 06/08/21 20:30 Ur Microscopic Review INDICATED 06/08/21 20:30 Urine Culture Comments NOT INDICATED 06/08/21 20:30 Nasal Adenovirus (PCR) NOT DETECTED 06/08/21 20:30 Nasal B. parapertussis DNA (PCR) NOT DETECTED 06/08/21 20:30 Nasal Coronavir 229E PCR NOT DETECTED 06/08/21 20:30 Nasal Coronavir HKU1 PCR NOT DETECTED 06/08/21 20:30 Nasal Coronavir NL63 PCR NOT DETECTED 02 20:30 Nasal Coronavir OC43 PCR NOT DETECTED 02 20:30 Nasal Enterovir/Rhinovir PCR NOT DETECTED 06/08/21 20:30 Nasal Influenza B PCR NOT DETECTED 06/08/21 20:30 Nasal Influenza A PCR NOT DETECTED 06/08/21 20:30 Nasal Parainfluen 1 PCR NOT DETECTED 06/08/21 20:30 Nasal Parainfluen 2 PCR NOT DETECTED 06/08/21 20:30 Nasal Parainfluen 3 PCR NOT DETECTED 06/08/21 20:30 Nasal Parainfluen 4 PCR NOT DETECTED 06/08/21 20:30 Nasal RSV (PCR) NOT DETECTED 06/08/21 20:30 Nasal B.pertussis DNA PCR NOT DETECTED 06/08/21 20:30 Nasal C.pneumoniae (PCR) NOT DETECTED 06/08/21 20:30 El Human Metapneumo PCR NOT DETECTED 06/08/21 20:30 Nasal M.pneumoniae (PCR) NOT DETECTED 06/08/21 20:30 Nasal SARS-CoV-2 (PCR) NOT DETECTED 06/08/21 20:30 Phenytoin 14.5 ug/mL 06/09/21 07:18 - Procedures Procedures: Procedures ESOPHAGOGASTRODUODENOSCOPY [EGD] W/CLOSED BIOPSY (07/31/13) INSERT GASTRIC TUBE NEC (06/23/14) INSERTION OF INFUSION DEVICE INTO R ATRIUM, PERC APPROACH (02/03/15) ULTRASONOGRAPHY OF RIGHT HEART (02/03/15) ABX Reporting Has patient been on IV antibiotics over the past 48 hours?: No
--- NOTE | 2021-06-09 08:46 | PHARMACY PROGRESS NOTE ---
- Best Possible Medication History Admit Date and Time: 06/08/212055 Processed by: Pharmacy Medication History completed: Yes Patient Interview: Pt unable to participate Secondary Source(s): Physician records, Pharmacy records, Insurance records As the person ultimately responsible for medication therapy, providers are able to order a medication from an existing home medication list in [facility] via the "Reconcile Routine" prior to Confirmation of that medication by technical support coordinator. Such practice is discouraged except when the physician, in their clinical judgment, deems that a medical need exists for a medication without regard to previous use.
[2021-06-09] MEDS: ACETAMINOPHEN 1,000 MG/100 ML 100 ML IV PRN ×2 (09:01→16:47)
[2021-06-09] MEDS: ENOXAPARIN 40 MG/0.4 ML SYRINGE SUBQ SCH (09:01)
--- NOTE | 2021-06-09 11:30 | CONSULTATION NOTE ---
Referring Provider Consult Date: 06/09/21 Chief Complaint - Chief Complaint Chief Complaint: n/v History of Present Illness - Admitted From Admitted From:: ED - History Obtained From Records Reviewed: no History obtained from: care provider and ED MD Exam Limitations: none - History of Present Illness HPI Comment/Other: Pt known to me from prior admissions for partial small bowel obstruction. History SBO and distant surgery. Over the last couple years his small bowel obstructions have resolved over a few days with medical management. N/V yesterday and ngt with green output last nigh. NGT has been out and no N/V since yesterday. History - Past Medical History Cardiovascular: reports: High cholesterol Respiratory: reports: None Neuro: reports: Cerebral palsy, Seizure disorder, Other (Developmental delay. Non-verbal.) Endocrine/Autoimmune: reports: None GI: reports: GERD, GI bleed, Other (Many SBO events) : reports: Incontinence HEENT: reports: None Psych: reports: Anxiety Musculoskeletal: reports: Other (Chronic contracture R arm) Derm: reports: None MRSA Hx?: No - Past Surgical History General: reports: Cholecystectomy, Bowel surgery (Prior lysis if adhesions.) Ortho: reports: Spine surgery /BENEFITS ADVISOR: reports: Other (left orchiectomy) - Family & Social History Family History: Mother: (Father from complications of agent orange, mother is from unknown causes. Patient has no siblings. He does have foster parents.), Father: Living arrangement: Other (jail) Living Situation: With caregiver(s) - Substance History Use: Uses substance without health or social issues: NONE - POLST Patient has POLST: No POLST Status: Full Code Meds/Allgy - Home Medications Home Medications: Ambulatory Orders Medication Instructions Recorded Confirmed Multivitamin [Multi-Vitamin Daily] 1 tab PO DAILY 05/12/13 06/09/21 Atorvastatin [Lipitor] 10 mg PO QPM 07/30/13 06/09/21 Acetaminophen [Tylenol] 650 mg PO Q4H PRN 09/19/16 06/09/21 Docusate Sodium 250Mg Capsule 250 mg PO BID 09/19/16 06/09/21 [Colace 250Mg Capsule] Ondansetron Odt [Zofran Odt] 4 mg TL Q6H PRN 09/19/16 06/09/21 Phenytoin [Dilantin] 300 mg PO QPM 09/19/16 06/09/21 Calcium Carbonate [Calcium] 1,200 mg PO DAILY 05/17/20 06/09/21 Cholecalciferol (Vitamin D3) 100 mcg PO DAILY 05/17/20 06/09/21 [Vitamin D3] Famotidine [Acid-Pep] 20 mg PO DAILY 05/17/20 06/09/21 Krill/Om-3/Dha/Epa/Phospho/Ast 2 cap PO BID 05/17/20 06/09/21 [Krill Oil 500 mg Softgel] Lactose-Reduced Food [Ensure Max 240 ml PO TID 05/17/20 06/09/21 Protein] Propylene Glycol [Systane Complete] 1 drops OP BID 05/17/20 06/09/21 Pantoprazole [Protonix] 40 mg PO QDAC 12/26/20 06/09/21 Simethicone [Mylicon] 80 mg PO Q3H PRN 06/09/21 06/09/21 guaiFENesin [Chest Congestion 200 mg PO QID PRN 06/09/21 06/09/21 Relief] polyethylene glycoL 3350 [Miralax] 17 gm PO DAILY PRN 06/09/21 06/09/21 - Allergies Allergies/Adverse Reactions: Allergies Allergy/AdvReac Type Severity Reaction Status Date / Time Sulfa (Sulfonamide Allergy Hives Verified 06/08/21 18:38 Antibiotics) adhesive tape AdvReac Rash Verified 06/08/21 18:38 Exam - Vital Signs Vital Signs: Vital Signs x48h Temp Pulse Resp BP Pulse Ox 06/09/21 09:30 37.1 C 06/09/21 07:38 38.1 C H 85 17 97/52 L 98 06/09/21 05:11 37.6 C 91 16 100/47 L 98 - Physical Exam General Appearance: positive: No acute distress, Alert Eyes Bilateral: positive: PERRL, EOMI ENT: positive: No signs of dehydration Neck: positive: No JVD Respiratory: positive: No respiratory distress Abdomen: positive: Non-tender, No distention Neurologic/Psychiatric: positive: Other (alert) Conclusion/Plan - Problem List (1) SBO (small bowel obstruction) Conclusion/Plan: He has a normal exam this am. No n/v overnight. He might tolerate clears today. Certainly he is less distended than previous admissions. - Lab Results Fish Bones: 06/09/21 05:09 06/09/21 07:18
[2021-06-09] MEDS: PHENYTOIN INJ 300 MG in SODIUM CHLORIDE 0.9% 100ML 100 ML IV SCH (21:22)
[2021-06-10] MEDS: SODIUM CHLORIDE FLUSH 0.9% 10 ML SYRINGE IVP SCH ×3 (00:07→17:27)
[2021-06-10] MEDS: ACETAMINOPHEN 1,000 MG/100 ML 100 ML IV PRN (00:07)
[2021-06-10] MEDS: D5NS W/20 MEQ KCL 1,000 ML IV SCH ×3 (01:48→21:27)
[2021-06-10 05:10] LABS: BASOPHILS % (AUTO) 0.2 %; EOSINOPHILS # (AUTO) 0.4 10^3/uL (0.0-0.7); EOSINOPHILS % (AUTO) 2.7 %; HCT - HEMATOCRIT 42.4 % (42.0-52.0); HGB - HEMOGLOBIN 14.2 g/dL (14.0-18.0); LYMPHOCYTES % (AUTO) 14.4 %; MEAN CORPUSCULAR HEMOGLOBIN 32.6 pg (27.0-31.0); MEAN CORPUSCULAR HGB CONC 33.5 g/dL (32.0-36.0); MEAN CORPUSCULAR VOLUME 97.5 fL (80.0-94.0); MEAN PLATELET VOLUME 9.3 fL (7.4-11.4); MONOCYTES % (AUTO) 7.1 %; NEUTROPHILS # (AUTO) 10.6 10^3/uL (1.5-6.6); NEUTROPHILS % (AUTO) 75.2 %; PLT - PLATELET COUNT 222 10^3/uL (130-450); RED BLOOD COUNT 4.35 10^6/uL (4.70-6.10); RED CELL DISTRIBUTION WIDTH 13.3 % (12.0-15.0); WHITE BLOOD COUNT 14.1 x10^3/uL (4.8-10.8)
--- NOTE | 2021-06-10 07:25 | PROVIDER PROGRESS NOTE ---
Assessment/Plan - Problem List (1) SBO (small bowel obstruction) Assessment/Plan: Continue pain management as needed. Patient's caregiver was encouraged to ambulate with the patient around the [facility] floor. Continue IV hydration. He appeared to tolerate a clear liquid diet well. (3) History of hyperlipidemia Assessment/Plan: Will resume patient's Krill oral 2 capsules p.o. twice daily when able to tolerate p.o. (4) Moderate developmental delay Assessment/Plan: He lives in a usp. He communicates by pointing to pictures in his book. In the past he did not tolerate NG tubes and repeatedly pulls them out. He pulled the NG tube placed in the ED at the time of admission. (5) Seizure disorder Assessment/Plan: Phenytoin ordered IV. We will check phenytoin level on 06/11/2021 (6) Leukocytosis Assessment/Plan: Etiology on determined. White blood cell count increased from 11.7 at admission to 14.1 on 06/10/21. Lactic acid was normal at 1.2. Blood cultures drawn. Patient has been afebrile for 24 hours. Chest x-ray, CT abdomen pelvis and urine analysis did not support a potential infectious source. We will continue to monitor for now. - Current Meds Current Meds: Current Medications Generic Name Dose Route Start Last Admin Trade Name Freq PRN Reason Stop Dose Admin Enoxaparin Sodium 40 mg 06/09/21 09:00 06/09/21 09:01 Enoxaparin 40 Mg/0.4 Ml Syringe SUBQ 40 mg DAILY SARAH Administration Potassium Chloride/Dextrose/Sod Cl 1,000 mls @ 100 mls/hr 06/08/21 21:00 06/10/21 01:48 D5ns W/20 Meq Kcl IV 100 mls/hr .Q10H SARAH Administration Acetaminophen 100 mls @ 400 mls/hr 06/09/21 08:33 06/10/21 00:37 Ofirmev IV Infused Q6HR PRN Infusion Pain or Fever > 38C (100.4F) Phenytoin Sodium 300 mg/ 106 mls @ 212 mls/hr 06/09/21 22:00 06/09/21 23:16 Sodium Chloride IV Infused 2200 SARAH Infusion Ondansetron HCl 4 mg 06/08/21 20:56 06/09/21 00:12 Ondansetron 4 Mg/2 Ml Vial IVP 4 mg Q6HR PRN Administration Nausea / Vomiting Sodium Chloride 10 ml 06/09/21 01:00 06/10/21 00:07 Sodium Chloride Flush 0.9% 10 Ml Syringe IVP 10 ml 0100,0900,1700 [facility] Administration - Lab Result Fish Bone Diagrams: 06/10/21 05:00 06/10/21 07:50 - Additional Planning My Orders: My Active Orders 06/09/21 08:33 Acetaminophen 1,000 mg/100 ml [Ofirmev] 100 ml IV Q6HR 06/09/21 Dinner Clear Liquid Diet [DIET] 06/10/21 Blood Culture [CULTURE, BLOOD #1] [] Routine Blood Culture [CULTURE, BLOOD #2] [] Routine 06/10/21 07:24 LACTIC ACID, VENOUS [CHEM] Stat Subjective - Subjective Patient Reports: Other (e was resting comfortably in bed at time of exam. He is nonverbal at baseline but able to respond with nodding of his head or pointing at specific pictures in his book. Abdomen appears mildly tender. Appeared to tolerate clear liquid diet well.) Objective Vital Signs: Vital Signs - 24 hr 06/09/21 06/09/21 06/09/21 07:38 09:30 15:40 Temperature 38.1 C H 37.1 C 37.1 C Heart Rate [ 85 83 Brachial] Respiratory 17 17 Rate Blood Pressure 97/52 L 114/69 [Right Brachial artery] O2 Saturation 98 98 06/09/21 23:32 Temperature 37.1 C Heart Rate [ 78 Brachial] Respiratory 16 Rate Blood Pressure 126/69 [Right Brachial artery] O2 Saturation 99 Oxygen O2 Source Room air I&O (Last 24 Hrs): Intake and Output Totals x24h 06/08/21 06/09/21 06/10/21 23:59 23:59 23:59 Intake Total 1999 1018.333 Balance 1999 1018.333 Comments/Notes: General: Alert, No acute distress, Other (Nonverbal) HEENT: PERRLA, EOMI Neck: Supple, No JVD Neuro: Alert, Non Focal, Oriented Times 3 Cardiovascular: Regular rate, Normal S1, Normal S2 Respiratory: Chest non-tender, No respiratory distress, Breath sounds nml Abdomen: Soft, Other (Decreased bowel sounds. Mild tenderness to palpation. Nondistention.) Extremities: No clubbing, No cyanosis, No edema Skin: No rashes, No breakdown - Results Results: Laboratory Results WBC 14.1 x10^3/uL (4.8-10.8) H 06/10/21 05:00 RBC 4.35 10^6/uL (4.70-6.10) L 06/10/21 05:00 Hgb 14.2 g/dL (14.0-18.0) 06/10/21 05:00 Hct 42.4 % (42.0-52.0) 06/10/21 05:00 MCV 97.5 fL (80.0-94.0) H 06/10/21 05:00 MCH 32.6 pg (27.0-31.0) H 06/10/21 05:00 MCHC 33.5 g/dL (32.0-36.0) 06/10/21 05:00 RDW 13.3 % (12.0-15.0) 06/10/21 05:00 Plt Count 222 10^3/uL (130-450) 06/10/21 05:00 MPV 9.3 fL (7.4-11.4) 06/10/21 05:00 Neut # (Auto) 10.6 10^3/uL (1.5-6.6) H 06/10/21 05:00 Lymph # (Auto) 2.0 10^3/uL (1.5-3.5) 06/10/21 05:00 [place] # (Auto) 1.0 10^3/uL (0.0-1.0) 06/10/21 05:00 Eos # (Auto) 0.4 10^3/uL (0.0-0.7) 06/10/21 05:00 Baso # (Auto) 0.0 10^3/uL (0.0-0.1) 06/10/21 05:00 Absolute Nucleated RBC 0.00 x10^3/uL 06/10/21 05:00 Nucleated RBC % 0.0 /100WBC 06/10/21 05:00 Sodium 141 mmol/L (135-145) 06/09/21 07:18 Potassium 3.9 mmol/L (3.5-5.0) 06/09/21 07:18 Chloride 103 mmol/L (101-111) 06/09/21 07:18 Carbon Dioxide 28 mmol/L (21-32) 06/09/21 07:18 Anion Gap 10.0 (6-13) 06/09/21 07:18 BUN 15 mg/dL (6-20) 06/09/21 07:18 Creatinine 0.7 mg/dL (0.6-1.2) 06/09/21 07:18 Estimated GFR (MDRD) 120 (>89) 06/09/21 07:18 Glucose 111 mg/dL (70-100) H 06/09/21 07:18 Calcium 9.0 mg/dL (8.5-10.3) 06/09/21 07:18 Magnesium 2.1 mg/dL (1.7-2.8) 06/09/21 07:18 Total Bilirubin 0.4 mg/dL (0.2-1.0) 06/09/21 07:18 AST 29 IU/L (10-42) 06/09/21 07:18 ALT 31 IU/L (10-60) 06/09/21 07:18 Alkaline Phosphatase 126 IU/L (42-121) H 06/09/21 07:18 Total Protein 7.2 g/dL (6.7-8.2) 06/09/21 07:18 Albumin 3.5 g/dL (3.2-5.5) 06/09/21 07:18 Globulin 3.7 g/dL (2.1-4.2) 06/09/21 07:18 Albumin/Globulin Ratio 0.9 (1.0-2.2) L 06/09/21 07:18 Lipase 79 U/L (22-51) H 06/08/21 18:45 Urine Color YELLOW 06/08/21 20:30 Urine Clarity CLEAR (CLEAR) 06/08/21 20:30 Urine pH 7.0 PH (5.0-7.5) 06/08/21 20:30 Ur Specific [place] 1.020 (1.002-1.030) 06/08/21 20:30 Urine Protein NEGATIVE mg/dL (NEGATIVE) 06/08/21 20:30 Urine Glucose (UA) NEGATIVE mg/dL (NEGATIVE) 06/08/21 20:30 Urine Ketones 15 mg/dL (NEGATIVE) H 06/08/21 20:30 Urine Occult Blood MODERATE (NEGATIVE) H 06/08/21 20:30 Urine Nitrite NEGATIVE (NEGATIVE) 06/08/21 20:30 Urine Bilirubin NEGATIVE (NEGATIVE) 06/08/21 20:30 Urine Urobilinogen 0.2 (NORMAL) E.U./dL (NORMAL) 06/08/21 20:30 Ur Leukocyte Esterase NEGATIVE (NEGATIVE) 06/08/21 20:30 Urine RBC TNTC /HPF (0-5) H 06/08/21 20:30 Urine WBC 0-3 /HPF (0-3) 06/08/21 20:30 Ur Epithelial Cells RARE Transitional /HPF (<= Few) 06/08/21 20:30 Ur Squamous Epith Cells NONE SEEN (<= Few) 06/08/21 20:30 Urine Bacteria Few /HPF (None Seen) 06/08/21 20:30 Ur Microscopic Review INDICATED 06/08/21 20:30 Urine Culture Comments NOT INDICATED 06/08/21 20:30 Nasal Adenovirus (PCR) NOT DETECTED 06/08/21 20:30 Nasal B. parapertussis DNA (PCR) NOT DETECTED 06/08/21 20:30 Nasal Coronavir 229E PCR NOT DETECTED 06/08/21 20:30 Nasal Coronavir HKU1 PCR NOT DETECTED 06/08/21 20:30 Nasal Coronavir NL63 PCR NOT DETECTED 06/08/21 20:30 Nasal Coronavir OC43 PCR NOT DETECTED 06/08/21 20:30 Nasal Enterovir/Rhinovir PCR NOT DETECTED 06/08/21 20:30 Nasal Influenza B PCR NOT DETECTED 06/08/21 20:30 Nasal Influenza A PCR NOT DETECTED 06/08/21 20:30 Nasal Parainfluen 1 PCR NOT DETECTED 06/08/21 20:30 Nasal Parainfluen 2 PCR NOT DETECTED 06/08/21 20:30 Nasal Parainfluen 3 PCR NOT DETECTED 06/08/21 20:30 Nasal Parainfluen 4 PCR NOT DETECTED 06/08/21 20:30 Nasal RSV (PCR) NOT DETECTED 06/08/21 20:30 Nasal B.pertussis DNA PCR NOT DETECTED 06/08/21 20:30 Nasal C.pneumoniae (PCR) NOT DETECTED 06/08/21 20:30 El Human Metapneumo PCR NOT DETECTED 02/11/22 20:30 Nasal M.pneumoniae (PCR) NOT DETECTED 06/08/21 20:30 Nasal SARS-CoV-2 (PCR) NOT DETECTED 06/08/21 20:30 Phenytoin 14.5 ug/mL 06/09/21 07:18 - Procedures Procedures: Procedures ESOPHAGOGASTRODUODENOSCOPY [EGD] W/CLOSED BIOPSY (07/31/13) INSERT GASTRIC TUBE NEC (06/23/14) INSERTION OF INFUSION DEVICE INTO R ATRIUM, PERC APPROACH (02/03/15) ULTRASONOGRAPHY OF RIGHT HEART (02/03/15) ABX Reporting Has patient been on IV antibiotics over the past 48 hours?: No
[2021-06-10 08:17] LABS: CALCIUM 8.8 mg/dL (8.5-10.3); CREATININE 0.5 mg/dL (0.6-1.2); MAGNESIUM 1.9 mg/dL (1.7-2.8); POTASSIUM 3.8 mmol/L (3.5-5.0)
[2021-06-10] MEDS: ENOXAPARIN 40 MG/0.4 ML SYRINGE SUBQ SCH (08:46)
--- NOTE | 2021-06-10 12:33 | PROVIDER PROGRESS NOTE ---
Subjective - Subjective Pt reports feeling: Improved (appears well. comfortable.) Objective - Vital Signs/Intake & Output Vital Signs: Vital Signs x48h Temp Pulse Resp BP Pulse Ox 06/10/21 08:06 37.1 C 88 20 135/53 H 98 Intake & Output: Intake & Output 06/07/21 06/08/21 06/09/21 06/10/21 23:59 23:59 23:59 23:59 Intake Total 19992.667 2486.666 Balance 1999 2121. 2486.666 - Objective General Appearance: positive: No acute distress, Alert Eyes Bilateral: positive: PERRL, EOMI ENT: positive: No signs of dehydration Respiratory: positive: No respiratory distress Abdomen: positive: Non-tender, No distention Neurologic/Psychiatric: positive: Other (alert and communicative in his own way) - Lab Results Fish Bones: 06/10/21 05:00 06/10/21 07:50 Other Labs: Lab Results x24hrs 06/10/21 06/10/21 06/10/21 Range/Units 08:01 07:50 05:00 WBC 14.1 H (4.8-10.8) x10^3/uL RBC 4.35 L (4.70-6.10) 10^6/uL Hgb 14.2 (14.0-18.0) g/dL Hct 42.4 (42.0-52.0) % MCV 97.5 H (80.0-94.0) fL MCH 32.6 H (27.0-31.0) pg MCHC 33.5 (32.0-36.0) g/dL RDW 13.3 (12.0-15.0) % Plt Count 222 (130-450) 10^3/uL MPV 9.3 (7.4-11.4) fL Neut # (Auto) 10.6 H (1.5-6.6) 10^3/uL Lymph # (Auto) 2.0 (1.5-3.5) 10^3/uL [place] # (Auto) 1.0 (0.0-1.0) 10^3/uL Eos # (Auto) 0.4 (0.0-0.7) 10^3/uL Baso # (Auto) 0.0 (0.0-0.1) 10^3/uL Absolute Nucleated RBC 0.00 x10^3/uL Nucleated RBC % 0.0 /100WBC Sodium 137 (135-145) mmol/L Potassium 3.8 (3.5-5.0) mmol/L Chloride 100 L (101-111) mmol/L Carbon Dioxide 27 (21-32) mmol/L Anion Gap 10.0 (6-13) BUN 7 (6-20) mg/dL Creatinine 0.5 L (0.6-1.2) mg/dL Estimated GFR (MDRD) 177 (>89) Glucose 100 (70-100) mg/dL Lactic Acid 1.2 (0.5-2.2) mmol/L Calcium 8.8 (8.5-10.3) mg/dL Magnesium 1.9 (1.7-2.8) mg/dL Assessment/Plan - Problem List (1) SBO (small bowel obstruction) Impression: benign abdomen. tolerating clears although no apparent flatus since admit. no bm. no further n/v agree with current care
[2021-06-10] MEDS: PHENYTOIN INJ 300 MG in SODIUM CHLORIDE 0.9% 100ML 100 ML IV SCH (21:19)
[2021-06-11] MEDS: SODIUM CHLORIDE FLUSH 0.9% 10 ML SYRINGE IVP SCH ×3 (01:30→17:41)
[2021-06-11] MEDS: D5NS W/20 MEQ KCL 1,000 ML IV SCH ×2 (06:56→17:40)
--- NOTE | 2021-06-11 07:58 | PROVIDER PROGRESS NOTE ---
Assessment/Plan - Problem List (1) SBO (small bowel obstruction) Assessment/Plan: No bowel movement yet. Continue pain management as needed. Patient's caregiver was encouraged to ambulate with the patient around the [facility] floor. Continue IV hydration. He appeared to tolerate a clear liquid diet well. (3) History of hyperlipidemia Assessment/Plan: Will resume patient's Krill oral 2 capsules p.o. twice daily when able to tolerate p.o. (4) Moderate developmental delay Assessment/Plan: He lives in a [facility]. He communicates by pointing to pictures in his book. In the past he did not tolerate NG tubes and repeatedly pulls them out. He pulled the NG tube placed in the ED at the time of admission. (5) Seizure disorder Assessment/Plan: Phenytoin ordered IV. Phenytoin level on 06/11/2021 was 13.3 (6) Leukocytosis Assessment/Plan: Allergy undetermined. Suspect reactive. White blood cell count improved from 14.1 down to 12.6. Blood cultures no growth to date. Patient afebrile. Chest x-ray, CT abdomen pelvis and urine analysis did not support a potential infectious source. We will continue to monitor. - Current Meds Current Meds: Current Medications Generic Name Dose Route Start Last Admin Trade Name Freq PRN Reason Stop Dose Admin Enoxaparin Sodium 40 mg 06/09/21 09:00 06/10/21 08:46 Enoxaparin 40 Mg/0.4 Ml Syringe SUBQ 40 mg DAILY SARAH Administration Potassium Chloride/Dextrose/Sod Cl 1,000 mls @ 100 mls/hr 06/08/21 21:00 06/11/21 06:56 D5ns W/20 Meq Kcl IV 100 mls/hr .Q10H SARAH Administration Acetaminophen 100 mls @ 400 mls/hr 06/09/21 08:33 06/10/21 00:37 Ofirmev IV Infused Q6HR PRN Infusion Pain or Fever > 38C (100.4F) Phenytoin Sodium 300 mg/ 106 mls @ 212 mls/hr 06/09/21 22:00 06/10/21 22:18 Sodium Chloride IV Infused 2200 SARAH Infusion Ondansetron HCl 4 mg 06/08/21 20:56 06/09/21 00:12 Ondansetron 4 Mg/2 Ml Vial IVP 4 mg Q6HR PRN Administration Nausea / Vomiting Sodium Chloride 10 ml 06/09/21 01:00 06/11/21 01:30 Sodium Chloride Flush 0.9% 10 Ml Syringe IVP Not Given 0100,0900,1700 COUNT INCLUDES THE [facility] - Lab Result Fish Bone Diagrams: 06/11/21 10:00 06/11/21 10:00 - Additional Planning My Orders: My Active Orders 06/10/21 07:44 Blood Culture [CULTURE, BLOOD #1] [] Routine 06/10/21 07:50 Blood Culture [CULTURE, BLOOD #2] [] Routine 06/11/21 05:30 PHENYTOIN (DILANTIN) [CHEM] Timed Subjective - Subjective Patient Reports: Other (He was resting comfortably in bed at time of exam. He is nonverbal at baseline but able to respond with nodding of his head or pointing at specific pictures in his book. Abdomen appears mildly tender. Appeared to tolerate clear liquid diet well.) Objective Vital Signs: Vital Signs - 24 hr 06/10/21 06/10/21 06/11/21 08:06 15:31 00:54 Temperature 37.1 C 37.4 C 36.7 C Heart Rate [ 88 93 80 Brachial] Respiratory 20 18 18 Rate Blood Pressure 135/53 H 140/86 H 98/69 [Right Brachial artery] O2 Saturation 98 99 97 Oxygen O2 Source Room air I&O (Last 24 Hrs): Intake and Output Totals x24h 06/09/21 06/10/21 06/11/21 23:59 23:59 23:59 Intake Total 2122.667 3689.333 948.333 Balance 2122.667 3689.333 948.333 Comments/Notes: General: Alert, No acute distress, Other (Nonverbal) HEENT: PERRLA, EOMI Neck: Supple, No JVD Neuro: Alert, Non Focal, Oriented Times 3 Cardiovascular: Regular rate, Normal S1, Normal S2 Respiratory: Chest non-tender, No respiratory distress, Breath sounds nml Abdomen: Soft, Other (Decreased bowel sounds. Mild tenderness to palpation. Nondistention.) Extremities: No clubbing, No cyanosis, No edema Skin: No rashes, No breakdown - Results Results: Laboratory Results WBC 14.1 x10^3/uL (4.8-10.8) H 06/10/21 05:00 RBC 4.35 10^6/uL (4.70-6.10) L 06/10/21 05:00 Hgb 14.2 g/dL (14.0-18.0) 06/10/21 05:00 Hct 42.4 % (42.0-52.0) 06/10/21 05:00 MCV 97.5 fL (80.0-94.0) H 06/10/21 05:00 MCH 32.6 pg (27.0-31.0) H 06/10/21 05:00 MCHC 33.5 g/dL (32.0-36.0) 06/10/21 05:00 RDW 13.3 % (12.0-15.0) 06/10/21 05:00 Plt Count 222 10^3/uL (130-450) 06/10/21 05:00 MPV 9.3 fL (7.4-11.4) 06/10/21 05:00 Neut # (Auto) 10.6 10^3/uL (1.5-6.6) H 06/10/21 05:00 Lymph # (Auto) 2.0 10^3/uL (1.5-3.5) 06/10/21 05:00 Ray # (Auto) 1.0 10^3/uL (0.0-1.0) 06/10/21 05:00 Eos # (Auto) 0.4 10^3/uL (0.0-0.7) 06/10/21 05:00 Baso # (Auto) 0.0 10^3/uL (0.0-0.1) 06/10/21 05:00 Absolute Nucleated RBC 0.00 x10^3/uL 06/10/21 05:00 Nucleated RBC % 0.0 /100WBC 06/10/21 05:00 Sodium 137 mmol/L (135-145) 06/10/21 07:50 Potassium 3.8 mmol/L (3.5-5.0) 06/10/21 07:50 Chloride 100 mmol/L (101-111) L 06/10/21 07:50 Carbon Dioxide 27 mmol/L (21-32) 06/10/21 07:50 Anion Gap 10.0 (6-13) 06/10/21 07:50 BUN 7 mg/dL (6-20) 06/10/21 07:50 Creatinine 0.5 mg/dL (0.6-1.2) L 06/10/21 07:50 Estimated GFR (MDRD) 177 (>89) 06/10/21 07:50 Glucose 100 mg/dL (70-100) 06/10/21 07:50 Lactic Acid 1.2 mmol/L (0.5-2.2) 06/10/21 08:01 Calcium 8.8 mg/dL (8.5-10.3) 06/10/21 07:50 Magnesium 1.9 mg/dL (1.7-2.8) 06/10/21 07:50 Total Bilirubin 0.4 mg/dL (0.2-1.0) 06/09/21 07:18 AST 29 IU/L (10-42) 06/09/21 07:18 ALT 31 IU/L (10-60) 06/09/21 07:18 Alkaline Phosphatase 126 IU/L (42-121) H 06/09/21 07:18 Total Protein 7.2 g/dL (6.7-8.2) 06/09/21 07:18 Albumin 3.5 g/dL (3.2-5.5) 06/09/21 07:18 Globulin 3.7 g/dL (2.1-4.2) 06/09/21 07:18 Albumin/Globulin Ratio 0.9 (1.0-2.2) L 06/09/21 07:18 Lipase 79 U/L (22-51) H 06/08/21 18:45 Urine Color YELLOW 06/08/21 20:30 Urine Clarity CLEAR (CLEAR) 06/08/21 20:30 Urine pH 7.0 PH (5.0-7.5) 06/08/21 20:30 Ur Specific [place] 1.020 (1.002-1.030) 06/08/21 20:30 Urine Protein NEGATIVE mg/dL (NEGATIVE) 06/08/21 20:30 Urine Glucose (UA) NEGATIVE mg/dL (NEGATIVE) 06/08/21 20:30 Urine Ketones 15 mg/dL (NEGATIVE) H 06/08/21 20:30 Urine Occult Blood MODERATE (NEGATIVE) H 06/08/21 20:30 Urine Nitrite NEGATIVE (NEGATIVE) 06/08/21 20: Urine Bilirubin NEGATIVE (NEGATIVE) 06/08/21 20: Urine Urobilinogen 0.2 (NORMAL) E.U./dL (NORMAL) 06/08/21 20: Ur Leukocyte Esterase NEGATIVE (NEGATIVE) 06/08/21 20: Urine RBC TNTC /HPF (0-5) H 06/08/21 20: Urine WBC 0-3 /HPF (0-3) 06/08/21: Ur Epithelial Cells RARE Transitional /HPF (<= Few) 06/08/21 20: Ur Squamous Epith Cells NONE SEEN (<= Few) 06/08/21 20: Urine Bacteria Few /HPF (None Seen) 06/08/21 20: Ur Microscopic Review INDICATED 06/08/21: Urine Culture Comments NOT INDICATED 06/08/21 20:30 Nasal Adenovirus (PCR) NOT DETECTED 06/08/21 20:30 Nasal B. parapertussis DNA (PCR) NOT DETECTED 06/08/21 20:30 Nasal Coronavir 229E PCR NOT DETECTED 06/08/21 20:30 Nasal Coronavir HKU1 PCR NOT DETECTED 06/08/21 20:30 Nasal Coronavir NL63 PCR NOT DETECTED 06/08/21 20:30 Nasal Coronavir OC43 PCR NOT DETECTED 06/08/21 20:30 Nasal Enterovir/Rhinovir PCR NOT DETECTED 06/08/21 20:30 Nasal Influenza B PCR NOT DETECTED 06/08/21 20:30 Nasal Influenza A PCR NOT DETECTED 06/08/21 20:30 Nasal Parainfluen 1 PCR NOT DETECTED 06/08/21 20:30 Nasal Parainfluen 2 PCR NOT DETECTED 06/08/21 20:30 Nasal Parainfluen 3 PCR NOT DETECTED 06/08/21 20:30 Nasal Parainfluen 4 PCR NOT DETECTED 06/08/21 20:30 Nasal RSV (PCR) NOT DETECTED 06/08/21 20:30 Nasal B.pertussis DNA PCR NOT DETECTED 06/08/21 20:30 Nasal C.pneumoniae (PCR) NOT DETECTED 06/08/21 20:30 El Human Metapneumo PCR NOT DETECTED 06/08/21 20:30 Nasal M.pneumoniae (PCR) NOT DETECTED 06/08/21 20:30 Nasal SARS-CoV-2 (PCR) NOT DETECTED 02/11/22 20:30 Phenytoin 14.5 ug/mL 06/09/21 07:18 - Procedures Procedures: Procedures ESOPHAGOGASTRODUODENOSCOPY [EGD] W/CLOSED BIOPSY (07/31/13) INSERT GASTRIC TUBE NEC (06/23/14) INSERTION OF INFUSION DEVICE INTO R [facility], PERC APPROACH (02/03/15) ULTRASONOGRAPHY OF RIGHT HEART (02/03/15) ABX Reporting Has patient been on IV antibiotics over the past 48 hours?: No
[2021-06-11] MEDS: ENOXAPARIN 40 MG/0.4 ML SYRINGE SUBQ SCH (08:42)
[2021-06-11 10:07] LABS: BASOPHILS % (AUTO) 0.2 %; EOSINOPHILS # (AUTO) 0.3 10^3/uL (0.0-0.7); EOSINOPHILS % (AUTO) 2.6 %; HGB - HEMOGLOBIN 13.7 g/dL (14.0-18.0); LYMPHOCYTES # (AUTO) 2.2 10^3/uL (1.5-3.5); MEAN CORPUSCULAR HEMOGLOBIN 32.6 pg (27.0-31.0); MEAN CORPUSCULAR HGB CONC 34.3 g/dL (32.0-36.0); MEAN CORPUSCULAR VOLUME 95.2 fL (80.0-94.0); MEAN PLATELET VOLUME 9.1 fL (7.4-11.4); MONOCYTES # (AUTO) 1.1 10^3/uL (0.0-1.0); MONOCYTES % (AUTO) 8.6 %; NEUTROPHILS % (AUTO) 71.4 %; PLT - PLATELET COUNT 235 10^3/uL (130-450); RED CELL DISTRIBUTION WIDTH 12.9 % (12.0-15.0); WHITE BLOOD COUNT 12.6 x10^3/uL (4.8-10.8)
[2021-06-11 10:31] LABS: CREATININE 0.5 mg/dL (0.6-1.2); POTASSIUM 3.6 mmol/L (3.5-5.0)
--- NOTE | 2021-06-11 10:47 | PROVIDER PROGRESS NOTE ---
Subjective - Prog Note Date Prog Note Date: 06/11/21 - Subjective Pt reports feeling: Improved Subjective: resting comfortably. spoke with nurse. tolerating current diet. Jitendra has communicated passing gas. Objective - Vital Signs/Intake & Output Reviewed Vital Signs: Yes Vital Signs: Vital Signs x48h Temp Pulse Resp BP Pulse Ox 06/11/21 07:46 36.8 C 75 18 115/53 L 96 Intake & Output: Intake & Output 06/08/21 06/09/21 06/10/21 06/11/21 23:59 23:59 23:59 23:59 Intake Total 1999 2121.667 3689.333 948.333 Balance 1999 2121.667 3689.333 948.333 - Objective General Appearance: positive: No acute distress Respiratory: positive: No respiratory distress Abdomen: positive: No distention - Lab Results Fish Bones: 06/11/21 10:00 06/11/21 10:00 Other Labs: Lab Results x24hrs 06/11/21 06/11/21 06/11/21 Range/Units 10:00 10:00 10:00 WBC 12.6 H (4.8-10.8) x10^3/uL RBC 4.20 L (4.70-6.10) 10^6/uL Hgb 13.7 L (14.0-18.0) g/dL Hct 40.0 L (42.0-52.0) % MCV 95.2 H (80.0-94.0) fL MCH 32.6 H (27.0-31.0) pg MCHC 34.3 (32.0-36.0) g/dL RDW 12.9 (12.0-15.0) % Plt Count 235 (130-450) 10^3/uL MPV 9.1 (7.4-11.4) fL Neut # (Auto) 9.0 H (1.5-6.6) 10^3/uL Lymph # (Auto) 2.2 (1.5-3.5) 10^3/uL [place] # (Auto) 1.1 H (0.0-1.0) 10^3/uL Eos # (Auto) 0.3 (0.0-0.7) 10^3/uL Baso # (Auto) 0.0 (0.0-0.1) 10^3/uL Absolute Nucleated RBC 0.00 x10^3/uL Nucleated RBC % 0.0 /100WBC Sodium 139 (135-145) mmol/L Potassium 3.6 (3.5-5.0) mmol/L Chloride 101 (101-111) mmol/L Carbon Dioxide 27 (21-32) mmol/L Anion Gap 11.0 (6-13) BUN 5 L (6-20) mg/dL Creatinine 0.5 L (0.6-1.2) mg/dL Estimated GFR (MDRD) 177 (>89) Glucose 97 (70-100) mg/dL Calcium 9.0 (8.5-10.3) mg/dL Magnesium 2.0 (1.7-2.8) mg/dL Phenytoin 13.3 ug/mL Assessment/Plan - Problem List (1) SBO (small bowel obstruction) Impression: agree with current care and plan
[2021-06-11] MEDS ORDERED: PHENYTOIN 100 MG/2 ML VIAL ONE (21:49)
[2021-06-11] MEDS: PHENYTOIN INJ 300 MG in SODIUM CHLORIDE 0.9% 100ML 100 ML IV SCH (21:55)
[2021-06-12] MEDS: SODIUM CHLORIDE FLUSH 0.9% 10 ML SYRINGE IVP SCH ×3 (03:19→21:11)
[2021-06-12] MEDS: D5NS W/20 MEQ KCL 1,000 ML IV SCH ×3 (04:23→23:58)
[2021-06-12] MEDS ORDERED: SIMETHICONE CHEW 80 MG TABLET PO PRN (07:39)
--- NOTE | 2021-06-12 08:27 | XRAY Report ---
PROCEDURE: Abdomen 1 View X-Ray INDICATIONS: if progess on SBO? TECHNIQUE: 1 view of the abdomen was acquired. COMPARISON: CT dated 06/08/2021. FINDINGS: Surgical changes and devices: Thoracolumbar sacral fusion hardware is present. Cholecystectomy clips are present. Bowel: No pneumoperitoneum. The bowel gas pattern is normal. Soft tissues: No masses; visualized solid organ contours appear normal in size. No suspicious abdom inal calcifications. Bones: No suspicious bony abnormalities. IMPRESSION: Small bowel dilatation previously seen by CT is not seen by plain film. Reviewed by: Faustino Herron MD on 06/12/2021 8:25 AM PST Approved by: Faustino Herron MD on 06/12/2021 8:25 AM PST Station ID: [id number]
[2021-06-12] MEDS: FAMOTIDINE 20 MG TABLET PO SCH (08:38)
[2021-06-12] MEDS: PANTOPRAZOLE 40 MG TABLET PO SCH (08:38)
[2021-06-12] MEDS: ENOXAPARIN 40 MG/0.4 ML SYRINGE SUBQ SCH (08:38)
[2021-06-12] MEDS ORDERED: ACETAMINOPHEN 325 MG TABLET PO PRN (09:28)
--- NOTE | 2021-06-12 11:13 | PROVIDER PROGRESS NOTE ---
Assessment/Plan - Problem List (1) SBO (small bowel obstruction) Assessment/Plan: 06/12 Improved. pt has No bowel movement yet. But pt was reported to pass gas. pt denies abdominal pain. pt tolerated liquid diet without nausea or vomiting. pt has pulled his NG tube by himself. order KUB reveal bowel gas pattern is normal. advanced pt's diet slowly with full liquid diet now because pt has frequent recurrent SBO. Continue pain management as needed. Patient's caregiver was encouraged to ambulate with the patient around the [facility] floor. (2) Moderate developmental delay Assessment/Plan: as pt's hx. He lives in a assisted. He communicates by pointing to pictures in his book. In the past he did not tolerate NG tubes and repeatedly pulls them out. He pulled the NG tube placed in the ED at the time of admission. (3) Seizure disorder Assessment/Plan: switch to po phenytoin Phenytoin level on 06/11/2021 was 13.3 (4) Leukocytosis Assessment/Plan: chronic elevated in the prior. Chest x-ray, CT abdomen pelvis and urine analysis did not support a potential infectious source. Blood culture show negative for bacteremia. We will continue to monitor. - Current Meds Current Meds: Current Medications Generic Name Dose Route Start Last Admin Trade Name Freq PRN Reason Stop Dose Admin Enoxaparin Sodium 40 mg 06/09/21 09:00 06/12/21 08:38 Enoxaparin 40 Mg/0.4 Ml Syringe SUBQ 40 mg DAILY SARAH Administration Famotidine 20 mg 06/12/21 09:00 06/12/21 08:38 Famotidine 20 Mg Tablet PO 20 mg DAILY SARAH Administration Potassium Chloride/Dextrose/Sod Cl 1,000 mls @ 100 mls/hr 06/08/21 21:00 06/12/21 04:23 D5ns W/20 Meq Kcl IV 100 mls/hr .Q10H SARAH Administration Ondansetron HCl 4 mg 06/08/21 20:56 06/09/21 00:12 Ondansetron 4 Mg/2 Ml Vial IVP 4 mg Q6HR PRN Administration Nausea / Vomiting Pantoprazole Sodium 40 mg 06/12/21 08:00 06/12/21 08:38 Pantoprazole 40 Mg Tablet PO 40 mg QDAC SARAH Administration Sodium Chloride 10 ml 06/09/21 01:00 06/12/21 08:39 Sodium Chloride Flush 0.9% 10 Ml Syringe IVP Not Given 0100,0900,1700 SARAH - Lab Result Fish Bone Diagrams: 06/11/21 10:00 06/11/21 10:00 - Additional Planning My Orders: My Active Orders 06/12/21 07:32 Miscellaenous Nursing Order [RC] QSHIFT 06/12/21 07:39 Simethicone [Mylicon] 80 mg PO Q3H PRN 06/12/21 08:00 Pantoprazole [Protonix] 40 mg PO QDAC 06/12/21 09:00 Famotidine [Pepcid] 20 mg PO DAILY 06/12/21 09:28 Acetaminophen [Tylenol] 650 mg PO Q4HR PRN 06/12/21 Lunch Full Liquid Diet [DIET] 06/12/21 21:00 Phenytoin [Dilantin] 300 mg PO QPM Subjective - Subjective Patient Reports: Resting Comfortably Objective Vital Signs: Vital Signs - 24 hr 06/11/21 06/12/21 06/12/21 15:55 00:00 07:26 Temperature 37.2 C 37.2 C 36.7 C Heart Rate [ 75 75 81 Brachial] Respiratory 18 17 18 Rate Blood Pressure 119/79 108/71 131/83 H [Right Brachial artery] O2 Saturation 98 96 98 Oxygen O2 Source Room air I&O (Last 24 Hrs): Intake and Output Totals x24h 06/10/21 06/11/21 06/12/21 23:59 23:59 23:59 Intake Total 3689.333 2959.333 775 Output Total 1 Balance 3689.333 2959.333 774 General: Alert, No acute distress HEENT: Atraumatic Neck: Supple Lymphatic: no adenopathy Neuro: Alert, Non Focal Cardiovascular: Regular rate, Normal S1, Normal S2 Respiratory: Chest non-tender, No respiratory distress Abdomen: Normal bowel sounds, Soft Extremities: Normal pulses - Results Results: Laboratory Results WBC 12.6 x10^3/uL (4.8-10.8) H 06/11/21 10:00 RBC 4.20 10^6/uL (4.70-6.10) L 06/11/21 10:00 Hgb 13.7 g/dL (14.0-18.0) L 06/11/21 10:00 Hct 40.0 % (42.0-52.0) L 06/11/21 10:00 MCV 95.2 fL (80.0-94.0) H 06/11/21 10:00 MCH 32.6 pg (27.0-31.0) H 06/11/21 10:00 MCHC 34.3 g/dL (32.0-36.0) 06/11/21 10:00 RDW 12.9 % (12.0-15.0) 06/11/21 10:00 Plt Count 235 10^3/uL (130-450) 06/11/21 10:00 MPV 9.1 fL (7.4-11.4) 06/11/21 10:00 Neut # (Auto) 9.0 10^3/uL (1.5-6.6) H 06/11/21 10:00 Lymph # (Auto) 2.2 10^3/uL (1.5-3.5) 06/11/21 10:00 [place] # (Auto) 1.1 10^3/uL (0.0-1.0) H 06/11/21 10:00 Eos # (Auto) 0.3 10^3/uL (0.0-0.7) 06/11/21 10:00 Baso # (Auto) 0.0 10^3/uL (0.0-0.1) 06/11/21 10:00 Absolute Nucleated RBC 0.00 x10^3/uL 06/11/21 10:00 Nucleated RBC % 0.0 /100WBC 06/11/21 10:00 Sodium 139 mmol/L (135-145) 06/11/21 10:00 Potassium 3.6 mmol/L (3.5-5.0) 06/11/21 10:00 Chloride 101 mmol/L (101-111) 06/11/21 10:00 Carbon Dioxide 27 mmol/L (21-32) 06/11/21 10:00 Anion Gap 11.0 (6-13) 06/11/21 10:00 BUN 5 mg/dL (6-20) L 06/11/21 10:00 Creatinine 0.5 mg/dL (0.6-1.2) L 06/11/21 10:00 Estimated GFR (MDRD) 177 (>89) 06/11/21 10:00 Glucose 97 mg/dL (70-100) 06/11/21 10:00 Lactic Acid 1.2 mmol/L (0.5-2.2) 06/10/21 08:01 Calcium 9.0 mg/dL (8.5-10.3) 06/11/21 10:00 Magnesium 2.0 mg/dL (1.7-2.8) 06/11/21 10:00 Total Bilirubin 0.4 mg/dL (0.2-1.0) 06/09/21 07:18 AST 29 IU/L (10-42) 06/09/21 07:18 ALT 31 IU/L (10-60) 06/09/21 07:18 Alkaline Phosphatase 126 IU/L (42-121) H 06/09/21 07:18 Total Protein 7.2 g/dL (6.7-8.2) 06/09/21 07:18 Albumin 3.5 g/dL (3.2-5.5) 06/09/21 07:18 Globulin 3.7 g/dL (2.1-4.2) 06/09/21 07:18 Albumin/Globulin Ratio 0.9 (1.0-2.2) L 06/09/21 07:18 Lipase 79 U/L (22-51) H 06/08/21 18:45 Urine Color YELLOW 06/08/21 20:30 Urine Clarity CLEAR (CLEAR) 06/08/21 20:30 Urine pH 7.0 PH (5.0-7.5) 06/08/21 20:30 Ur Specific [place] 1.020 (1.002-1.030) 06/08/21 20:30 Urine Protein NEGATIVE mg/dL (NEGATIVE) 06/08/21 20:30 Urine Glucose (UA) NEGATIVE mg/dL (NEGATIVE) 06/08/21 20:30 Urine Ketones 15 mg/dL (NEGATIVE) H 06/08/21 20:30 Urine Occult Blood MODERATE (NEGATIVE) H 06/08/21 20:30 Urine Nitrite NEGATIVE (NEGATIVE) 06/08/21 20:30 Urine Bilirubin NEGATIVE (NEGATIVE) 06/08/21 20:30 Urine Urobilinogen 0.2 (NORMAL) E.U./dL (NORMAL) 06/08/21 20:30 Ur Leukocyte Esterase NEGATIVE (NEGATIVE) 06/08/21 20:30 Urine RBC TNTC /HPF (0-5) H 06/08/21 20:30 Urine WBC 0-3 /HPF (0-3) 06/08/21 20:30 Ur Epithelial Cells RARE Transitional /HPF (<= Few) 06/08/21 20:30 Ur Squamous Epith Cells NONE SEEN (<= Few) 06/08/21 20:30 Urine Bacteria Few /HPF (None Seen) 06/08/21 20:30 Ur Microscopic Review INDICATED 06/08/21 20:30 Urine Culture Comments NOT INDICATED 06/08/21 20:30 Nasal Adenovirus (PCR) NOT DETECTED 06/08/21 20:30 Nasal B. parapertussis DNA (PCR) NOT DETECTED 06/08/21 20:30 Nasal Coronavir 229E PCR NOT DETECTED 06/08/21 20:30 Nasal Coronavir HKU1 PCR NOT DETECTED 06/08/21 20:30 Nasal Coronavir NL63 PCR NOT DETECTED 06/08/21 20:30 Nasal Coronavir OC43 PCR NOT DETECTED 06/08/21 20:30 Nasal Enterovir/Rhinovir PCR NOT DETECTED 06/08/21 20:30 Nasal Influenza B PCR NOT DETECTED 06/08/21 20:30 Nasal Influenza A PCR NOT DETECTED 06/08/21 20:30 Nasal Parainfluen 1 PCR NOT DETECTED 06/08/21 20:30 Nasal Parainfluen 2 PCR NOT DETECTED 06/08/21 20:30 Nasal Parainfluen 3 PCR NOT DETECTED 06/08/21 20:30 Nasal Parainfluen 4 PCR NOT DETECTED 06/08/21 20:30 Nasal RSV (PCR) NOT DETECTED 06/08/21 20:30 Nasal B.pertussis DNA PCR NOT DETECTED 06/08/21 20:30 Nasal C.pneumoniae (PCR) NOT DETECTED 06/08/21 20:30 El Human Metapneumo PCR NOT DETECTED 06/08/21 20:30 Nasal M.pneumoniae (PCR) NOT DETECTED 06/08/21 20:30 Nasal SARS-CoV-2 (PCR) NOT DETECTED 06/08/21 20:30 Phenytoin 13.3 ug/mL 06/11/21 10:00 - Procedures Procedures: Procedures ESOPHAGOGASTRODUODENOSCOPY [EGD] W/CLOSED BIOPSY (07/31/13) INSERT GASTRIC TUBE NEC (06/23/14) INSERTION OF INFUSION DEVICE INTO R [facility], PERC APPROACH (02/03/15) ULTRASONOGRAPHY OF RIGHT HEART (02/03/15) ABX Reporting Has patient been on IV antibiotics over the past 48 hours?: No Current Medications - Current Medications Current Medications: Active Medications Acetaminophen (Acetaminophen 325 Mg Tablet) 650 mg PO Q4HR PRN PRN Reason: Pain or Fever > 38C (100.4F) Enoxaparin Sodium (Enoxaparin 40 Mg/0.4 Ml Syringe) 40 mg SUBQ DAILY [facility] Last Admin: 06/12/21 08:38 Dose: 40 mg Famotidine (Famotidine 20 Mg Tablet) 20 mg PO DAILY [facility] Last Admin: 06/12/21 08:38 Dose: 20 mg Hydromorphone HCl (Hydromorphone 0.5 Mg/0.5 Ml Syringe) 0.5 mg IVP Q3H PRN PRN Reason: Severe Pain Potassium Chloride/Dextrose/Sod Cl (D5ns W/20 Meq Kcl) 1,000 mls @ 100 mls/hr IV .Q10H [facility] Last Admin: 06/12/21 04:23 Dose: 100 mls/hr Ondansetron HCl (Ondansetron 4 Mg/2 Ml Vial) 4 mg IVP Q6HR PRN PRN Reason: Nausea / Vomiting Last Admin: 06/09/21 00:12 Dose: 4 mg Pantoprazole Sodium (Pantoprazole 40 Mg Tablet) 40 mg PO QDAC [facility] Last Admin: 06/12/21 08:38 Dose: 40 mg Phenytoin Sodium (Phenytoin Er 100 Mg Capsule) 300 mg PO QPM [facility] Prochlorperazine Edisylate (Prochlorperazine 10 Mg/2 Ml Vial) 10 mg IVP Q6HR PRN PRN Reason: Nausea / Vomiting Simethicone (Simethicone Chew 80 Mg Tablet) 80 mg PO Q3H PRN PRN Reason: Gas Sodium Chloride (Sodium Chloride Flush 0.9% 10 Ml Syringe) 10 ml IVP PRN PRN PRN Reason: NEEDED PER PROVIDER ORDERS Sodium Chloride (Sodium Chloride Flush 0.9% 10 Ml Syringe) 10 ml IVP 0100,0900,1700 [facility] Last Admin: 02/15/22 08:39 Dose: Not Given Multivitamin [Multi-Vitamin Daily] 1 tab PO DAILY 05/12/13 Atorvastatin [Lipitor] 10 mg PO QPM 07/30/13 Acetaminophen [Tylenol] 650 mg PO Q4H PRN 09/19/16 Docusate Sodium 250Mg Capsule [Colace 250Mg Capsule] 250 mg PO BID 09/19/16 Ondansetron Odt [Zofran Odt] 4 mg TL Q6H PRN 09/19/16 Phenytoin [Dilantin] 300 mg PO QPM 09/19/16 Calcium Carbonate [Calcium] 1,200 mg PO DAILY 05/17/20 Cholecalciferol (Vitamin D3) [Vitamin D3] 100 mcg PO DAILY 05/17/20 Famotidine [Acid-Pep] 20 mg PO DAILY 05/17/20 Krill/Om-3/Dha/Epa/Phospho/Ast [Krill Oil 500 mg Softgel] 2 cap PO BID 05/17/20 Lactose-Reduced Food [Ensure Max Protein] 240 ml PO TID 05/17/20 Propylene Glycol [Systane Complete] 1 drops OP BID 05/17/20 Pantoprazole [Protonix] 40 mg PO QDAC 12/26/20 Simethicone [Mylicon] 80 mg PO Q3H PRN 06/09/21 guaiFENesin [Chest Congestion Relief] 200 mg PO QID PRN 06/09/21 polyethylene glycoL 3350 [Miralax] 17 gm PO DAILY PRN 06/09/21
[2021-06-12 11:32] LABS: BASOPHILS % (AUTO) 0.3 %; EOSINOPHILS # (AUTO) 0.3 10^3/uL (0.0-0.7); EOSINOPHILS % (AUTO) 2.5 %; HCT - HEMATOCRIT 43.8 % (42.0-52.0); LYMPHOCYTES # (AUTO) 1.6 10^3/uL (1.5-3.5); MEAN CORPUSCULAR HEMOGLOBIN 32.9 pg (27.0-31.0); MEAN CORPUSCULAR HGB CONC 34.2 g/dL (32.0-36.0); MEAN CORPUSCULAR VOLUME 96.1 fL (80.0-94.0); MEAN PLATELET VOLUME 10.1 fL (7.4-11.4); MONOCYTES # (AUTO) 1.3 10^3/uL (0.0-1.0); MONOCYTES % (AUTO) 9.4 %; NEUTROPHILS # (AUTO) 10.3 10^3/uL (1.5-6.6); NEUTROPHILS % (AUTO) 75.3 %; PLT - PLATELET COUNT 199 10^3/uL (130-450); RED BLOOD COUNT 4.56 10^6/uL (4.70-6.10); RED CELL DISTRIBUTION WIDTH 13.1 % (12.0-15.0); WHITE BLOOD COUNT 13.7 x10^3/uL (4.8-10.8)
[2021-06-12 11:48] LABS: CREATININE 0.5 mg/dL (0.6-1.2); POTASSIUM 4.1 mmol/L (3.5-5.0)
[2021-06-12 11:54] LABS: SLIDE REVIEW? Indicated
[2021-06-12 11:55] LABS: PLATELET MORPHOLOGY NORMAL APPEARANCE (NORMAL)
--- NOTE | 2021-06-12 14:54 | PROVIDER PROGRESS NOTE ---
Subjective - Prog Note Date Prog Note Date: 06/12/21 - Subjective Subjective: appears very well Objective - Vital Signs/Intake & Output Reviewed Vital Signs: Yes Vital Signs: Vital Signs x48h Temp Pulse Resp BP Pulse Ox 06/12/21 07:26 36.7 C 81 18 131/83 H 98 Intake & Output: Intake & Output 06/09/21 06/10/21 06/11/21 06/12/21 23:59 23:59 23:59 23:59 Intake Total 2121.667 3689.333 2959.333 2014 Output Total 1 Balance 2121.667 3689.333 2959.333 2013 - Objective General Appearance: positive: No acute distress, Alert Eyes Bilateral: positive: PERRL, EOMI Respiratory: positive: No respiratory distress Abdomen: positive: Non-tender, No distention - Lab Results Fish Bones: 06/12/21 11:25 06/12/21 11:25 Other Labs: Lab Results x24hrs 06/12/21 06/12/21 Range/Units 11:25 11:25 WBC 13.7 H (4.8-10.8) x10^3/uL RBC 4.56 L (4.70-6.10) 10^6/uL Hgb 15.0 (14.0-18.0) g/dL Hct 43.8 (42.0-52.0) % MCV 96.1 H (80.0-94.0) fL MCH 32.9 H (27.0-31.0) pg MCHC 34.2 (32.0-36.0) g/dL RDW 13.1 (12.0-15.0) % Plt Count 199 (130-450) 10^3/uL MPV 10.1 (7.4-11.4) fL Neut # (Auto) 10.3 H (1.5-6.6) 10^3/uL Lymph # (Auto) 1.6 (1.5-3.5) 10^3/uL Woodruff # (Auto) 1.3 H (0.0-1.0) 10^3/uL Eos # (Auto) 0.3 (0.0-0.7) 10^3/uL Baso # (Auto) 0.0 (0.0-0.1) 10^3/uL Absolute Nucleated RBC 0.00 x10^3/uL Nucleated RBC % 0.0 /100WBC Manual Slide Review Indicated Platelet Morphology NORMAL APPEARANCE (NORMAL) Sodium 137 (135-145) mmol/L Potassium 4.1 (3.5-5.0) mmol/L Chloride 100 L (101-111) mmol/L Carbon Dioxide 26 (21-32) mmol/L Anion Gap 11.0 (6-13) BUN 5 L (6-20) mg/dL Creatinine 0.5 L (0.6-1.2) mg/dL Estimated GFR (MDRD) 177 (>89) Glucose 93 (70-100) mg/dL Calcium 9.0 (8.5-10.3) mg/dL Magnesium 2.0 (1.7-2.8) mg/dL Assessment/Plan - Problem List (1) SBO (small bowel obstruction) Impression: No recorded bm; however, he appears very well. agree with care and plan.
[2021-06-12] MEDS ORDERED: PHENYTOIN ER 100 MG CAPSULE PO SCH (21:00)
[2021-06-13] MEDS: SODIUM CHLORIDE FLUSH 0.9% 10 ML SYRINGE IVP SCH ×3 (00:54→18:40)
[2021-06-13] MEDS: PANTOPRAZOLE 40 MG TABLET PO SCH (06:36)
[2021-06-13] MEDS: FAMOTIDINE 20 MG TABLET PO SCH (08:01)
[2021-06-13] MEDS: ENOXAPARIN 40 MG/0.4 ML SYRINGE SUBQ SCH (08:02)
[2021-06-13] MEDS ORDERED: polyethylene glycoL 3350 17 GM PACKET PO SCH (09:00)
[2021-06-13] MEDS: D5NS W/20 MEQ KCL 1,000 ML IV SCH ×2 (09:46→21:47)
--- NOTE | 2021-06-13 12:44 | XRAY Report ---
PROCEDURE: Abdomen 1 View X-Ray INDICATIONS: if SBO progress? pt has no bowel movement TECHNIQUE: 1 view of the abdomen was acquired. COMPARISON: June 12, 2021. FINDINGS: Surgical changes and devices: Redemonstrated bilateral spinal fixation hardware. Bowel: No pneumoperitoneum. Increased distention of the small bowel measuring up to 5.7 cm. Moderate stool burden in the rectosigmoid colon, which may reflect delayed transit. Soft tissues: No masses; visualized solid organ contours appear normal in size. No suspicious abdom inal calcifications. Bones: Diffuse osteopenia. No acute osseous abnormality. IMPRESSION: Distention of the small bowel as detailed above, compatible with at least partial obstru ction. Reviewed by: Rolando Zamora MD on 06/13/2021 12:43 PM [facility] Approved by: Rolando Zamora MD on 06/13/2021 12:43 PM [facility] Station ID: [id number]
--- NOTE | 2021-06-13 13:54 | PROVIDER PROGRESS NOTE ---
Assessment/Plan - Problem List (1) SBO (small bowel obstruction) Assessment/Plan: 06/13 pt still did not have bowel movement but he has no nausea or vomiting and he denies abdominal pain. he ate 75% his diet. because pt has multiple times of recurrent SBO, order KUB which still reveal at least partial obstruction. continue NPO, IVF. continue consult with surgeon. hold bowel protocol now. pt does not ambulate due to his Developmental delay. 06/12 Improved. pt has No bowel movement yet. But pt was reported to pass gas. pt denies abdominal pain. pt tolerated liquid diet without nausea or vomiting. pt h as pulled his NG tube by himself. order KUB reveal bowel gas pattern is normal. advanced pt's diet slowly with full liquid diet now because pt has frequent recurrent SBO. Continue pain management as needed. Patient's caregiver was encouraged to ambulate with the patient around the [facility] floor. (2) Moderate developmental delay Assessment/Plan: as pt's hx. He lives in a fdc. He communicates by pointing to pictures in his book. In the past he did not tolerate NG tubes and repeatedly pulls them out. He pulled the NG tube placed in the ED at the time of admission. (3) Seizure disorder Assessment/Plan: 06/13 switch to IV dilantin, seizure precaution for pt. switch to po phenytoin Phenytoin level on 06/11/2021 was 13.3 (4) Leukocytosis Assessment/Plan: chronic elevated in the prior. Chest x-ray, CT abdomen pelvis and urine analysis did not support a potential infectious source. Blood culture show negative for bacteremia. We will continue to monitor. - Current Meds Current Meds: Current Medications Generic Name Dose Route Start Last Admin Trade Name Freq PRN Reason Stop Dose Admin Enoxaparin Sodium 40 mg 06/09/21 09:00 06/13/21 08:02 Enoxaparin 40 Mg/0.4 Ml Syringe SUBQ Not Given DAILY SARAH Potassium Chloride/Dextrose/Sod Cl 1,000 mls @ 100 mls/hr 06/08/21 21:00 06/13/21 09:46 D5ns W/20 Meq Kcl IV 100 mls/hr .Q10H SARAH Administration Ondansetron HCl 4 mg 06/08/21 20:56 06/09/21 00:12 Ondansetron 4 Mg/2 Ml Vial IVP 4 mg Q6HR PRN Administration Nausea / Vomiting Sodium Chloride 10 ml 06/09/21 01:00 06/13/21 08:02 Sodium Chloride Flush 0.9% 10 Ml Syringe IVP Not Given 0100,0900,1700 SARAH - Lab Result Fish Bone Diagrams: 06/12/21 11:25 06/12/21 11:25 - Additional Planning My Orders: My Active Orders 06/13/21 08:06 BMP - BASIC METABOLIC PANEL [CHEM] Urgent CBC - COMP BLD CT W/AUTO DIFF [HEME] Urgent 06/13/21 13:21 NPO except Meds [DIET] 06/13/21 22:00 Phenytoin Inj [Dilantin Inj] 100 mg IVP TID 06/14/21 05:00 BMP - BASIC METABOLIC PANEL [CHEM] DAILYLAB CBC - COMP BLD CT W/AUTO DIFF [HEME] DAILYLAB 06/14/21 07:00 Pantoprazole [Protonix] 40 mg IVP QDAC 06/15/21 05:00 BMP - BASIC METABOLIC PANEL [CHEM] DAILYLAB CBC - COMP BLD CT W/AUTO DIFF [HEME] DAILYLAB 06/16/21 05:00 BMP - BASIC METABOLIC PANEL [CHEM] DAILYLAB CBC - COMP BLD CT W/AUTO DIFF [HEME] DAILYLAB 06/17/21 05:00 BMP - BASIC METABOLIC PANEL [CHEM] DAILYLAB CBC - COMP BLD CT W/AUTO DIFF [HEME] DAILYLAB 06/18/21 05:00 BMP - BASIC METABOLIC PANEL [CHEM] DAILYLAB CBC - COMP BLD CT W/AUTO DIFF [HEME] DAILYLAB Subjective - Subjective Patient Reports: Resting Comfortably Objective Vital Signs: Vital Signs - 24 hr 06/12/21 06/13/21 06/13/21 15:58 00:00 07:47 Temperature 36.8 C 36.5 C 36.9 C Heart Rate [ 94 74 80 Brachial] Respiratory 18 18 16 Rate Blood Pressure 131/84 H 125/77 104/67 [Right Brachial artery] O2 Saturation 96 95 96 Oxygen O2 Source Room air I&O (Last 24 Hrs): Intake and Output Totals x24h 06/11/21 06/12/21 06/13/21 23:59 23:59 23:59 Intake Total 2959.333 3433.333 1100 Output Total 1 Balance 2959.333 3432.333 1100 General: Alert, No acute distress HEENT: Atraumatic Neck: Supple Lymphatic: no adenopathy Neuro: Alert, Non Focal Cardiovascular: Regular rate, Normal S1, Normal S2 Respiratory: Chest non-tender, No respiratory distress Abdomen: Normal bowel sounds, Soft, No tenderness Extremities: Normal pulses - Results Results: Laboratory Results WBC 13.7 x10^3/uL (4.8-10.8) H 06/12/21 11:25 RBC 4.56 10^6/uL (4.70-6.10) L 06/12/21 11:25 Hgb 15.0 g/dL (14.0-18.0) 06/12/21 11:25 Hct 43.8 % (42.0-52.0) 06/12/21 11:25 MCV 96.1 fL (80.0-94.0) H 06/12/21 11:25 MCH 32.9 pg (27.0-31.0) H 06/12/21 11:25 MCHC 34.2 g/dL (32.0-36.0) 06/12/21 11:25 RDW 13.1 % (12.0-15.0) 06/12/21 11:25 Plt Count 199 10^3/uL (130-450) 06/12/21 11:25 MPV 10.1 fL (7.4-11.4) 06/12/21 11:25 Neut # (Auto) 10.3 10^3/uL (1.5-6.6) H 06/12/21 11:25 Lymph # (Auto) 1.6 10^3/uL (1.5-3.5) 06/12/21 11:25 [place] # (Auto) 1.3 10^3/uL (0.0-1.0) H 06/12/21 11:25 Eos # (Auto) 0.3 10^3/uL (0.0-0.7) 06/12/21 11:25 Baso # (Auto) 0.0 10^3/uL (0.0-0.1) 06/12/21 11:25 Absolute Nucleated RBC 0.00 x10^3/uL 06/12/21 11:25 Nucleated RBC % 0.0 /100WBC 06/12/21 11:25 Manual Slide Review Indicated 06/12/21 11:25 Platelet Morphology NORMAL APPEARANCE (NORMAL) 06/12/21 11:25 Sodium 137 mmol/L (135-145) 06/12/21 11:25 Potassium 4.1 mmol/L (3.5-5.0) 06/12/21 11:25 Chloride 100 mmol/L (101-111) L 06/12/21 11:25 Carbon Dioxide 26 mmol/L (21-32) 06/12/21 11:25 Anion Gap 11.0 (6-13) 06/12/21 11:25 BUN 5 mg/dL (6-20) L 06/12/21 11:25 Creatinine 0.5 mg/dL (0.6-1.2) L 06/12/21 11:25 Estimated GFR (MDRD) 177 (>89) 06/12/21 11:25 Glucose 93 mg/dL (70-100) 06/12/21 11:25 Lactic Acid 1.2 mmol/L (0.5-2.2) 06/10/21 08:01 Calcium 9.0 mg/dL (8.5-10.3) 06/12/21 11:25 Magnesium 2.0 mg/dL (1.7-2.8) 06/12/21 11:25 Total Bilirubin 0.4 mg/dL (0.2-1.0) 06/09/21 07:18 AST 29 IU/L (10-42) 06/09/21 07:18 ALT 31 IU/L (10-60) 06/09/21 07:18 Alkaline Phosphatase 126 IU/L (42-121) H 06/09/21 07:18 Total Protein 7.2 g/dL (6.7-8.2) 06/09/21 07:18 Albumin 3.5 g/dL (3.2-5.5) 06/09/21 07:18 Globulin 3.7 g/dL (2.1-4.2) 06/09/21 07:18 Albumin/Globulin Ratio 0.9 (1.0-2.2) L 06/09/21 07:18 Lipase 79 U/L (22-51) H 06/08/21 18:45 Urine Color YELLOW 06/08/21 20:30 Urine Clarity CLEAR (CLEAR) 06/08/21 20:30 Urine pH 7.0 PH (5.0-7.5) 06/08/21 20:30 Ur Specific [place] 1.020 (1.002-1.030) 06/08/21 20:30 Urine Protein NEGATIVE mg/dL (NEGATIVE) 06/08/21 20:30 Urine Glucose (UA) NEGATIVE mg/dL (NEGATIVE) 06/08/21 20: Urine Ketones 15 mg/dL (NEGATIVE) H 06/08/21 20: Urine Occult Blood MODERATE (NEGATIVE) H 06/08/21 20:30 Urine Nitrite NEGATIVE (NEGATIVE) 06/08/21 20: Urine Bilirubin NEGATIVE (NEGATIVE) 06/08/21 20: Urine Urobilinogen 0.2 (NORMAL) E.U./dL (NORMAL) 06/08/21 20:30 Ur Leukocyte Esterase NEGATIVE (NEGATIVE) 06/08/21 20:30 Urine RBC TNTC /HPF (0-5) H 06/08/21 20:30 Urine WBC 0-3 /HPF (0-3) 06/08/21 20:30 Ur Epithelial Cells RARE Transitional /HPF (<= Few) 06/08/21 20:30 Ur Squamous Epith Cells NONE SEEN (<= Few) 06/08/21 20:30 Urine Bacteria Few /HPF (None Seen) 06/08/21 20:30 Ur Microscopic Review INDICATED 06/08/21 20:30 Urine Culture Comments NOT INDICATED 06/08/21 20:30 Nasal Adenovirus (PCR) NOT DETECTED 06/08/21 20:30 Nasal B. parapertussis DNA (PCR) NOT DETECTED 06/08/21 20:30 Nasal Coronavir 229E PCR NOT DETECTED 06/08/21 20:30 Nasal Coronavir HKU1 PCR NOT DETECTED 06/08/21 20:30 Nasal Coronavir NL63 PCR NOT DETECTED 06/08/21 20:30 Nasal Coronavir OC43 PCR NOT DETECTED 06/08/21 20:30 Nasal Enterovir/Rhinovir PCR NOT DETECTED 06/08/21 20:30 Nasal Influenza B PCR NOT DETECTED 06/08/21 20:30 Nasal Influenza A PCR NOT DETECTED 06/08/21 20:30 Nasal Parainfluen 1 PCR NOT DETECTED 06/08/21 20:30 Nasal Parainfluen 2 PCR NOT DETECTED 06/08/21 20:30 Nasal Parainfluen 3 PCR NOT DETECTED 06/08/21 20:30 Nasal Parainfluen 4 PCR NOT DETECTED 06/08/21 20:30 Nasal RSV (PCR) NOT DETECTED 06/08/21 20:30 Nasal B.pertussis DNA PCR NOT DETECTED 06/08/21 20:30 Nasal C.pneumoniae (PCR) NOT DETECTED 06/08/21 20:30 El Human Metapneumo PCR NOT DETECTED 06/08/21 20:30 Nasal M.pneumoniae (PCR) NOT DETECTED 06/08/21 20:30 Nasal SARS-CoV-2 (PCR) NOT DETECTED 06/08/21 20:30 Phenytoin 13.3 ug/mL 06/11/21 10:00 - Procedures Procedures: Procedures ESOPHAGOGASTRODUODENOSCOPY [EGD] W/CLOSED BIOPSY (07/31/13) INSERT GASTRIC TUBE NEC (06/23/14) INSERTION OF INFUSION DEVICE INTO R ATRIUM, PERC APPROACH (02/03/15) ULTRASONOGRAPHY OF RIGHT HEART (02/03/15) ABX Reporting Has patient been on IV antibiotics over the past 48 hours?: No Current Medications - Current Medications Current Medications: Active Medications Acetaminophen (Acetaminophen 325 Mg Tablet) 650 mg PO Q4HR PRN PRN Reason: Pain or Fever > 38C (100.4F) Enoxaparin Sodium (Enoxaparin 40 Mg/0.4 Ml Syringe) 40 mg SUBQ DAILY [facility] Last Admin: 06/13/21 08:02 Dose: Not Given Hydromorphone HCl (Hydromorphone 0.5 Mg/0.5 Ml Syringe) 0.5 mg IVP Q3H PRN PRN Reason: Severe Pain Potassium Chloride/Dextrose/Sod Cl (D5ns W/20 Meq Kcl) 1,000 mls @ 100 mls/hr IV .Q10H SARAH Last Admin: 06/13/21 09:46 Dose: 100 mls/hr Ondansetron HCl (Ondansetron 4 Mg/2 Ml Vial) 4 mg IVP Q6HR PRN PRN Reason: Nausea / Vomiting Last Admin: 06/09/21 00:12 Dose: 4 mg Pantoprazole Sodium (Pantoprazole 40 Mg Vial) 40 mg IVP QDAC SARAH Phenytoin Sodium (Phenytoin 100 Mg/2 Ml Vial) 100 mg IVP TID SARAH Prochlorperazine Edisylate (Prochlorperazine 10 Mg/2 Ml Vial) 10 mg IVP Q6HR PRN PRN Reason: Nausea / Vomiting Simethicone (Simethicone Chew 80 Mg Tablet) 80 mg PO Q3H PRN PRN Reason: Gas Sodium Chloride (Sodium Chloride Flush 0.9% 10 Ml Syringe) 10 ml IVP PRN PRN PRN Reason: NEEDED PER PROVIDER ORDERS Sodium Chloride (Sodium Chloride Flush 0.9% 10 Ml Syringe) 10 ml IVP 0100,0900,1700 SARAH Last Admin: 06/13/21 08:02 Dose: Not Given Multivitamin [Multi-Vitamin Daily] 1 tab PO DAILY 05/12/13 Atorvastatin [Lipitor] 10 mg PO QPM 07/30/13 Acetaminophen [Tylenol] 650 mg PO Q4H PRN 09/19/16 Docusate Sodium 250Mg Capsule [Colace 250Mg Capsule] 250 mg PO BID 09/19/16 Ondansetron Odt [Zofran Odt] 4 mg TL Q6H PRN 09/19/16 Phenytoin [Dilantin] 300 mg PO QPM 09/19/16 Calcium Carbonate [Calcium] 1,200 mg PO DAILY 05/17/20 Cholecalciferol (Vitamin D3) [Vitamin D3] 100 mcg PO DAILY 05/17/20 Famotidine [Acid-Pep] 20 mg PO DAILY 05/17/20 Krill/Om-3/Dha/Epa/Phospho/Ast [Krill Oil 500 mg Softgel] 2 cap PO BID 05/17/20 Lactose-Reduced Food [Ensure Max Protein] 240 ml PO TID 05/17/20 Propylene Glycol [Systane Complete] 1 drops OP BID 05/17/20 Pantoprazole [Protonix] 40 mg PO QDAC 12/26/20 Simethicone [Mylicon] 80 mg PO Q3H PRN 06/09/21 guaiFENesin [Chest Congestion Relief] 200 mg PO QID PRN 06/09/21 polyethylene glycoL 3350 [Miralax] 17 gm PO DAILY PRN 06/09/21
[2021-06-13 15:36] LABS: BASOPHILS % (AUTO) 0.3 %; EOSINOPHILS # (AUTO) 0.3 10^3/uL (0.0-0.7); EOSINOPHILS % (AUTO) 3.2 %; HGB - HEMOGLOBIN 14.9 g/dL (14.0-18.0); LYMPHOCYTES # (AUTO) 1.5 10^3/uL (1.5-3.5); LYMPHOCYTES % (AUTO) 15.2 %; MEAN CORPUSCULAR HGB CONC 34.7 g/dL (32.0-36.0); MEAN CORPUSCULAR VOLUME 95.1 fL (80.0-94.0); MEAN PLATELET VOLUME 8.9 fL (7.4-11.4); MONOCYTES # (AUTO) 0.7 10^3/uL (0.0-1.0); MONOCYTES % (AUTO) 7.1 %; NEUTROPHILS % (AUTO) 73.4 %; PLT - PLATELET COUNT 307 10^3/uL (130-450); RED BLOOD COUNT 4.52 10^6/uL (4.70-6.10); RED CELL DISTRIBUTION WIDTH 12.9 % (12.0-15.0); WHITE BLOOD COUNT 9.6 x10^3/uL (4.8-10.8)
[2021-06-13 15:38] LABS: CALCIUM 9.1 mg/dL (8.5-10.3); CREATININE 0.5 mg/dL (0.6-1.2); POTASSIUM 4.2 mmol/L (3.5-5.0)
[2021-06-13] MEDS: ONDANSETRON 4 MG/2 ML VIAL IVP PRN (21:29)
[2021-06-13] MEDS: PHENYTOIN 100 MG/2 ML VIAL IVP SCH (21:51)
[2021-06-14] MEDS: SODIUM CHLORIDE FLUSH 0.9% 10 ML SYRINGE IVP SCH ×3 (00:02→18:36)
[2021-06-14] MEDS: PHENYTOIN 100 MG/2 ML VIAL IVP SCH ×3 (05:40→21:15)
[2021-06-14] MEDS: PANTOPRAZOLE 40 MG VIAL IVP SCH (06:00)
[2021-06-14] MEDS: INSULIN REGULAR HUMAN 300 UNIT/3 ML VIAL SUBQ SCH ×3 (06:04→18:35)
[2021-06-14] MEDS ORDERED: SODIUM CHLORIDE 0.9% 1,000 ML IV ONE (07:26)
[2021-06-14] MEDS: D5NS W/20 MEQ KCL 1,000 ML IV SCH ×2 (08:23→18:37)
[2021-06-14] MEDS: ENOXAPARIN 40 MG/0.4 ML SYRINGE SUBQ SCH (08:24)
[2021-06-14 09:29] LABS: BASOPHILS % (AUTO) 0.3 %; EOSINOPHILS # (AUTO) 0.3 10^3/uL (0.0-0.7); HCT - HEMATOCRIT 40.5 % (42.0-52.0); HGB - HEMOGLOBIN 13.8 g/dL (14.0-18.0); LYMPHOCYTES % (AUTO) 23.1 %; MEAN CORPUSCULAR HEMOGLOBIN 32.5 pg (27.0-31.0); MEAN CORPUSCULAR HGB CONC 34.1 g/dL (32.0-36.0); MEAN CORPUSCULAR VOLUME 95.3 fL (80.0-94.0); MEAN PLATELET VOLUME 9.7 fL (7.4-11.4); MONOCYTES # (AUTO) 0.7 10^3/uL (0.0-1.0); MONOCYTES % (AUTO) 8.1 %; NEUTROPHILS # (AUTO) 5.7 10^3/uL (1.5-6.6); NEUTROPHILS % (AUTO) 64.8 %; PLT - PLATELET COUNT 265 10^3/uL (130-450); RED BLOOD COUNT 4.25 10^6/uL (4.70-6.10); RED CELL DISTRIBUTION WIDTH 13.2 % (12.0-15.0); WHITE BLOOD COUNT 8.8 x10^3/uL (4.8-10.8)
[2021-06-14 09:44] LABS: BUN - BLOOD UREA NITROGEN < 5 mg/dL (6-20); CALCIUM 9.2 mg/dL (8.5-10.3); CARBON DIOXIDE - CO2 27 mmol/L (21-32); CHLORIDE 103 mmol/L (101-111); CREATININE 0.5 mg/dL (0.6-1.2); GFR - MDRD 177 (>89); GLUCOSE 105 mg/dL (70-100); POTASSIUM 3.7 mmol/L (3.5-5.0); SODIUM 141 mmol/L (135-145)
--- NOTE | 2021-06-14 10:16 | PROVIDER PROGRESS NOTE ---
Assessment/Plan - Problem List (1) SBO (small bowel obstruction) Assessment/Plan: 06/14 pt had nausea and vomiting on last night, KUB still show at least partial obstruction. pt had 6 days in hospital for SBO. pt is a young male. 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 continue IVF and lab monitor, Antiemesis as needed, continue encourage patient ambulate. 06/13 pt still did not have bowel movement but he has no nausea or vomiting and he denies abdominal pain. he ate 75% his diet. because pt has multiple times of recurrent SBO, order KUB which still reveal at least partial obstruction. continue NPO, IVF. continue consult with surgeon. hold bowel protocol now. pt does not ambulate due to his Developmental delay. 06/12 Improved. pt has No bowel movement yet. But pt was reported to pass gas. pt denies abdominal pain. pt tolerated liquid diet without nausea or vomiting. pt has pulled his NG tube by himself. order KUB reveal bowel gas pattern is normal. advanced pt's diet slowly with full liquid diet now because pt has frequent recurrent SBO. Continue pain management as needed. Patient's caregiver was encouraged to ambulate with the patient around the [facility] floor. (2) Moderate developmental delay Assessment/Plan: as pt's hx. He lives in a retirement. He communicates by pointing to pictures in his book. In the past he did not tolerate NG tubes and repeatedly pulls them out. He pulled the NG tube placed in the ED at the time of admission. (3) Seizure disorder Assessment/Plan: 06/13 switch to IV dilantin, seizure precaution for pt. switch to po phenytoin Phenytoin level on 06/11/2021 was 13.3 (4) Leukocytosis Assessment/Plan: chronic elevated in the prior. Chest x-ray, CT abdomen pelvis and urine analysis did not support a potential infectious source. Blood culture show negative for bacteremia. We will continue to monitor. - Current Meds Current Meds: Current Medications Generic Name Dose Route Start Last Admin Trade Name Freq PRN Reason Stop Dose Admin Enoxaparin Sodium 40 mg 06/09/21 09:00 06/14/21 08:24 Enoxaparin 40 Mg/0.4 Ml Syringe SUBQ 40 mg DAILY SARAH Administration Potassium Chloride/Dextrose/Sod Cl 1,000 mls @ 100 mls/hr 06/08/21 21:00 06/14/21 08:23 D5ns W/20 Meq Kcl IV 100 mls/hr .Q10H SARAH Administration Insulin Human Regular 1 - 5 unit 06/14/21 06:00 06/14/21 06:04 Insulin Regular Human 300 Unit/3 Ml Vial SUBQ Not Given Q6HR [facility] Protocol Ondansetron HCl 4 mg 06/08/21 20:56 06/13/21 21:29 Ondansetron 4 Mg/2 Ml Vial IVP 4 mg Q6HR PRN Administration Nausea / Vomiting Pantoprazole Sodium 40 mg 06/14/21 07:00 06/14/21 06:00 Pantoprazole 40 Mg Vial IVP 40 mg QDAC SARAH Administration Phenytoin Sodium 100 mg 06/13/21 22:00 06/14/21 05:40 Phenytoin 100 Mg/2 Ml Vial IVP 100 mg TID SARAH Administration Prochlorperazine Edisylate 10 mg 06/08/21 20:56 06/14/21 00:01 Prochlorperazine 10 Mg/2 Ml Vial IVP 10 mg Q6HR PRN Administration Nausea / Vomiting Sodium Chloride 10 ml 06/09/21 01:00 06/14/21 09:53 Sodium Chloride Flush 0.9% 10 Ml Syringe IVP Not Given 0100,0900,1700 SARAH - Lab Result Fish Bone Diagrams: 06/14/21 09:04 06/14/21 09:04 - Additional Planning My Orders: My Active Orders 06/13/21 13:21 NPO except Meds [DIET] 06/13/21 22:00 Phenytoin Inj [Dilantin Inj] 100 mg IVP TID 06/14/21 07:00 Pantoprazole [Protonix] 40 mg IVP QDAC 06/14/21 09:02 PICC Line Care [RC] Q7D PICC Line Insert [RC] .ONCE 06/15/21 05:00 BMP - BASIC METABOLIC PANEL [CHEM] DAILYLAB CBC - COMP BLD CT W/AUTO DIFF [HEME] DAILYLAB 06/16/21 05:00 BMP - BASIC METABOLIC PANEL [CHEM] DAILYLAB CBC - COMP BLD CT W/AUTO DIFF [HEME] DAILYLAB 06/17/21 05:00 BMP - BASIC METABOLIC PANEL [CHEM] DAILYLAB CBC - COMP BLD CT W/AUTO DIFF [HEME] DAILYLAB 06/18/21 05:00 BMP - BASIC METABOLIC PANEL [CHEM] DAILYLAB CBC - COMP BLD CT W/AUTO DIFF [HEME] DAILYLAB Subjective - Subjective Patient Reports: Resting Comfortably Objective Vital Signs: Vital Signs - 24 hr 06/13/21 06/13/21 06/13/21 15:50 21:51 21:56 Temperature 37.2 C Heart Rate [ 78 84 88 Brachial] Respiratory 16 Rate Blood Pressure 138/82 H 109/67 120/90 H [Right Brachial artery] O2 Saturation 99 06/13/21 06/13/21 06/13/21 22:01 22:06 22:21 Temperature Heart Rate [ 82 82 79 Brachial] Respiratory Rate Blood Pressure 116/73 104/62 101/60 [Right Brachial artery] O2 Saturation 06/13/21 06/13/21 06/14/21 22:36 22:51 00:00 Temperature 36.9 C Heart Rate [ 81 77 84 Brachial] Respiratory 16 Rate Blood Pressure 101/60 102/62 119/74 [Right Brachial artery] O2 Saturation 95 06/14/21 06/14/21 06/14/21 05:42 05:45 05:50 Temperature Heart Rate [ 77 71 72 Brachial] Respiratory Rate Blood Pressure 107/55 L 113/74 94/59 L [Right Brachial artery] O2 Saturation 06/14/21 06/14/21 05:55 07:55 Temperature 36.2 C L Heart Rate [ 65 69 Brachial] Respiratory 17 Rate Blood Pressure 92/55 L 139/75 H [Right Brachial artery] O2 Saturation 98 Oxygen O2 Source Room air I&O (Last 24 Hrs): Intake and Output Totals x24h 06/12/21 06/13/21 06/14/21 23:59 23:59 23:59 Intake Total 3433.333 2251.667 968.333 Output Total 1 10 Balance 3432.333 2241.667 968.333 General: Alert, No acute distress HEENT: Atraumatic Neck: Supple Lymphatic: no adenopathy Neuro: Alert, Non Focal Cardiovascular: Regular rate, Normal S1, Normal S2 Respiratory: Chest non-tender, No respiratory distress Abdomen: Normal bowel sounds, Soft, No tenderness Extremities: Normal pulses - Results Results: Laboratory Results WBC 8.8 x10^3/uL (4.8-10.8) 06/14/21 09:04 RBC 4.25 10^6/uL (4.70-6.10) L 06/14/21 09:04 Hgb 13.8 g/dL (14.0-18.0) L 06/14/21 09:04 Hct 40.5 % (42.0-52.0) L 06/14/21 09:04 MCV 95.3 fL (80.0-94.0) H 06/14/21 09:04 MCH 32.5 pg (27.0-31.0) H 06/14/21 09:04 MCHC 34.1 g/dL (32.0-36.0) 06/14/21 09:04 RDW 13.2 % (12.0-15.0) 06/14/21 09:04 Plt Count 265 10^3/uL (130-450) 06/14/21 09:04 MPV 9.7 fL (7.4-11.4) 06/14/21 09:04 Neut # (Auto) 5.7 10^3/uL (1.5-6.6) 06/14/21 09:04 Lymph # (Auto) 2.0 10^3/uL (1.5-3.5) 06/14/21 09:04 [place] # (Auto) 0.7 10^3/uL (0.0-1.0) 06/14/21 09:04 Eos # (Auto) 0.3 10^3/uL (0.0-0.7) 06/14/21 09:04 Baso # (Auto) 0.0 10^3/uL (0.0-0.1) 06/14/21 09:04 Absolute Nucleated RBC 0.00 x10^3/uL 06/14/21 09:04 Nucleated RBC % 0.0 /100WBC 06/14/21 09:04 Manual Slide Review Indicated 06/12/21 11:25 Platelet Morphology NORMAL APPEARANCE (NORMAL) 06/12/21 11:25 Sodium 141 mmol/L (135-145) 06/14/21 09:04 Potassium 3.7 mmol/L (3.5-5.0) 06/14/21 09:04 Chloride 103 mmol/L (101-111) 06/14/21 09:04 Carbon Dioxide 27 mmol/L (21-32) 06/14/21 09:04 Anion Gap 11.0 (6-13) 06/14/21 09:04 BUN < 5 mg/dL (6-20) L 06/14/21 09:04 Creatinine 0.5 mg/dL (0.6-1.2) L 06/14/21 09:04 Estimated GFR (MDRD) 177 (>89) 06/14/21 09:04 Glucose 105 mg/dL (70-100) H 06/14/21 09:04 Lactic Acid 1.2 mmol/L (0.5-2.2) 06/10/21 08:01 Calcium 9.2 mg/dL (8.5-10.3) 06/14/21 09:04 Magnesium 2.0 mg/dL (1.7-2.8) 06/12/21 11:25 Total Bilirubin 0.4 mg/dL (0.2-1.0) 06/09/21 07:18 AST 29 IU/L (10-42) 06/09/21 07:18 ALT 31 IU/L (10-60) 06/09/21 07:18 Alkaline Phosphatase 126 IU/L (42-121) H 06/09/21 07:18 Total Protein 7.2 g/dL (6.7-8.2) 06/09/21 07:18 Albumin 3.5 g/dL (3.2-5.5) 06/09/21 07:18 Globulin 3.7 g/dL (2.1-4.2) 06/09/21 07:18 Albumin/Globulin Ratio 0.9 (1.0-2.2) L 06/09/21 07:18 Lipase 79 U/L (22-51) H 06/08/21 18:45 Urine Color YELLOW 06/08/21 20:30 Urine Clarity CLEAR (CLEAR) 06/08/21 20:30 Urine pH 7.0 PH (5.0-7.5) 06/08/21 20:30 Ur Specific [place] 1.020 (1.002-1.030) 06/08/21 20:30 Urine Protein NEGATIVE mg/dL (NEGATIVE) 06/08/21 20:30 Urine Glucose (UA) NEGATIVE mg/dL (NEGATIVE) 06/08/21 20: Urine Ketones 15 mg/dL (NEGATIVE) H 06/08/21 20:30 Urine Occult Blood MODERATE (NEGATIVE) H 06/08/21 20:30 Urine Nitrite NEGATIVE (NEGATIVE) 06/08/21 20:30 Urine Bilirubin NEGATIVE (NEGATIVE) 06/08/21 20: Urine Urobilinogen 0.2 (NORMAL) E.U./dL (NORMAL) 06/08/21 20: Ur Leukocyte Esterase NEGATIVE (NEGATIVE) 06/08/21 20: Urine RBC TNTC /HPF (0-5) H 06/08/21 20: Urine WBC 0-3 /HPF (0-3) 06/08/21 20: Ur Epithelial Cells RARE Transitional /HPF (<= Few) 06/08/21 20:30 Ur Squamous Epith Cells NONE SEEN (<= Few) 06/08/21 20: Urine Bacteria Few /HPF (None Seen) 06/08/21 20: Ur Microscopic Review INDICATED 06/08/21 20:30 Urine Culture Comments NOT INDICATED 06/08/21 20:30 Nasal Adenovirus (PCR) NOT DETECTED 06/08/21 20:30 Nasal B. parapertussis DNA (PCR) NOT DETECTED 06/08/21 20:30 Nasal Coronavir 229E PCR NOT DETECTED 06/08/21 20:30 Nasal Coronavir HKU1 PCR NOT DETECTED 06/08/21 20:30 Nasal Coronavir NL63 PCR NOT DETECTED 06/08/21 20:30 Nasal Coronavir OC43 PCR NOT DETECTED 06/08/21 20:30 Nasal Enterovir/Rhinovir PCR NOT DETECTED 06/08/21 20:30 Nasal Influenza B PCR NOT DETECTED 06/08/21 20:30 Nasal Influenza A PCR NOT DETECTED 06/08/21 20:30 Nasal Parainfluen 1 PCR NOT DETECTED 06/08/21 20:30 Nasal Parainfluen 2 PCR NOT DETECTED 06/08/21 20:30 Nasal Parainfluen 3 PCR NOT DETECTED 06/08/21 20:30 Nasal Parainfluen 4 PCR NOT DETECTED 06/08/21 20:30 Nasal RSV (PCR) NOT DETECTED 06/08/21 20:30 Nasal B.pertussis DNA PCR NOT DETECTED 06/08/21 20:30 Nasal C.pneumoniae (PCR) NOT DETECTED 06/08/21 20:30 El Human Metapneumo PCR NOT DETECTED 06/08/21 20:30 Nasal M.pneumoniae (PCR) NOT DETECTED 06/08/21 20:30 Nasal SARS-CoV-2 (PCR) NOT DETECTED 06/08/21 20:30 Phenytoin 13.3 ug/mL 06/11/21 10:00 - Procedures Procedures: Procedures ESOPHAGOGASTRODUODENOSCOPY [EGD] W/CLOSED BIOPSY (07/31/13) INSERT GASTRIC TUBE NEC (06/23/14) INSERTION OF INFUSION DEVICE INTO R ATRIUM, PERC APPROACH (02/03/15) ULTRASONOGRAPHY OF RIGHT HEART (02/03/15) ABX Reporting Has patient been on IV antibiotics over the past 48 hours?: No Current Medications - Current Medications Current Medications: Active Medications Acetaminophen (Acetaminophen 325 Mg Tablet) 650 mg PO Q4HR PRN PRN Reason: Pain or Fever > 38C (100.4F) Enoxaparin Sodium (Enoxaparin 40 Mg/0.4 Ml Syringe) 40 mg SUBQ DAILY [facility] Last Admin: 06/14/21 08:24 Dose: 40 mg Hydromorphone HCl (Hydromorphone 0.5 Mg/0.5 Ml Syringe) 0.5 mg IVP Q3H PRN PRN Reason: Severe Pain Potassium Chloride/Dextrose/Sod Cl (D5ns W/20 Meq Kcl) 1,000 mls @ 100 mls/hr IV .Q10H [facility] Last Admin: 06/14/21 08:23 Dose: 100 mls/hr Insulin Human Regular (Insulin Regular Human 300 Unit/3 Ml Vial) 1 - 5 unit SUBQ Q6HR [facility]; Protocol Last Admin: 06/14/21 06:04 Dose: Not Given Ondansetron HCl (Ondansetron 4 Mg/2 Ml Vial) 4 mg IVP Q6HR PRN PRN Reason: Nausea / Vomiting Last Admin: 06/13/21 21:29 Dose: 4 mg Pantoprazole Sodium (Pantoprazole 40 Mg Vial) 40 mg IVP QDAC [facility] Last Admin: 06/14/21 06:00 Dose: 40 mg Phenytoin Sodium (Phenytoin 100 Mg/2 Ml Vial) 100 mg IVP TID [facility] Last Admin: 06/14/21 05:40 Dose: 100 mg Prochlorperazine Edisylate (Prochlorperazine 10 Mg/2 Ml Vial) 10 mg IVP Q6HR PRN PRN Reason: Nausea / Vomiting Last Admin: 06/14/21 00:01 Dose: 10 mg Simethicone (Simethicone Chew 80 Mg Tablet) 80 mg PO Q3H PRN PRN Reason: Gas Sodium Chloride (Sodium Chloride Flush 0.9% 10 Ml Syringe) 10 ml IVP PRN PRN PRN Reason: NEEDED PER PROVIDER ORDERS Sodium Chloride (Sodium Chloride Flush 0.9% 10 Ml Syringe) 10 ml IVP 0100,0900,1700 [facility] Last Admin: 06/14/21 09:53 Dose: Not Given Multivitamin [Multi-Vitamin Daily] 1 tab PO DAILY 05/12/13 Atorvastatin [Lipitor] 10 mg PO QPM 07/30/13 Acetaminophen [Tylenol] 650 mg PO Q4H PRN 09/19/16 Docusate Sodium 250Mg Capsule [Colace 250Mg Capsule] 250 mg PO BID 09/19/16 Ondansetron Odt [Zofran Odt] 4 mg TL Q6H PRN 09/19/16 Phenytoin [Dilantin] 300 mg PO QPM 09/19/16 Calcium Carbonate [Calcium] 1,200 mg PO DAILY 05/17/20 Cholecalciferol (Vitamin D3) [Vitamin D3] 100 mcg PO DAILY 05/17/20 Famotidine [Acid-Pep] 20 mg PO DAILY 05/17/20 Krill/Om-3/Dha/Epa/Phospho/Ast [Krill Oil 500 mg Softgel] 2 cap PO BID 05/17/20 Lactose-Reduced Food [Ensure Max Protein] 240 ml PO TID 05/17/20 Propylene Glycol [Systane Complete] 1 drops OP BID 05/17/20 Pantoprazole [Protonix] 40 mg PO QDAC 12/26/20 Simethicone [Mylicon] 80 mg PO Q3H PRN 06/09/21 guaiFENesin [Chest Congestion Relief] 200 mg PO QID PRN 06/09/21 polyethylene glycoL 3350 [Miralax] 17 gm PO DAILY PRN 06/09/21
--- NOTE | 2021-06-14 14:53 | XRAY Report ---
PROCEDURE: Chest for Line Placement INDICATIONS: New PICC line TECHNIQUE: One view of the chest was acquired. COMPARISON: 05/21/2020 FINDINGS: Surgical changes and devices: Bilateral spinal fixation rods are present. Right arm PICC is present, tip of which extends into the right internal jugular vein. Lungs and pleura: No pleural effusions or pneumothorax. Lungs are clear. Mediastinum: Mediastinal contours appear normal. Heart size is normal. Bones and chest wall: No suspicious bony lesions. Overlying soft tissues appear unremarkable. IMPRESSION: Right arm PICC extends into the right internal jugular vein. Reviewed by: Faustino Herron MD on 06/14/2021 2:52 PM PST Approved by: Faustino Herron MD on 06/14/2021 2:52 PM PST Station ID: [id number]
--- NOTE | 2021-06-14 14:53 | PROVIDER PROGRESS NOTE ---
Subjective - Subjective Subjective: small emesis no bm for days Objective - Vital Signs/Intake & Output Vital Signs: Vital Signs x48h Temp Pulse Resp BP BP Pulse Ox 06/14/21 14:48 76 126/72 06/14/21 14:44 77 121/82 H 06/14/21 14:39 69 119/101 H 06/14/21 14:30 84 147/77 H 06/14/21 07:55 36.2 C L 69 17 139/75 H 98 Intake & Output: Intake & Output 06/11/21 06/12/21 06/13/21 06/14/21 23:59 23:59 23:59 23:59 Intake Total 2959.333 3433.333 2251.667 1595.000 Output Total 1 10 Balance 2959.333 3432.333 2241.667 1595.000 - Objective General Appearance: positive: Other (picc line being placed. not examined) - Lab Results Fish Bones: 06/14/21 09:04 06/14/21 09:04 Other Labs: Lab Results x24hrs 06/14/21 06/14/21 06/13/21 Range/Units 09:04 09:04 15:25 WBC 8.8 (4.8-10.8) x10^3/uL RBC 4.25 L (4.70-6.10) 10^6/uL Hgb 13.8 L (14.0-18.0) g/dL Hct 40.5 L (42.0-52.0) % MCV 95.3 H (80.0-94.0) fL MCH 32.5 H (27.0-31.0) pg MCHC 34.1 (32.0-36.0) g/dL RDW 13.2 (12.0-15.0) % Plt Count 265 (130-450) 10^3/uL MPV 9.7 (7.4-11.4) fL Neut # (Auto) 5.7 (1.5-6.6) 10^3/uL Lymph # (Auto) 2.0 (1.5-3.5) 10^3/uL Luce # (Auto) 0.7 (0.0-1.0) 10^3/uL Eos # (Auto) 0.3 (0.0-0.7) 10^3/uL Baso # (Auto) 0.0 (0.0-0.1) 10^3/uL Absolute Nucleated RBC 0.00 x10^3/uL Nucleated RBC % 0.0 /100WBC Sodium 141 138 (135-145) mmol/L Potassium 3.7 4.2 (3.5-5.0) mmol/L Chloride 103 100 L (101-111) mmol/L Carbon Dioxide 27 28 (21-32) mmol/L Anion Gap 11.0 10.0 (6-13) BUN < 5 L 5 L (6-20) mg/dL Creatinine 0.5 L 0.5 L (0.6-1.2) mg/dL Estimated GFR (MDRD) 177 177 (>89) Glucose 105 H 113 H (70-100) mg/dL Calcium 9.2 9.1 (8.5-10.3) mg/dL 06/13/21 Range/Units 15:25 WBC 9.6 (4.8-10.8) x10^3/uL RBC 4.52 L (4.70-6.10) 10^6/uL Hgb 14.9 (14.0-18.0) g/dL Hct 43.0 (42.0-52.0) % MCV 95.1 H (80.0-94.0) fL MCH 33.0 H (27.0-31.0) pg MCHC 34.7 (32.0-36.0) g/dL RDW 12.9 (12.0-15.0) % Plt Count 307 (130-450) 10^3/uL MPV 8.9 (7.4-11.4) fL Neut # (Auto) 7.0 H (1.5-6.6) 10^3/uL Lymph # (Auto) 1.5 (1.5-3.5) 10^3/uL Luce # (Auto) 0.7 (0.0-1.0) 10^3/uL Eos # (Auto) 0.3 (0.0-0.7) 10^3/uL Baso # (Auto) 0.0 (0.0-0.1) 10^3/uL Absolute Nucleated RBC 0.00 x10^3/uL Nucleated RBC % 0.0 /100WBC Sodium (135-145) mmol/L Potassium (3.5-5.0) mmol/L Chloride (101-111) mmol/L Carbon Dioxide (21-32) mmol/L Anion Gap (6-13) BUN (6-20) mg/dL Creatinine (0.6-1.2) mg/dL Estimated GFR (MDRD) (>89) Glucose (70-100) mg/dL Calcium (8.5-10.3) mg/dL - Diagnostic Imaging Diagnostic Imaging Results: positive: Read independently (mild dilation small bowel. air in colon. rectum distended and full of stool) Assessment/Plan - Problem List (1) SBO (small bowel obstruction) Impression: partial small bowel obstruction rectum full of stool agree with care and plan enemas recommend as well as bowel protocol ie miralax
--- NOTE | 2021-06-14 16:10 | ANESTHESIA PROCEDURE NOTE ---
Anesth Central Line Template - Central Line Central Line Preparation: Consent Obtained, Time out completed, Ultrasound used, Sterile prep and drape Central line location: Right Brachial Central line type: PICC Double Lumen Central line catheter tip site resides: [facility], right Central line aftercare: Secured, Placement confirmed, No pneumothorax, No complications, Bundle checklist complete, Pt tolerated well
--- NOTE | 2021-06-14 16:43 | CONSULTATION NOTE ---
Consultation Report: consulted for PICC line placement by Hospitalist team. Informed consent obtained and witnessed, pt is nonverbal but communicated through nodding his head and pt nodded "yes" to agreeing to PICC placement. L arm chronically contracted and unable to use for PICC access. R arm chronically contracted, but with more mobility and able to locate vascular access with US. Pt prepped and draped in sterile fashion. 5Fr 2-lumen PICC placed with US guidance in R basillic vein, aspirated and threaded easily. No resistance noted. CXR obtained and PICC line noted to be in RIJ. Attempted to reposition PICC line to guide tip toward SVC, unsuccessful after several attempts. Aborted attempt to reposition line. PICC line d/c'd, hemostasis achieved. Pt tolerated well. 2nd attempt to place PICC line using US guidance in R brachial vein, successfully placed and verified using Teleflex VPS rhythm tracker and appropriate P waves changes noted. See an esthesia record for imaging. Sterile technique maintained, line secured at 36cm with steri-strips and Statlock, and sterile dressing applied. All ports aspirated and flushed easily. NAC. Repeat CXR not required due to placement verification with Tele[employer] VPS system.
[2021-06-14] MEDS: FAT EMULSION 20% 250 ML IV SCH (18:36)
[2021-06-14] MEDS: TPN (CLINIMIX E 5/15) 2,000 ML with MULTIVITAMIN 10 ML, TRACE ELEMENTS 1 ML IV SCH ×3 (18:36)
[2021-06-14] MEDS: SODIUM CHLORIDE 0.9% 1,000 ML IV SCH (18:36)
[2021-06-14] MEDS ORDERED: TRACE ELEMENTS IV SCH (19:00)
[2021-06-14] MEDS ORDERED: TPN IV SCH (19:00)
[2021-06-14] MEDS ORDERED: FAT EMULSION 20% 250 ML IV SCH (19:00)
[2021-06-14] MEDS ORDERED: MULTIVITAMIN IV SCH (19:00)
[2021-06-15] MEDS: INSULIN REGULAR HUMAN 300 UNIT/3 ML VIAL SUBQ SCH ×4 (00:02→19:14)
[2021-06-15] MEDS: SODIUM CHLORIDE FLUSH 0.9% 10 ML SYRINGE IVP SCH ×4 (00:02→23:38)
[2021-06-15] MEDS: SODIUM CHLORIDE FLUSH 0.9% 10 ML SYRINGE IVP PRN ×3 (00:02→23:38)
[2021-06-15] MEDS: PHENYTOIN 100 MG/2 ML VIAL IVP SCH ×3 (05:42→21:50)
[2021-06-15] MEDS: PANTOPRAZOLE 40 MG VIAL IVP SCH (05:42)
[2021-06-15 06:04] LABS: BASOPHILS % (AUTO) 0.3 %; EOSINOPHILS # (AUTO) 0.4 10^3/uL (0.0-0.7); EOSINOPHILS % (AUTO) 3.7 %; HCT - HEMATOCRIT 35.3 % (42.0-52.0); HGB - HEMOGLOBIN 12.2 g/dL (14.0-18.0); LYMPHOCYTES # (AUTO) 1.5 10^3/uL (1.5-3.5); LYMPHOCYTES % (AUTO) 14.3 %; MEAN CORPUSCULAR HGB CONC 34.6 g/dL (32.0-36.0); MEAN CORPUSCULAR VOLUME 95.4 fL (80.0-94.0); MEAN PLATELET VOLUME 8.8 fL (7.4-11.4); MONOCYTES # (AUTO) 0.8 10^3/uL (0.0-1.0); MONOCYTES % (AUTO) 7.4 %; NEUTROPHILS # (AUTO) 7.7 10^3/uL (1.5-6.6); NEUTROPHILS % (AUTO) 73.5 %; PLT - PLATELET COUNT 277 10^3/uL (130-450); RED CELL DISTRIBUTION WIDTH 12.8 % (12.0-15.0); WHITE BLOOD COUNT 10.5 x10^3/uL (4.8-10.8)
[2021-06-15 06:19] LABS: ALBUMIN 2.9 g/dL (3.2-5.5); ALBUMIN/GLOBULIN RATIO 0.8 (1.0-2.2); ALKALINE PHOSPHATASE 121 IU/L (42-121); ALT ALANINE AMINOTRANSFERASE 26 IU/L (10-60); AST ASPARTATE AMINOTRANSFERASE 25 IU/L (10-42); BILIRUBIN,TOTAL < 0.2 mg/dL (0.2-1.0); BUN - BLOOD UREA NITROGEN 9 mg/dL (6-20); CALCIUM 7.9 mg/dL (8.5-10.3); CARBON DIOXIDE - CO2 26 mmol/L (21-32); CHLORIDE 105 mmol/L (101-111); CREATININE 0.4 mg/dL (0.6-1.2); GFR - MDRD 229 (>89); GLUCOSE 92 mg/dL (70-100); MAGNESIUM 1.7 mg/dL (1.7-2.8); PHOSPHORUS 3.1 mg/dL (2.5-4.6); POTASSIUM 3.4 mmol/L (3.5-5.0); PREALBUMIN 14 mg/dL (18-45); SODIUM 138 mmol/L (135-145); TOTAL PROTEIN 6.4 g/dL (6.7-8.2); TRIGLYCERIDES 108 mg/dL
[2021-06-15] MEDS ORDERED: POTASSIUM CHLORIDE 20 MEQ TABLET PO ONE (07:19)
[2021-06-15] MEDS: POTASSIUM CHLOR 10 MEQ/100 ML 10 MEQ/100 ML BAG IV SCH ×2 (08:49→09:46)
[2021-06-15] MEDS: ENOXAPARIN 40 MG/0.4 ML SYRINGE SUBQ SCH (08:49)
--- NOTE | 2021-06-15 08:58 | PROVIDER PROGRESS NOTE ---
Assessment/Plan - Problem List (1) SBO (small bowel obstruction) Assessment/Plan: 06/15 pt had PICC and started on TPN, continue lab monitor. continue surgeon's consult and nurse may get order from surgeon, pt may gradually and slowly start on diet 06/14 pt had nausea and vomiting on last night, KUB still show at least partial obstruction. pt had 6 days in hospital for SBO. pt is a young male. 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 continue IVF and lab monitor, Antiemesis as needed, continue encourage patient ambulate. 06/13 pt still did not have bowel movement but he has no nausea or vomiting and he denies abdominal pain. he ate 75% his diet. because pt has multiple times of recurrent SBO, order KUB which still reveal at least partial obstruction. continue NPO, IVF. continue consult with surgeon. hold bowel protocol now. pt does not ambulate due to his Developmental delay. 06/12 Improved. pt has No bowel movement yet. But pt was reported to pass gas. pt denies abdominal pain. pt tolerated liquid diet without nausea or vomiting. pt has pulled his NG tube by himself. order KUB reveal bowel gas pattern is normal. advanced pt's diet slowly with full liquid diet now because pt has frequent recurrent SBO. Continue pain management as needed. Patient's caregiver was encouraged to ambulate with the patient around the [facility] floor. (2) Moderate developmental delay Assessment/Plan: as pt's hx. He lives in a fpc. He communicates by pointing to pictures in his book. In the past he did not tolerate NG tubes and repeatedly pulls them out. He pulled the NG tube placed in the ED at the time of admission. (3) Seizure disorder Assessment/Plan: 06/13 switch to IV dilantin, seizure precaution for pt. switch to po phenytoin Phenytoin level on 06/11/2021 was 13.3 (4) Leukocytosis Assessment/Plan: chronic elevated in the prior. Chest x-ray, CT abdomen pelvis and urine analysis did not support a potential infectious source. Blood culture show negative for bacteremia. We will continue to monitor. - Current Meds Current Meds: Current Medications Generic Name Dose Route Start Last Admin Trade Name Freq PRN Reason Stop Dose Admin Enoxaparin Sodium 40 mg 06/09/21 09:00 06/15/21 08:49 Enoxaparin 40 Mg/0.4 Ml Syringe SUBQ 40 mg DAILY SARAH Administration Sodium Chloride 1,000 mls @ 60 mls/hr 06/14/21 19:00 06/14/21 18:36 Normal Saline 0.9% IV 60 mls/hr .[id number] SARAH Administration Multivitamins 10 ml/ TRACE 2,011 mls @ 55 mls/hr 06/14/21 19:00 06/14/21 18:36 ELEMENTS 1 ml/ Amino Ac/ IV 55 mls/hr Electrol/Dextrose/Calcium TPN/PPN SARAH Administration Protocol Fat Emulsion Intravenous 250 mls @ 21 mls/hr 06/14/21 19:00 06/15/21 06:59 Intralipid 20% IV Infused Q24H SARAH Infusion Potassium Chloride 10 meq in 100 mls @ 100 mls/hr 06/15/21 09:00 06/15/21 08:49 Potassium Chloride IV 06/15/21 10:59 100 mls/hr Q1H SARAH Administration Insulin Human Regular 1 - 5 unit 06/14/21 06:00 06/15/21 06:31 Insulin Regular Human 300 Unit/3 Ml Vial SUBQ Not Given Q6HR [facility] Protocol Ondansetron HCl 4 mg 06/08/21 20:56 06/13/21 21:29 Ondansetron 4 Mg/2 Ml Vial IVP 4 mg Q6HR PRN Administration Nausea / Vomiting Pantoprazole Sodium 40 mg 06/14/21 07:00 06/15/21 05:42 Pantoprazole 40 Mg Vial IVP 40 mg QDAC SARAH Administration Phenytoin Sodium 100 mg 06/13/21 22:00 06/15/21 05:42 Phenytoin 100 Mg/2 Ml Vial IVP 100 mg TID SARAH Administration Prochlorperazine Edisylate 10 mg 06/08/21 20:56 06/14/21 00:01 Prochlorperazine 10 Mg/2 Ml Vial IVP 10 mg Q6HR PRN Administration Nausea / Vomiting Sodium Chloride 10 ml 06/08/21 20:56 06/15/21 00:02 Sodium Chloride Flush 0.9% 10 Ml Syringe IVP 10 ml PRN PRN Administration NEEDED PER PROVIDER ORDERS Sodium Chloride 10 ml 06/09/21 01:00 06/15/21 08:20 Sodium Chloride Flush 0.9% 10 Ml Syringe IVP Not Given 0100,0900,1700 SARAH - Lab Result Fish Bone Diagrams: 06/15/21 05:30 06/15/21 05:30 - Additional Planning My Orders: My Active Orders 06/14/21 09:02 PICC Line Care [RC] QSHIFT PICC Line Insert [RC] .ONCE 06/14/21 10:16 Nutrition Consult [CONS] Routine 06/14/21 13:52 Blood Glucose Checks - NPO [RC] 0600,1200,1800,0000 Daily Weight [RC] DAILY 06/14/21 19:00 Fat Emulsion 20% [Intralipid 20%] 250 ml IV Q24H Multivitamin [Infuvite] 10 ml Trace Elements [Tralement Vial] 1 ml TPN ( Clinimix E 5/15) [Clinimix E 5%-15% Solution] 2,000 ml IV TPN/PPN Sodium Chloride 0.9% [Normal Saline 0.9%] 1,000 ml IV 60 mls/hr 06/15/21 09:00 Potassium Chlor 10 Meq/100 ml [Potassium Chloride] 10 meq in 100 ml IV Q1H 06/16/21 05:00 BMP - BASIC METABOLIC PANEL [CHEM] DAILYLAB CBC - COMP BLD CT W/AUTO DIFF [HEME] DAILYLAB 06/17/21 05:00 BMP - BASIC METABOLIC PANEL [CHEM] DAILYLAB CBC - COMP BLD CT W/AUTO DIFF [HEME] DAILYLAB COMPREHENSIVE METABOLIC PANEL [CHEM] Routine MAGNESIUM [CHEM] Routine PHOSPHORUS [CHEM] Routine PREALBUMIN [CHEM] Routine TRIGLYCERIDES [CHEM] Routine 06/18/21 05:00 BMP - BASIC METABOLIC PANEL [CHEM] DAILYLAB CBC - COMP BLD CT W/AUTO DIFF [HEME] DAILYLAB 06/19/21 05:00 COMPREHENSIVE METABOLIC PANEL [CHEM] Routine MAGNESIUM [CHEM] Routine PHOSPHORUS [CHEM] Routine PREALBUMIN [CHEM] Routine TRIGLYCERIDES [CHEM] Routine 06/22/21 05:00 COMPREHENSIVE METABOLIC PANEL [CHEM] Routine MAGNESIUM [CHEM] Routine PHOSPHORUS [CHEM] Routine PREALBUMIN [CHEM] Routine TRIGLYCERIDES [CHEM] Routine Subjective - Subjective Patient Reports: Resting Comfortably Objective Vital Signs: Vital Signs - 24 hr 06/14/21 06/14/21 06/14/21 14:30 14:39 14:44 Temperature Heart Rate [ 84 69 77 Brachial] Respiratory Rate Blood Pressure 147/77 H [Left Brachial artery] Blood Pressure 119/101 H 121/82 H [Right Brachial artery] O2 Saturation 06/14/21 06/14/21 06/14/21 14:48 16:00 21:16 Temperature 36.8 C Heart Rate [ 76 78 Brachial] Respiratory 18 Rate Blood Pressure 116/68 134/90 H [Left Brachial artery] Blood Pressure 126/72 [Right Brachial artery] O2 Saturation 96 06/15/21 06/15/21 06/15/21 00:00 05:42 05:45 Temperature 36.6 C 36.8 C Heart Rate [ 66 79 77 Brachial] Respiratory 16 18 Rate Blood Pressure 116/75 117/71 [Left Brachial artery] Blood Pressure 142/92 H [Right Brachial artery] O2 Saturation 94 99 06/15/21 06/15/21 06/15/21 05:50 05:55 06:00 Temperature Heart Rate [ 80 70 70 Brachial] Respiratory Rate Blood Pressure 97/59 L 103/55 L 104/56 L [Left Brachial artery] Blood Pressure [Right Brachial artery] O2 Saturation 06/15/21 06/15/21 06/15/21 06:15 06:30 07:35 Temperature 36.7 C Heart Rate [ 77 72 69 Brachial] Respiratory 16 Rate Blood Pressure 113/71 139/95 H 113/65 [Left Brachial artery] Blood Pressure [Right Brachial artery] O2 Saturation Oxygen O2 Source Room air I&O (Last 24 Hrs): Intake and Output Totals x24h 06/13/21 06/14/21 06/15/21 23:59 23:59 23:59 Intake Total 2251.667 1806.333 250 Output Total 10 Balance 2241.667 1806.333 250 General: Alert, No acute distress HEENT: Atraumatic Neck: Supple Lymphatic: no adenopathy Neuro: Alert, Non Focal Cardiovascular: Regular rate, Normal S1, Normal S2 Respiratory: Chest non-tender, No respiratory distress Abdomen: Normal bowel sounds, Soft Extremities: Normal pulses - Results Results: Laboratory Results WBC 10.5 x10^3/uL (4.8-10.8) 06/15/21 05:30 RBC 3.70 10^6/uL (4.70-6.10) L 06/15/21 05:30 Hgb 12.2 g/dL (14.0-18.0) L 06/15/21 05:30 Hct 35.3 % (42.0-52.0) L 06/15/21 05:30 MCV 95.4 fL (80.0-94.0) H 06/15/21 05:30 MCH 33.0 pg (27.0-31.0) H 06/15/21 05:30 MCHC 34.6 g/dL (32.0-36.0) 06/15/21 05:30 RDW 12.8 % (12.0-15.0) 06/15/21 05:30 Plt Count 277 10^3/uL (130-450) 06/15/21 05:30 MPV 8.8 fL (7.4-11.4) 06/15/21 05:30 Neut # (Auto) 7.7 10^3/uL (1.5-6.6) H 06/15/21 05:30 Lymph # (Auto) 1.5 10^3/uL (1.5-3.5) 06/15/21 05:30 Nicholas # (Auto) 0.8 10^3/uL (0.0-1.0) 06/15/21 05:30 Eos # (Auto) 0.4 10^3/uL (0.0-0.7) 06/15/21 05:30 Baso # (Auto) 0.0 10^3/uL (0.0-0.1) 06/15/21 05:30 Absolute Nucleated RBC 0.00 x10^3/uL 06/15/21 05:30 Nucleated RBC % 0.0 /100WBC 06/15/21 05:30 Manual Slide Review Indicated 06/12/21 11:25 Platelet Morphology NORMAL APPEARANCE (NORMAL) 06/12/21 11:25 Sodium 138 mmol/L (135-145) 06/15/21 05:30 Potassium 3.4 mmol/L (3.5-5.0) L 06/15/21 05:30 Chloride 105 mmol/L (101-111) 06/15/21 05:30 Carbon Dioxide 26 mmol/L (21-32) 06/15/21 05:30 Anion Gap 7.0 (6-13) 06/15/21 05:30 BUN 9 mg/dL (6-20) 06/15/21 05:30 Creatinine 0.4 mg/dL (0.6-1.2) L 06/15/21 05:30 Estimated GFR (MDRD) 229 (>89) 06/15/21 05:30 Glucose 92 mg/dL (70-100) 06/15/21 05:30 Lactic Acid 1.2 mmol/L (0.5-2.2) 06/10/21 08:01 Calcium 7.9 mg/dL (8.5-10.3) L 06/15/21 05:30 Phosphorus 3.1 mg/dL (2.5-4.6) 06/15/21 05:30 Magnesium 1.7 mg/dL (1.7-2.8) 06/15/21 05:30 Total Bilirubin < 0.2 mg/dL (0.2-1.0) L 06/15/21 05:30 AST 25 IU/L (10-42) 06/15/21 05:30 ALT 26 IU/L (10-60) 06/15/21 05:30 Alkaline Phosphatase 121 IU/L (42-121) 06/15/21 05:30 Total Protein 6.4 g/dL (6.7-8.2) L 06/15/21 05:30 Albumin 2.9 g/dL (3.2-5.5) L 06/15/21 05:30 Globulin 3.5 g/dL (2.1-4.2) 06/15/21 05:30 Albumin/Globulin Ratio 0.8 (1.0-2.2) L 06/15/21 05:30 Prealbumin 14 mg/dL (18-45) L 06/15/21 05:30 Triglycerides 108 mg/dL (-149) 06/15/21 05:30 Lipase 79 U/L (22-51) H 06/08/21 18:45 Urine Color YELLOW 06/08/21 20:30 Urine Clarity CLEAR (CLEAR) 06/08/21 20:30 Urine pH 7.0 PH (5.0-7.5) 06/08/21 20:30 Ur Specific Morris 1.020 (1.002-1.030) 06/08/21 20: Urine Protein NEGATIVE mg/dL (NEGATIVE) 06/08/21 20: Urine Glucose (UA) NEGATIVE mg/dL (NEGATIVE) 06/08/21: Urine Ketones 15 mg/dL (NEGATIVE) H 06/08/21 20:30 Urine Occult Blood MODERATE (NEGATIVE) H 06/08/21 20:30 Urine Nitrite NEGATIVE (NEGATIVE) 06/08/21: Urine Bilirubin NEGATIVE (NEGATIVE) 06/08/21: Urine Urobilinogen 0.2 (NORMAL) E.U./dL (NORMAL) 06/08/21 20:30 Ur Leukocyte Esterase NEGATIVE (NEGATIVE) 06/08/21: Urine RBC TNTC /HPF (0-5) H 06/08/21: Urine WBC 0-3 /HPF (0-3) 06/08/21 20:30 Ur Epithelial Cells RARE Transitional /HPF (<= Few) 06/08/21 20: Ur Squamous Epith Cells NONE SEEN (<= Few) 06/08/21: Urine Bacteria Few /HPF (None Seen) 06/08/21 20:30 Ur Microscopic Review INDICATED 06/08/21 20:30 Urine Culture Comments NOT INDICATED 06/08/21 20:30 Nasal Adenovirus (PCR) NOT DETECTED 06/08/21 20:30 Nasal B. parapertussis DNA (PCR) NOT DETECTED 06/08/21 20:30 Nasal Coronavir 229E PCR NOT DETECTED 06/08/21 20:30 Nasal Coronavir HKU1 PCR NOT DETECTED 06/08/21 20:30 Nasal Coronavir NL63 PCR NOT DETECTED 06/08/21 20:30 Nasal Coronavir OC43 PCR NOT DETECTED 06/08/21 20:30 Nasal Enterovir/Rhinovir PCR NOT DETECTED 06/08/21 20:30 Nasal Influenza B PCR NOT DETECTED 06/08/21 20:30 Nasal Influenza A PCR NOT DETECTED 06/08/21 20:30 Nasal Parainfluen 1 PCR NOT DETECTED 06/08/21 20:30 Nasal Parainfluen 2 PCR NOT DETECTED 06/08/21 20:30 Nasal Parainfluen 3 PCR NOT DETECTED 06/08/21 20:30 Nasal Parainfluen 4 PCR NOT DETECTED 06/08/21 20:30 Nasal RSV (PCR) NOT DETECTED 06/08/21 20:30 Nasal B.pertussis DNA PCR NOT DETECTED 06/08/21 20:30 Nasal C.pneumoniae (PCR) NOT DETECTED 06/08/21 20:30 El Human Metapneumo PCR NOT DETECTED 06/08/21 20:30 Nasal M.pneumoniae (PCR) NOT DETECTED 06/08/21 20:30 Nasal SARS-CoV-2 (PCR) NOT DETECTED 06/08/21 20:30 Phenytoin 13.3 ug/mL 06/11/21 10:00 - Procedures Procedures: Procedures ESOPHAGOGASTRODUODENOSCOPY [EGD] W/CLOSED BIOPSY (07/31/13) INSERT GASTRIC TUBE NEC (06/23/14) INSERTION OF INFUSION DEVICE INTO R [facility], [facility] APPROACH (02/03/15) ULTRASONOGRAPHY OF RIGHT HEART (02/03/15) ABX Reporting Has patient been on IV antibiotics over the past 48 hours?: No Current Medications - Current Medications Current Medications: Active Medications Acetaminophen (Acetaminophen 325 Mg Tablet) 650 mg PO Q4HR PRN PRN Reason: Pain or Fever > 38C (100.4F) Enoxaparin Sodium (Enoxaparin 40 Mg/0.4 Ml Syringe) 40 mg SUBQ DAILY [facility] Last Admin: 06/15/21 08:49 Dose: 40 mg Hydromorphone HCl (Hydromorphone 0.5 Mg/0.5 Ml Syringe) 0.5 mg IVP Q3H PRN PRN Reason: Severe Pain Sodium Chloride (Normal Saline 0.9%) 1,000 mls @ 60 mls/hr IV .[id number] [facility] Last Admin: 06/14/21 18:36 Dose: 60 mls/hr Multivitamins 10 ml/ TRACE ELEMENTS 1 ml/ Amino Ac/Electrol/Dextrose/Calcium 2,011 mls @ 55 mls/hr IV TPN/PPN SARAH; Protocol Last Admin: 06/14/21 18:36 Dose: 55 mls/hr Fat Emulsion Intravenous (Intralipid 20%) 250 mls @ 21 mls/hr IV Q24H [facility] Last Infusion: 06/15/21 06:59 Dose: Infused Potassium Chloride (Potassium Chloride) 10 meq in 100 mls @ 100 mls/hr IV Q1H SARAH Stop: 06/15/21 10:59 Last Admin: 06/15/21 08:49 Dose: 100 mls/hr Insulin Human Regular (Insulin Regular Human 300 Unit/3 Ml Vial) 1 - 5 unit SUBQ Q6HR [facility]; Protocol Last Admin: 06/15/21 06:31 Dose: Not Given Ondansetron HCl (Ondansetron 4 Mg/2 Ml Vial) 4 mg IVP Q6HR PRN PRN Reason: Nausea / Vomiting Last Admin: 06/13/21 21:29 Dose: 4 mg Pantoprazole Sodium (Pantoprazole 40 Mg Vial) 40 mg IVP QDAC [facility] Last Admin: 06/15/21 05:42 Dose: 40 mg Phenytoin Sodium (Phenytoin 100 Mg/2 Ml Vial) 100 mg IVP TID [facility] Last Admin: 06/15/21 05:42 Dose: 100 mg Prochlorperazine Edisylate (Prochlorperazine 10 Mg/2 Ml Vial) 10 mg IVP Q6HR PRN PRN Reason: Nausea / Vomiting Last Admin: 06/14/21 00:01 Dose: 10 mg Simethicone (Simethicone Chew 80 Mg Tablet) 80 mg PO Q3H PRN PRN Reason: Gas Sodium Chloride (Sodium Chloride Flush 0.9% 10 Ml Syringe) 10 ml IVP PRN PRN PRN Reason: NEEDED PER PROVIDER ORDERS Last Admin: 06/15/21 00:02 Dose: 10 ml Sodium Chloride (Sodium Chloride Flush 0.9% 10 Ml Syringe) 10 ml IVP 0100,0900,1700 [facility] Last Admin: 06/15/21 08:20 Dose: Not Given Multivitamin [Multi-Vitamin Daily] 1 tab PO DAILY 05/12/13 Atorvastatin [Lipitor] 10 mg PO QPM 07/30/13 Acetaminophen [Tylenol] 650 mg PO Q4H PRN 09/19/16 Docusate Sodium 250Mg Capsule [Colace 250Mg Capsule] 250 mg PO BID 09/19/16 Ondansetron Odt [Zofran Odt] 4 mg TL Q6H PRN 09/19/16 Phenytoin [Dilantin] 300 mg PO QPM 09/19/16 Calcium Carbonate [Calcium] 1,200 mg PO DAILY 05/17/20 Cholecalciferol (Vitamin D3) [Vitamin D3] 100 mcg PO DAILY 05/17/20 Famotidine [Acid-Pep] 20 mg PO DAILY 05/17/20 Krill/Om-3/Dha/Epa/Phospho/Ast [Krill Oil 500 mg Softgel] 2 cap PO BID 05/17/20 Lactose-Reduced Food [Ensure Max Protein] 240 ml PO TID 05/17/20 Propylene Glycol [Systane Complete] 1 drops OP BID 05/17/20 Pantoprazole [Protonix] 40 mg PO QDAC 12/26/20 Simethicone [Mylicon] 80 mg PO Q3H PRN 06/09/21 guaiFENesin [Chest Congestion Relief] 200 mg PO QID PRN 06/09/21 polyethylene glycoL 3350 [Miralax] 17 gm PO DAILY PRN 06/09/21
--- NOTE | 2021-06-15 10:44 | XRAY Report ---
PROCEDURE: Abdomen 1 View X-Ray INDICATIONS: SBO and abdominal pain TECHNIQUE: One view of the abdomen acquired. COMPARISON: 06/13/2021 plain films FINDINGS: Surgical changes and devices: Thoracolumbar sacral fusion hardware is present, as before. Bowel: Previously seen distended loops of small bowel have decreased, and are now mild. Soft tissues: No suspicious abdominal calcifications. Visualized solid organ contours appear normal in size. Bones: No suspicious bony lesions. IMPRESSION: Resolving small bowel obstruction. Reviewed by: Faustino Herron MD on 06/15/2021 10:43 AM PST Approved by: Faustino Herron MD on 06/15/2021 10:43 AM [facility] Station ID: [id number]
[2021-06-15] MEDS: SODIUM CHLORIDE 0.9% 1,000 ML IV SCH (12:09)
[2021-06-15] MEDS ORDERED: GLYCERIN ADULT SUPP PR ONE (17:43)
[2021-06-15] MEDS: FAT EMULSION 20% 250 ML IV SCH (19:13)
[2021-06-15] MEDS: TPN (CLINIMIX E 5/15) 2,000 ML with MULTIVITAMIN 10 ML, TRACE ELEMENTS 1 ML IV SCH ×3 (19:14)
[2021-06-15] MEDS ORDERED: SALINE ENEMA 133 ML BOTTLE RC SCH (21:00)
[2021-06-16] MEDS: INSULIN REGULAR HUMAN 300 UNIT/3 ML VIAL SUBQ SCH ×5 (01:18→23:39)
[2021-06-16] MEDS: SODIUM CHLORIDE 0.9% 1,000 ML IV SCH ×2 (05:28→22:17)
[2021-06-16] MEDS: PHENYTOIN 100 MG/2 ML VIAL IVP SCH ×3 (05:28→21:20)
[2021-06-16] MEDS: PANTOPRAZOLE 40 MG VIAL IVP SCH (05:28)
[2021-06-16 05:44] LABS: BASOPHILS % (AUTO) 0.4 %; EOSINOPHILS # (AUTO) 0.4 10^3/uL (0.0-0.7); EOSINOPHILS % (AUTO) 4.9 %; LYMPHOCYTES # (AUTO) 1.5 10^3/uL (1.5-3.5); LYMPHOCYTES % (AUTO) 18.2 %; MEAN CORPUSCULAR HEMOGLOBIN 32.7 pg (27.0-31.0); MEAN CORPUSCULAR HGB CONC 34.2 g/dL (32.0-36.0); MEAN CORPUSCULAR VOLUME 95.5 fL (80.0-94.0); MONOCYTES # (AUTO) 0.8 10^3/uL (0.0-1.0); MONOCYTES % (AUTO) 10.2 %; NEUTROPHILS # (AUTO) 5.3 10^3/uL (1.5-6.6); PLT - PLATELET COUNT 314 10^3/uL (130-450); RED BLOOD COUNT 3.98 10^6/uL (4.70-6.10); RED CELL DISTRIBUTION WIDTH 12.9 % (12.0-15.0); WHITE BLOOD COUNT 8.2 x10^3/uL (4.8-10.8)
[2021-06-16 05:52] LABS: CALCIUM 8.8 mg/dL (8.5-10.3); CREATININE 0.4 mg/dL (0.6-1.2); POTASSIUM 3.8 mmol/L (3.5-5.0)
--- NOTE | 2021-06-16 08:27 | PROVIDER PROGRESS NOTE ---
Subjective - Prog Note Date Prog Note Date: 06/16/21 - Subjective Pt reports feeling: Improved Subjective: Pt is difficult to elicit history from as he is shaking his head yes and no to my questions. He is non-verbal, lying in bed watching television in no acute distress. Objective - Vital Signs/Intake & Output Reviewed Vital Signs: Yes Vital Signs: Vital Signs x48h Temp Pulse Resp BP Pulse Ox 06/16/21 07:25 36.6 C 74 18 116/73 97 06/16/21 06:15 73 121/73 06/16/21 06:00 74 112/61 06/16/21 05:45 77 120/87 H 06/16/21 05:35 75 101/64 06/16/21 05:29 79 104/63 06/16/21 05:25 80 117/70 Intake & Output: Intake & Output 06/13/21 06/14/21 06/15/21 06/16/21 23:59 23:59 23:59 23:59 Intake Total 2251.667 7004.231 0658.850 371 Output Total 10 Balance 2241.667 4981.828 3416.850 371 - Objective General Appearance: positive: No acute distress, Alert Eyes Bilateral: positive: Normal inspection, PERRL, Conjunctivae nml, No scleral icterus ENT: positive: ENT inspection nml, No signs of dehydration Respiratory: positive: Chest non-tender, No respiratory distress, Breath sounds nml Cardiovascular: positive: Regular rate & rhythm Peripheral Pulses: 2+ Dorsalis pedis (R), 2+ Dorsalis pedis (L) Abdomen: positive: Non-tender, No organomegaly, Nml bowel sounds, No distention Skin: positive: Color nml Extremities: positive: Non-tender, Nml appearance, No pedal edema Neurologic/Psychiatric: positive: Other (Alert, non-focal) - Lab Results Fish Bones: 06/16/21 05:20 06/16/21 05:20 Other Labs: Lab Results x24hrs 06/16/21 06/16/21 Range/Units 05:20 05:20 WBC 8.2 (4.8-10.8) x10^3/uL RBC 3.98 L (4.70-6.10) 10^6/uL Hgb 13.0 L (14.0-18.0) g/dL Hct 38.0 L (42.0-52.0) % MCV 95.5 H (80.0-94.0) fL MCH 32.7 H (27.0-31.0) pg MCHC 34.2 (32.0-36.0) g/dL RDW 12.9 (12.0-15.0) % Plt Count 314 (130-450) 10^3/uL MPV 9.0 (7.4-11.4) fL Neut # (Auto) 5.3 (1.5-6.6) 10^3/uL Lymph # (Auto) 1.5 (1.5-3.5) 10^3/uL [place] # (Auto) 0.8 (0.0-1.0) 10^3/uL Eos # (Auto) 0.4 (0.0-0.7) 10^3/uL Baso # (Auto) 0.0 (0.0-0.1) 10^3/uL Absolute Nucleated RBC 0.00 x10^3/uL Nucleated RBC % 0.0 /100WBC Sodium 137 (135-145) mmol/L Potassium 3.8 (3.5-5.0) mmol/L Chloride 104 (101-111) mmol/L Carbon Dioxide 27 (21-32) mmol/L Anion Gap 6.0 (6-13) BUN 14 (6-20) mg/dL Creatinine 0.4 L (0.6-1.2) mg/dL Estimated GFR (MDRD) 229 (>89) Glucose 98 (70-100) mg/dL Calcium 8.8 (8.5-10.3) mg/dL - Diagnostic Imaging Diagnostic Imaging Results: positive: Final report reviewed Assessment/Plan - Problem List (1) SBO (small bowel obstruction) Impression: Improved. Yesterday morning abdominal x-ray showed "resolving small bowel obstruction". He was given an enema and a suppository yesterday with + results per nursing- per report he was manually disimpacted x3 with large hard formed stools and overnight had a small loose liquid stool. His abdomen is soft and minimally distended on my exam this morning. He has remained NPO with TPN running but given the likely resolution of the SBO will start him on clear liquids and advance as tolerated. If he tolerates clears I will restart him on an oral bowel regimen and slowly advance his diet. Pt has a history of prior small bowel obstructions with lysis of adhesions as well as a cholecystectomy. He has had multiple admissions here for samll bowel obstruction, managed non-operatively. He lives in a chcf with live-in caregivers. On the day of admission he developed nasuea and vomiting after eating lunch, with apparent abdominal pain. Per admission notes he had [address] abdomen revealed dilated loops of bowel and small bowel obstruction with transition point in the disal ileum per Radiology. NG tube has been attempted but he pulls them out. Per chart review he was started on TPN due to prolonged time remaining NPO due to his SBO and a PICC was placed with TPN started 06/14. (2) Moderate developmental delay Impression: Per history. His parents are and he does not have siblings. He resides in a chcf and communicates by pointing to pictures in his book as he is non-verbal. Per chart review he does not ambulate due to his d evelopmental delay. (3) Seizure disorder Impression: Stable. No seizures in the past 24 hours. Per chart review his Phenytoin level 06/11 was 13.3 and he transitioned to po, now is on IV dilantin due to a diet of NPO. If he tolerates a diet will plan to resume his oral medications tomorrow. Continue seizure precautions. (4) Cerebral palsy with spastic/ataxic diplegia Impression: Stable. Will plan to resume home medications once he is tolerating a regular diet. (5) History of hyperlipidemia Impression: Per history, he is normally on a statin. Will plan to resume his home medications once he is able to tolerate a regular diet. (6) Leukocytosis Impression: Resolved. Likely reactive. No leukocytosis x4 days. It was mildly elevated on admission. Chest x-ray, CT abdomen pelvis, urine analysis, and blood cultures were negative for bacteremia. He has been afebrile. Will continue to monitor. Qualifiers: Leukocytosis type: unspecified Qualified Code(s): D72.829 - Elevated white blood cell count, unspecified
[2021-06-16] MEDS: ENOXAPARIN 40 MG/0.4 ML SYRINGE SUBQ SCH (08:38)
[2021-06-16] MEDS: SODIUM CHLORIDE FLUSH 0.9% 10 ML SYRINGE IVP SCH ×3 (08:39→23:38)
[2021-06-16] MEDS: SODIUM CHLORIDE FLUSH 0.9% 10 ML SYRINGE IVP PRN (23:38)
[2021-06-17] MEDS: INSULIN REGULAR HUMAN 300 UNIT/3 ML VIAL SUBQ SCH (03:36)
[2021-06-17] MEDS: PHENYTOIN 100 MG/2 ML VIAL IVP SCH (05:09)
[2021-06-17] MEDS: PANTOPRAZOLE 40 MG VIAL IVP SCH (05:17)
[2021-06-17 06:01] LABS: BASOPHILS % (AUTO) 0.6 %; EOSINOPHILS # (AUTO) 0.4 10^3/uL (0.0-0.7); EOSINOPHILS % (AUTO) 5.6 %; HCT - HEMATOCRIT 37.1 % (42.0-52.0); HGB - HEMOGLOBIN 12.5 g/dL (14.0-18.0); LYMPHOCYTES # (AUTO) 1.6 10^3/uL (1.5-3.5); LYMPHOCYTES % (AUTO) 22.5 %; MEAN CORPUSCULAR HEMOGLOBIN 32.5 pg (27.0-31.0); MEAN CORPUSCULAR HGB CONC 33.7 g/dL (32.0-36.0); MEAN CORPUSCULAR VOLUME 96.4 fL (80.0-94.0); MEAN PLATELET VOLUME 9.1 fL (7.4-11.4); MONOCYTES # (AUTO) 0.6 10^3/uL (0.0-1.0); MONOCYTES % (AUTO) 8.8 %; NEUTROPHILS # (AUTO) 4.4 10^3/uL (1.5-6.6); NEUTROPHILS % (AUTO) 61.2 %; PLT - PLATELET COUNT 311 10^3/uL (130-450); RED BLOOD COUNT 3.85 10^6/uL (4.70-6.10); RED CELL DISTRIBUTION WIDTH 13.2 % (12.0-15.0); WHITE BLOOD COUNT 7.2 x10^3/uL (4.8-10.8)
[2021-06-17 06:10] LABS: ALBUMIN/GLOBULIN RATIO 0.8 (1.0-2.2); BILIRUBIN,TOTAL 0.3 mg/dL (0.2-1.0); CALCIUM 8.8 mg/dL (8.5-10.3); CREATININE 0.5 mg/dL (0.6-1.2); PHOSPHORUS 3.4 mg/dL (2.5-4.6); POTASSIUM 3.8 mmol/L (3.5-5.0); TOTAL PROTEIN 6.8 g/dL (6.7-8.2)
--- NOTE | 2021-06-17 07:39 | Discharge Plan ---
Discharge Plan Problem Reviewed?: Yes Disposition: Home, Self Care Diet: Regular Activity Restrictions: No Restrictions Shower Restrictions: No No Smoking: If you smoke, Please STOP! Call for help. Follow-up with: Evangelist Rothman MD [Primary Care Provider] -
[2021-06-17] MEDS: ENOXAPARIN 40 MG/0.4 ML SYRINGE SUBQ SCH (07:49)
[2021-06-17] MEDS: SODIUM CHLORIDE FLUSH 0.9% 10 ML SYRINGE IVP SCH (07:51)
--- NOTE | 2021-06-17 07:53 | Discharge Plan ---
"Discharge Plan for SNF / [facility] - Discharge Plan And Transition Orders Problem Reviewed?: Yes Disposition: 01 Home, Self Care Condition: Stable Allergies and Adverse Reactions: Allergies Allergy/AdvReac Type Severity Reaction Status Date / Time Sulfa (Sulfonamide Allergy Hives Verified 06/08/21 18:38 Antibiotics) adhesive tape AdvReac Rash Verified 06/08/21 18:38 Health Concerns: Pt was admitted for a small bowel obstruction. He was treated with IV fluids and pain medication as needed. He received Total Parental Nutrition for 2 nights because he was not able to eat while waiting for his bowel obstruction to clear. He was given a suppository and enema and after being manually dis- impacted he had multiple large stools and his obstruction resolved. He is tolerating a regular diet without pain, nausea or vomiting and is ready for discharge. Plan of Treatment: He should take Miralax twice a day along with his Docusate to try and soften his stools as he has been quite constipated. If his stools are too watery decrease the Miralax to twice a day. He should also drink a lot of water throughout the day and ambulate as much as is feasible to help with motility. Given his history of multiple small bowel obstructions and because this is his second small bowel obstruction in less than 6 months he should follow up with General Surgery 1-2 weeks after discharge. Care Goals: Return to the ER if he has increased or worsening abdominal pain, nausea and vomiting. Assessment: On the day of discharge his abdomen is soft and non-tender to light and deep palpation. He is tolerating a regular diet without nausea or vomiting. He had a very large, very hard stool this afternoon prior to discharge. - SNF / [facility]AY Transition Orders Admit to (Facility): [facility] Discharge Diagnosis: Small bowel obstruction- Resolved. Moderate Developmental Delay- Stable. Seizure disorder- Stable. Cerebral palsy with spastic/ataxic diplegia- Stable. History of Hyperlipidemia- Stable. Elevated LFTs- Stable. Leukocytosis- Resolved. Medicare Certification Statement: I certify that Post Hospital fci care is medically necessary on a continuing basis for any of the conditions for which she/he is receiving care during hospitalization. Notify PCP of admission and forward orders to primary provider for signature. Weight on admission and: Weekly Other Notification Orders: Call PCP immediately if patient develops dyspnea, chest pain/tightness or edema. House Bowel Program: Yes Additional Bowel Program Orders: If no BM after 2 days, nurse may give M.O.M. 30ml PO PRN and/or ducolax Supp 1 CO and/or ANASTASIYA 250mg P.O., and/or senna 1-2 tabs PO. On day 3 nurse may give repeat above order until residents constipation is resolved. Annual Influenza Vaccine (between Dec 27 and July 26): Yes Two-step PPD per [facility] [phone] or approved exception documents: Yes Medication Orders: PLEASE REFER TO THE DISCHARGE MEDICATION LIST. Insulin Orders?: No - Medications New Prescriptions: polyethylene glycoL 3350 [Miralax] 17 gm PO DAILY #60 packet - Diet Texture: Regular Liquids: Thin May have monthly special meal: Yes - Therapies | Activity Activity: No Restrictions Follow Up: He will need follow up with his primary care physician in 1-2 weeks, consider also having him follow up with General Surgery given history of multiple bowel obstructions."
[2021-06-17 08:35] VITALS: BP 107/63
--- NOTE | 2021-06-17 10:25 | DISCHARGE SUMMARY ---
Discharge Summary Admit Date: 06/08/21 Discharge Date: 06/17/21 Discharging Provider: Rachael Flynn Primary Care Provider: Evangelist Rothman Code Status: Attempt Resuscitation Condition at Discharge: Stable Discharge Disposition: 01 Home, Self Care Discharge Facility Name: [facility] - DIAGNOSES Admission Diagnoses: 1. Small bowel obstruction 2. Seizure disorder 3. Cerebral palsy with spastic/ataxic diplegia 4. Moderate developmental delay 5. Elevated lipase 6. History of hyperlipidemia Discharge Diagnoses with Status of Each Condition: 1. Small bowel obstruction- Resolved 2. Moderate developmental delay- Stable 3. Seizure disorder- Stable 4. Cerebral palsy with spastic/ataxic diplegia- Stable 5. History of hyperlipidemia- Stable 6. Elevated LFTs- Stable 7. Leukocytosis- Resolved - HPI History of Present Illness: from 06/08 H[address] Glover: "This is a 50-year-old male with a history of cerebral palsy with contractures and moderate developmental delay. He has had prior abdominal surgery of cholecystectomy and prior small bowel obstructions with prior surgery of lysis of adhesions. He has had several admissions here for small bowel obstruction managed without surgery. The patient lives in a long term and has live-in caregivers. His parents are and he has no siblings. Today he developed nausea and vomiting after eating lunch and apparent abdominal pain and was brought into the ED. He had emesis [address] of the abdomen shows dilated loops of bowel and small bowel obstruction with transition point in the distal ileum, per radiology. He has not tolerated NG tube previously because he pulls them out, gets agitated and cannot understand, due to his developmental delay, that these need to remain in place. Today in the ED however he allowed an NG tube to be inserted, then during transfer to his inpatient room, he pulled the NG tube out. He is non-verbal by history, understands when spoken to and shake his head yes and no and also communicates by pointing to pictures. The patient is being admitted for management of a recurrent bowel obstruction and is needing bowel rest, IV fluids and IV antiemetics and pain meds." - CONSULTS | PROCEDURES Consultations: General Surgery, Nutrition Procedures: PICC line placement for TPN on 06/14 - HOSPITAL COURSE Hospital Course: Pt admitted on 06/08 with nausea and vomiting after eating lunch and apparent abdominal pain. Per H&P he vomited [address] of the abdomen revealed dilated loops of bowel and small bowel obstruction with transition point in the distal ileum. An NG tube was placed however he pulled it out (due to developmental delay he does not understand that these need to stay in place and he pulls them out; this has also happened historically). He was started on bowel rest, IV fluids, antiemetics, and pain meds. He was followed by General Surgery who recommended medical management. On 06/12 he was trialed on clear liquid and full liquid diet but did not have a bowel movement. By 06/13 he still had not had a bowel movement and KUB revealed partial obstruction. He was not able to ambulate around the unit due to his baseline cerebral palsey and developmental delay. On 06/14 General Surgery recommended enemas and bowel protocol with Miralax as x-ray was showing his rectum was full of stool and he had a partial obstruction. Nursing gave him enemas and on 06/15 he was manually dis-impacted and noted to have 3 large hard/formed stools with 1 liquid yellow stool overnight. On 06/16 he was started on clear liquids, which he tolerated well wit hout pain or nausea and vomiting. On 06/17 he was advanced to a regular diet. He tolerated 100% of his meals and medications without pain and nausea and vomiting. He has a history of seizures and while NPO received his medications via IV. He was on seizure precautions and did not have a seizure this admission. His dilantin levels were obtained and were normal. He was restarted on his oral me dications prior to discharge, tolerating without nausea and vomiting, and discharged home with plan to resume his outpatient medication regimen. A PICC was placed on 06/14 and he was started on TPN given a week of poor nutrition due to bowel rest. He was started on blood glucose checks with insulin while on TPN. This was stopped after he was tolerating a diet and the PICC was discontinued prior to admission. As a result of the TPN administration his LFTs are slightly elevated but expected normalize now that the TPN has been stopped. He received 2 bags of TPN. On admission he was noted to have leukocytosis. This resolved without antibiotics and was felt to be reactive to the small bowel obstruction. His chest x-ray, CT abdomen pelvis, UA and blood cultures were negative for infection. On the day of discharge he was tolerating a regular diet without pain, nausea or vomiting. He had a very large, hard bowel movement in the afternoon. He was discharged home with his normal home medications and Miralax was increased to BID. He was encouraged to increase hydration during the day. - ALLERGIES Allergies/Adverse Reactions: Allergies Allergy/AdvReac Type Severity Reaction Status Date / Time Sulfa (Sulfonamide Allergy Hives Verified 06/08/21 18:38 Antibiotics) adhesive tape AdvReac Rash Verified 06/08/21 18:38 - MEDICATIONS Home Medications: Ambulatory Orders Medication Instructions Recorded Confirmed Multivitamin [Multi-Vitamin Daily] 1 tab PO DAILY 05/12/13 06/09/21 Atorvastatin [Lipitor] 10 mg PO QPM 07/30/13 06/09/21 Acetaminophen [Tylenol] 650 mg PO Q4H PRN 09/19/16 06/09/21 Docusate Sodium 250Mg Capsule 250 mg PO BID 09/19/16 06/09/21 [Colace 250Mg Capsule] Ondansetron Odt [Zofran Odt] 4 mg TL Q6H PRN 09/19/16 06/09/21 Phenytoin [Dilantin] 300 mg PO QPM 09/19/16 06/09/21 Calcium Carbonate [Calcium] 1,200 mg PO DAILY 05/17/20 06/09/21 Cholecalciferol (Vitamin D3) 100 mcg PO DAILY 05/17/20 06/09/21 [Vitamin D3] Famotidine [Acid-Pep] 20 mg PO DAILY 05/17/20 06/09/21 Krill/Om-3/Dha/Epa/Phospho/Ast 2 cap PO BID 05/17/20 06/09/21 [Krill Oil 500 mg Softgel] Lactose-Reduced Food [Ensure Max 240 ml PO TID 05/17/20 06/09/21 Protein] Propylene Glycol [Systane Complete] 1 drops OP BID 05/17/20 06/09/21 Pantoprazole [Protonix] 40 mg PO QDAC 12/26/20 06/09/21 Simethicone [Mylicon] 80 mg PO Q3H PRN 06/09/21 06/09/21 guaiFENesin [Chest Congestion 200 mg PO QID PRN 06/09/21 06/09/21 Relief] polyethylene glycoL 3350 [Miralax] 17 gm PO DAILY PRN 06/09/21 06/09/21 polyethylene glycoL 3350 [Miralax] 17 gm PO DAILY #60 packet 06/17/21 - PHYSICAL EXAM AT DISCHARGE General Appearance: positive: No acute distress, Alert Eyes Bilateral: positive: Normal inspection, Conjunctivae nml, No scleral icterus ENT: positive: No signs of dehydration Respiratory: positive: Chest non-tender, No respiratory distress, Breath sounds nml Cardiovascular: positive: Regular rate & rhythm Peripheral Pulses: positive: 2+ Abdomen: positive: Non-tender (Soft, non-tender to light and deep palpation), No organomegaly, Nml bowel sounds, No distention Skin: positive: Color nml Extremities: positive: Non-tender, Nml appearance, No pedal edema Neurologic/Psychiatric: positive: Other (Awake and alert, following commands) - LABS Result Diagrams: 06/17/21 05:05 06/17/21 05:05 - DIAGNOSTIC IMAGING Diagnostic Imaging Results: Final report reviewed Diagnostic Imaging Results Comments: 06/15 abdomen x-ray: "resolving small bowel obstruction" 06/14 Chest x-ray: "Right arm PICC extends into the right internal jugular vein" 06/13 Abdomen x-ray: "Distention of the small bowel, compatible with at least partial obstruction" 06/12 Abdomen x-ray: "Small bowel dilatation previously seen by CT is not seen by plain film" 06/08 Chest x-ray: "Nasogastric tube is in good position" 06/08 Abdomen/Pelvis CT: "Small bowel obstruction with a transition point in the distal ileum" - SEPSIS Current Stage of Sepsis: Ruled out - FOLLOW UP Follow Up: Follow up with PCP in 1-2 weeks Consider follow up with General Surgery given history of multiple small bowel obstructions - TIME SPENT Time Spent in Discharge (Minutes): 45
[2021-06-17] MEDS ORDERED: polyethylene glycoL 3350 17 GM PACKET PO SCH (12:00)
[2021-06-17] MEDS ORDERED: PHENYTOIN CHEW 50 MG TABLET PO SCH (14:00)
[2021-06-18] MEDS ORDERED: PANTOPRAZOLE 40 MG TABLET PO SCH (07:00)
== END 2021-06-17 14:25 | disposition home or self-care (01) | DRG 389 ==
LOC: EDUNIT# → ED 18:24 → MS2 20:56
PROVIDERS: ADMIT Internal Medicine; ATTEND Registered Nurse
PROC: 02HV33Z Insertion of Infusion Device into Superior Vena Cava, Percutaneous Approach (ICD-10-PCS; principal; 2021-06-14)
PROC: 3E0436Z Introduction of Nutritional Substance into Central Vein, Percutaneous Approach (ICD-10-PCS; 2021-06-14)
DX: K56.609 Unspecified intestinal obstruction, unspecified as to partial versus complete obstruction (principal); G80.1 Spastic diplegic cerebral palsy; G80.9 Cerebral palsy, unspecified; G40.909 Epilepsy, unspecified, not intractable, without status epilepticus; E78.00 Pure hypercholesterolemia, unspecified; D72.829 Elevated white blood cell count, unspecified; K21.9 Gastro-esophageal reflux disease without esophagitis; Z20.822 Contact with and (suspected) exposure to COVID-19; R32 Unspecified urinary incontinence; R62.50 Unspecified lack of expected normal physiological development in childhood; Z90.49 Acquired absence of other specified parts of digestive tract; R79.89 Other specified abnormal findings of blood chemistry; Z79.899 Other long term (current) drug therapy; Z88.2 Allergy status to sulfonamides; Z91.048 Other nonmedicinal substance allergy status
CPT/HCPCS: 36415; 74018; 74177; 80048; 80053; 80185; 81001; 83605; 83690; 83735; 84100; 84134; 84478; 85025; 87040; 87631; 96361; 96374; 99284; 99285; A9270; C1751; J0131; J1650; J3490; Q9967; 0202U; 81003; 87086

== ENCOUNTER 2021-07-10 07:10 | Outpatient (CLI) | payer MEDICARE, OTHER, MEDICAID ==
[2021-07-10 12:38] LABS: ALBUMIN 4.2 g/dL (3.2-5.5); BILIRUBIN,TOTAL 0.4 mg/dL (0.2-1.0); CALCIUM 9.1 mg/dL (8.5-10.3); CREATININE 0.6 mg/dL (0.6-1.2); PHENYTOIN (DILANTIN) 13.2 ug/mL; POTASSIUM 4.4 mmol/L (3.5-5.0); TOTAL PROTEIN 8.3 g/dL (6.7-8.2)
[2021-07-10 12:50] LABS: BASOPHILS % (AUTO) 0.6 %; EOSINOPHILS # (AUTO) 0.3 10^3/uL (0.0-0.7); EOSINOPHILS % (AUTO) 4.8 %; HCT - HEMATOCRIT 44.8 % (42.0-52.0); HGB - HEMOGLOBIN 15.3 g/dL (14.0-18.0); LYMPHOCYTES % (AUTO) 32.4 %; MEAN CORPUSCULAR HEMOGLOBIN 33.3 pg (27.0-31.0); MEAN CORPUSCULAR HGB CONC 34.2 g/dL (32.0-36.0); MEAN CORPUSCULAR VOLUME 97.4 fL (80.0-94.0); MONOCYTES # (AUTO) 0.6 10^3/uL (0.0-1.0); MONOCYTES % (AUTO) 8.9 %; NEUTROPHILS # (AUTO) 3.3 10^3/uL (1.5-6.6); NEUTROPHILS % (AUTO) 53.1 %; PLT - PLATELET COUNT 231 10^3/uL (130-450); RED CELL DISTRIBUTION WIDTH 13.7 % (12.0-15.0); WHITE BLOOD COUNT 6.3 x10^3/uL (4.8-10.8)
== END 2021-07-10 07:11 | disposition home or self-care (01) ==
LOC: LAB.N 07:10
PROVIDERS: ATTEND Psychiatry & Neurology Neurology
DX: G40.419 Other generalized epilepsy and epileptic syndromes, intractable, without status epilepticus (principal); Z51.81 Encounter for therapeutic drug level monitoring
CPT/HCPCS: 36415; 80053; 80185; 85025

== ENCOUNTER 2022-02-14 17:12 | Outpatient (CLI) | payer MEDICARE, OTHER, MEDICAID | END 2022-02-14 17:13 | disposition critical access hospital (66) | LOC: EMS 17:12 | DX: R40.4 Transient alteration of awareness (principal); R51.9 Headache, unspecified; R32 Unspecified urinary incontinence | CPT/HCPCS: A0425; A0429 ==

== ENCOUNTER 2022-02-14 17:39 | Emergency (ER) | payer MEDICARE, OTHER, MEDICAID ==
--- NOTE | 2022-02-14 18:16 | ED Physician Documentation ---
History of Present Illness - Stated complaint Stated Complaint: ABSENT SZ - Chief complaint Chief Complaint: Neuro - History obtained from History obtained from: Patient, Family - History of Present Illness Timing: Today Pain level max: 0 Pain level now: 0 - Additonal information Additional information: Patient is a 51-year-old male with a history of cerebral palsy. He presents to the emergency department after his caregiver called 911. He is nonverbal at baseline. Has a longstanding history of seizures. Is on Dilantin. Had a staring episode for about 30 seconds to 1 minute today. Currently asymptomatic. No injuries. Nothing makes it better or worse. Review of Systems Unable to obtain: Other (non-verbal, unable to give history) PD PAST MEDICAL HISTORY - Past Medical History Cardiovascular: High cholesterol Respiratory: None Neuro: Cerebral palsy, Seizure disorder, Other (Developmental delay. Non- verbal.) Endocrine/Autoimmune: None GI: GERD, GI bleed, Other (Many SBO events) : Incontinence HEENT: None Psych: Anxiety Musculoskeletal: Other (Chronic contracture R arm) Derm: None - Past Surgical History Past Surgical History: Yes General: Cholecystectomy, Bowel surgery (Prior lysis if adhesions.) Ortho: Spine surgery /HOUSEKEEPER: Other (left orchiectomy) - Present Medications Home Medications: Ambulatory Orders Medication Instructions Recorded Confirmed Multivitamin [Multi-Vitamin Daily] 1 tab PO DAILY 05/12/13 06/09/21 Atorvastatin [Lipitor] 10 mg PO QPM 07/30/13 06/09/21 Acetaminophen [Tylenol] 650 mg PO Q4H PRN 09/19/16 06/09/21 Docusate Sodium 250Mg Capsule 250 mg PO BID 09/19/16 06/09/21 [Colace 250Mg Capsule] Ondansetron Odt [Zofran Odt] 4 mg TL Q6H PRN 09/19/16 06/09/21 Phenytoin [Dilantin] 300 mg PO QPM 09/19/16 06/09/21 Calcium Carbonate [Calcium] 1,200 mg PO DAILY 05/17/20 06/09/21 Cholecalciferol (Vitamin D3) 100 mcg PO DAILY 05/17/20 06/09/21 [Vitamin D3] Famotidine [Acid-Pep] 20 mg PO DAILY 05/17/20 06/09/21 Krill/Om-3/Dha/Epa/Phospho/Ast 2 cap PO BID 05/17/20 06/09/21 [Krill Oil 500 mg Softgel] Lactose-Reduced Food [Ensure Max 240 ml PO TID 05/17/20 06/09/21 Protein] Propylene Glycol [Systane Complete] 1 drops OP BID 05/17/20 06/09/21 Pantoprazole [Protonix] 40 mg PO QDAC 12/26/20 06/09/21 Simethicone [Mylicon] 80 mg PO Q3H PRN 06/09/21 06/09/21 guaiFENesin [Chest Congestion 200 mg PO QID PRN 06/09/21 06/09/21 Relief] polyethylene glycoL 3350 [Miralax] 17 gm PO DAILY PRN 06/09/21 06/09/21 polyethylene glycoL 3350 [Miralax] 17 gm PO DAILY #60 packet 06/17/21 - Allergies Allergies/Adverse Reactions: Allergies Allergy/AdvReac Type Severity Reaction Status Date / Time Sulfa (Sulfonamide Allergy Hives Verified 06/08/21 18:38 Antibiotics) adhesive tape AdvReac Rash Verified 06/08/21 18:38 - Social History Does the pt smoke?: No Smoking Status: Never smoker Does the pt drink ETOH?: No Does the pt have substance abuse?: No - Immunizations Immunizations are current?: Yes - POLST Patient has POLST: No POLST Status: Full Code PD ED PE NORMAL - Vitals Vital signs reviewed: Yes - General General: No acute distress, Well developed/nourished - HEENT HEENT: Atraumatic, PERRL, Moist mucous membranes - Neck Neck: Supple, no meningeal sign - Cardiac Cardiac: RRR - Respiratory Respiratory: No respiratory distress, Clear bilaterally - Derm Derm: Warm and dry - Neuro Neuro: Alert and oriented X 3 Results - Vitals Vitals: Vital Signs - 24 hr 02/14/22 02/14/22 18:01 19:11 Temperature 36.9 C Heart Rate 76 78 Respiratory 18 18 Rate Blood Pressure 142/89 H 134/88 H O2 Saturation 98 98 Oxygen O2 Source Room air - Labs Labs: Laboratory Tests 02/14/22 02/14/22 18:29 18:29 WBC 7.0 RBC 4.93 Hgb 15.5 Hct 46.4 MCV 94.1 H MCH 31.4 H MCHC 33.4 RDW 13.1 Plt Count 248 MPV 8.8 Neut # (Auto) 4.1 Lymph # (Auto) 1.7 [place] # (Auto) 0.7 Eos # (Auto) 0.5 Baso # (Auto) 0.1 Absolute Nucleated RBC 0.00 Nucleated RBC % 0.0 Sodium 139 Potassium 3.9 Chloride 98 L Carbon Dioxide 31 Anion Gap 10.0 BUN 18 Creatinine 0.6 Estimated GFR (MDRD) 143 Glucose 104 H Calcium 9.7 Phenytoin 24.1 PD MEDICAL DECISION MAKING - ED course Complexity details: considered differential, other (Discussed with caregiver) ED course: 51-year-old male history of cerebral palsy and seizures. Appears to have potentially had a seizure today. He is nonverbal at baseline and unable to give history. The history is from his caregiver. Phenytoin is therapeutic. No significant lab abnormalities. No recent illnesses per caregiver. We will have him follow-up with his doctor and neurologist for further care. This document was made in part using voice recognition software. While efforts are made to proofread this document, sound alike and grammatical errors may occur. Departure - Departure Disposition: 01 Home, Self Care Clinical Impression: Recurrent seizures Condition: Good Instructions: ED Seizure Recurrent Follow-Up: your,doctor in 1 week [Other] Comments: Please follow-up with your doctor for further care. Your Dilantin level is therapeutic. Please continue your current medications. Return if he worsens Discharge Date/Time: 02/14/22 19:10
[2022-02-14 18:34] LABS: BASOPHILS # (AUTO) 0.1 10^3/uL (0.0-0.1); BASOPHILS % (AUTO) 0.7 %; EOSINOPHILS # (AUTO) 0.5 10^3/uL (0.0-0.7); EOSINOPHILS % (AUTO) 7.3 %; HCT - HEMATOCRIT 46.4 % (42.0-52.0); HGB - HEMOGLOBIN 15.5 g/dL (14.0-18.0); LYMPHOCYTES # (AUTO) 1.7 10^3/uL (1.5-3.5); LYMPHOCYTES % (AUTO) 23.8 %; MEAN CORPUSCULAR HEMOGLOBIN 31.4 pg (27.0-31.0); MEAN CORPUSCULAR HGB CONC 33.4 g/dL (32.0-36.0); MEAN CORPUSCULAR VOLUME 94.1 fL (80.0-94.0); MEAN PLATELET VOLUME 8.8 fL (7.4-11.4); MONOCYTES # (AUTO) 0.7 10^3/uL (0.0-1.0); MONOCYTES % (AUTO) 9.4 %; NEUTROPHILS # (AUTO) 4.1 10^3/uL (1.5-6.6); NEUTROPHILS % (AUTO) 58.7 %; PLT - PLATELET COUNT 248 10^3/uL (130-450); RED BLOOD COUNT 4.93 10^6/uL (4.70-6.10); RED CELL DISTRIBUTION WIDTH 13.1 % (12.0-15.0)
[2022-02-14 18:44] LABS: CALCIUM 9.7 mg/dL (8.5-10.3); CREATININE 0.6 mg/dL (0.6-1.2); PHENYTOIN (DILANTIN) 24.1 ug/mL; POTASSIUM 3.9 mmol/L (3.5-5.0)
[2022-02-14 19:12] VITALS: BP 134/88
== END 2022-02-14 19:10 | disposition home or self-care (01) ==
LOC: EDUNIT# → ED 17:39
DX: G40.909 Epilepsy, unspecified, not intractable, without status epilepticus (principal)
CPT/HCPCS: 36415; 80048; 80185; 85025; 99281; 99283

== ENCOUNTER 2022-07-24 16:01 | Outpatient (CLI) | payer MEDICARE, OTHER, MEDICAID | END 2022-07-24 16:02 | disposition home or self-care (01) | LOC: LAB.N 16:01 | PROVIDERS: ATTEND Psychiatry & Neurology Neurology | DX: G40.109 Localization-related (focal) (partial) symptomatic epilepsy and epileptic syndromes with simple partial seizures, not intractable, without status epilepticus (principal) | CPT/HCPCS: 36415; 80185 ==

== ENCOUNTER 2022-07-27 01:27 | Outpatient (CLI) | payer MEDICARE, OTHER, MEDICAID | END 2022-07-27 23:59 | disposition critical access hospital (66) | LOC: EMS 01:27 | DX: R11.10 Vomiting, unspecified (principal); R53.1 Weakness | CPT/HCPCS: A0425; A0429 ==

== ENCOUNTER 2022-07-27 01:47 | Inpatient (IN) | payer MEDICARE, OTHER, MEDICAID ==
[2022-07-27] MEDS ORDERED: iohexoL-300 100 ML VIAL ONE (02:50)
--- NOTE | 2022-07-27 03:04 | ED Physician Documentation ---
PD HPI NVD - Stated complaint Stated Complaint: VOMITING - Chief complaint Chief Complaint: Abd Pain - History obtained from History obtained from: Caregiver - History of Present Illness Recently seen: Not recently seen - Additonal information Additional information: Patient is nonverbal at baseline and thus unable to contribute to HPI. HPI is from patient's marriage and family social worker who is in the ED at patient's bedside. Patient's caregiver reports that patient developed vomiting a few hours prior to arrival. Patient has a history of recurrent small bowel obstruction. The caregiver gave a dose of Zofran but patient had another episode of emesis and thus she called 911. Review of Systems Unable to obtain: Other (HPI/ROS limited to observations by the caregiver (patient is nonverbal at baseline)) Constitutional: denies: Fever GI: reports: Vomiting. 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: Other (left orchiectomy) - Present Medications Home Medications: Ambulatory Orders Medication Instructions Recorded Confirmed Multivitamin [Multi-Vitamin Daily] 1 tab PO DAILY 05/12/13 07/27/22 Atorvastatin [Lipitor] 10 mg PO QPM 07/30/13 07/27/22 Docusate Sodium 250Mg Capsule 250 mg PO BID 09/19/16 07/27/22 [Colace 250Mg Capsule] Ondansetron Odt [Zofran Odt] 4 mg TL Q6H PRN 09/19/16 07/27/22 Phenytoin [Dilantin] 300 mg PO QPM 09/19/16 07/27/22 Calcium Carbonate [Calcium] 1,200 mg PO DAILY 05/17/20 07/27/22 Cholecalciferol (Vitamin D3) 100 mcg PO DAILY 05/17/20 07/27/22 [Vitamin D3] Famotidine [Acid-Pep] 20 mg PO DAILY 05/17/20 07/27/22 Krill/Om-3/Dha/Epa/Phospho/Ast 2 cap PO BID 05/17/20 07/27/22 [Krill Oil 500 mg Softgel] Lactose-Reduced Food [Ensure Max 240 ml PO TID 05/17/20 07/27/22 Protein] Propylene Glycol [Systane Complete] 1 drops OP BID 05/17/20 07/27/22 Pantoprazole [Protonix] 40 mg PO QDAC 12/26/20 07/27/22 Simethicone [Mylicon] 80 mg PO Q3H PRN 06/09/21 07/27/22 polyethylene glycoL 3350 [Miralax] 17 gm PO DAILY PRN 06/09/21 07/27/22 - Allergies Allergies/Adverse Reactions: Allergies Allergy/AdvReac Type Severity Reaction Status Date / Time Sulfa (Sulfonamide Allergy Hives Verified 07/27/22 05:38 Antibiotics) adhesive tape AdvReac Rash Verified 07/27/22 05:38 - Social History Does the pt smoke?: No Smoking Status: Never smoker Does the pt drink ETOH?: No Does the pt have substance abuse?: No - Immunizations Immunizations are current?: Yes - POLST Patient has POLST: No POLST Status: Full Code PD ED PE NORMAL - Vitals Vital signs reviewed: Yes - General General: Other (awake, alert. makes eye contact. does not follow commands, nonverbal) - Cardiac Cardiac: RRR, No murmur - Respiratory Respiratory: No respiratory distress, Clear bilaterally - Abdomen Abdomen: Normal bowel sounds, Soft, Non distended, Other (does not appear to be in pain with abdominal palpation) - Derm Derm: Normal color, Warm and dry Results - Vitals Vitals: Vital Signs - 24 hr 07/27/22 07/27/22 07/27/22 01:55 03:10 03:57 Temperature 36.9 C Heart Rate 87 86 92 Respiratory 17 15 15 Rate Blood Pressure 138/97 H 116/84 H 114/59 L O2 Saturation 95 96 94 07/27/22 07/27/22 07/27/22 04:13 04:20 04:55 Temperature 36.5 C Heart Rate 97 93 97 Respiratory 19 20 15 Rate Blood Pressure 131/95 H 131/95 H 123/95 H O2 Saturation 95 94 97 07/27/22 06:09 Temperature Heart Rate 65 Respiratory 19 Rate Blood Pressure 134/102 H O2 Saturation 100 Oxygen O2 Source Room air - Labs Labs: Laboratory Tests 07/27/22 07/27/22 03:01 03:01 WBC 11.6 H RBC 4.56 L Hgb 14.8 Hct 43.5 MCV 95.4 H MCH 32.5 H MCHC 34.0 RDW 13.2 Plt Count 266 MPV 9.1 Neut # (Auto) 9.9 H Lymph # (Auto) 1.0 L [place] # (Auto) 0.6 Eos # (Auto) 0.0 Baso # (Auto) 0.0 Absolute Nucleated RBC 0.00 Nucleated RBC % 0.0 Sodium 139 Potassium 4.3 Chloride 99 L Carbon Dioxide 29 Anion Gap 11.0 BUN 22 H Creatinine 0.6 Estimated GFR (MDRD) 142 Glucose 122 H Calcium 9.5 Total Bilirubin 0.6 AST 39 ALT 43 Alkaline Phosphatase 114 Total Protein 7.3 Albumin 4.0 Globulin 3.3 Albumin/Globulin Ratio 1.2 Lipase 46 - Rads (name of study) CT A/P Relevant Findings:: Prelim report reviewed, See rad report cxr for line placement Relevant Findings:: Prelim report reviewed, EMP independent interpretation of test (I reviewed this study and on my interpretation, the NGT appears coiled in the mouth before descending downwards with the tip barely below diaphragm), See rad report cxr for line placement (repeat) Relevant Findings:: Prelim report reviewed, EMP independent interpretation of test (I interpreted this study (at bedside, on portable xray machine), and my interpretation is NGT in good position), See rad report PD Medical Decision Making - ED course Complexity details: reviewed old records, reviewed results, re-evaluated patient, considered differential ED course: There were no concerning or diagnostic findings on blood test (CBC, your abdominal panel). Mild leukocytosis is noted (white blood cell count 11.6). BUN is mildly elevated at 22 with a normal creatinine (0.6). Patient had recurrent episodes of vomiting during ER observation despite repeated doses of IV Zofran. CT abdomen and pelvis is performed and radiologist's interpretation is "mid small bowel obstruction probably near complete transition point right mid abdomen no free air." NG tube is placed by the ED RN, but appears to be coiled in the mouth with the tip barely below the diaphragm. I reevaluated the patient with the ED RN and we tried to look in patient's mouth but he was not opening his mouth enough to visualize the tube. Attempts to advance the tube would likely result in further coiling in the mouth and thus the ED RN removed the NGT and replaced it. A subsequent CXR shows good position of the NGT. I discussed this case with Dr. Oates (on-call surgery for [facility]). He has been involved in this patient's care in the past and thus patient is familiar to him. Dr. Oates says patient is not a surgical candidate, but would be appropriate for admission to hospitalist service for medical management of the small bowel obstruction. I discussed the case with the telehealth physician who accepts patient to the hospitalist service. Departure - Departure Disposition: [facility] DC/Xfer Clinical Impression: SBO (small bowel obstruction) Condition: Stable Discharge Date/Time: 07/27/22 06:55
[2022-07-27 03:06] LABS: BASOPHILS % (AUTO) 0.2 %; EOSINOPHILS % (AUTO) 0.3 %; HCT - HEMATOCRIT 43.5 % (42.0-52.0); HGB - HEMOGLOBIN 14.8 g/dL (14.0-18.0); MEAN CORPUSCULAR HEMOGLOBIN 32.5 pg (27.0-31.0); MEAN CORPUSCULAR VOLUME 95.4 fL (80.0-94.0); MEAN PLATELET VOLUME 9.1 fL (7.4-11.4); MONOCYTES # (AUTO) 0.6 10^3/uL (0.0-1.0); MONOCYTES % (AUTO) 4.9 %; NEUTROPHILS # (AUTO) 9.9 10^3/uL (1.5-6.6); NEUTROPHILS % (AUTO) 85.3 %; PLT - PLATELET COUNT 266 10^3/uL (130-450); RED BLOOD COUNT 4.56 10^6/uL (4.70-6.10); RED CELL DISTRIBUTION WIDTH 13.2 % (12.0-15.0); WHITE BLOOD COUNT 11.6 x10^3/uL (4.8-10.8)
[2022-07-27 03:36] LABS: ALBUMIN/GLOBULIN RATIO 1.2 (1.0-2.2); BILIRUBIN,TOTAL 0.6 mg/dL (0.2-1.0); CALCIUM 9.5 mg/dL (8.5-10.3); CREATININE 0.6 mg/dL (0.6-1.2); POTASSIUM 4.3 mmol/L (3.5-5.0); TOTAL PROTEIN 7.3 g/dL (6.7-8.2)
[2022-07-27] MEDS ORDERED: ONDANSETRON 4 MG/2 ML VIAL IVP STA ×2 (03:49→04:57)
[2022-07-27] MEDS ORDERED: iohexoL-300 100 ML VIAL IVP ONE (04:54)
[2022-07-27] MEDS ORDERED: SODIUM CHLORIDE 0.9% 1,000 ML IV STA ×2 (04:57)
[2022-07-27] MEDS ORDERED: LIDOCAINE JELLY 2% 6 ML JEL.PF.APP TOP STA (05:47)
[2022-07-27] MEDS ORDERED: PROCHLORPERAZINE 10 MG/2 ML VIAL IVP PRN (06:12)
[2022-07-27] MEDS ORDERED: ONDANSETRON 4 MG/2 ML VIAL IVP PRN (06:12)
[2022-07-27] MEDS ORDERED: SODIUM CHLORIDE FLUSH 0.9% 10 ML SYRINGE IVP PRN (06:12)
[2022-07-27] MEDS ORDERED: SIMETHICONE CHEW 80 MG TABLET PO PRN (06:16)
[2022-07-27] MEDS ORDERED: polyethylene glycoL 3350 17 GM PACKET PO PRN (06:16)
--- NOTE | 2022-07-27 06:24 | HISTORY & PHYSICAL EXAMINATION ---
Chief Complaint - Chief Complaint Chief Complaint: vomiting History of Present Illness - Admitted From Admitted From:: ED - History Obtained From Records Reviewed: EMR History obtained from: childbirth and infant care teacher Exam Limitations: tele medicine - History of Present Illness HPI Comment/Other: 52M c cerebral palsy, developmental delay and non verbal, c hx of recurrent SBO presenting to the ED with vomiting at home that started around midnight. Caregiver reports prior hx of similar presentation of dark green brown emesis due to SBO. Patient was brought into the ED where CT imaging per ED staff shows near complete SBO at the mid gut. Patient has had multiple episode of vomiting leading to a NGT to LIS placement. 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 Patient has no siblings. He does have foster parents.), Father: Living Situation: With caregiver(s) - Substance History Use: Uses substance without health or social issues: NONE - POLST Patient has POLST: No POLST Status: Full Code Meds/Allgy - Home Medications Home Medications: Ambulatory Orders Medication Instructions Recorded Confirmed Multivitamin [Multi-Vitamin Daily] 1 tab PO DAILY 05/12/13 07/27/22 Atorvastatin [Lipitor] 10 mg PO QPM 07/30/13 07/27/22 Docusate Sodium 250Mg Capsule 250 mg PO BID 09/19/16 07/27/22 [Colace 250Mg Capsule] Ondansetron Odt [Zofran Odt] 4 mg TL Q6H PRN 09/19/16 07/27/22 Phenytoin [Dilantin] 300 mg PO QPM 09/19/16 07/27/22 Calcium Carbonate [Calcium] 1,200 mg PO DAILY 05/17/20 07/27/22 Cholecalciferol (Vitamin D3) 100 mcg PO DAILY 05/17/20 07/27/22 [Vitamin D3] Famotidine [Acid-Pep] 20 mg PO DAILY 05/17/20 07/27/22 Krill/Om-3/Dha/Epa/Phospho/Ast 2 cap PO BID 05/17/20 07/27/22 [Krill Oil 500 mg Softgel] Lactose-Reduced Food [Ensure Max 240 ml PO TID 05/17/20 07/27/22 Protein] Propylene Glycol [Systane Complete] 1 drops OP BID 05/17/20 07/27/22 Pantoprazole [Protonix] 40 mg PO QDAC 12/26/20 07/27/22 Simethicone [Mylicon] 80 mg PO Q3H PRN 06/09/21 07/27/22 polyethylene glycoL 3350 [Miralax] 17 gm PO DAILY PRN 06/09/21 07/27/22 - Allergies Allergies/Adverse Reactions: Allergies Allergy/AdvReac Type Severity Reaction Status Date / Time Sulfa (Sulfonamide Allergy Hives Verified 07/27/22 05:38 Antibiotics) adhesive tape AdvReac Rash Verified 07/27/22 05:38 Review of Systems - Other Findings Other Findings: limited 2/2 patient with CP and nonverbal Exam - Vital Signs Vital Signs: Vital Signs x48h Temp Pulse Resp BP Pulse Ox 07/27/22 06:09 65 19 134/102 H 100 07/27/22 04:55 36.5 C 97 15 123/95 H 97 07/27/22 04:20 93 20 131/95 H 94 07/27/22 04:13 97 19 131/95 H 95 07/27/22 03:57 92 15 114/59 L 94 07/27/22 03:10 86 15 116/84 H 96 07/27/22 01:55 36.9 C 87 17 138/97 H 95 - Physical Exam General Appearance: positive: No acute distress, Alert Eyes Bilateral: positive: Normal inspection ENT: positive: ENT inspection nml Neck: positive: Nml inspection Abdomen: positive: Non-tender, No distention. negative: Tenderness, Guarding Conclusion/Plan - Problem List (1) SBO (small bowel obstruction) Conclusion/Plan: hx and sx and imaging support dx of high grade SBO. pain seems controlled at this time. npo except meds. NGT to LIS. pain control. Gen surg consulted by ED (2) Hyperlipidemia Conclusion/Plan: managed. continue atorvastatin (3) Cerebral palsy with spastic/ataxic diplegia Conclusion/Plan: noted. baseline. fall precaution. aspiration precaution - HOB>30degrees (4) Seizure disorder Conclusion/Plan: noted. managed. no breakthrough. restart home phenytoin. fall precaution and seizure precaution and aspiration precaution. - Lab Results Fish Bones: 07/27/22 03:01 07/27/22 03:01 - Diagnostic Imaging Results Diagnostic Imaging Results: positive: Other (d/w ED. image and read not available yet in EMR) Diagnostic Imaging Results Comments: SBO - EKG Results EKG Interpreted Independently: No Core Measures - Anticipated LOS I expect patient to be DC'd or transferred within 96 hours.: No - DVT/VTE - Prophylaxis VTE/DVT Device ordered at admit?: Yes Telemedicine Consult Details - Provider Location & Consult Time Telemedicine consultation conducted via videoconferencing?: Yes List names and roles of persons who participated in consult:: RN and childbirth and infant care teacher Maria L WHARTON) Telemedicine provider location:: [facility] Time Telemedicine consult began:: 06:15 Time Telemedicine consult completed:: 07:00
[2022-07-27] MEDS ORDERED: LACTOSE REDUCED FOOD PO SCH (06:30)
[2022-07-27] MEDS: PANTOPRAZOLE 40 MG TABLET PO SCH (07:52)
[2022-07-27] MEDS: SODIUM CHLORIDE 0.9% 1,000 ML IV SCH ×2 (07:52→16:41)
--- NOTE | 2022-07-27 08:00 | XRAY Report ---
PROCEDURE: Chest for Line Placement INDICATIONS: NGT placement TECHNIQUE: One view of the chest was acquired. COMPARISON: None. FINDINGS: Surgical changes and devices: There is a nasogastric tube in place with the distal side port project ing above the gastroesophageal junction. Postsurgical changes of extensive thoracolumbar spinal fusio n. Lungs and pleura: No pleural effusions or pneumothorax. Lungs are clear. Mediastinum: Mediastinal contours appear normal. Heart size is enlarged. Bones and chest wall: No suspicious bony lesions. Overlying soft tissues appear unremarkable. IMPRESSION: Nasogastric tube in place with the distal side port projecting above the gastroesophageal junction. R ecommend advancing approximately 5 to 7 cm. No acute cardiopulmonary abnormalities. No significant discrepancy with initial interpretation by overnight radiologist. Reviewed by: Ismael Mcnulty MD on 07/27/2022 7:59 AM PDT Approved by: Ismael Mcnulty MD on 07/27/2022 7:59 AM PDT Station ID: [id number]
--- NOTE | 2022-07-27 08:02 | XRAY Report ---
PROCEDURE: Chest for Line Placement INDICATIONS: NGT (removed/replaced after previous study) TECHNIQUE: One view of the chest was acquired. COMPARISON: Chest radiograph from earlier same day FINDINGS: Surgical changes and devices: The nasogastric tube has been repositioned. Distal side-port projects distal to the gastroesophageal junction. Distal tip now projects over the left upper quadrant in expe cted position of the stomach. Redemonstration of extensive thoracolumbar spinal fusion hardware. Lungs and pleura: No pleural effusions or pneumothorax. Lungs are clear. Mediastinum: Mediastinal contours appear normal. Heart size is enlarged. Bones and chest wall: No suspicious bony lesions. Overlying soft tissues appear unremarkable. IMPRESSION: Nasogastric tube in place and appears to be appropriately positioned. No acute cardiopulmonary abnormalities. No significant discrepancy with initial interpretation by overnight radiologist. Reviewed by: Ismael Mcnulty MD on 07/27/2022 8:01 AM PDT Approved by: Ismael Mcnulty MD on 07/27/2022 8:01 AM PDT Station ID: [id number]
[2022-07-27] MEDS: CARBOXYMETHYLCELLULOSE OPHTH DROPS EACHEYE SCH ×2 (09:12→21:57)
[2022-07-27] MEDS: FAMOTIDINE 20 MG TABLET PO SCH (09:12)
[2022-07-27] MEDS: SODIUM CHLORIDE FLUSH 0.9% 10 ML SYRINGE IVP SCH ×2 (09:12→16:41)
[2022-07-27] MEDS: DOCUSATE SODIUM 250 MG CAPSULE PO SCH ×2 (09:12→21:57)
--- NOTE | 2022-07-27 11:12 | CT Report ---
PROCEDURE: ABDOMEN/PELVIS W INDICATIONS: vomiting, h/o SBO CONTRAST: : 100 ML OMNI 300 TECHNIQUE: After the administration of IV contrast, 5 mm thick sections acquired from the diaphragms to the symp hysis. 5 mm thick coronal and sagittal reformats were acquired. For radiation dose reduction, the f ollowing was used: automated exposure control, adjustment of mA and/or kV according to patient size. COMPARISON: 06/08/2021, 12/25/2020 FINDINGS: Image quality: There is artifact associated with the metallic hardware. Lung bases and heart: Unremarkable. There is a moderate hiatal hernia. Liver: Unremarkable. Gallbladder and biliary tree: Removed. Spleen: Unremarkable. Pancreas: Unremarkable. Adrenals: Unremarkable. Kidneys and ureters: Unremarkable. Bowel and peritoneum: Abnormally dilated loops of proximal small bowel can be seen, which measure up to 4.5 cm. There is a transition point seen within the mid abdomen, just to the left midline, as on s eries 6 image 15 and on series 3 image 43. At this site, there is thickened small bowel wall seen. Di stal to this point, the small bowel loops are relatively decompressed. A mild amount of stool can be seen within the colon. A normal appendix is incidentally noted. No significant gastric abnormality is seen. Lymph nodes: No central or retroperitoneal adenopathy. Vessels: Unremarkable. PELVIS Reproductive organs: Unremarkable. Bladder: Unremarkable. Lymph nodes: Unremarkable. Bones: Spinal fixation rods are seen. S-shaped scoliosis is seen. Other: None. IMPRESSION: There is a small bowel obstruction seen, with the transition point seen within the midabdomen just to the left of the midline. Additional findings: Moderate hiatal hernia Cholecystectomy Spinal fixation rods S-shaped scoliosis Normal appendix Note: No significant discrepancy from the preliminary report. Reviewed by: Alfie Parisi MD on 07/27/2022 10:11 AM EMELYN Approved by: Alfie Parisi MD on 07/27/2022 10:11 AM EMELYN Station ID: [id number]
--- NOTE | 2022-07-27 12:40 | PHARMACY PROGRESS NOTE ---
- Best Possible Medication History Admit Date and Time: 07/27/2212 Processed by: Nursing As the person ultimately responsible for medication therapy, providers are able to order a medication from an existing home medication list in [facility] via the "Reconcile Routine" prior to Confirmation of that medication by customer support assistant. Such practice is discouraged except when the physician, in their clinical judgment, deems that a medical need exists for a medication without regard to previous use.
--- NOTE | 2022-07-27 14:03 | CONSULTATION NOTE ---
Referring Provider Consult Date: 07/27/22 Chief Complaint - Chief Complaint Chief Complaint: vomiting History of Present Illness - History Obtained From Records Reviewed: yes History obtained from: ED MD Exam Limitations: communicates however non verbal - History of Present Illness HPI Comment/Other: He is admitted to [facility] about yearly with small bowel obstruction. in past his sbo has always resolved over 3 to 5 days with medical management. 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 Patient has no siblings. He does have foster parents.), Father: Living Situation: With caregiver(s) - Substance History Use: Uses substance without health or social issues: NONE - POLST Patient has POLST: No POLST Status: Full Code Meds/Allgy - Home Medications Home Medications: Ambulatory Orders Medication Instructions Recorded Confirmed Multivitamin [Multi-Vitamin Daily] 1 tab PO DAILY 05/12/13 07/27/22 Atorvastatin [Lipitor] 10 mg PO QPM 07/30/13 07/27/22 Docusate Sodium 250Mg Capsule 250 mg PO BID 09/19/16 07/27/22 [Colace 250Mg Capsule] Ondansetron Odt [Zofran Odt] 4 mg TL Q6H PRN 09/19/16 07/27/22 Phenytoin [Dilantin] 300 mg PO QPM 09/19/16 07/27/22 Calcium Carbonate [Calcium] 1,200 mg PO DAILY 05/17/20 07/27/22 Cholecalciferol (Vitamin D3) 100 mcg PO DAILY 05/17/20 07/27/22 [Vitamin D3] Famotidine [Acid-Pep] 20 mg PO DAILY 05/17/20 07/27/22 Krill/Om-3/Dha/Epa/Phospho/Ast 2 cap PO BID 05/17/20 07/27/22 [Krill Oil 500 mg Softgel] Lactose-Reduced Food [Ensure Max 240 ml PO TID 05/17/20 07/27/22 Protein] Propylene Glycol [Systane Complete] 1 drops OP BID 05/17/20 07/27/22 Pantoprazole [Protonix] 40 mg PO QDAC 12/26/20 07/27/22 Simethicone [Mylicon] 80 mg PO Q3H PRN 06/09/21 07/27/22 polyethylene glycoL 3350 [Miralax] 17 gm PO DAILY PRN 06/09/21 07/27/22 - Allergies Allergies/Adverse Reactions: Allergies Allergy/AdvReac Type Severity Reaction Status Date / Time Sulfa (Sulfonamide Allergy Hives Verified 07/27/22 05:38 Antibiotics) adhesive tape AdvReac Rash Verified 07/27/22 05:38 Review of Systems - Other Findings Other Findings: 10 pt ros as above otherwise unremarkable Exam - Vital Signs Reviewed Vital Signs: Yes Vital Signs: Vital Signs x48h Temp Pulse Pulse Resp BP BP Pulse Ox 07/27/22 11:13 20 96 07/27/22 11:08 36.4 C L 98 28 H 122/93 H 87 L 07/27/22 07:13 37.3 C 96 18 117/58 L 96 07/27/22 06:50 36.9 C 98 18 123/61 99 07/27/22 06:09 65 19 134/102 H 100 - Physical Exam General Appearance: positive: No acute distress, Alert Eyes Bilateral: positive: PERRL, EOMI, No scleral icterus ENT: positive: No signs of dehydration Neck: positive: No JVD, Trachea midline Respiratory: positive: No respiratory distress Abdomen: positive: Non-tender, Other (minimal distension) Neurologic/Psychiatric: positive: Other (non verbal however does understand and communicates with nod or some vocalization) Conclusion/Plan - Problem List (1) SBO (small bowel obstruction) Conclusion/Plan: agree with care and plan he is feeling better abdomen still distended however non tender and benign. I have asked him to please leave the ngt in over night. in the past he has pulled it out. - Lab Results Fish Bones: 07/27/22 03:01 07/27/22 03:01 - Diagnostic Imaging Results Diagnostic Imaging Results: positive: Read independently
[2022-07-27] MEDS: PHENYTOIN ER 100 MG CAPSULE PO SCH (21:57)
[2022-07-27] MEDS: ATORVASTATIN 10 MG TABLET PO SCH (21:57)
--- NOTE | 2022-07-28 00:46 | XRAY Report ---
PROCEDURE: Chest for Line Placement INDICATIONS: Verify placement of NGT TECHNIQUE: One view of the chest was acquired. COMPARISON: Chest plain films earlier same day reviewed.. FINDINGS: Surgical changes and devices: An esophagogastric tube has been placed with its tip extending into th e gastric body/antrum junction. No other change.. Lungs and pleura: No pleural effusions or pneumothorax. Lungs are clear. Mediastinum: Mediastinal contours appear normal. Heart size is normal. Bones and chest wall: No suspicious bony lesions. Overlying soft tissues appear unremarkable. IMPRESSION: Normal positioning of esophagogastric tube into the [id number] stomach level. Reviewed by: Anurag Villanueva MD on 07/28/2022 12:44 AM PDT Approved by: Anurag Villanueva MD on 07/28/2022 12:44 AM PDT Station ID: [id number]
[2022-07-28] MEDS: SODIUM CHLORIDE FLUSH 0.9% 10 ML SYRINGE IVP SCH ×3 (01:00→17:56)
[2022-07-28] MEDS: SODIUM CHLORIDE 0.9% 1,000 ML IV SCH ×3 (02:29→21:03)
[2022-07-28] MEDS: PANTOPRAZOLE 40 MG TABLET PO SCH (05:15)
[2022-07-28] MEDS: FAMOTIDINE 20 MG TABLET PO SCH (08:41)
[2022-07-28] MEDS: CARBOXYMETHYLCELLULOSE OPHTH DROPS EACHEYE SCH ×2 (08:42→20:58)
[2022-07-28] MEDS: DOCUSATE SODIUM 250 MG CAPSULE PO SCH ×2 (08:42→20:58)
[2022-07-28 09:18] LABS: BASOPHILS % (AUTO) 0.3 %; EOSINOPHILS # (AUTO) 0.2 10^3/uL (0.0-0.7); EOSINOPHILS % (AUTO) 1.8 %; HCT - HEMATOCRIT 34.7 % (42.0-52.0); HGB - HEMOGLOBIN 11.7 g/dL (14.0-18.0); LYMPHOCYTES # (AUTO) 1.6 10^3/uL (1.5-3.5); LYMPHOCYTES % (AUTO) 15.3 %; MEAN CORPUSCULAR HEMOGLOBIN 33.1 pg (27.0-31.0); MEAN CORPUSCULAR HGB CONC 33.7 g/dL (32.0-36.0); MEAN CORPUSCULAR VOLUME 98.3 fL (80.0-94.0); MEAN PLATELET VOLUME 9.1 fL (7.4-11.4); MONOCYTES # (AUTO) 0.8 10^3/uL (0.0-1.0); MONOCYTES % (AUTO) 7.7 %; NEUTROPHILS # (AUTO) 7.8 10^3/uL (1.5-6.6); NEUTROPHILS % (AUTO) 74.6 %; PLT - PLATELET COUNT 174 10^3/uL (130-450); RED BLOOD COUNT 3.53 10^6/uL (4.70-6.10); RED CELL DISTRIBUTION WIDTH 13.5 % (12.0-15.0); WHITE BLOOD COUNT 10.4 x10^3/uL (4.8-10.8)
[2022-07-28 09:30] LABS: ALBUMIN/GLOBULIN RATIO 1.1 (1.0-2.2); BILIRUBIN,TOTAL 0.9 mg/dL (0.2-1.0); CALCIUM 7.4 mg/dL (8.5-10.3); CREATININE 0.6 mg/dL (0.6-1.2); POTASSIUM 3.2 mmol/L (3.5-5.0); TOTAL PROTEIN 5.7 g/dL (6.7-8.2)
--- NOTE | 2022-07-28 12:43 | PROVIDER PROGRESS NOTE ---
Subjective - Subjective Subjective: resting soundly Objective - Vital Signs/Intake & Output Vital Signs: Vital Signs x48h Temp Pulse Resp BP BP Pulse Ox 07/28/22 07:25 90 99/47 L 07/28/22 07:22 37.0 C 86 18 95/46 L 94 07/28/22 05:15 37.5 C 44 L 20 102/57 L 95 Intake & Output: Intake & Output 07/25/22 07/26/22 07/27/22 07/28/22 23:59 23:59 23:59 23:59 Intake Total 2804.500 1480.000 Output Total 425 50 Balance 2379.500 1430.000 - Objective General Appearance: positive: No acute distress, Other (resting soundly) Respiratory: positive: No respiratory distress - Lab Results Fish Bones: 07/28/22 09:15 07/28/22 09:15 Other Labs: Lab Results x24hrs 07/28/22 07/28/22 Range/Units 09:15 09:15 WBC 10.4 (4.8-10.8) x10^3/uL RBC 3.53 L (4.70-6.10) 10^6/uL Hgb 11.7 L (14.0-18.0) g/dL Hct 34.7 L (42.0-52.0) % MCV 98.3 H (80.0-94.0) fL MCH 33.1 H (27.0-31.0) pg MCHC 33.7 (32.0-36.0) g/dL RDW 13.5 (12.0-15.0) % Plt Count 174 (130-450) 10^3/uL MPV 9.1 (7.4-11.4) fL Neut # (Auto) 7.8 H (1.5-6.6) 10^3/uL Lymph # (Auto) 1.6 (1.5-3.5) 10^3/uL Mccone # (Auto) 0.8 (0.0-1.0) 10^3/uL Eos # (Auto) 0.2 (0.0-0.7) 10^3/uL Baso # (Auto) 0.0 (0.0-0.1) 10^3/uL Absolute Nucleated RBC 0.00 x10^3/uL Nucleated RBC % 0.0 /100WBC Sodium 141 (135-145) mmol/L Potassium 3.2 L (3.5-5.0) mmol/L Chloride 109 (101-111) mmol/L Carbon Dioxide 24 (21-32) mmol/L Anion Gap 8.0 (6-13) BUN 19 (6-20) mg/dL Creatinine 0.6 (0.6-1.2) mg/dL Estimated GFR (MDRD) 142 (>89) Glucose 79 (70-100) mg/dL Calcium 7.4 L (8.5-10.3) mg/dL Total Bilirubin 0.9 (0.2-1.0) mg/dL AST 23 (10-42) IU/L ALT 26 (10-60) IU/L Alkaline Phosphatase 81 (42-121) IU/L Total Protein 5.7 L (6.7-8.2) g/dL Albumin 3.0 L (3.2-5.5) g/dL Globulin 2.7 (2.1-4.2) g/dL Albumin/Globulin Ratio 1.1 (1.0-2.2) Assessment/Plan - Problem List (1) SBO (small bowel obstruction) Impression: minimal ngt output yesterday. ngt is out. agree with clears as tolerated
--- NOTE | 2022-07-28 16:36 | PROVIDER PROGRESS NOTE ---
Subjective - Prog Note Date Prog Note Date: 07/28/22 Prog Note Time: 16:34 - Subjective Subjective: un comuunicative Current Medications - Current Medications Current Medications: Active Medications Acetaminophen (Acetaminophen 325 Mg Tablet) 650 mg PO Q4HR PRN PRN Reason: Pain 1 to 4, or Fever Atorvastatin Calcium (Atorvastatin 10 Mg Tablet) 10 mg PO QPM [facility] Last Admin: 07/27/22 21:57 Dose: Not Given Carboxymethylcellulose (Carboxymethylcellulose Ophth Drops) 1 drops EACHEYE BID [facility] Last Admin: 07/28/22 08:42 Dose: 1 drops Docusate Sodium (Docusate Sodium 250 Mg Capsule) 250 mg PO BID [facility] Last Admin: 07/28/22 08:42 Dose: 250 mg Famotidine (Famotidine 20 Mg Tablet) 20 mg PO DAILY [facility] Last Admin: 07/28/22 08:41 Dose: 20 mg Sodium Chloride (Normal Saline 0.9%) 1,000 mls @ 100 mls/hr IV .Q10H [facility] Last Admin: 07/28/22 12:13 Dose: 100 mls/hr Morphine Sulfate (Morphine 2 Mg/Ml Carpuject) 2 mg IVP Q4HR PRN PRN Reason: Pain 8 to 10 Ondansetron HCl (Ondansetron 4 Mg/2 Ml Vial) 4 mg IVP Q6HR PRN PRN Reason: Nausea / Vomiting Last Admin: 07/27/22 22:50 Dose: 4 mg Pantoprazole Sodium (Pantoprazole 40 Mg Tablet) 40 mg PO QDAC [facility] Last Admin: 07/28/22 05:15 Dose: 40 mg Phenytoin Sodium (Phenytoin Er 100 Mg Capsule) 300 mg PO QPM [facility] Last Admin: 07/27/22 21:57 Dose: 300 mg Polyethylene Glycol (Polyethylene Glycol 3350 17 Gm Packet) 17 gm PO DAILY PRN PRN Reason: Constipation Prochlorperazine Edisylate (Prochlorperazine 10 Mg/2 Ml Vial) 10 mg IVP Q6HR PRN PRN Reason: Nausea / Vomiting Simethicone (Simethicone Chew 80 Mg Tablet) 80 mg PO Q3H PRN PRN Reason: Gas Sodium Chloride (Sodium Chloride Flush 0.9% 10 Ml Syringe) 10 ml IVP PRN PRN PRN Reason: NEEDED PER PROVIDER ORDERS Last Admin: 07/27/22 22:50 Dose: 10 ml Sodium Chloride (Sodium Chloride Flush 0.9% 10 Ml Syringe) 10 ml IVP 0100 ,0900,1700 [facility] Last Admin: 07/28/22 08:42 Dose: Not Given Multivitamin [Multi-Vitamin Daily] 1 tab PO DAILY 05/12/13 Atorvastatin [Lipitor] 10 mg PO QPM 07/30/13 Docusate Sodium 250Mg Capsule [Colace 250Mg Capsule] 250 mg PO BID 09/19/16 Ondansetron Odt [Zofran Odt] 4 mg TL Q6H PRN 09/19/16 Phenytoin [Dilantin] 300 mg PO QPM 09/19/16 Calcium Carbonate [Calcium] 1,200 mg PO DAILY 05/17/20 Cholecalciferol (Vitamin D3) [Vitamin D3] 100 mcg PO DAILY 05/17/20 Famotidine [Acid-Pep] 20 mg PO DAILY 05/17/20 Krill/Om-3/Dha/Epa/Phospho/Ast [Krill Oil 500 mg Softgel] 2 cap PO BID 05/17/20 Lactose-Reduced Food [Ensure Max Protein] 240 ml PO TID 05/17/20 Propylene Glycol [Systane Complete] 1 drops OP BID 05/17/20 Pantoprazole [Protonix] 40 mg PO QDAC 12/26/20 Simethicone [Mylicon] 80 mg PO Q3H PRN 06/09/21 polyethylene glycoL 3350 [Miralax] 17 gm PO DAILY PRN 06/09/21 Objective - Vital Signs/Intake & Output Reviewed Vital Signs: Yes Vital Signs: Vital Signs x48h Temp Pulse Resp BP Pulse Ox 07/28/22 15:48 36.3 C L 86 18 109/62 96 Intake & Output: Intake & Output 07/25/22 07/26/22 07/27/22 07/28/22 23:59 23:59 23:59 23:59 Intake Total 2804.500 1780.000 Output Total 425 50 Balance 2379.500 1730.000 - Objective General Appearance: positive: Alert Eyes Bilateral: positive: PERRL, EOMI ENT: positive: No signs of dehydration Neck: positive: No JVD. negative: Stiff neck Respiratory: positive: No respiratory distress. negative: Breath sounds nml (coarse upper airway sounds), Wheezes, Rales, Rhonchi Cardiovascular: positive: Regular rate & rhythm Abdomen: positive: No organomegaly, Nml bowel sounds, Other (still w mild dist ension) Skin: positive: Warm, Dry Neurologic/Psychiatric: positive: CN's nml (2-12). negative: Motor nml - Lab Results Fish Bones: 07/28/22 09:15 07/28/22 09:15 Other Labs: Lab Results x24hrs 07/28/22 07/28/22 Range/Units 09:15 09:15 WBC 10.4 (4.8-10.8) x10^3/uL RBC 3.53 L (4.70-6.10) 10^6/uL Hgb 11.7 L (14.0-18.0) g/dL Hct 34.7 L (42.0-52.0) % MCV 98.3 H (80.0-94.0) fL MCH 33.1 H (27.0-31.0) pg MCHC 33.7 (32.0-36.0) g/dL RDW 13.5 (12.0-15.0) % Plt Count 174 (130-450) 10^3/uL MPV 9.1 (7.4-11.4) fL Neut # (Auto) 7.8 H (1.5-6.6) 10^3/uL Lymph # (Auto) 1.6 (1.5-3.5) 10^3/uL [place] # (Auto) 0.8 (0.0-1.0) 10^3/uL Eos # (Auto) 0.2 (0.0-0.7) 10^3/uL Baso # (Auto) 0.0 (0.0-0.1) 10^3/uL Absolute Nucleated RBC 0.00 x10^3/uL Nucleated RBC % 0.0 /100WBC Sodium 141 (135-145) mmol/L Potassium 3.2 L (3.5-5.0) mmol/L Chloride 109 (101-111) mmol/L Carbon Dioxide 24 (21-32) mmol/L Anion Gap 8.0 (6-13) BUN 19 (6-20) mg/dL Creatinine 0.6 (0.6-1.2) mg/dL Estimated GFR (MDRD) 142 (>89) Glucose 79 (70-100) mg/dL Calcium 7.4 L (8.5-10.3) mg/dL Total Bilirubin 0.9 (0.2-1.0) mg/dL AST 23 (10-42) IU/L ALT 26 (10-60) IU/L Alkaline Phosphatase 81 (42-121) IU/L Total Protein 5.7 L (6.7-8.2) g/dL Albumin 3.0 L (3.2-5.5) g/dL Globulin 2.7 (2.1-4.2) g/dL Albumin/Globulin Ratio 1.1 (1.0-2.2) ABX Reporting Has patient been on IV antibiotics over the past 48 hours?: No Assessment/Plan - Problem List (1) SBO (small bowel obstruction) Impression: hx and sx and imaging support dx of high grade SBO. He is having flatus and a small BM. 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 Plan: NG dc order start clear liquids give 40 meq po of K for replacment (2) Hyperlipidemia Conclusion/Plan: managed. continue atorvastatin (3) Cerebral palsy with spastic/ataxic diplegia Conclusion/Plan: noted. baseline. fall precaution. aspiration precaution - HOB>30degrees (4) Seizure disorder Conclusion/Plan: noted. managed. no breakthrough. restart home phenytoin. fall precaution and seizure precaution and aspiration precaution.
[2022-07-28] MEDS: POTASSIUM CHLORIDE 20 MEQ/15 ML UDC PO SCH (17:52)
[2022-07-28] MEDS: ATORVASTATIN 10 MG TABLET PO SCH (20:58)
[2022-07-28] MEDS: PHENYTOIN ER 100 MG CAPSULE PO SCH (20:58)
[2022-07-29] MEDS: SODIUM CHLORIDE FLUSH 0.9% 10 ML SYRINGE IVP SCH ×3 (01:00→16:41)
[2022-07-29 05:28] LABS: BASOPHILS % (AUTO) 0.2 %; EOSINOPHILS # (AUTO) 0.3 10^3/uL (0.0-0.7); EOSINOPHILS % (AUTO) 3.7 %; HCT - HEMATOCRIT 35.8 % (42.0-52.0); HGB - HEMOGLOBIN 12.2 g/dL (14.0-18.0); LYMPHOCYTES # (AUTO) 1.6 10^3/uL (1.5-3.5); LYMPHOCYTES % (AUTO) 17.1 %; MEAN CORPUSCULAR HEMOGLOBIN 32.7 pg (27.0-31.0); MEAN CORPUSCULAR HGB CONC 34.1 g/dL (32.0-36.0); MEAN PLATELET VOLUME 9.9 fL (7.4-11.4); MONOCYTES # (AUTO) 0.9 10^3/uL (0.0-1.0); MONOCYTES % (AUTO) 9.3 %; NEUTROPHILS # (AUTO) 6.4 10^3/uL (1.5-6.6); NEUTROPHILS % (AUTO) 69.5 %; PLT - PLATELET COUNT 192 10^3/uL (130-450); RED BLOOD COUNT 3.73 10^6/uL (4.70-6.10); WHITE BLOOD COUNT 9.2 x10^3/uL (4.8-10.8)
[2022-07-29 05:43] LABS: ALBUMIN/GLOBULIN RATIO 0.9 (1.0-2.2); BILIRUBIN,TOTAL 0.6 mg/dL (0.2-1.0); CALCIUM 7.4 mg/dL (8.5-10.3); CREATININE 0.4 mg/dL (0.6-1.2); POTASSIUM 3.8 mmol/L (3.5-5.0); TOTAL PROTEIN 6.3 g/dL (6.7-8.2)
[2022-07-29] MEDS: PANTOPRAZOLE 40 MG TABLET PO SCH (06:53)
[2022-07-29] MEDS: SODIUM CHLORIDE 0.9% 1,000 ML IV SCH ×2 (06:53→16:41)
[2022-07-29] MEDS: POTASSIUM CHLORIDE 20 MEQ/15 ML UDC PO SCH (08:56)
[2022-07-29] MEDS: FAMOTIDINE 20 MG TABLET PO SCH (08:56)
[2022-07-29] MEDS: DOCUSATE SODIUM 250 MG CAPSULE PO SCH ×2 (08:56→20:20)
[2022-07-29] MEDS: CARBOXYMETHYLCELLULOSE OPHTH DROPS EACHEYE SCH ×2 (08:56→20:19)
--- NOTE | 2022-07-29 09:07 | PROVIDER PROGRESS NOTE ---
Subjective - Subjective Subjective: tolerating some clears. denies pain Objective - Vital Signs/Intake & Output Reviewed Vital Signs: Yes Vital Signs: Vital Signs x48h Temp Pulse Resp BP Pulse Ox 07/29/22 08:27 37.1 C 80 18 114/71 95 Intake & Output: Intake & Output 07/26/22 07/27/22 07/28/22 07/29/22 23:59 23:59 23:59 23:59 Intake Total 2804.500 3023.333 983.333 Output Total 425 51 Balance 2379.500 2972.333 983.333 - Objective General Appearance: positive: No acute distress, Alert Eyes Bilateral: positive: PERRL, EOMI ENT: positive: No signs of dehydration Neck: positive: No JVD, Trachea midline Respiratory: positive: No respiratory distress Abdomen: positive: Non-tender, Other (mild distension however improved since admit) - Lab Results Fish Bones: 07/29/22 05:13 07/29/22 05:13 Other Labs: Lab Results x24hrs 07/29/22 07/29/22 07/28/22 Range/Units 05:13 05:13 09:15 WBC 9.2 (4.8-10.8) x10^3/uL RBC 3.73 L (4.70-6.10) 10^6/uL Hgb 12.2 L (14.0-18.0) g/dL Hct 35.8 L (42.0-52.0) % MCV 96.0 H (80.0-94.0) fL MCH 32.7 H (27.0-31.0) pg MCHC 34.1 (32.0-36.0) g/dL RDW 13.0 (12.0-15.0) % Plt Count 192 (130-450) 10^3/uL MPV 9.9 (7.4-11.4) fL Neut # (Auto) 6.4 (1.5-6.6) 10^3/uL Lymph # (Auto) 1.6 (1.5-3.5) 10^3/uL [place] # (Auto) 0.9 (0.0-1.0) 10^3/uL Eos # (Auto) 0.3 (0.0-0.7) 10^3/uL Baso # (Auto) 0.0 (0.0-0.1) 10^3/uL Absolute Nucleated RBC 0.00 x10^3/uL Nucleated RBC % 0.0 /100WBC Sodium 138 141 (135-145) mmol/L Potassium 3.8 3.2 L (3.5-5.0) mmol/L Chloride 108 109 (101-111) mmol/L Carbon Dioxide 27 24 (21-32) mmol/L Anion Gap 3.0 L 8.0 (6-13) BUN 6 19 (6-20) mg/dL Creatinine 0.4 L 0.6 (0.6-1.2) mg/dL Estimated GFR (MDRD) 227 142 (>89) Glucose 110 H 79 (70-100) mg/dL Calcium 7.4 L 7.4 L (8.5-10.3) mg/dL Total Bilirubin 0.6 0.9 (0.2-1.0) mg/dL AST 30 23 (10-42) IU/L ALT 24 26 (10-60) IU/L Alkaline Phosphatase 83 81 (42-121) IU/L Total Protein 6.3 L 5.7 L (6.7-8.2) g/dL Albumin 3.0 L 3.0 L (3.2-5.5) g/dL Globulin 3.3 2.7 (2.1-4.2) g/dL Albumin/Globulin Ratio 0.9 L 1.1 (1.0-2.2) 07/28/22 Range/Units 09:15 WBC 10.4 (4.8-10.8) x10^3/uL RBC 3.53 L (4.70-6.10) 10^6/uL Hgb 11.7 L (14.0-18.0) g/dL Hct 34.7 L (42.0-52.0) % MCV 98.3 H (80.0-94.0) fL MCH 33.1 H (27.0-31.0) pg MCHC 33.7 (32.0-36.0) g/dL RDW 13.5 (12.0-15.0) % Plt Count 174 (130-450) 10^3/uL MPV 9.1 (7.4-11.4) fL Neut # (Auto) 7.8 H (1.5-6.6) 10^3/uL Lymph # (Auto) 1.6 (1.5-3.5) 10^3/uL [place] # (Auto) 0.8 (0.0-1.0) 10^3/uL Eos # (Auto) 0.2 (0.0-0.7) 10^3/uL Baso # (Auto) 0.0 (0.0-0.1) 10^3/uL Absolute Nucleated RBC 0.00 x10^3/uL Nucleated RBC % 0.0 /100WBC Sodium (135-145) mmol/L Potassium (3.5-5.0) mmol/L Chloride (101-111) mmol/L Carbon Dioxide (21-32) mmol/L Anion Gap (6-13) BUN (6-20) mg/dL Creatinine (0.6-1.2) mg/dL Estimated GFR (MDRD) (>89) Glucose (70-100) mg/dL Calcium (8.5-10.3) mg/dL Total Bilirubin (0.2-1.0) mg/dL AST (10-42) IU/L ALT (10-60) IU/L Alkaline Phosphatase (42-121) IU/L Total Protein (6.7-8.2) g/dL Albumin (3.2-5.5) g/dL Globulin (2.1-4.2) g/dL Albumin/Globulin Ratio (1.0-2.2) Assessment/Plan - Problem List (1) SBO (small bowel obstruction) Impression: improved however still with mild distension. recommend continue with clears until non distended
--- NOTE | 2022-07-29 14:12 | PROVIDER PROGRESS NOTE ---
Subjective - Prog Note Date Prog Note Date: 07/29/22 Prog Note Time: 14:11 - Subjective Subjective: He responds to me today with yes or no nods and shakes. I asked him if he is in pain right now any shakes now. I ask him if his clear liquids is okay he a ctually just shrugs his shoulders. I ask if he wants me to advance his diet to something else and he shakes his head no. I asked him if the food is bothering his stomach and he said yes. He is still having flatus, no BM. Current Medications - Current Medications Current Medications: Active Medications Acetaminophen (Acetaminophen 325 Mg Tablet) 650 mg PO Q4HR PRN PRN Reason: Pain 1 to 4, or Fever Atorvastatin Calcium (Atorvastatin 10 Mg Tablet) 10 mg PO QPM [facility] Last Admin: 07/28/22 20:58 Dose: 10 mg Carboxymethylcellulose (Carboxymethylcellulose Ophth Drops) 1 drops EACHEYE BID [facility] Last Admin: 07/29/22 08:56 Dose: 1 drops Docusate Sodium (Docusate Sodium 250 Mg Capsule) 250 mg PO BID [facility] Last Admin: 07/29/22 08:56 Dose: 250 mg Famotidine (Famotidine 20 Mg Tablet) 20 mg PO DAILY [facility] Last Admin: 07/29/22 08:56 Dose: 20 mg Sodium Chloride (Normal Saline 0.9%) 1,000 mls @ 100 mls/hr IV .Q10H [facility] Last Admin: 07/29/22 06:53 Dose: 100 mls/hr Morphine Sulfate (Morphine 2 Mg/Ml Carpuject) 2 mg IVP Q4HR PRN PRN Reason: Pain 8 to 10 Ondansetron HCl (Ondansetron 4 Mg/2 Ml Vial) 4 mg IVP Q6HR PRN PRN Reason: Nausea / Vomiting Last Admin: 07/27/22 22:50 Dose: 4 mg Pantoprazole Sodium (Pantoprazole 40 Mg Tablet) 40 mg PO QDAC [facility] Last Admin: 07/29/22 06:53 Dose: 40 mg Phenytoin Sodium (Phenytoin Er 100 Mg Capsule) 300 mg PO QPM [facility] Last Admin: 07/28/22 20:58 Dose: 300 mg Polyethylene Glycol (Polyethylene Glycol 3350 17 Gm Packet) 17 gm PO DAILY PRN PRN Reason: Constipation Potassium Chloride (Potassium Chloride 20 Meq/15 Ml Udc) 40 meq PO DAILYWM [facility] Last Admin: 07/29/22 08:56 Dose: 40 meq Prochlorperazine Edisylate (Prochlorperazine 10 Mg/2 Ml Vial) 10 mg IVP Q6HR PRN PRN Reason: Nausea / Vomiting Simethicone (Simethicone Chew 80 Mg Tablet) 80 mg PO Q3H PRN PRN Reason: Gas Sodium Chloride (Sodium Chloride Flush 0.9% 10 Ml Syringe) 10 ml IVP PRN PRN PRN Reason: NEEDED PER PROVIDER ORDERS Last Admin: 07/27/22 22:50 Dose: 10 ml Sodium Chloride (Sodium Chloride Flush 0.9% 10 Ml Syringe) 10 ml IVP 0100,0900,1700 [facility] Last Admin: 07/29/22 08:56 Dose: Not Given Multivitamin [Multi-Vitamin Daily] 1 tab PO DAILY 05/12/13 Atorvastatin [Lipitor] 10 mg PO QPM 07/30/13 Docusate Sodium 250Mg Capsule [Colace 250Mg Capsule] 250 mg PO BID 09/19/16 Ondansetron Odt [Zofran Odt] 4 mg TL Q6H PRN 09/19/16 Phenytoin [Dilantin] 300 mg PO QPM 09/19/16 Calcium Carbonate [Calcium] 1,200 mg PO DAILY 05/17/20 Cholecalciferol (Vitamin D3) [Vitamin D3] 100 mcg PO DAILY 05/17/20 Famotidine [Acid-Pep] 20 mg PO DAILY 05/17/20 Krill/Om-3/Dha/Epa/Phospho/Ast [Krill Oil 500 mg Softgel] 2 cap PO BID 05/17/20 Lactose-Reduced Food [Ensure Max Protein] 240 ml PO TID 05/17/20 Propylene Glycol [Systane Complete] 1 drops OP BID 05/17/20 Pantoprazole [Protonix] 40 mg PO QDAC 12/26/20 Simethicone [Mylicon] 80 mg PO Q3H PRN 06/09/21 polyethylene glycoL 3350 [Miralax] 17 gm PO DAILY PRN 06/09/21 Objective - Vital Signs/Intake & Output Reviewed Vital Signs: Yes Vital Signs: Vital Signs x48h Temp Pulse Resp BP Pulse Ox 04/03/23 08:27 37.1 C 80 18 114/71 95 Intake & Output: Intake & Output 07/26/22 07/27/22 07/28/22 07/29/22 23:59 23:59 23:59 23:59 Intake Total 2804.500 3023.333 1263.333 Output Total 425 51 Balance 2379.500 2972.333 1263.333 - Objective General Appearance: positive: Alert, Other (Thin, angular gentleman with limb contractures from cerebral palsy, facial asymmetry due to trauma, who is awake, alert, watching TV. Nursing reports that he can grunt if he gets too much pain or he is angry) Eyes Bilateral: positive: PERRL, EOMI ENT: positive: No signs of dehydration Neck: positive: No JVD. negative: Stiff neck Respiratory: positive: No respiratory distress. negative: Wheezes, Rales, Rhonchi Cardiovascular: positive: Regular rate & rhythm Abdomen: positive: Other (Distention is better than it was yesterday. I only heard one bowel sound. He says this does ache when I palpate. But no rebound or guarding. No masses.No NG tube since yesterday.) Skin: positive: Warm, Dry Extremities: positive: No pedal edema. negative: Full ROM, Nml appearance Neurologic/Psychiatric: positive: Oriented x3 (He nods yes appropriately when I give him choices. He knows he is in the hospital, that he is here because his belly hurts, and he knows that it is July but not the date or the year), CN's nml (2-12). negative: Motor nml - Lab Results Fish Bones: 07/29/22 05:13 07/29/22 05:13 Other Labs: Lab Results x24hrs 07/29/22 07/29/22 Range/Units 05:13 05:13 WBC 9.2 (4.8-10.8) x10^3/uL RBC 3.73 L (4.70-6.10) 10^6/uL Hgb 12.2 L (14.0-18.0) g/dL Hct 35.8 L (42.0-52.0) % MCV 96.0 H (80.0-94.0) fL MCH 32.7 H (27.0-31.0) pg MCHC 34.1 (32.0-36.0) g/dL RDW 13.0 (12.0-15.0) % Plt Count 192 (130-450) 10^3/uL MPV 9.9 (7.4-11.4) fL Neut # (Auto) 6.4 (1.5-6.6) 10^3/uL Lymph # (Auto) 1.6 (1.5-3.5) 10^3/uL [place] # (Auto) 0.9 (0.0-1.0) 10^3/uL Eos # (Auto) 0.3 (0.0-0.7) 10^3/uL Baso # (Auto) 0.0 (0.0-0.1) 10^3/uL Absolute Nucleated RBC 0.00 x10^3/uL Nucleated RBC % 0.0 /100WBC Sodium 138 (135-145) mmol/L Potassium 3.8 (3.5-5.0) mmol/L Chloride 108 (101-111) mmol/L Carbon Dioxide 27 (21-32) mmol/L Anion Gap 3.0 L (6-13) BUN 6 (6-20) mg/dL Creatinine 0.4 L (0.6-1.2) mg/dL Estimated GFR (MDRD) 227 (>89) Glucose 110 H (70-100) mg/dL Calcium 7.4 L (8.5-10.3) mg/dL Total Bilirubin 0.6 (0.2-1.0) mg/dL AST 30 (10-42) IU/L ALT 24 (10-60) IU/L Alkaline Phosphatase 83 (42-121) IU/L Total Protein 6.3 L (6.7-8.2) g/dL Albumin 3.0 L (3.2-5.5) g/dL Globulin 3.3 (2.1-4.2) g/dL Albumin/Globulin Ratio 0.9 L (1.0-2.2) ABX Reporting Has patient been on IV antibiotics over the past 48 hours?: No Assessment/Plan - Problem List (1) SBO (small bowel obstruction) Impression: He has a history of numerous admissions for the same problem. So far he has not needed any open surgeries for this. He has cerebral palsy. Communicates mainly by nodding his head yes and shaking his head now. Current admission has hx and sx and imaging support dx of high grade SBO. He is having flatus and a small BM. 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 NG is not replaced. Tolerating clear liquids but the patient himself is asking us not to advance him. General surgery is following the patient and their note was read. Plan: Continue clear liquid diet. Potassium was given yesterday and his potassium is 3.8. (2) Hyperlipidemia Conclusion/Plan: managed. continue atorvastatin (3) Cerebral palsy with spastic/ataxic diplegia Conclusion/Plan: noted. baseline. fall precaution. aspiration precaution - HOB>30degrees (4) Seizure disorder Conclusion/Plan: noted. managed. no breakthrough. restart home phenytoin. fall precaution and seizure precaution and aspiration precaution.
[2022-07-29] MEDS: PHENYTOIN ER 100 MG CAPSULE PO SCH (20:20)
[2022-07-29] MEDS: ATORVASTATIN 10 MG TABLET PO SCH (20:20)
[2022-07-30] MEDS: SODIUM CHLORIDE FLUSH 0.9% 10 ML SYRINGE IVP SCH ×3 (02:08→18:11)
[2022-07-30] MEDS: SODIUM CHLORIDE 0.9% 1,000 ML IV SCH ×3 (02:09→22:25)
[2022-07-30] MEDS: PANTOPRAZOLE 40 MG TABLET PO SCH (05:09)
[2022-07-30 05:46] LABS: BASOPHILS % (AUTO) 0.3 %; EOSINOPHILS # (AUTO) 0.3 10^3/uL (0.0-0.7); EOSINOPHILS % (AUTO) 4.2 %; HCT - HEMATOCRIT 36.7 % (42.0-52.0); LYMPHOCYTES # (AUTO) 1.5 10^3/uL (1.5-3.5); LYMPHOCYTES % (AUTO) 18.7 %; MEAN CORPUSCULAR HEMOGLOBIN 33.2 pg (27.0-31.0); MEAN CORPUSCULAR HGB CONC 35.4 g/dL (32.0-36.0); MEAN CORPUSCULAR VOLUME 93.9 fL (80.0-94.0); MEAN PLATELET VOLUME 9.6 fL (7.4-11.4); MONOCYTES # (AUTO) 0.8 10^3/uL (0.0-1.0); MONOCYTES % (AUTO) 10.1 %; NEUTROPHILS # (AUTO) 5.2 10^3/uL (1.5-6.6); NEUTROPHILS % (AUTO) 66.4 %; PLT - PLATELET COUNT 221 10^3/uL (130-450); RED BLOOD COUNT 3.91 10^6/uL (4.70-6.10); RED CELL DISTRIBUTION WIDTH 12.7 % (12.0-15.0); WHITE BLOOD COUNT 7.8 x10^3/uL (4.8-10.8)
[2022-07-30 06:00] LABS: ALBUMIN 3.1 g/dL (3.2-5.5); ALBUMIN/GLOBULIN RATIO 0.9 (1.0-2.2); BILIRUBIN,TOTAL 0.4 mg/dL (0.2-1.0); CALCIUM 7.9 mg/dL (8.5-10.3); CREATININE 0.3 mg/dL (0.6-1.2); POTASSIUM 3.3 mmol/L (3.5-5.0); TOTAL PROTEIN 6.7 g/dL (6.7-8.2)
[2022-07-30] MEDS: CARBOXYMETHYLCELLULOSE OPHTH DROPS EACHEYE SCH ×2 (08:36→20:46)
[2022-07-30] MEDS: POTASSIUM CHLORIDE 20 MEQ/15 ML UDC PO SCH (08:36)
[2022-07-30] MEDS: FAMOTIDINE 20 MG TABLET PO SCH (08:36)
[2022-07-30] MEDS: DOCUSATE SODIUM 250 MG CAPSULE PO SCH ×2 (08:37→20:38)
--- NOTE | 2022-07-30 09:23 | PROVIDER PROGRESS NOTE ---
Subjective - Subjective Pt reports feeling: Improved (tolerating soft diet) Objective - Vital Signs/Intake & Output Reviewed Vital Signs: Yes Vital Signs: Vital Signs x48h Temp Pulse Resp BP Pulse Ox 07/30/22 07:45 36.3 C L 74 16 121/77 97 Intake & Output: Intake & Output 07/27/22 07/28/22 07/29/22 07/30/22 23:59 23:59 23:59 23:59 Intake Total 2804.500 3023.333 2878.333 1123.667 Output Total 425 51 100 Balance 2379.500 2972.333 2778.333 1123.667 - Objective General Appearance: positive: No acute distress, Alert Respiratory: positive: No respiratory distress Abdomen: positive: Non-tender, No distention - Lab Results Fish Bones: 07/30/22 05:09 07/30/22 05:09 Other Labs: Lab Results x24hrs 07/30/22 07/30/22 Range/Units 05:09 05:09 WBC 7.8 (4.8-10.8) x10^3/uL RBC 3.91 L (4.70-6.10) 10^6/uL Hgb 13.0 L (14.0-18.0) g/dL Hct 36.7 L (42.0-52.0) % MCV 93.9 (80.0-94.0) fL MCH 33.2 H (27.0-31.0) pg MCHC 35.4 (32.0-36.0) g/dL RDW 12.7 (12.0-15.0) % Plt Count 221 (130-450) 10^3/uL MPV 9.6 (7.4-11.4) fL Neut # (Auto) 5.2 (1.5-6.6) 10^3/uL Lymph # (Auto) 1.5 (1.5-3.5) 10^3/uL [place] # (Auto) 0.8 (0.0-1.0) 10^3/uL Eos # (Auto) 0.3 (0.0-0.7) 10^3/uL Baso # (Auto) 0.0 (0.0-0.1) 10^3/uL Absolute Nucleated RBC 0.00 x10^3/uL Nucleated RBC % 0.0 /100WBC Sodium 143 (135-145) mmol/L Potassium 3.3 L (3.5-5.0) mmol/L Chloride 111 (101-111) mmol/L Carbon Dioxide 27 (21-32) mmol/L Anion Gap 5.0 L (6-13) BUN 5 L (6-20) mg/dL Creatinine 0.3 L (0.6-1.2) mg/dL Estimated GFR (MDRD) 316 (>89) Glucose 106 H (70-100) mg/dL Calcium 7.9 L (8.5-10.3) mg/dL Total Bilirubin 0.4 (0.2-1.0) mg/dL AST 24 (10-42) IU/L ALT 24 (10-60) IU/L Alkaline Phosphatase 110 (42-121) IU/L Total Protein 6.7 (6.7-8.2) g/dL Albumin 3.1 L (3.2-5.5) g/dL Globulin 3.6 (2.1-4.2) g/dL Albumin/Globulin Ratio 0.9 L (1.0-2.2) Assessment/Plan - Problem List (1) SBO (small bowel obstruction) Impression: daily improvement. agree with care and plan agree with bowel protocol and consider enemas if not having a bm soon
--- NOTE | 2022-07-30 16:30 | PROVIDER PROGRESS NOTE ---
Assessment/Plan - Problem List (1) SBO (small bowel obstruction) Assessment/Plan: He has a history of numerous admissions for the same problem. So far he has not needed any open surgeries for this. He has cerebral palsy. Communicates mainly by nodding his head yes and shaking his head no and grunting. Current admission has hx and sx and imaging support dx of high grade SBO. 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 NG was not replaced. He is having flatus and had a small BM today. Tolerating clear liquids but the patient's baseline diet is pureed food. General surgery is following and no surg indicated. Plan: Continue clear liquid diet. Will advanc e slowly, at the pt's own request. (2) Hyperlipidemia Conclusion/Plan: We have continued atorvastatin (3) Cerebral palsy with spastic/ataxic diplegia He is minimally communicative, grunts and nods with responses, has flat affect and bradykinesia Plan: fall precaution. aspiration precaution - HOB>30degrees (4) Seizure disorder Conclusion/Plan: No breakthrough. Plan: We restarted home phenytoin. fall precaution and seizure precaution and aspiration precautions ordered. - Current Meds Current Meds: Current Medications Generic Name Dose Route Start Last Admin Trade Name Freq PRN Reason Stop Dose Admin Atorvastatin Calcium 10 mg 07/27/22 21:00 07/29/22 20:20 Atorvastatin 10 Mg Tablet PO 10 mg QPM SARAH Administration Carboxymethylcellulose 1 drops 07/27/22 09:00 07/30/22 08:36 Carboxymethylcellulose Ophth Drops EACHEYE 1 drops BID SARAH Administration Docusate Sodium 250 mg 07/27/22 09:00 07/30/22 08:37 Docusate Sodium 250 Mg Capsule PO 250 mg BID [facility]AH Administration Famotidine 20 mg 07/27/22 09:00 07/30/22 08:36 Famotidine 20 Mg Tablet PO 20 mg DAILY [facility]AH Administration Sodium Chloride 1,000 mls @ 100 mls/hr 07/27/22 07:00 07/30/22 12:24 Normal Saline 0.9% IV 100 mls/hr .Q10H [facility]AH Administration Ondansetron HCl 4 mg 07/27/22 06:12 07/27/22 22:50 Ondansetron 4 Mg/2 Ml Vial IVP 4 mg Q6HR PRN Administration Nausea / Vomiting Pantoprazole Sodium 40 mg 07/27/22 07:00 07/30/22 05:09 Pantoprazole 40 Mg Tablet PO 40 mg QDAC [facility]AH Administration Phenytoin Sodium 300 mg 07/27/22 21:00 07/29/22 20:20 Phenytoin Er 100 Mg Capsule PO 300 mg QPM [facility]AH Administration Potassium Chloride 40 meq 07/28/22 17:00 07/30/22 08:36 Potassium Chloride 20 Meq/15 Ml Udc PO 40 meq DAILYWM [facility]AH Administration Sodium Chloride 10 ml 07/27/22 06:12 07/27/22 22:50 Sodium Chloride Flush 0.9% 10 Ml Syringe IVP 10 ml PRN PRN Administration NEEDED PER PROVIDER ORDERS Sodium Chloride 10 ml 07/27/22 09:00 07/30/22 08:37 Sodium Chloride Flush 0.9% 10 Ml Syringe IVP Not Given 0100,0900,1700 SARAH - Lab Result Fish Bone Diagrams: 07/31/22 05:24 07/31/22 05:24 Subjective - Subjective Patient Reports: Feeling Better Nursing Reports: Other (Had a BM) Objective Vital Signs: Vital Signs - 24 hr 07/29/22 07/30/22 23:29 07:45 Temperature 37.3 C 36.3 C L Heart Rate [ 74 74 Brachial] Respiratory 16 16 Rate Blood Pressure 117/73 121/77 [Right Brachial artery] O2 Saturation 98 97 Oxygen O2 Source Room air I&O (Last 24 Hrs): Intake and Output Totals x24h 07/28/22 07/29/22 07/30/22 23:59 23:59 23:59 Intake Total 3023.333 2878.333 2835.667 Output Total 51 100 Balance 2972.333 2778.333 2835.667 General: Alert, Other (Normally communicative, shrugs, shakes his head and nods, puts up his thumb for a yes answer) HEENT: Mucous membr. moist/pink Neck: Supple Neuro: Alert, Other (Has generalized weakness, is minimally communicative, all probably from his CP) Cardiovascular: Regular rate, No murmurs Respiratory: No respiratory distress, Breath sounds nml Abdomen: Normal bowel sounds, Soft Extremities: No clubbing, No edema - Results Results: Laboratory Results WBC 7.8 x10^3/uL (4.8-10.8) 07/30/22 05:09 RBC 3.91 10^6/uL (4.70-6.10) L 07/30/22 05:09 Hgb 13.0 g/dL (14.0-18.0) L 07/30/22 05:09 Hct 36.7 % (42.0-52.0) L 07/30/22 05:09 MCV 93.9 fL (80.0-94.0) 07/30/22 05:09 MCH 33.2 pg (27.0-31.0) H 07/30/22 05:09 MCHC 35.4 g/dL (32.0-36.0) 07/30/22 05:09 RDW 12.7 % (12.0-15.0) 07/30/22 05:09 Plt Count 221 10^3/uL (130-450) 07/30/22 05:09 MPV 9.6 fL (7.4-11.4) 07/30/22 05:09 Neut # (Auto) 5.2 10^3/uL (1.5-6.6) 07/30/22 05:09 Lymph # (Auto) 1.5 10^3/uL (1.5-3.5) 07/30/22 05:09 [place] # (Auto) 0.8 10^3/uL (0.0-1.0) 07/30/22 05:09 Eos # (Auto) 0.3 10^3/uL (0.0-0.7) 07/30/22 05:09 Baso # (Auto) 0.0 10^3/uL (0.0-0.1) 07/30/22 05:09 Absolute Nucleated RBC 0.00 x10^3/uL 07/30/22 05:09 Nucleated RBC % 0.0 /100WBC 07/30/22 05:09 Sodium 143 mmol/L (135-145) 07/30/22 05:09 Potassium 3.3 mmol/L (3.5-5.0) L 07/30/22 05:09 Chloride 111 mmol/L (101-111) 07/30/22 05:09 Carbon Dioxide 27 mmol/L (21-32) 07/30/22 05:09 Anion Gap 5.0 (6-13) L 07/30/22 05:09 BUN 5 mg/dL (6-20) L 07/30/22 05:09 Creatinine 0.3 mg/dL (0.6-1.2) L 07/30/22 05:09 Estimated GFR (MDRD) 316 (>89) 07/30/22 05:09 Glucose 106 mg/dL (70-100) H 07/30/22 05:09 Calcium 7.9 mg/dL (8.5-10.3) L 07/30/22 05:09 Total Bilirubin 0.4 mg/dL (0.2-1.0) 07/30/22 05:09 AST 24 IU/L (10-42) 07/30/22 05:09 ALT 24 IU/L (10-60) 07/30/22 05:09 Alkaline Phosphatase 110 IU/L (42-121) 07/30/22 05:09 Total Protein 6.7 g/dL (6.7-8.2) 07/30/22 05:09 Albumin 3.1 g/dL (3.2-5.5) L 07/30/22 05:09 Globulin 3.6 g/dL (2.1-4.2) 07/30/22 05:09 Albumin/Globulin Ratio 0.9 (1.0-2.2) L 07/30/22 05:09 Lipase 46 U/L (22-51) 07/27/22 03:01 - Procedures Procedures: Procedures ESOPHAGOGASTRODUODENOSCOPY [EGD] W/CLOSED BIOPSY (07/31/13) INSERT GASTRIC TUBE NEC (06/23/14) INSERTION OF INFUSION DEV INTO SUP VENA CAVA, PERC APPROACH (06/08/21) INSERTION OF INFUSION DEVICE INTO R ATRIUM, PERC APPROACH (02/03/15) INTRODUCTION OF NUTRITIONAL INTO CENTRAL VEIN, PERC APPROACH (06/08/21) ULTRASONOGRAPHY OF RIGHT HEART (02/03/15)
[2022-07-30] MEDS: ACETAMINOPHEN 325 MG TABLET PO PRN (19:26)
[2022-07-30] MEDS: ATORVASTATIN 10 MG TABLET PO SCH (20:37)
[2022-07-30] MEDS: PHENYTOIN ER 100 MG CAPSULE PO SCH (20:38)
[2022-07-30] MEDS: MORPHINE 2 MG/ML CARPUJECT IVP PRN (20:40)
[2022-07-31] MEDS: SODIUM CHLORIDE FLUSH 0.9% 10 ML SYRINGE IVP SCH ×2 (05:28→08:25)
[2022-07-31] MEDS: PANTOPRAZOLE 40 MG TABLET PO SCH (05:29)
[2022-07-31 05:32] LABS: BASOPHILS % (AUTO) 0.5 %; EOSINOPHILS # (AUTO) 0.4 10^3/uL (0.0-0.7); EOSINOPHILS % (AUTO) 5.4 %; HCT - HEMATOCRIT 39.1 % (42.0-52.0); HGB - HEMOGLOBIN 13.3 g/dL (14.0-18.0); LYMPHOCYTES # (AUTO) 1.9 10^3/uL (1.5-3.5); LYMPHOCYTES % (AUTO) 29.3 %; MEAN CORPUSCULAR HEMOGLOBIN 32.8 pg (27.0-31.0); MEAN CORPUSCULAR VOLUME 96.5 fL (80.0-94.0); MEAN PLATELET VOLUME 9.5 fL (7.4-11.4); MONOCYTES # (AUTO) 0.7 10^3/uL (0.0-1.0); MONOCYTES % (AUTO) 10.4 %; NEUTROPHILS # (AUTO) 3.5 10^3/uL (1.5-6.6); NEUTROPHILS % (AUTO) 54.1 %; PLT - PLATELET COUNT 206 10^3/uL (130-450); RED BLOOD COUNT 4.05 10^6/uL (4.70-6.10); WHITE BLOOD COUNT 6.5 x10^3/uL (4.8-10.8)
[2022-07-31] MEDS: ACETAMINOPHEN 325 MG TABLET PO PRN (05:33)
[2022-07-31] MEDS: MORPHINE 2 MG/ML CARPUJECT IVP PRN (05:40)
[2022-07-31 05:43] LABS: POTASSIUM 3.8 mmol/L (3.5-5.0); TOTAL PROTEIN 6.9 g/dL (6.7-8.2)
[2022-07-31 05:51] LABS: ALBUMIN/GLOBULIN RATIO 0.8 (1.0-2.2); BILIRUBIN,TOTAL 0.3 mg/dL (0.2-1.0); CREATININE 0.4 mg/dL (0.6-1.2)
[2022-07-31 08:03] VITALS: BP 125/82
[2022-07-31] MEDS: POTASSIUM CHLORIDE 20 MEQ/15 ML UDC PO SCH (08:25)
[2022-07-31] MEDS: DOCUSATE SODIUM 250 MG CAPSULE PO SCH (08:25)
[2022-07-31] MEDS: CARBOXYMETHYLCELLULOSE OPHTH DROPS EACHEYE SCH (08:25)
[2022-07-31] MEDS: FAMOTIDINE 20 MG TABLET PO SCH (08:25)
[2022-07-31] MEDS: SODIUM CHLORIDE 0.9% 1,000 ML IV SCH (08:30)
--- NOTE | 2022-07-31 13:14 | Discharge Plan ---
Discharge Plan Problem Reviewed?: Yes Disposition: Home, Self Care Condition: Stable Diet: Soft (pureed diet) Activity Restrictions: Activity as Tolerated Shower Restrictions: No Driving Restrictions: Yes Assistance Devices: Other Weight Bearing: Full Weight Health Concerns: You were hospitalized because of (another) small bowel obstruction. The bowel has opened up. You received IV fluid and the diet was slowly advanced. Things all appear to be back to baseline including your muscle strength. Physical therapy and Occupational Therapy advised that you have more rehab at home for muscle strengthening, therefore a referral was sent for a Home Health agency to come to your house. Plan of Treatment: Resume all your previous usual medications and management. Work with the Home Health agency doing Physical Therapy and Occupational Therapy and an RN will check on proper medications and a bath aide will help you bathe. Care Goals: Improvement in symptoms and stabilization are the goals. Assessment: Patient understands. These instructions are provided as a reminder. Additional Instructions or Follow Up instructions: If you have new or worsening symptoms, call your Primary Care Provider for advice or come to the ER. No Smoking: If you smoke, Please STOP! Call for help. Follow-up with: Evangelist Rothman MD [Provider Admit Priv/Credential] -
--- NOTE | 2022-07-31 13:17 | DISCHARGE SUMMARY ---
Discharge Summary Admit Date: 07/27/22 Discharge Date: 07/31/22 Discharging Provider: Dr Izzy Glover Primary Care Provider: Dr Evangelist Rothman Condition at Discharge: Stable Discharge Disposition: Home Health Service - [facility] History of Present Illness: 52y/o M with cerebral palsy, developmental delay and non verbal, also hx of recurrent SBO presenting to the ED with vomiting at home that started around midnight. Caregiver reports prior hx of similar presentation of dark green brown emesis due to SBO. Patient was brought into the ED where CT imaging per ED staff shows near complete SBO at the mid gut. Patient has had multiple episode of vomiting leading to a NGT placement for low intermittent suction. - HOSPITAL COURSE Hospital Course: (1) SBO (small bowel obstruction) He has a history of numerous admissions for the same problem. So far he has not needed any open surgeries for this. He has cerebral palsy. Communicates mainly by nodding his head yes and shaking his head no and grunting. Current admission history and symptoms and imaging show high grade SBO. He pulled out his NG on 07/28 and it was not replaced. He was on iv fluids. Pain was not severe. General surgery followed and no surgery was indicated. Then he started having flatus and then a small BM. His diet was advanced and tolerated going from clear liquids to the patient's baseline diet, of pureed food. (2) Hyperlipidemia We continued atorvastatin (3) Cerebral palsy with spastic/ataxic diplegia He is minimally communicative, grunts and nods with responses, has flat affect and bradykinesia. We ordered fall precautions and aspiration precaution with HOB up >30degrees. He was seen by PT and OT and they recommended Home Health PT and OT for strengthening, and a referral for Home Health services was ordered. (4) Seizure disorder We restarted his home phenytoin. Fall precaution and seizure precaution and aspiration precautions ordered. - ALLERGIES Allergies/Adverse Reactions: Allergies Allergy/AdvReac Type Severity Reaction Status Date / Time Sulfa (Sulfonamide Allergy Hives Verified 07/27/22 05:38 Antibiotics) adhesive tape AdvReac Rash Verified 07/27/22 05:38 - MEDICATIONS Home Medications: Ambulatory Orders Medication Instructions Recorded Confirmed Multivitamin [Multi-Vitamin Daily] 1 tab PO DAILY 05/12/13 07/27/22 Atorvastatin [Lipitor] 10 mg PO QPM 07/30/13 07/27/22 Docusate Sodium 250Mg Capsule 250 mg PO BID 09/19/16 07/27/22 [Colace 250Mg Capsule] Ondansetron Odt [Zofran Odt] 4 mg TL Q6H PRN 09/19/16 07/27/22 Phenytoin [Dilantin] 300 mg PO QPM 09/19/16 07/27/22 Calcium Carbonate [Calcium] 1,200 mg PO DAILY 05/17/20 07/27/22 Cholecalciferol (Vitamin D3) 100 mcg PO DAILY 05/17/20 07/27/22 [Vitamin D3] Famotidine [Acid-Pep] 20 mg PO DAILY 05/17/20 07/27/22 Krill/Om-3/Dha/Epa/Phospho/Ast 2 cap PO BID 05/17/20 07/27/22 [Krill Oil 500 mg Softgel] Lactose-Reduced Food [Ensure Max 240 ml PO TID 05/17/20 07/27/22 Protein] Propylene Glycol [Systane Complete] 1 drops OP BID 05/17/20 07/27/22 Pantoprazole [Protonix] 40 mg PO QDAC 12/26/20 07/27/22 Simethicone [Mylicon] 80 mg PO Q3H PRN 06/09/21 07/27/22 polyethylene glycoL 3350 [Miralax] 17 gm PO DAILY PRN 06/09/21 07/27/22 - PHYSICAL EXAM AT DISCHARGE General Appearance: positive: No acute distress, Alert, Other (Short male, abnormal cranial shape) Eyes Bilateral: positive: Normal inspection ENT: positive: No signs of dehydration Neck: positive: Nml inspection, No JVD Respiratory: positive: No respiratory distress Cardiovascular: positive: No murmur Abdomen: positive: Non-tender, Nml bowel sounds, No distention Skin: positive: Warm, Dry Extremities: positive: Non-tender, No pedal edema Neurologic/Psychiatric: positive: Motor nml, Other (Non-communicative, He shrugs, nods his head, puts up his thumb as communication and grunts) - LABS Result Diagrams: 07/31/22 05:24 07/31/22 05:24 - FOLLOW UP Follow Up: See PCP in 1 to 2 weeks for hospital follow-up visit - TIME SPENT Time Spent in Discharge (Minutes): 30
== END 2022-07-31 13:51 | disposition home health service (06) | DRG 389 ==
LOC: EDUNIT# → EDBD → ED 01:47 → MS2 06:12
PROVIDERS: ADMIT Internal Medicine; ATTEND Internal Medicine
DX: K56.609 Unspecified intestinal obstruction, unspecified as to partial versus complete obstruction (principal); G80.9 Cerebral palsy, unspecified; G80.1 Spastic diplegic cerebral palsy; E78.5 Hyperlipidemia, unspecified; G40.909 Epilepsy, unspecified, not intractable, without status epilepticus; D72.829 Elevated white blood cell count, unspecified; K21.9 Gastro-esophageal reflux disease without esophagitis; F41.9 Anxiety disorder, unspecified
CPT/HCPCS: 36415; 43753; 74177; 80053; 83690; 85025; 96374; 96376; 97162; 97165; 99284; 99285; A9270; Q9967

== ENCOUNTER 2022-09-03 12:30 | Outpatient (CLI) | payer MEDICARE, OTHER, MEDICAID ==
[2022-09-03 18:09] LABS: CALCIUM 9.5 mg/dL (8.5-10.3); CREATININE 0.5 mg/dL (0.6-1.2); PHOSPHORUS 3.7 mg/dL (2.5-4.6); POTASSIUM 3.9 mmol/L (3.5-5.0)
== END 2022-09-03 12:31 | disposition home or self-care (01) ==
LOC: LAB.N 12:30
PROVIDERS: ATTEND Student in an Organized Health Care Education/Training Program
DX: M81.0 Age-related osteoporosis without current pathological fracture (principal)
CPT/HCPCS: 36415; 80069; 82306

== ENCOUNTER 2023-04-25 19:30 | Outpatient (CLI) | payer MEDICARE, MEDICAID | END 2023-04-25 19:31 | disposition EMS.NT | LOC: EMS 19:30 | DX: R41.82 Altered mental status, unspecified (principal) ==

== ENCOUNTER 2023-04-25 21:05 | Outpatient (CLI) | payer MEDICARE, MEDICAID | END 2023-04-25 23:59 | disposition critical access hospital (66) | LOC: EMS 21:05 | DX: R11.2 Nausea with vomiting, unspecified (principal) | CPT/HCPCS: A0425; A0429 ==

== ENCOUNTER 2023-04-25 21:25 | Observation (INO) | payer MEDICARE, OTHER, MEDICAID ==
[2023-04-25] MEDS ORDERED: ONDANSETRON 4 MG/2 ML VIAL IVP STA (21:27)
--- NOTE | 2023-04-25 21:27 | ED Physician Documentation ---
PD HPI ABD PAIN - Stated complaint Stated Complaint: NOT FEELING WELL/VOMITING - History obtained from History obtained from: EMS - Additional information Additional information: 52-year-old gentleman with history of cerebral palsy, developmental delay, seizure disorder, and numerous admissions for small bowel obstruction, recurrent issue for him. History is from EMS as the patient is nonverbal. Reportedly started vomiting this afternoon. No reported fevers or changes in bowel movements. Review of the chart shows that he has had cholecystectomy and bowel surgery in the past. 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: Other - Present Medications Home Medications: Ambulatory Orders Medication Instructions Recorded Confirmed Multivitamin [Multi-Vitamin Daily] 1 tab PO DAILY 05/12/13 04/26/23 Atorvastatin [Lipitor] 10 mg PO QPM 07/30/13 04/26/23 Docusate Sodium 250Mg Capsule 250 mg PO BID 09/19/16 04/26/23 [Colace 250Mg Capsule] Ondansetron Odt [Zofran Odt] 4 mg TL Q6H PRN 09/19/16 04/26/23 Phenytoin [Dilantin] 300 mg PO QPM 09/19/16 04/26/23 Calcium Carbonate [Calcium] 1,200 mg PO DAILY 05/17/20 04/26/23 Cholecalciferol (Vitamin D3) 100 mcg PO DAILY 05/17/20 04/26/23 [Vitamin D3] Famotidine [Acid-Pep] 20 mg PO DAILY 05/17/20 04/26/23 Krill/Om-3/Dha/Epa/Phospho/Ast 2 cap PO BID 05/17/20 04/26/23 [Krill Oil 500 mg Softgel] Lactose-Reduced Food [Ensure Max 240 ml PO TID 05/17/20 04/26/23 Protein] Propylene Glycol [Systane Complete] 1 drops OP BID 05/17/20 04/26/23 Pantoprazole [Protonix] 40 mg PO QDAC 12/26/20 04/26/23 Simethicone [Mylicon] 80 mg PO Q3H PRN 06/09/21 04/26/23 polyethylene glycoL 3350 [Miralax] 17 gm PO DAILY PRN 06/09/21 04/26/23 Ondansetron Odt [Zofran Odt] 4 mg TL Q6H PRN #10 tablet 04/26/23 - Allergies Allergies/Adverse Reactions: Allergies Allergy/AdvReac Type Severity Reaction Status Date / Time Sulfa (Sulfonamide Allergy Hives Verified 04/25/23 21:29 Antibiotics) adhesive tape AdvReac Rash Verified 04/25/23 21:29 - Social History Does the pt smoke?: No Smoking Status: Never smoker Does the pt drink ETOH?: No Does the pt have substance abuse?: No - Immunizations Immunizations are current?: Yes - POLST Patient has POLST: No POLST Status: Full Code PD ED PE NORMAL - Vitals Vital signs reviewed: Yes - General General: No acute distress, Other (Nonverbal) - Abdomen Abdomen: Other (Decreased but not absent bowel sounds, multiple well-healed surgical scars. Mild upper abdominal tenderness. No surgical signs.) Results - Vitals Vitals: Vital Signs - 24 hr 04/25/23 04/25/23 04/26/23 21:29 23:35 01:20 Temperature 36.8 C Heart Rate 82 81 90 Respiratory 16 14 17 Rate Blood Pressure 119/64 123/73 135/104 H O2 Saturation 99 94 93 04/26/23 04/26/23 04/26/23 03:36 03:38 04:51 Temperature 37.7 C Heart Rate 83 85 89 Respiratory 16 16 16 Rate Blood Pressure 102/66 102/66 102/66 O2 Saturation 95 96 96 04/26/23 04/26/23 04/26/23 05:36 06:19 08:32 Temperature 36.5 C Heart Rate 86 64 88 Respiratory 18 16 14 Rate Blood Pressure 102/90 H 126/77 138/91 H O2 Saturation 94 99 94 Oxygen O2 Source Room air - Labs Labs: Laboratory Tests 04/25/23 04/25/23 04/26/23 21:55 22:18 04:00 WBC 15.6 H RBC 4.60 L Hgb 15.1 Hct 44.6 MCV 97.0 H MCH 32.8 H MCHC 33.9 RDW 13.3 Plt Count 257 MPV 9.2 Neut # (Auto) 14.3 H Lymph # (Auto) 0.4 L Moca # (Auto) 0.7 Eos # (Auto) 0.1 Baso # (Auto) 0.1 Absolute Nucleated RBC 0.00 Nucleated RBC % 0.0 Sodium 139 Potassium 3.9 Chloride 101 Carbon Dioxide 30 Anion Gap 8.0 BUN 26 H Creatinine 0.8 Estimated GFR (MDRD) 102 Glucose 114 H Calcium 9.7 Total Bilirubin 0.5 AST 31 ALT 30 Alkaline Phosphatase 116 Total Protein 7.9 Albumin 4.5 Globulin 3.4 Albumin/Globulin Ratio 1.3 Lipase 74 Urine Color YELLOW Urine Clarity CLEAR Urine pH 7.5 Ur Specific [place] 1.010 Urine Protein NEGATIVE Urine Glucose (UA) NEGATIVE Urine Ketones NEGATIVE Urine Occult Blood TRACE-INTA Urine Nitrite NEGATIVE Urine Bilirubin NEGATIVE Urine Urobilinogen 0.2 (NORMAL) Ur Leukocyte Esterase NEGATIVE Ur Microscopic Review NOT INDICATED Urine Culture Comments NOT INDICATED PD Medical Decision Making - ED course ED course: 52-year-old gentleman with CP/TD presents with symptoms likely related to recu rrent SBO which in the past has been managed nonoperatively. CBC showing modest leukocytosis of 15.6. Otherwise unremarkable. CMP unremarkable. Care to Dr. Hurley at 11 PM shift change pending CT imaging. Departure - Departure Disposition: ED Place in Observation Clinical Impression: Bladder mass Leukocytosis Qualifiers: Leukocytosis type: bandemia Qualified Code(s): D72.825 - Bandemia Nausea and vomiting Qualifiers: Vomiting type: unspecified Qualified Code(s): R11.2 - Nausea with vomiting, unspecified Condition: Stable Follow-Up: Rodríguez Amaya MD [Provider Admit Priv/Credential] - Prescriptions: Ondansetron Odt [Zofran Odt] 4 mg TL Q6H PRN #10 tablet PRN Reason: Nausea / Vomiting Comments: Thank you for allowing us to care for Jitendra this evening at [facility]. Today in the emergency department he was evaluated for any possible dangerous or life-threatening medical emergency. The CT scan performed today did not show any acute or dangerous intra-abdominal process such as recurrent small bowel obstruction. It did show an area of enlargement along his bladder concerning for a possible bladder mass and it is very important that he follow-up carefully with his primary care doctor soon as possible concerning this finding as he will need further testing and evaluation on an outpatient basis. His urine did not show indications of infection. I have written a prescription for medication he can take for any ongoing nausea. Well at this time I do not see any indication for hospitalization Jitendra does have a complex medical history and the evaluation performed in the emergency department today only represents a single snapshot in time. Things can change and if he is having worsening symptoms over time such as intractable nausea, vomiting, fever or indications of abdominal pain or other worrisome findings please return to the emergency department immediately for reevaluation.
[2023-04-25 22:01] LABS: BASOPHILS # (AUTO) 0.1 10^3/uL (0.0-0.1); BASOPHILS % (AUTO) 0.4 %; EOSINOPHILS # (AUTO) 0.1 10^3/uL (0.0-0.7); EOSINOPHILS % (AUTO) 0.8 %; HCT - HEMATOCRIT 44.6 % (42.0-52.0); HGB - HEMOGLOBIN 15.1 g/dL (14.0-18.0); LYMPHOCYTES # (AUTO) 0.4 10^3/uL (1.5-3.5); LYMPHOCYTES % (AUTO) 2.8 %; MEAN CORPUSCULAR HEMOGLOBIN 32.8 pg (27.0-31.0); MEAN CORPUSCULAR HGB CONC 33.9 g/dL (32.0-36.0); MEAN PLATELET VOLUME 9.2 fL (7.4-11.4); MONOCYTES # (AUTO) 0.7 10^3/uL (0.0-1.0); MONOCYTES % (AUTO) 4.5 %; NEUTROPHILS # (AUTO) 14.3 10^3/uL (1.5-6.6); NEUTROPHILS % (AUTO) 91.3 %; PLT - PLATELET COUNT 257 10^3/uL (130-450); RED CELL DISTRIBUTION WIDTH 13.3 % (12.0-15.0); WHITE BLOOD COUNT 15.6 x10^3/uL (4.8-10.8)
[2023-04-25 22:36] LABS: ALBUMIN 4.5 g/dL (3.2-5.5); ALBUMIN/GLOBULIN RATIO 1.3 (1.0-2.2); BILIRUBIN,TOTAL 0.5 mg/dL (0.2-1.0); CALCIUM 9.7 mg/dL (8.5-10.3); CREATININE 0.8 mg/dL (0.6-1.3); POTASSIUM 3.9 mmol/L (3.5-4.5); TOTAL PROTEIN 7.9 g/dL (6.4-8.9)
[2023-04-25] MEDS ORDERED: METOCLOPRAMIDE 10 MG/2 ML VIAL IVP STA (23:44)
[2023-04-26] MEDS ORDERED: iohexoL-300 100 ML VIAL IVP ONE (01:22)
--- NOTE | 2023-04-26 03:30 | CT Report ---
PROCEDURE: ABDOMEN/PELVIS W INDICATIONS: Abdominal pain, acute, nonlocalized CONTRAST: 100 ML OMNI 300 TECHNIQUE: After the administration of intravenous contrast, a CT scan of the abdomen and pelvis was performed. Images were recorded and evaluated at appropriate window settings. Reformats: coronal and sagittal. F or radiation dose reduction, the following was used: automated exposure control, adjustment of mA and /or kV according to patient size. COMPARISON: CT abdomen pelvis 07/27/2022 FINDINGS: Image quality: Streak metal artifact from spinal fusion hardware limits evaluation of adjacent tissue in the abdomen. There is patient motion artifact Lung bases and heart: Unremarkable. Liver: No solid mass. Gallbladder and biliary tree: Surgically absent. No biliary dilation, accounting for post-cholecystec gabi state. Spleen: No splenomegaly. Pancreas: No pancreatic ductal dilation. Adrenals: No adrenal nodule. Kidneys and ureters: No hydronephrosis. No renal cystic lesion which requires follow up. No solid mas s. Bowel and peritoneum: No bowel distension. No pathologic free fluid or free air. No abnormal bowel wa ll thickening. Normal caliber appendix. Lymph nodes: No central or retroperitoneal adenopathy. Vessels: No infrarenal aortic aneurysm. PELVIS Reproductive organs: Enlarged prostate.. Bladder: Asymmetric left bladder wall thickening. Focal area of enhancement at the posterior lateral aspect of the bladder measuring approximately 2.9 cm (2/68). Pelvic lymph nodes: No pelvic adenopathy by size criteria. Bones: Spinal fixation rods are again seen. S-shaped scoliosis. No acute osseous abnormality.. Other: No significant ventral or inguinal hernia. IMPRESSION: No acute process to explain patient's symptoms. Asymmetric left posterior bladder wall thickening with focal area of enhancement at the left posterio r aspect of the bladder concerning for mass. Consider further evaluation with nonemergent CT IVP exam . Reviewed by: Jesica Guevara MD on 04/26/2023 3:28 AM PST Approved by: Jesica Guevara MD on 04/26/2023 3:28 AM PST Station ID: [id number]
--- NOTE | 2023-04-26 04:10 | ED Physician Documentation ---
ED Addendum - Addendum Addendum: 04/26/23 03:36 Patient 52-year-old male past medical significant for CP and developmental delay as well as recurrent small bowel obstruction presenting with nausea vomiting. Initially seen by off going physician, please see their documentation for further detail. Patient signed out with CT abdomen pelvis pending. He did have some persistent nausea here in the emergency department and given a dose of Reglan and in addition to his initial dose of Zofran. This did successfully improve the patient's nausea/vomiting. His abdominal exam was benign on my evaluation. CT of the abdomen pelvis was negative for acute obstruction or other pathology however did demonstrate Asymmetric left posterior bladder wall thickening with focal area of enhancement at the left posterior aspect of the bladder concerning for mass with recommendation for evaluation via outpatient CT IVP Patient did have a elevation in white blood cell count of uncertain clinical significance however no indications infection in urine. Monitored in the emergency department for several hours. Remained hemodynamically stable with no other SIRS criteria and or indications of developing acute abdomen or sepsis. Care was discussed with his laboratory animal caretaker including the asymmetrical bladder wall thickening with recommendation for follow-up for additional testing on an outpatient basis. 04/26/23 04:40 Addendum: Initial plan was for discharge however patient continues to have multiple episodes low-volume emesis to state several doses of antiemetics. Will reestablish IV access and give second dose of Reglan and IV hydration. Unfortunately there are no hospital beds at our facility at this time and we are experiencing an extreme E[place] limited number of available beds in the region. He will likely board here for the time being. Will be signing off to the oncoming physician, please see their documentation. 04/26/23 06:23
[2023-04-26 04:29] LABS: BILIRUBIN,URINE NEGATIVE (NEGATIVE); GLUCOSE, URINE (UA) NEGATIVE (NEGATIVE); KETONES,URINE (UA) NEGATIVE (NEGATIVE); LEUKOCYTE ESTERASE, URINE NEGATIVE (NEGATIVE); NITRITE,URINE NEGATIVE (NEGATIVE); OCCULT BLOOD,URINE TRACE-INTA (NEGATIVE); PH,URINE 7.5 PH (5.0-7.5); PROTEIN,URINE NEGATIVE (NEGATIVE); UROBILINOGEN,URINE 0.2 (NORMAL) E.U./dL (NORMAL)
[2023-04-26 04:33] LABS: CLARITY,URINE CLEAR (CLEAR)
[2023-04-26] MEDS ORDERED: ONDANSETRON ODT 4 MG Prepack 2 TL PRN (04:43)
[2023-04-26] MEDS ORDERED: METOCLOPRAMIDE 10 MG/2 ML VIAL IVP STA (05:41)
[2023-04-26] MEDS ORDERED: SODIUM CHLORIDE 0.9% 1,000 ML IV STA (06:22)
--- NOTE | 2023-04-26 10:09 | ED Physician Documentation ---
ED Addendum - Addendum Addendum: 04/26/23 10:10 Jitendra Drake is left in my care at shift change with results of a CT scan showing a new bladder mass and uncontrolled vomiting and weakness. I evaluated the patient at the bedside found him to be volume depleted with an IVC measuring 0.93 cm consistent with a nearly 2 L deficit. He has failed a oral challenge in the emergency department at 9:50 AM. We attempted this as he had been able to get out of bed. He is difficult to assess as he has severe CP and is nonverbal. We did have a caregiver who is familiar with the patient come to the emergency department to help us with the evaluation of the road test. The patient failed his road test and we will admit him for intractable vomiting, volume depletion and new bladder mass. 04/26/23 19:28 Impression: intractable vomiting, dehydration Plan: admission to hospitalist here for continued hydration/antiemetic 04/26/23 19:33
[2023-04-26] MEDS ORDERED: ONDANSETRON 4 MG/2 ML VIAL IVP PRN (11:32)
[2023-04-26] MEDS ORDERED: PROCHLORPERAZINE 10 MG/2 ML VIAL IVP PRN (11:32)
[2023-04-26 11:57] LABS: BASOPHILS % (AUTO) 0.2 %; HCT - HEMATOCRIT 40.8 % (42.0-52.0); HGB - HEMOGLOBIN 13.6 g/dL (14.0-18.0); LYMPHOCYTES % (AUTO) 7.1 %; MEAN CORPUSCULAR HEMOGLOBIN 32.3 pg (27.0-31.0); MEAN CORPUSCULAR HGB CONC 33.3 g/dL (32.0-36.0); MEAN CORPUSCULAR VOLUME 96.9 fL (80.0-94.0); MEAN PLATELET VOLUME 9.4 fL (7.4-11.4); MONOCYTES # (AUTO) 0.7 10^3/uL (0.0-1.0); MONOCYTES % (AUTO) 4.8 %; NEUTROPHILS # (AUTO) 12.3 10^3/uL (1.5-6.6); NEUTROPHILS % (AUTO) 87.5 %; PLT - PLATELET COUNT 246 10^3/uL (130-450); RED BLOOD COUNT 4.21 10^6/uL (4.70-6.10); RED CELL DISTRIBUTION WIDTH 13.2 % (12.0-15.0); WHITE BLOOD COUNT 14.1 x10^3/uL (4.8-10.8)
[2023-04-26] MEDS: D5NS W/20 MEQ KCL 1,000 ML IV SCH ×2 (12:11→22:18)
[2023-04-26] MEDS: SODIUM CHLORIDE FLUSH 0.9% 10 ML SYRINGE IVP PRN ×2 (12:11→12:57)
[2023-04-26 12:33] LABS: CALCIUM 8.7 mg/dL (8.5-10.3); CREATININE 0.7 mg/dL (0.6-1.3); POTASSIUM 3.8 mmol/L (3.5-4.5)
[2023-04-26] MEDS: PANTOPRAZOLE 40 MG VIAL IV SCH (12:57)
--- NOTE | 2023-04-26 17:14 | HISTORY & PHYSICAL EXAMINATION ---
Chief Complaint - Chief Complaint Chief Complaint: N/V History of Present Illness - Admitted From Admitted From:: ED - History Obtained From History obtained from: ED provider and chart review - History of Present Illness HPI Comment/Other: 52y/o M with cerebral palsy, developmental delay and non verbal, also hx of cholecystectomy and bowel surgery in the past and has had recurrent SBO. History was obtained by ED provider from EMS since the patient is nonverbal. Reportedly started vomiting yesterday afternoon. No reported fevers or changes in bowel movements. He did have persistent nausea in ED and was given repeat doses of Reglan, which helped the nausea temporarily. When a trial of liquids was given in ER, he had repeat vomiting. His abdominal exam was benign by Er evaluation. CT of the abdomen pelvis was negative for acute obstruction or other pathology however did demonstrate asymmetric left posterior bladder wall thickening with focal area of enhancement at the left posterior aspect of the bladder concerning for mass with recommendation for evaluation via outpatient CT IVP. Due to intractable N/V, the ER provider spoke to me about this pt. He will be brought into Observation status to manage N/V. His CODE status from previous admission (7 mos ago) is a Full Code. 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 Patient has no siblings. He does have foster parents.), Father: Living arrangement: At home Living Situation: With caregiver(s) Social History Notes: No smoking and no alcohol intake Hx. - Substance History Use: Uses substance without health or social issues: NONE - POLST Patient has POLST: No POLST Status: Full Code Meds/Allgy - Home Medications Home Medications: Ambulatory Orders Medication Instructions Recorded Confirmed Multivitamin [Multi-Vitamin Daily] 1 tab PO DAILY 05/12/13 04/26/23 Atorvastatin [Lipitor] 10 mg PO QPM 07/30/13 04/26/23 Docusate Sodium 250Mg Capsule 250 mg PO BID 09/19/16 04/26/23 [Colace 250Mg Capsule] Ondansetron Odt [Zofran Odt] 4 mg TL Q6H PRN 09/19/16 04/26/23 Phenytoin [Dilantin] 300 mg PO QPM 09/19/16 04/26/23 Calcium Carbonate [Calcium] 1,200 mg PO DAILY 05/17/20 04/26/23 Cholecalciferol (Vitamin D3) 100 mcg PO DAILY 05/17/20 04/26/23 [Vitamin D3] Famotidine [Acid-Pep] 20 mg PO DAILY 05/17/20 04/26/23 Krill/Om-3/Dha/Epa/Phospho/Ast 2 cap PO BID 05/17/20 04/26/23 [Krill Oil 500 mg Softgel] Lactose-Reduced Food [Ensure Max 240 ml PO TID 05/17/20 04/26/23 Protein] Propylene Glycol [Systane Complete] 1 drops OP BID 05/17/20 04/26/23 Pantoprazole [Protonix] 40 mg PO QDAC 12/26/20 04/26/23 Simethicone [Mylicon] 80 mg PO Q3H PRN 06/09/21 04/26/23 polyethylene glycoL 3350 [Miralax] 17 gm PO DAILY PRN 06/09/21 04/26/23 Ondansetron Odt [Zofran Odt] 4 mg TL Q6H PRN #10 tablet 04/26/23 - Allergies Allergies/Adverse Reactions: Allergies Allergy/AdvReac Type Severity Reaction Status Date / Time Sulfa (Sulfonamide Allergy Hives Verified 04/25/23 21:29 Antibiotics) adhesive tape AdvReac Rash Verified 04/25/23 21:29 Review of Systems - All Other Systems All Other Systems: reports: Other (The patient shook his head no when asked if he is in pain or if he is hungry. No other symptoms can be determined, since the patient has developmental delay and does not speak.) Exam - Vital Signs Reviewed Vital Signs: Yes Vital Signs: Vital Signs x48h Temp Pulse Pulse Resp BP BP Pulse Ox 12/30/23 15:50 37.4 C 98 20 115/75 96 04/26/23 12:10 36.7 C 92 20 119/71 93 04/26/23 10:00 74 20 133/96 H 96 - Physical Exam General Appearance: positive: No acute distress, Other (Cachectic white male) Eyes Bilateral: positive: Normal inspection, EOMI, No lid inflammation ENT: positive: ENT inspection nml, Dry mucous membranes Neck: positive: Nml inspection, No JVD Respiratory: positive: No respiratory distress, Breath sounds nml Cardiovascular: positive: Regular rate & rhythm, No murmur Abdomen: positive: Non-tender, Nml bowel sounds, No distention Skin: positive: Warm, Dry Extremities: positive: Non-tender, No pedal edema Neurologic/Psychiatric: positive: CN's nml (2-12), Motor nml, Other (Non- communicative) Conclusion/Plan - Problem List (1) Intractable nausea and vomiting Conclusion/Plan: Since the CT imaging this time shows no evidence of SBO, the suspicion is he has gastroenteritis Plan: IV fluids Clear liquid diet and advance as tolerated. It will be difficult to determine when to advance, since he is not communicative. Cont prn IV antiemetics Pain medications if needed I will not order his vitamins and supplements or statin. He is on famotidine and Protonix, which I we will order in the form of Protonix IV ac Follow BMP and magnesium, calcium daily and replace if low (2) Seizure disorder Conclusion/Plan: Plan: I will change his oral antiseizure med to daily IV dosing (3) Cachexia Conclusion/Plan: Plan: Nutrition consult would be beneficial however today is Friday and [employer] is not here for 3 days due to the New Year's weekend. Depending on how his recovery from nausea and vomiting goes, he may need peripheral nutrition via iv. (4) Cerebral palsy Conclusion/Plan: Patient lives at home with a caregiver. He is not communicative. He has developmental delay - Lab Results Fish Bones: 04/26/23 11:49 04/26/23 11:49 - Diagnostic Imaging Results Diagnostic Imaging Results: positive: Final report reviewed
[2023-04-26] MEDS: SODIUM CHLORIDE FLUSH 0.9% 10 ML SYRINGE IVP SCH (20:05)
[2023-04-27] MEDS: SODIUM CHLORIDE FLUSH 0.9% 10 ML SYRINGE IVP SCH ×2 (02:04→08:59)
[2023-04-27 06:08] LABS: BASOPHILS % (AUTO) 0.2 %; EOSINOPHILS # (AUTO) 0.2 10^3/uL (0.0-0.7); EOSINOPHILS % (AUTO) 2.7 %; HCT - HEMATOCRIT 32.4 % (42.0-52.0); HGB - HEMOGLOBIN 10.6 g/dL (14.0-18.0); LYMPHOCYTES # (AUTO) 2.2 10^3/uL (1.5-3.5); LYMPHOCYTES % (AUTO) 24.7 %; MEAN CORPUSCULAR HEMOGLOBIN 32.4 pg (27.0-31.0); MEAN CORPUSCULAR HGB CONC 32.7 g/dL (32.0-36.0); MEAN CORPUSCULAR VOLUME 99.1 fL (80.0-94.0); MEAN PLATELET VOLUME 9.4 fL (7.4-11.4); MONOCYTES # (AUTO) 0.8 10^3/uL (0.0-1.0); MONOCYTES % (AUTO) 9.3 %; NEUTROPHILS # (AUTO) 5.6 10^3/uL (1.5-6.6); NEUTROPHILS % (AUTO) 62.9 %; PLT - PLATELET COUNT 202 10^3/uL (130-450); RED BLOOD COUNT 3.27 10^6/uL (4.70-6.10); RED CELL DISTRIBUTION WIDTH 13.4 % (12.0-15.0); WHITE BLOOD COUNT 8.9 x10^3/uL (4.8-10.8)
[2023-04-27 06:41] LABS: CALCIUM 7.7 mg/dL (8.5-10.3); CREATININE 0.4 mg/dL (0.6-1.3); MAGNESIUM 1.9 mg/dL (1.7-2.3); PHOSPHORUS 1.2 mg/dL (2.5-5.0); POTASSIUM 3.9 mmol/L (3.5-4.5)
--- NOTE | 2023-04-27 07:14 | PHARMACY PROGRESS NOTE ---
- Best Possible Medication History Admit Date and Time: 04/26/23 1156 Processed by: Pharmacy Medication History completed: Yes Patient Interview: Pt unable to participate Secondary Source(s): Written medication list, Pharmacy records, Insurance rec ords As the person ultimately responsible for medication therapy, providers are able to order a medication from an existing home medication list in [facility] via the "Reconcile Routine" prior to Confirmation of that medication by support representative. Such practice is discouraged except when the physician, in their clinical judgment, deems that a medical need exists for a medication without regard to previous use.
[2023-04-27 07:44] VITALS: BP 136/88; O2SAT 98
[2023-04-27] MEDS: PANTOPRAZOLE 40 MG VIAL IV SCH (08:58)
[2023-04-27] MEDS: D5NS W/20 MEQ KCL 1,000 ML IV SCH (08:59)
[2023-04-27] MEDS ORDERED: ENOXAPARIN 40 MG/0.4 ML SYRINGE SUBQ SCH (09:00)
[2023-04-27] MEDS ORDERED: PHENYTOIN INJ 300 MG in SODIUM CHLORIDE 0.9% 100ML 100 ML IV SCH ×2 (09:00→11:00)
[2023-04-27] MEDS ORDERED: SODIUM PHOSPHATE 21 MMOL in SODIUM CHLORIDE 0.9% 250 ML IV ONE (09:27)
[2023-04-27] MEDS ORDERED: SODIUM CHLORIDE 0.9% 250 ML IV ONE (10:24)
--- NOTE | 2023-04-27 11:47 | Discharge Plan ---
Discharge Plan Problem Reviewed?: Yes Disposition: Home, Self Care Condition: Stable Prescriptions: Ondansetron Odt [Zofran Odt] 4 mg TL Q6H PRN #10 tablet PRN Reason: Nausea / Vomiting Diet: Soft Activity Restrictions: Activity as Tolerated Shower Restrictions: No Driving Restrictions: Yes Health Concerns: The patient was hospitalized due to intractable nausea & vomiting and found to have gastroenteritis, not a small bowel obstruction. He got IV fluids, clear liquids for his diet to rest his bowel, and got anti-nausea medicines. He improved and is being discharged home today. He may resume his usual diet. Several trans lingual Zofran tablets have been prescribed to his [facility], to use in case there is repeat nausea. Please resume all other pre- hospital medications that he took. Plan of Treatment: As above. Care Goals: Improvement in symptoms and stabilization are the goals. Assessment: Instructions are provided for his caregivers. No Smoking: If you smoke, Please STOP! Call for help.
--- NOTE | 2023-04-27 11:50 | DISCHARGE SUMMARY ---
Discharge Summary Admit Date: 04/26/23 Discharge Date: 04/27/23 Discharging Provider: Dr Izzy Glover Primary Care Provider: Dr Evangelist Rothman Discharge Disposition: 01 Home, Self Care - HPI History of Present Illness: 52y/o M with cerebral palsy, developmental delay and non verbal, also hx of cholecystectomy and bowel surgery in the past and has had recurrent SBO. History was obtained by ED provider from EMS since the patient is nonverbal. Reportedly started vomiting yesterday afternoon. No reported fevers or changes in bowel movements. He did have persistent nausea in ED and was given repeat doses of Reglan, which helped the nausea temporarily. When a trial of liquids was given in ER, he had repeat vomiting. His abdominal exam was benign by Er evaluation. CT of the abdomen pelvis was negative for acute obstruction or other pathology however did demonstrate asymmetric left posterior bladder wall thickening with focal area of enhancement at the left posterior aspect of the bladder concerning for mass with recommendation for evaluation via outpatient CT IVP. Due to intractable N/V, the ER provider spoke to me about this pt. He will be brought into Observation status to manage N/V. His CODE status from previous admission (7 mos ago) is a Full Code. - HOSPITAL COURSE Hospital Course: (1) Intractable nausea and vomiting Since the CT imaging this time showed no evidence of SBO, the suspicion was that he had gastroenteritis. He was placed in Observation, put on iv fluids, got clear liquids and prn antiemetics. By the following day there was no nausea, he tolerated his usual purred diet and was discharged with several tablets of prn Zofran translingual ordered. (2) Seizure disorder We gave his antiseizure med IV x1 due to N/V. Home oral dose can be resumed (3) Cachexia His BMI is 22. Nutrition consult would be beneficial however today is Friday and [employer] is not here for 3 days due to the New Year's weekend. Depending on how his recovery from nausea and vomiting goes, he may need peripheral nutrition via iv. (4) Cerebral palsy Patient lives at home with a caregiver. He is not communicative. He has developmental delay (5) Bladder mass - N32.89 This is a new finding, by CT imaging of abdomen pelvis. He will need outpatient workup of this - ALLERGIES Allergies/Adverse Reactions: Allergies Allergy/AdvReac Type Severity Reaction Status Date / Time Sulfa (Sulfonamide Allergy Hives Verified 04/25/23 21:29 Antibiotics) adhesive tape AdvReac Rash Verified 04/25/23 21:29 - MEDICATIONS Home Medications: Ambulatory Orders Medication Instructions Recorded Confirmed Multivitamin [Multi-Vitamin Daily] 1 tab PO DAILY 05/12/13 04/26/23 Atorvastatin [Lipitor] 10 mg PO QPM 07/30/13 04/26/23 Docusate Sodium 250Mg Capsule 250 mg PO BID 09/19/16 04/26/23 [Colace 250Mg Capsule] Ondansetron Odt [Zofran Odt] 4 mg TL Q6H PRN 09/19/16 04/26/23 Phenytoin [Dilantin] 300 mg PO QPM 09/19/16 04/26/23 Calcium Carbonate [Calcium] 1,200 mg PO DAILY 05/17/20 04/26/23 Cholecalciferol (Vitamin D3) 100 mcg PO DAILY 05/17/20 04/26/23 [Vitamin D3] Famotidine [Acid-Pep] 20 mg PO DAILY 05/17/20 04/26/23 Krill/Om-3/Dha/Epa/Phospho/Ast 2 cap PO BID 05/17/20 04/26/23 [Krill Oil 500 mg Softgel] Lactose-Reduced Food [Ensure Max 240 ml PO TID 05/17/20 04/26/23 Protein] Propylene Glycol [Systane Complete] 1 drops OP BID 05/17/20 04/26/23 Pantoprazole [Protonix] 40 mg PO QDAC 12/26/20 04/26/23 Simethicone [Mylicon] 80 mg PO Q3H PRN 06/09/21 04/26/23 polyethylene glycoL 3350 [Miralax] 17 gm PO DAILY PRN 06/09/21 04/26/23 Ondansetron Odt [Zofran Odt] 4 mg TL Q6H PRN #10 tablet 04/26/23 - PHYSICAL EXAM AT DISCHARGE General Appearance: positive: No acute distress, Alert, Other (Cachectic, muscle wasting of all extrem and trunk.) Eyes Bilateral: positive: Normal inspection, No lid inflammation ENT: positive: No signs of dehydration Neck: positive: Nml inspection, No JVD Respiratory: positive: No respiratory distress Cardiovascular: positive: Regular rate & rhythm, No murmur Abdomen: positive: Non-tender, Nml bowel sounds Skin: positive: Warm, Dry Extremities: positive: Non-tender, No pedal edema Neurologic/Psychiatric: positive: Other (Moves all extrem, is non-verbal, communicates with head shaking or nodding) - LABS Result Diagrams: 04/27/23 05:28 04/27/23 05:28 - DIAGNOSTIC IMAGING Diagnostic Imaging Results: Final report reviewed - FOLLOW UP Follow Up: See PCP for a hosp FG/U visit and needs eval of bladder mass. - TIME SPENT Time Spent in Discharge (Minutes): 20
== END 2023-04-27 14:16 | disposition home or self-care (01) ==
LOC: ED 21:25 → MS2 04-26 11:56
PROVIDERS: ADMIT Internal Medicine; ATTEND Internal Medicine
DX: K52.9 Noninfective gastroenteritis and colitis, unspecified (principal); E86.0 Dehydration; G80.9 Cerebral palsy, unspecified; R62.50 Unspecified lack of expected normal physiological development in childhood; N32.89 Other specified disorders of bladder; R64 Cachexia; Z68.22 Body mass index [BMI] 22.0-22.9, adult; G40.909 Epilepsy, unspecified, not intractable, without status epilepticus; M62.58 Muscle wasting and atrophy, not elsewhere classified, other site; R32 Unspecified urinary incontinence
CPT/HCPCS: 36415; 51701; 74177; 80048; 80053; 81003; 83690; 83735; 84100; 85025; 96361; 96365; 96366; 96372; 96375; 96376; 99284; 99285; G0378; J1650; J2765; Q9967; 81001; 87086

== ENCOUNTER 2023-06-16 09:20 | Day surgery (SDC) | payer MEDICARE, MEDICAID ==
[2023-06-16] MEDS ORDERED: ceFAZolin 2 GM VIAL ONE (09:31)
[2023-06-16] MEDS: LACTATED RINGERS 1,000 ML IV ONE ×2 (10:03→12:27)
--- NOTE | 2023-06-16 11:33 | ANESTHESIA ---
Pre-Anesthesia VS, & Labs - Diagnosis bladder mass - Procedure cystoscopy, possible TURBT Vital Signs: Temp Pulse Resp BP Pulse Ox O2 Flow Rate 37.5 C 84 12 145/97 H 100 06/16/23 09:55 06/16/23 09:55 06/16/23 09:55 06/16/23 09:55 06/16/23 09:55 Height: 4 ft 8 in Weight (kg): 44 kg Body Mass Index: 21.7 BMI Classification: Normal - NPO >8 hours (pt nonverbal, but per caregiver pt is NPO), Other Home Medications and Allergies Multivitamin [Multi-Vitamin Daily] 1 tab PO DAILY 05/12/13 Atorvastatin [Lipitor] 10 mg PO QPM 07/30/13 Docusate Sodium 250Mg Capsule [Colace 250Mg Capsule] 250 mg PO BID 09/19/16 Ondansetron Odt [Zofran Odt] 4 mg TL Q6H PRN 09/19/16 Phenytoin [Dilantin] 300 mg PO QPM 09/19/16 Calcium Carbonate [Calcium] 1,200 mg PO DAILY 05/17/20 Cholecalciferol (Vitamin D3) [Vitamin D3] 100 mcg PO DAILY 05/17/20 Famotidine [Acid-Pep] 20 mg PO DAILY 05/17/20 Krill/Om-3/Dha/Epa/Phospho/Ast [Krill Oil 500 mg Softgel] 2 cap PO BID 05/17/20 Lactose-Reduced Food [Ensure Max Protein] 240 ml PO TID 05/17/20 Propylene Glycol [Systane Complete] 1 drops OP BID 05/17/20 Pantoprazole [Protonix] 40 mg PO QDAC 12/26/20 Simethicone [Mylicon] 80 mg PO Q3H PRN 06/09/21 polyethylene glycoL 3350 [Miralax] 17 gm PO DAILY PRN 06/09/21 Allergies/Adverse Reactions: Allergies Allergy/AdvReac Type Severity Reaction Status Date / Time Sulfa (Sulfonamide Allergy Hives Verified 04/25/23 21:29 Antibiotics) adhesive tape AdvReac Rash Verified 04/25/23 21:29 Anes History & Medical History - Anesthetic History Anesthesia Complications: reports: No previous complications Family history of Anesthesia Complications: Denies Family history of Malignant Hyperthermia: Denies - Medical History Cardiovascular: reports: High cholesterol Pulmonary: reports: None Gastrointestinal: reports: GERD, GI bleed, Colon polyps, Cholelithiasis, Other Urinary: reports: Incontinence Neuro: reports: Cerebral palsy, Seizure disorder, Other (Developmental delay, communicates with nodding and grunting) Musculoskeletal: reports: Osteoarthritis, Other (moderate developmental delay, non verbal) Endocrine/Autoimmune: reports: None Blood Disorders: reports: None Skin: reports: None Smoking Status: Never smoker Psychosocial: reports: No issues indicated - Surgical History General: reports: Cholecystectomy, Bowel surgery, Colonoscopy, EGD Urologic: reports: Testicular surgery Gynecologic: reports: Other Orthopedic: reports: Spine surgery Exam General: Alert, Cooperative, No acute distress Dental: Poor dentition Mouth Openin Fingerbreadth (prominent incisors, very anterior airway) Neck Mobility: Limited Mallampati classification: III Thyromental Distance: less than 4 cm Respiratory: Lungs clear Cardiovascular: Regular rate Plan Anesthesia Type: General Consent for Procedure(s) Verified and Reviewed: Yes Code Status: Attempt Resuscitation ASA classification: 4-Incapacitating disease Is this case an emergency?: No
[2023-06-16] MEDS ORDERED: LIDOCAINE-PF 2% 10 ML AMP SUBQ ONE (11:46)
[2023-06-16] MEDS ORDERED: PROPOFOL 200 MG/20 ML VIAL IVP ONE (11:46)
[2023-06-16] MEDS ORDERED: fentaNYL 100 MCG/2 ML VIAL ONE (11:47)
[2023-06-16] MEDS ORDERED: MIDAZOLAM 2 MG/2 ML VIAL ONE (11:50)
[2023-06-16] MEDS ORDERED: SUGAMMADEX 200 MG/2 ML VIAL IVP ONE (11:54)
[2023-06-16] MEDS ORDERED: LIDOCAINE JELLY 2% 6 ML JEL.PF.APP ONE (12:05)
[2023-06-16] MEDS: LIDOCAINE JELLY 2% 6 ML JEL.PF.APP UR ONE (12:12)
--- NOTE | 2023-06-16 12:26 | Discharge Plan ---
Discharge Plan Problem Reviewed?: Yes Disposition: 06 Home Health Service Condition: Good Diet: Regular Activity Restrictions: No Restrictions Shower Restrictions: No Driving Restrictions: No Assessment: You had a cystoscopy today. There were no abnormalities seen. No Smoking: If you smoke, Please STOP! Call for help. Follow-up with: Evangelist Rothman MD [Primary Care Provider] -
--- NOTE | 2023-06-16 12:28 | OPERATIVE REPORT ---
Operative Report - General Procedure Date: 06/16/23 Planned Procedure: Cystourethroscopy, possible transurethral section of bladder tumor Pre-Op Diagnosis: Bladder mass Procedure Performed: Cystourethroscopy Post Op Diagnosis: normal cystoscopy - Procedure Note Primary Surgeon: Jose Luis Anesthesia Provider: TANNER Tineo Anesthesia Technique: General ET tube Pathology: none Indications: 3 cm bladder mass seen on CT scan. Flexible cystoscopy in the office with cloudy urine and unable to see mucosa appropriately Findings: Normal cystourethroscopy Complications: none - Other Other Information/Narrative: After informed consent was obtained the patient was brought to the OR and laid in the supine position. He was anesthetized per anesthesia protocols. He was then placed in dorsolithotomy position and prepped and draped in usual sterile fashion. A formal timeout was performed reconfirming the patient, and procedure. A 22 Swazi scope was advanced easily into urinary bladder. He had a short prostate with mild lateral lobe hypertrophy no median lobe, about 3 cm in length. His bladder was mildly enlarged and was emptied of urine. It was then refilled with sterile water. The mucosa could easily be seen. There were no trabeculations. There were no masses or lesions or other concerns. Fourth ureteral orifices were orthotopic in nature. The expected location of the mass seen on the CT scan was completely normal. His bladder was emptied and a Uro-Jet was placed. This concluded the procedure. Patient tolerated the procedure well was brought to the PACU without further incident. No further follow-up required
[2023-06-16] MEDS ORDERED: ATROPINE ABBOJECT 1 MG/10 ML SYRINGE IVP PRN (12:41)
[2023-06-16] MEDS ORDERED: MORPHINE 2 MG/ML CARPUJECT IVP PRN (12:41)
[2023-06-16] MEDS ORDERED: HYDROmorphone 0.5 MG/0.5 ML SYRINGE IVP PRN (12:41)
[2023-06-16] MEDS ORDERED: METOCLOPRAMIDE 10 MG/2 ML VIAL IVP PRN (12:41)
[2023-06-16] MEDS ORDERED: NALOXONE 0.4 MG/ML VIAL IVP PRN (12:41)
[2023-06-16] MEDS ORDERED: fentaNYL 100 MCG/2 ML VIAL IVP PRN (12:41)
[2023-06-16] MEDS ORDERED: ePHEDrine 50 MG/ML VIAL IVP PRN (12:41)
[2023-06-16] MEDS ORDERED: ONDANSETRON 4 MG/2 ML VIAL IVP PRN (12:41)
--- NOTE | 2023-06-16 12:53 | ANESTHESIA POST OP EVALUATION ---
Anesthesia Post Eval - Post Anesthesia Eval Vitals: Last Vital Signs Temp 36.3 C L 06/16/23 12:43 Pulse 72 06/16/23 12:43 Resp 19 06/16/23 12:43 BP 133/82 H 06/16/23 12:43 Pulse Ox 99 06/16/23 12:43 O2 Flow Rate CV Function Including HR & BP: Stable Pain Control: Satisfactory Nausea & Vomiting: Negative Mental Status: Baseline Respiratory Status: Airway Patent Hydration Status: Satisfactory Anesthesia Complications: None
[2023-06-16] MEDS ORDERED: LACTATED RINGERS 1,000 ML IV SCH (13:00)
[2023-06-16 13:02] VITALS: BP 137/85; O2SAT 98
== END 2023-06-16 09:21 | disposition home or self-care (01) ==
LOC: SDS 09:20
PROVIDERS: ATTEND Urology
DX: N32.89 Other specified disorders of bladder (principal); G80.9 Cerebral palsy, unspecified; G40.909 Epilepsy, unspecified, not intractable, without status epilepticus
CPT/HCPCS: 52000; J7120